=== PATIENT | male | born 1965 | race African-American/Black ===

== ENCOUNTER 2016-08-26 21:20 | Inpatient (IN) | payer MEDICARE, MEDICAID ==
[~2016-08-26] VITALS: Ht 180.3 cm; Wt 95.3 kg
[~2016-08-26 21:20] MED LIST: AMLO10TA2 PO; ASPI325T70 PO; ATOR20TA PO; CALC0.25 PO; CARV12.5 PO; CIPR250T30 PO; CYCL5TAB PO; ESOM40CA PO; FAMO40TA4 PO; FOLI0.8T21 PO; FURO-68 PO; HYDR-2666 PO; HYDR-971 PO; HYDR1TAB16 PO; INSU100C SQ; INSU100C4 SQ; INSU100I13 SQ; INSU100I17 SQ; INSU100I18 SQ; LEVO250T25 PO; METO5TAB55 PO; OXYC-323 PO; PANT40TA3 PO; VIT1TABL71 PO
[2016-08-26] MEDS ORDERED: DEXTROSE 50% 25 GM / 50ML DISP.SYRIN. IV PRN (21:45)
[2016-08-26] MEDS ORDERED: FENTANYL PF 100 MCG/2 ML VIAL. IV PRN (21:45)
[2016-08-26 22:07] LABS: BASO % 0 % (0-3); EOS % 2 % (0-3); HEMATOCRIT 34.2 % (39.0-53.0); HEMOGLOBIN 10.4 g/dL (13.0-17.5); LYMPH # 0.8 x10^3/uL (1.0-4.8); LYMPH % 13 % (24-48); MEAN CORPUSCULAR HEMOGLOBIN 25 pg (25-35); MEAN CORPUSCULAR HGB CONC 31 g/dL (31-37); MEAN CORPUSCULAR VOLUME 83 fL (79-100); MONO % 9 % (0-9); NEUT % 76 % (31-73); PLATELET COUNT 92 x10^3/uL (140-400); RED BLOOD COUNT 4.13 x10^6/uL (4.30-5.70); RED CELL DISTRIBUTION WIDTH 14.7 % (11.5-14.5); WHITE BLOOD COUNT 6.2 x10^3/uL (4.0-11.0)
[2016-08-26 22:09] LABS: POTASSIUM ISTAT 3.8 mmol/L (3.5-5.0)
[2016-08-26 22:15] LABS: INR 1.3 (0.8-1.1); PROTHROMBIN TIME PATIENT 15.1 SEC (11.7-14.0)
[2016-08-26 22:18] LABS: CALCIUM 9.5 mg/dL (8.5-10.1); CREATININE 10.9 mg/dL (0.7-1.3); GFR 6.1
[2016-08-26 22:31] LABS: ALBUMIN 3.6 g/dL (3.4-5.0); ALBUMIN/GLOBULIN RATIO 0.9 (1.0-1.7); TOTAL BILIRUBIN 0.5 mg/dL (0.2-1.0); TOTAL PROTEIN 7.5 g/dL (6.4-8.2)
[2016-08-26 22:39] LABS: PLT ESTIMATE DECREASED (ADEQUATE)
[2016-08-26 22:43] LABS: PROCALCITONIN 4.57 ng/mL (0.00-0.10)
[2016-08-26 23:12] LABS: OBC FLU VALID
[2016-08-26] MEDS ORDERED: IPRATRPIUM/ALBUTEROL 0.5/2.5MG 3 ML NEBU. NEB ONE (23:30)
[2016-08-26] MEDS ORDERED: PIP/TAZO PER PHARMACY MC PRN (23:30)
[2016-08-26] MEDS ORDERED: VANCOMYCIN PER PHARMACY MC PRN (23:30)
[2016-08-27] MEDS ORDERED: PIPERACILLIN/TAZOBACTAM 2.25 GM in IV NORMAL SALINE 50ML 50 ML IV ONE ×2
[2016-08-27] MEDS ORDERED: VANCOMYCIN 2 GM in IV NORMAL SALINE 500ML BAG 500 ML IV ONE (00:30)
[2016-08-27] MEDS ORDERED: DEXTROSE 50% 25 GM / 50ML DISP.SYRIN. IV PRN ×2 (01:00→10:15)
--- NOTE | 2016-08-27 02:14 | RAD ---
Right upper extremity arterial Doppler: Reason for examination: Right hand swelling with 5th digit necrosis. Patient said they are waiting for surgery to improve the flow to his hand. The right upper extremity arterial system was evaluated from the subclavian artery distally to the radial and ulnar arteries with grayscale imaging, color flow imaging and spectral analysis. There is monophasic turbulent blood flow throughout the entire right upper extremity arterial system with decreased flow velocity in the right radial and ulnar arteries. A dialysis port is present in the upper right arm. Right upper arm fistula is open. Impression: Monophasic waveform throughout the right upper extremity arterial system with decreased blood flow on the right radial and ulnar arteries. Right upper arm fistula is open. Electronically signed by: Kathie Jorgensen MD (Aug 27, 2016 02:12:37)
--- NOTE | 2016-08-27 02:56 | ED.ADGEN ---
Past Medical History Past Medical History: Diabetes-Type I, GERD, High Cholesterol, Heart Disease, Hypertension, Renal Disease, Renal Failure, Other Additional Past Medical Histor: foot ulcer right, LBKA, RBKA Past Surgical History: Other Additional Past Surgical Histo: LBKA , peritoneal dialysis catheter placed,RBKA , DIALYSIS SHUNT R CHEST Alcohol Use: Occasionally Drug Use: Marijuana Adult General Chief Complaint Chief Complaint: HYPOGLYCEMIA HPI HPI Patient is a 51 year old man, history of type 2 diabetes mellitus, end-stage renal disease on hemodialysis, hypertension, hyperlipidemia, who presents emergency departments with report of altered mental status, and hypoglycemia. Patient presents via EMS, was at home, was minimally responsive, noted to have a glucose in the 30s. Patient did receive D50 en route to the ED. Repeat glucose is in the 100s. Patient is awake, alert, slightly slow to respond. Nasal cannula with oxygen in place, patient noted to be hypothermic, rectal temperature 94.2. Patient denies taking any additional insulin, states he last ate about 2 hours ago, and took his insulin as directed. He denies any other euglycemic medications. Complains of some chills today, generalized weakness, no fevers. No GI or complaints. Patient's last dialysis was yesterday and was completed without issue. Patient initially noted to be hypoxic, oxygen saturation 89% on room air for EMS, patient placed on 2 L nasal cannula, saturation in the mid 90s. Patient denies any chest pain or shortness of breath. Denies any productive cough. Review of Systems Review of Systems Constitutional: Denies, complaining of chills. Generalized weakness. Eyes: Denies change in visual acuity. [] HENT: Denies nasal congestion or sore throat. [] Respiratory: Denies cough or shortness of breath. [] Cardiovascular: Denies chest pain or edema. [] GI: Denies abdominal pain, nausea, vomiting, bloody stools or diarrhea. [] : Denies dysuria. [] Musculoskeletal: Denies back pain or joint pain. [] Integument: Denies rash. [] Neurologic: Denies headache, focal weakness or sensory changes. [] Endocrine: Denies polyuria or polydipsia. [] Lymphatic: Denies swollen glands. [] Psychiatric: Denies depression or anxiety. [] Current Medications Current Medications Current Medications Medications (Trade) Dose Ordered Sig/Dawn Start Time Stop Time Status Last Admin Dose Admin Albuterol/ Ipratropium (Duoneb) 3 ml 1X ONCE 08/26/16 23:30 08/26/16 23:31 DC 08/26/16 23:24 3 ML Dextrose 12.5 gm PRN Q15MIN PRN 08/27/16 01:00 Fentanyl Citrate (Fentanyl 2ml Vial) 25 mcg PRN Q15MIN PRN 08/26/16 21:45 08/27/16 21:44 Piperacillin Sod/ Tazobactam Sod 2.25 gm/Sodium Chloride 50 ml @ 100 mls/hr 1X ONCE 08/27/16 00:00 08/27/16 00:29 DC 08/26/16 23:56 100 MLS/HR Piperacillin Sod/ Tazobactam Sod 1 each 1 each PRN DAILY PRN 08/26/16 23:30 Vancomycin HCl (Vanco Per Pharmacy) 1 each PRN DAILY PRN 08/26/16 23:30 Vancomycin HCl/ Sodium Chloride (Iv Sodium Chloride 0.9% 500ml Bag) 500 ml @ 250 mls/hr 1X ONCE 08/27/16 00:30 08/27/16 02:29 DC 08/27/16 03:24 250 MLS/HR Allergies Allergies Allergies Coded Allergies Type Severity Reaction Last Updated Verified No Known Drug Allergies 03/07/15 No Physical Exam Physical Exam Constitutional: Well developed, well nourished, no acute distress, non-toxic appearance. [] HENT: Normocephalic, atraumatic, bilateral external ears normal, oropharynx moist, no oral exudates, nose normal. [] Eyes: PERRLA, EOMI, conjunctiva normal, no discharge. [] Neck: Normal range of motion, no tenderness, supple, no stridor. [] Cardiovascular:Heart rate regular rhythm, no murmur, S1, S2, rubs or gallops. [] Lungs & Thorax: Patient with coarse breath sounds bilaterally, wheezing, patient with rhonchi noted throughout the lung dotson. Abdomen: Bowel sounds normal, soft, no tenderness, no rebound, rigidity, no guarding, no masses, no pulsatile masses. [] Skin: Warm, dry, no erythema, no rash. [] Back: No tenderness, no CVA tenderness. [] Extremities: Patient with swelling of the right hand, patient with AV fistula in place in his arm, patient's distal right fifth digit with necrosis, dry gangrene. Neurologic: Alert and oriented X 3, normal motor function, normal sensory function, no focal deficits noted. [] Psychologic: Affect normal, judgement normal, mood normal. [] Current Patient Data Vital Signs Vital Signs Date Time Temp Pulse Resp B/P Pulse Ox O2 Delivery O2 Flow Rate FiO2 08/27/16 00:21 97.6 97.6 08/26/16 23:26 90 Nasal Cannula 2.0 08/26/16 22:07 66 12 130/78 Lab Values Laboratory Tests Test 08/26/16 21:28 08/26/16 21:52 08/26/16 21:56 08/26/16 21:58 Glucose (Fingerstick) 122mg/dL (70-99) H White Blood Count 6.2x10^3/uL (4.0-11.0) Red Blood Count 4.13x10^6/uL (4.30-5.70) L Hemoglobin 10.4g/dL (13.0-17.5) L Hematocrit 34.2% (39.0-53.0) L Mean Corpuscular Volume 83fL (79-100) Mean Corpuscular Hemoglobin 25pg (25-35) Mean Corpuscular Hemoglobin Concent 31g/dL (31-37) Red Cell Distribution Width 14.7% (11.5-14.5) H Platelet Count 92x10^3/uL (140-400) L Neutrophils (%) (Auto) 76% (31-73) H Lymphocytes (%) (Auto) 13% (24-48) L Monocytes (%) (Auto) 9% (0-9) Eosinophils (%) (Auto) 2% (0-3) Basophils (%) (Auto) 0% (0-3) Neutrophils # (Auto) 4.7x10^3uL (1.8-7.7) Lymphocytes # (Auto) 0.8x10^3/uL (1.0-4.8) L Monocytes # (Auto) 0.6x10^3/uL (0.0-1.1) Eosinophils # (Auto) 0.1x10^3/uL (0.0-0.7) Basophils # (Auto) 0.0x10^3/uL (0.0-0.2) Platelet Estimate Decreased (ADEQUATE) Prothrombin Time 15.1SEC (11.7-14.0) H Prothrombin Time INR 1.3 (0.8-1.1) H PTT 35SEC (24-38) Sodium Level 147mmol/L (136-145) H Potassium Level 4.0mmol/L (3.5-5.1) Chloride Level 105mmol/L (98-107) Carbon Dioxide Level 28mmol/L (21-32) Anion Gap 14 (6-14) 17mmol/L (6-14) H Blood Urea Nitrogen 45mg/dL (8-26) H Creatinine 10.9mg/dL (0.7-1.3) H Estimated GFR (Cockcroft-Gault) 6.1 BUN/Creatinine Ratio 4 (6-20) L Glucose Level 139mg/dL (70-99) H 131mg/dL (70-99) H Lactic Acid Level 1.6mmol/L (0.4-2.0) Calcium Level 9.5mg/dL (8.5-10.1) Total Bilirubin 0.5mg/dL (0.2-1.0) Aspartate Amino Transferase (AST) 9U/L (15-37) L Alanine Aminotransferase (ALT) 16U/L (16-63) Alkaline Phosphatase 82U/L (46-116) Total Protein 7.5g/dL (6.4-8.2) Albumin 3.6g/dL (3.4-5.0) Albumin/Globulin Ratio 0.9 (1.0-1.7) L Lipase 67U/L (73-393) L Procalcitonin 4.57ng/mL (0.00-0.10) H POC Troponin I 0.01ng/ml (<0.08) POC Hemoglobin 12.6g/dL (14-18) L POC Hematocrit 37% (37-52) POC Sodium 143mmol/L (135-145) POC Potassium 3.8mmol/L (3.5-5.0) POC Chloride 102mmol/L (98-110) POC Total CO2 29mmol/L (23-32) POC Blood Urea Nitrogen 41mg/dL (8-26) H POC Creatinine 9.8mg/dL (0.5-1.4) H POC Ionized Calcium (Gretel) 1.20mmol/L (1.13-1.32) Test 08/26/16 22:14 08/26/16 22:45 08/26/16 23:15 08/27/16 00:19 Glucose (Fingerstick) 154mg/dL (70-99) H 219mg/dL (70-99) H 289mg/dL (70-99) H Influenza Type A Antigen Negative (NEGATIVE) Influenza Type B Antigen Negative (NEGATIVE) Laboratory Tests 08/26/16 21:52 Laboratory Tests 08/26/16 21:52 08/26/16 21:58 EKG EKG EC: Sinus rhythm, heart rate 72 beats minute, nonspecific interventricular block, QTC of 513, TN of 170, QRS of 154, contour normality is noted in the anterior and septal leads. Abnormal ECG, does not meet STEMI criteria. As interpreted by me. Radiology/Procedures Radiology/Procedures [] [facility] [address] [place] [address] IMAGING REPORT Signed PATIENT: MIKALA QUIÑONES ACCOUNT: [id number] : 1965 LOCATION: [facility]TH AGE: 51 SEX: M EXAM STATUS: ADM IN ORD. PHYSICIAN: MIYA CARPIO DO REASON: hand swelling/necrosis PROCEDURE: UPPER EXT ARTERIAL RIGHT Right upper extremity arterial Doppler: Reason for examination: Right hand swelling with 5th digit necrosis. Patient said they are waiting for surgery to improve the flow to his hand. The right upper extremity arterial system was evaluated from the subclavian artery distally to the radial and ulnar arteries with grayscale imaging, color flow imaging and spectral analysis. There is monophasic turbulent blood flow throughout the entire right upper extremity arterial system with decreased flow velocity in the right radial and ulnar arteries. A dialysis port is present in the upper right arm. Right upper arm fistula is open. Impression: Monophasic waveform throughout the right upper extremity arterial system with decreased blood flow on the right radial and ulnar arteries. Right upper arm fistula is open. Electronically signed by: Kathie Paz MD (Aug 27, 2016 02:12:37) DICTATED and SIGNED BY: TRACI PAZ MD DATE: 08/27/16 0212 CC: MIYA CARPIO DO; LUISA SCHWARTZ MD ~ Course & Med Decision Making Course & Med Decision Making Pertinent Labs and Imaging studies reviewed. (See chart for details) With hypothermia, hypoglycemia, and presence of swelling with necrosis of hand, concern for sepsis source as patient denies any misuse of medication. Hypoglycemia protocol in place, patient initiated on antibiotic coverage, Christie hugger, laboratory studies and imaging obtained. Doppler arterial ultrasound of the right upper extremity reveals a patent AV fistula, with diminished flow into the right upper extremity. X-ray does not reveal any acutely concerning findings. Chest x-ray also unremarkable, patient's laboratory studies reveal no significant mitral abnormalities, no cytosis. Patient remained hypothermic, Christie hugger in place, glucose did improve with serial measurements. Patient states that he is supposed to follow-up with a physician at the end of the month for treatment of his hand. Patient's hypothermia slowly resolving, glucose improved as stated. Findings as above discussed with Dr. Schwartz, the patient's primary care provider. At this point will admit to his service, med telemetry bed, continue the hypoglycemia protocol, Christie hugger, antibiotics, he will assess the patient in the morning. Bridge orders entered per discussion. Dragon Disclaimer Dragon Disclaimer This electronic medical record was generated, in whole or in part, using a voice recognition dictation system. Departure Impression: Primary Impression: Hypoglycemia Additional Impressions: Hypothermia Necrosis Disposition: ADMITTED INPATIENT Admitting Physician: Luisa Schwartz Condition: IMPROVED Problem Qualifiers MIYA CARPIO DO Aug 27, 2016 02:56
--- NOTE | 2016-08-27 05:22 | ACF ---
Admit Criteria Forms Admit Criteria Forms Admit Criteria Forms DIABETES, HYPOGLYCEMIA Clinical Indications for Admission to Inpatient Care (Place 'X' for any and all applicable criteria): Admission is indicated for ALL of the following (1)(2)(3)(4)(5): [X]I. Suspected or documented hypoglycemia (plasma glucose less than 50 mg/dL (2.78 mmol/L)) with severe clinical manifestations or issues as indicated by ANY ONE of the following: [X]a) Altered mental status (eg, coma, confusion) [ ]b) Seizure [ ]c) Ataxia [ ]d) Dysphasia [ ]e) Focal neurologic deficit(6) [ ]f) Severe weakness or fatigue [ ]g) Significant clinical signs or symptoms that do not resolve with treatment [ ]h) Hypoglycemia induced by ANY ONE of the following(7)(8)(9): [ ]i) Sulfonylurea(10) [ ]ii) Long-acting insulin (eg, half-life more than 6 hours ) (11) [X]II. Management at other levels of care (See General Criteria: Observation Care) is not feasible because of ANY ONE of the following: [X]a) Condition was not adequately corrected with treatment at other levels of care. [ ]b) Treatment at other levels of care is not appropriate because of condition severity (eg, coma). Extended stay beyond goal length of stay may be needed for(3)(12)(19): [ ]a) Long acting sulfonylurea-inducing hypoglycemia (10) [ ]b) Presentation in coma [ ]c) Identified etiology of hypoglycemia requires ongoing care (eg, infection ) [ ]d) Neurologic deficit [ ]e) Active serious comorbidities (eg, renal failure, heart failure) The original [employer] content created by [employer] has been revised. The portions of the content which have been revised are identified through the use of italic text or in bold, and [facility] [facility] has neither reviewed nor approved the modified material.All other unmodified content is copyright [employer]. Please see references footnoted in the original [employer] edition 2016 MIRNA DAS Aug 27, 2016 05:22
--- NOTE | 2016-08-27 06:11 | EKG ---
[facility] [address] [place] [address] Test Date: 2016-08-26 Test Time: 21:31:29 Pat Name: MIKALA QUIÑONES Department: Room: Gender: M Solutions Engineer: : 1965 Requested By: MIYA CARPIO Order Number: [id number] Reading MD: Measurements Intervals [place] Rate: 72 P: 31 KS: 170 QRS: 26 QRSD: 154 T: -12 QT: 462 QTc: 513 Interpretive Statements SINUS RHYTHM NON SPECIFIC INTRAVENTRICULAR BLOCK QRS(T) CONTOUR ABNORMALITY CONSISTENT WITH ANTEROSEPTAL INFARCT AGE UNDETERMINED RI6.01 Unconfirmed report No previous ECG available for comparison
[2016-08-27] MEDS: PIPERACILLIN/TAZOBACTAM 2.25 GM in IV NORMAL SALINE 50ML 50 ML IV SCH ×2 (06:35→14:00)
[2016-08-27 07:00] VITALS: BP 131/78
[2016-08-27] MEDS ORDERED: INSULIN ASPART 300 UNITS/3 ML INSULN.PEN SQ SCH (08:00)
--- NOTE | 2016-08-27 08:18 | RAD ---
Right hand, 3 views, 08/26/2016: History: Diabetes, little finger necrosis There is soft tissue loss at the tip of the little finger. No underlying fracture or definite bone destruction is seen. There are mild degenerative changes at scattered interphalangeal joints and moderate degenerative change at the first CMC joint. Extensive arterial calcifications are evident. IMPRESSION: 1. Scattered degenerative changes. 2. No acute bony abnormality is detected.
--- NOTE | 2016-08-27 09:00 | RAD ---
Portable chest, 08/26/2016: History: Shortness of breath Comparison is made to a study from 02/15/2015. The heart is at the upper limits of normal in size. There is calcific plaquing of aorta. The pulmonary vascularity is normal. No pulmonary infiltrates are seen. There is no evidence of pleural fluid. IMPRESSION: No acute cardiopulmonary abnormality is detected.
--- NOTE | 2016-08-27 10:23 | PDOC ---
Provider Note Provider Note Pt seen.H&P dictated. #[id number] IRINEO SCHWARTZ MD Aug 27, 2016 10:23
[2016-08-27] MEDS ORDERED: AMLODIPINE BESYLATE 10 MG TABLET PO SCH (10:30)
[2016-08-27 10:55] VITALS: BP 125/73
[2016-08-27] MEDS ORDERED: ENOXAPARIN 40 MG/0.4 ML DISP.SYRIN. SQ SCH (11:00)
[2016-08-27] MEDS: METOCLOPRAMIDE 5 MG TABLET PO SCH ×2 (11:53→17:16)
[2016-08-27] MEDS: INSULIN ASPART 300 UNITS/3 ML INSULN.PEN SQ SCH ×2 (11:58→17:28)
--- NOTE | 2016-08-27 12:05 | HP ---
ADMIT DATE: 08/27/2016 LOCATION: 8. REASON FOR ADMISSION TO THE HOSPITAL: Hypoglycemia. The patient has history of diabetes, end-stage renal disease, on dialysis. HISTORY OF PRESENT ILLNESS: The patient is 51-year-old male with history of diabetes complications including bilateral amputation. He has prosthesis. He goes to dialysis 3 times a week, Saturday, and Saturday. He was admitted to the ER for hypoglycemia and altered mental status. Minimally responsive. He was noted to have a glucose of 30. He was given D50 and sugar went up to 100 and slightly responsive, but he was hypothermic, rectal temperature was 94 and was admitted to the hospital. He was given broad spectrum antibiotic. Culture was done. The patient is much better now. He is anxious to go home. No fever. PAST MEDICAL HISTORY: Diabetes insulin-dependent type 2, hypertension, hyperlipidemia, congestive heart failure, chronic systolic hypertension, renal failure, hemodialysis, chronic anemia of renal disease. PAST SURGICAL HISTORY: He had bilateral leg amputation, had hemodialysis in the right upper extremity and he was on peritoneal dialysis before that. ALLERGIES: No known drug allergies. MEDICATIONS AT HOME: Lasix 40 mg twice a day, NovoLog sliding scale, Lantus 10-15 units daily, amlodipine 10 mg daily, atorvastatin 10 mg daily, calcitriol 0.25 daily, Coreg 12.5 twice a day, Reglan 5 mg 4 times daily, oxycodone 1 every 8 hours p.r.n., Protonix 40 mg daily. PERSONAL HISTORY: No history of smoking, alcohol, drug abuse. Social marijuana. FAMILY HISTORY: Positive for diabetes, hypertension, heart disease as well as kidney problems and dialysis. REVIEW OF SYSTEMS: CARDIAC: No chest pain. GASTROINTESTINAL: No nausea or vomiting. NEUROLOGICAL: No weakness. Now he is feeling better, anxious to go home. PHYSICAL EXAMINATION: VITAL SIGNS: At the time of admission shows temperature 94.5, pulse 73, respirations 12, blood pressure 167/85, 97 on room air. HEENT: Head is atraumatic. Pupils equal. Oral cavity: No congestion. NECK: Supple. Thyroid not enlarged. JVD not elevated. CHEST: Symmetrical. CARDIOVASCULAR: S1, S2. LUNGS: Clear. ABDOMEN: Soft, had scar from previous peritoneal dialysis catheter, which was removed. EXTERNAL GENITALIA: No Leone. RECTAL: Deferred. EXTREMITIES: Bilateral [id number] amputations, stumps look good, has prosthesis. The patient has an AV shunt in the right arm, thrill present. The patient has ischemic finger on the right fourth finger, has been seen [facility]. They are doing outpatient procedures. Left arm, no problems noted. NEUROLOGIC: Cranial nerves intact. Moving all extremities. No focal deficits noted. LABORATORY DATA: Shows a white count of 6, hemoglobin 10.4, platelets 92. Electrolytes show sodium 142, potassium 3.8, chloride 102, bicarbonate 29, BUN 45, creatinine 10.9, anion gap is 14. Lactic acid 1.6. LFTs were normal. Troponin was negative and influenza A and B was negative. Chest x-ray was negative. Arterial Doppler shows decreased blood flow. FINAL IMPRESSION: 1. Hypoglycemia. 2. Diabetes, insulin-dependent. 3. End-stage renal disease, on hemodialysis. 4. Problems with the shunt with some ischemia on the fourth finger, has been followed outpatient by Vascular. 5. Bilateral below the knee amputations 6. Anemia of chronic disease. 7. Chronic systolic heart failure, stable. PLAN: At this time admit to hospital, overnight observation to see how the blood sugars are. The patient is anxious to go home and if no problems we can discharge him and discontinue the antibiotics. At the present time, he was started on broad spectrum antibiotics because of hypothermia. IRINEO SCHWARTZ MD DR: MIK/latoya JOB#: [id number] / [id number]
[2016-08-27] MEDS ORDERED: HEPARIN PF for SUB-Q USE 5,000 UNIT/0.5 ML VIAL. SQ SCH (14:00)
[2016-08-27] MEDS ORDERED: OXYCODONE/APAP 5/325 TABLET. PO SCH (14:00)
[2016-08-27 15:03] VITALS: BP 122/68
[2016-08-27] MEDS ORDERED: PANTOPRAZOLE 40 MG TABLET. PO SCH (16:30)
[2016-08-27] MEDS ORDERED: CARVEDILOL 12.5 MG TABLET PO SCH (17:00)
[2016-08-27 17:23] VITALS: BP 122/68
[2016-08-27] MEDS ORDERED: INSU100I13 SQ (17:44)
[2016-08-27] MEDS ORDERED: INSU100I17 SQ (17:44)
[2016-08-27] MEDS ORDERED: ATORVASTATIN CALCIUM 20 MG TABLET PO SCH (21:00)
[2016-08-28] MEDS ORDERED: CALCITRIOL 0.25 MCG CAPSULE PO SCH (09:00)
[2016-08-29] MEDS ORDERED: VANCOMYCIN RANDOM LEVEL. MC ONE (05:00)
--- NOTE | 2016-08-29 22:25 | PDOC ---
Provider Note Provider Note Discharge summary dictated. #[id number] IRINEO SCHWARTZ MD Aug 29, 2016 22:25
--- NOTE | 2016-08-30 00:03 | DS ---
DATE OF DISCHARGE: 08/27/2016 REASON FOR ADMISSION TO THE HOSPITAL: Hypoglycemia; diabetes, insulin-dependent and end-stage renal disease. CONSULTATIONS: None. PROCEDURE DONE: None. HOSPITAL COURSE: The patient is a 51-year-old male with history of diabetes. He is on insulin 3 times daily. He is on dialysis 3 times a week, also bilateral leg amputee. He is a prosthesis. He was having confusion, was found to have a low blood sugar, was brought to the hospital. Also, hypothermic, was given fluids and ____ his temperature came back up, sugars came back up and he was feeling better, back to his baseline and is anxious to discharged go home. A1c was 6.6, glucose 209, lipase was normal, TSH was normal and sugar was 30 at the time of admission. Blood culture was negative, chest x-ray was negative. X-ray of the head negative. The patient has some problems with the finger in the right fourth. The patient ____ in the right arm has been followed by the Vascular outpatient, actually is improving from before. FINAL DIAGNOSES: 1. Hypoglycemia 2. Insulin-dependent diabetes. 3. End-stage renal disease, on dialysis. 4. Bilateral amputee. 5. Ischemic finger secondary to AV shunt has been followed by Vascular. The patient is discharged home and had on the insulin from 20 units to 10, on the Lantus 15 three times daily to 8 units of NovoLog and see how he does. IRINEO SCHWARTZ MD DR: MIK/latoya JOB#: [id number] / [id number]
== END 2016-08-27 18:23 | disposition home health service (06) | DRG 638 ==
LOC: ER 21:20 → 5 SOUTH 08-27 01:03
PROVIDERS: ADMIT Internal Medicine; ATTEND Internal Medicine
DX: E10.649 Type 1 diabetes mellitus with hypoglycemia without coma (principal); I50.22 Chronic systolic (congestive) heart failure; I13.2 Hypertensive heart and chronic kidney disease with heart failure and with stage 5 chronic kidney disease, or end stage renal disease; E10.22 Type 1 diabetes mellitus with diabetic chronic kidney disease; E78.00 Pure hypercholesterolemia, unspecified; E78.5 Hyperlipidemia, unspecified; K21.9 Gastro-esophageal reflux disease without esophagitis; D63.8 Anemia in other chronic diseases classified elsewhere; N18.6 End stage renal disease; R09.02 Hypoxemia; Z79.4 Long term (current) use of insulin; Z82.49 Family history of ischemic heart disease and other diseases of the circulatory system; Z83.3 Family history of diabetes mellitus; Z89.512 Acquired absence of left leg below knee; Z89.511 Acquired absence of right leg below knee; Z99.2 Dependence on renal dialysis
CPT/HCPCS: 36415; 71010; 73130; 80047; 80053; 80061; 82947; 83036; 83605; 83690; 84145; 84443; 84484; 85007; 85027; 85610; 85730; 87040; 87804; 93005; 93931; 94640; 96365; 96366; J1815; J2543; J3370; J7040; J7620; J8597; 99285-25

== ENCOUNTER 2016-10-15 14:33 | Emergency (ER) | payer MEDICARE, MEDICAID ==
[~2016-10-15] VITALS: Ht 189.2 cm; Wt 99.8 kg
--- NOTE | 2016-10-15 15:21 | PHYS DOC ---
Past Medical History Past Medical History: Diabetes-Type I, GERD, High Cholesterol, Heart Disease, Hypertension, Renal Disease, Renal Failure, Other Additional Past Medical Histor: foot ulcer right, LBKA, RBKA Past Surgical History: Other Additional Past Surgical Histo: LBKA , peritoneal dialysis catheter placed,RBKA , DIALYSIS SHUNT R CHEST Alcohol Use: Occasionally Drug Use: Marijuana Adult General Chief Complaint Chief Complaint: HYPOGLYCEMIA HPI HPI 51-year-old male with known history of insulin dependent diabetes had an episode of hypoglycemia prior to arrival. Per EMS, had a blood glucose of 63 in the field. Pulmonary initial assessment, the patient is fully alert and oriented and nontoxic in appearance. He is afebrile. He has no specific complaints at this time. He can follow my commands. Patient states he normally takes NovoLog 3 times a day with meals and Lantus at night. He states he took his usual NovoLog dose in the morning with his meal but then did not have lunch. He believes this is why he had a decrease in his blood glucose. He felt dizzy and lightheaded but did not fall or hit his head. Upon arrival, here his blood glucose was in the 80s. Patient is currently eating a meal and does not have any specific complaints. He denies any chest pain or shortness breath. He denies any fever or chills. He denies any nausea or vomiting. Pt was given oral glucose by EMS. Review of Systems Review of Systems Constitutional: Denies fever or chills [] Eyes: Denies change in visual acuity, redness, or eye pain [] HENT: Denies nasal congestion or sore throat [] Respiratory: Denies cough or shortness of breath [] Cardiovascular: No additional information not addressed in HPI [] GI: Denies abdominal pain, nausea, vomiting, bloody stools or diarrhea [] : Denies dysuria or hematuria [] Musculoskeletal: Denies back pain or joint pain [] Integument: Denies rash or skin lesions [] Neurologic: Denies headache, focal weakness or sensory changes [] Endocrine: Denies polyuria or polydipsia [] Allergies Allergies Allergies Coded Allergies Type Severity Reaction Last Updated Verified No Known Drug Allergies 03/07/15 No Physical Exam Physical Exam Constitutional: Well developed, well nourished, no acute distress, non-toxic appearance. [] HENT: Normocephalic, atraumatic, bilateral external ears normal, oropharynx moist, no oral exudates, nose normal. [] Eyes: PERRLA, EOMI, conjunctiva normal, no discharge. [] Neck: Normal range of motion, no tenderness, supple, no stridor. [] Cardiovascular:Heart rate regular rhythm, no murmur [] Lungs & Thorax: Bilateral breath sounds clear to auscultation [] Abdomen: Bowel sounds normal, soft, no tenderness, no masses, no pulsatile masses. [] Skin: Warm, dry, no erythema, no rash. [] Back: No tenderness, no CVA tenderness. [] Extremities: No tenderness, no cyanosis, no clubbing, ROM intact, no edema. [] Neurologic: Alert and oriented X 3, normal motor function, normal sensory function, no focal deficits noted. [] Psychologic: Affect normal, judgement normal, mood normal. [] Current Patient Data Vital Signs Vital Signs Date Time Temp Pulse Resp B/P (MAP) Pulse Ox O2 Delivery O2 Flow Rate FiO2 10/15/16 14:35 97.8 72 14 128/75 (92) 98 Room Air 97.8 Lab Values Laboratory Tests Test 10/15/16 15:33 Glucose (Fingerstick) 114 mg/dL (70-99) H EKG EKG [] Radiology/Procedures Radiology/Procedures [] Course & Med Decision Making Course & Med Decision Making Pertinent Labs and Imaging studies reviewed. (See chart for details) 51-year-old known insulin-dependent diabetic with an episode of hypoglycemia prior to arrival is having a meal upon arrival and does not have any specific complaints. The plan will be to observe the patient after having a meal and recheck his blood glucose after 1 hour. If he has no change in his mental status or change in his blood glucose level, he will be discharged home to follow closely with his primary care doctor in the next several days and to continue his insulin regimen as prescribed. Pt was observed for an hour and a half and had a blood glucose of 114 and will be safe to be discharged continue his insulin regimen at home as prescribed although with his primary care doctor next several days with instruction return if he develops any return of his symptoms. Return precautions were provided and acknowledged by the patient. Dragon Disclaimer Dragon Disclaimer This electronic medical record was generated, in whole or in part, using a voice recognition dictation system. Departure Departure Impression: Primary Impression: Hypoglycemia Disposition: HOME, SELF-CARE Admitting Physician: Other Condition: IMPROVED Referrals: IRINEO SCHWARTZ MD (PCP) Patient Instructions: Hypoglycemia, [id number] Additional Instructions: Please continue to take your insulin as prescribed. Follow up with your primary care doctor in the next several days for your episode of blood low blood glucose. Continue to eat regular meals and check your glucose regularly. Return to ER if you develop any return of your dizziness or lightheadedness or dropping of your blood sugar. DOMO CAUSEY DO October 15, 2016 15:21
[2016-10-15 16:19] VITALS: BP 140/70
== END 2016-10-15 16:21 | disposition home or self-care (01) ==
LOC: ER 14:33
DX: E10.649 Type 1 diabetes mellitus with hypoglycemia without coma (principal); K21.9 Gastro-esophageal reflux disease without esophagitis; E78.00 Pure hypercholesterolemia, unspecified; E10.22 Type 1 diabetes mellitus with diabetic chronic kidney disease; I13.10 Hypertensive heart and chronic kidney disease without heart failure, with stage 1 through stage 4 chronic kidney disease, or unspecified chronic kidney disease; N18.9 Chronic kidney disease, unspecified; F12.10 Cannabis abuse, uncomplicated; E10.621 Type 1 diabetes mellitus with foot ulcer; L97.519 Non-pressure chronic ulcer of other part of right foot with unspecified severity; Z99.2 Dependence on renal dialysis; Z79.4 Long term (current) use of insulin
CPT/HCPCS: 82962; 99284

== ENCOUNTER → 2016-11-12 | Day surgery (SDC) | payer MEDICARE, MEDICAID ==
[~2016-11-12] MED LIST changes: +IV NORMAL SALINE 1000ML BAG 1,000 ML IV SCH; +PROPOFOL 20 ML IV ONE
--- NOTE | 2016-11-12 09:07 | PDOC1 ---
HISTORY & PHYSICAL H&P Mauri Holbrook [id number] 1965 10/31/2016 03:20 PM 06/10 [facility] [email or web address] [facility] OUR PATIENTS COME FIRST [address] [place], [place] [id number] Ph. [phone] Patient: Mauri Holbrook Date of : 1965 Date: 10/31/2016 3:20 PM Visit Type: Office Visit This 51 year old male presents for Anemia. History of Present Illness: 1. Anemia Type of anemia was acquired for deficiency anemia (iron deficient). Pertinent negatives include abdominal pain, black tarry stools, bleeding gums, constipation, diarrhea, nausea, vomiting and weight loss. Additional information: Has periodic drop in hgb down to 8. Has incomplete colonoscopy in 2012. Has no rectal bleeding. No wt loss. INTAKE COMMENTS: Intake Comments: Nurse Note: the pt is here today with complaints of Anemia, the pt was suppose to have a colonoscopy in 2012 but did not prep well. PROBLEM LIST: Problem Description Onset Date ESRD (end stage renal disease) on dialysis 09/21/2015 IDDM (insulin dependent diabetes mellitus) 09/21/2015 Ulcer of finger, with fat layer exposed 03/13/2016 Amputated below knee 10/11/2010 Chronic renal impairment 10/11/2010 Hyperlipidemia 01/18/2010 Coronary atherosclerosis 01/18/2010 Osteomyelitis of ankle AND/OR foot 01/18/2010 Hypotension of hemodialysis 06/22/2015 Medicare advantage coverage 04/17/2013 Diabetes mellitus without complication 03/25/2009 Congestive heart failure 03/25/2009 Benign essential hypertension 03/25/2009 Edema 03/25/2009 Mechanical complication of peritoneal dialysis catheter 09/14/2013 Amputation leg, bilat ^ 09/21/2015 Dialysis finding 05/18/2013 End stage renal disease 05/18/2013 ESRD on peritoneal dialysis 10/25/2014 DM circ dis type II 10/25/2014 Controlled diabetes mellitus 08/17/2015 PAST MEDICAL/SURGICAL HISTORY (Detailed) Disease/disorder Onset Date Management Date Comments EGD 10/25/2011 AV shunt rt arm 09/28/2016 Congestive heart failure Esophagitis 10/25/2011 Hyperlipidemia Hypertension Lt BKA 2010 osteomylitis osteo foot 2010 bka Osteoarthritis Osteomyelitis 2014 right BKA osteomylitis lt heal 2010 lt BKA 2010 DIAGNOSTICS HISTORY: Test Ordered Interpretation Result completed UPPR GI ENDOSCOPY, DIAGNOSIS 10/25/2011 Abnormal Imp: grade l ref esophagitis, food in the stomach body. 10/25/2011 Test Ordered Ordering Comments Modifier UPPR GI ENDOSCOPY, DIAGNOSIS 10/25/2011 Gastroenterology Medications (Active): Started Medication Directions Instruction Stopped 07/06/2014 1st Tier Unifine Pentips 31 X 1/4" needle USE DIRECTED. diabetes mellitus, uncontrolled. 250.02 03/18/2013 aspirin 325 mg Tab, Delayed Release take 1 tablet (325MG) by oral route every day 12/16/2014 atorvastatin 20 mg tablet take 1 tablet by oral route every day 03/13/2016 Bactroban 2 % topical ointment apply by topical route 3 times every day a small amount to the affected area 12/16/2014 calcitriol 0.25 mcg capsule take 1 capsule by oral route every day 09/03/2016 Humalog KwikPen 100 unit/mL subcutaneous inject by subcutaneous route 10 units TID with meals. 10/30/2016 hydrocodone 10 mg-acetaminophen 325 mg tablet take 1 tablet by oral route every 8 hours as needed for pain 09/03/2016 Lantus Solostar 100 unit/mL (3 mL) subcutaneous insulin pen 10 u at hs 10/04/2014 One Touch UltraSoft Lancets Use as directed dx: diabetes mellitus, uncontrolled; 250.02 12/16/2014 InbentaTouch Ultra System Kit use as directed 06/14/2015 OneTouch Ultra Test strips USE QID DO TO FLUCTUATING /ELEVATED SUGARS (E11.51 ) ICD10 E11.51 03/08/2016 Pen Needle 31 gauge x 5/16" TO USE QID FOR DIABEES (E11.9) 10/07/2015 Reglan 5 mg tablet take 1 tablet (5MG) by oral route 4 times every day 30 minutes before meals and at bedtime 12/16/2014 Renvela 800 mg tablet take 1 tablet by oral route 3 times every day with food 03/13/2016 sulfamethoxazole 800 mg-trimethoprim 160 mg tablet take 1 tablet every day Allergies: Ingredient Reaction Medication Name Comment ARB-ANGIOTENSIN RECEPTOR ANTAGONIST hyperkalemia GLADYS INHIBITORS hyperkalemia REVIEW OF SYSTEMS System Neg/Pos Details Constitutional Negative Chills, fever, malaise and weight loss. ENMT Negative Bleeding gums and sore throat. Eyes Negative Double vision. Respiratory Negative Dyspnea and wheezing. Cardio Negative Chest pain and irregular heartbeat/palpitations. GI Positive See HPI. GI Negative Abdominal pain, black tarry stools, constipation, diarrhea, nausea, see HPI and vomiting. Negative Dysuria and hematuria. Endocrine Negative Cold intolerance and heat intolerance. Psych Negative Anxiety. Integumentary Negative Hives and rash. MS Negative Joint pain. Jeff/Lymph Negative Easy bleeding and easy bruising. Allergic/Immuno Negative Food allergies. VITAL SIGNS Time BP mm/Hg Pulse /min Resp /min Temp F Ht ft Ht in Ht cm Wt lb Wt kg BMI kg/ m2 BSA m2 O2 Sat% 4:01 PM 132/78 99 97.8 6.0 3.00 190.50 214.80 97.432 26.85 100 Time Measured by 4:01 PM Melyssa Ring PHYSICAL EXAM: Exam Findings Details Constitutional Normal Well developed. Eyes Normal Conjunctiva - Right: Normal, Left: Normal. Sclera - Right: Normal, Left: Normal. Nasopharynx Normal Lips/teeth/gums - Normal. Neck Exam Normal Inspection - Normal. Thyroid gland - Normal. Respiratory Normal Inspection - Normal. Auscultation - Normal. Cardiovascular Normal Regular rate and rhythm. No murmurs, gallops, or rubs. Vascular Normal Pulses - Carotids: Normal, Femoral: Normal, Dorsalis pedis: Normal. Abdomen Normal Inspection - Normal. Anterior palpation - No guarding. No abdominal tenderness. No hepatic enlargement. No splenic enlargement. No hernia. No ascites. Skin Normal Inspection - Normal. Extremity Normal No edema. Psychiatric * Oriented to time, place, person and situation. Psychiatric Normal Appropriate mood and effect. Assessment/Plan # Detail Type Description 1. Assessment Iron deficiency anemia due to chronic blood loss (D50.0). [place] [facility] [place] Further diagnostic evaluations ordered today include(s) Colonoscopy to be performed today. He is to schedule a follow-up visit with Jun Ford MD upon completion of work-up Electronically signed by: Jun Ford MD 10/31/2016 04:13 PM Document generated by: Jun Ford 10/31/2016 04:13 PM Mika Bowden MD, Family Practice; Cruz Goncalves MD Internal Medicine; Luisa Noonan MD, Internal Medicine; Erum Ford MD Internal Medicine; Jun Ford MD, Gastroenterology; Sadiq Bueno MD, Rheumatology, S. Jerry Roy, Physical Medicine/Rehab JDhara Martinez APRN ------ 11/12/16 Patient seen and examined. no change in H&P. JUN FORD MD Nov 12, 2016 09:07
--- NOTE | 2016-11-12 10:16 | PDOC4 ---
GI OP Report - Dr. Castillo Date/Time DATE: 11/12/16 TIME: 10:14 Attending Physician Eh Castillo MD Referring Physician Indications Iron deficiency anemia secondary to chronic blood loss Pre-Op See the Anesthesia note for documentation of the administered medications Procedures Colonoscopy Findings - Preparation of the colon was fair. Significant spasm of the colon. - The entire examined colon is normal. - No specimens collected. Plan - Discharge patient to home. - Patient has a contact number available for emergencies. The signs and symptoms of potential delayed complications were discussed with the patient. Return to normal activities tomorrow. Written discharge instructions were provided to the patient. - Resume previous diet. - Continue present medications. - Repeat colonoscopy in 10 years for surveillance. - Return to my office as needed. EH CASTILLO MD Nov 12, 2016 10:16
[2016-11-12 10:30] VITALS: BP 129/73
== END | disposition home or self-care (01) ==
LOC: ENDOS 08:36
PROVIDERS: ATTEND Internal Medicine Gastroenterology
DX: D50.0 Iron deficiency anemia secondary to blood loss (chronic) (principal); K21.9 Gastro-esophageal reflux disease without esophagitis; E78.00 Pure hypercholesterolemia, unspecified; I10 Essential (primary) hypertension; E66.9 Obesity, unspecified; D64.9 Anemia, unspecified; E16.2 Hypoglycemia, unspecified; E11.9 Type 2 diabetes mellitus without complications; Z96.651 Presence of right artificial knee joint; Z86.73 Personal history of transient ischemic attack (TIA), and cerebral infarction without residual deficits; Z86.69 Personal history of other diseases of the nervous system and sense organs; Z86.39 Personal history of other endocrine, nutritional and metabolic disease
CPT/HCPCS: 45378; 82962; J2704

== ENCOUNTER 2018-01-08 16:20 | Emergency (ER) | payer MEDICARE, MEDICAID ==
[2018-01-08] MEDS ORDERED: DEXTROSE 50% 25 GM / 50ML DISP.SYRIN. IV (16:26)
[2018-01-08] MEDS: DEXTROSE 50% 25 GM / 50ML DISP.SYRIN. IV (16:27)
[2018-01-08 16:40] LABS: ADD MAN DIFF? NO
[2018-01-08 16:46] LABS: POC GLUCOSE 12 mg/dL (70-99)
[2018-01-08 16:46] LABS: POC GLUCOSE 74 mg/dL (70-99)
[2018-01-08 16:46] LABS: BASO % 1 % (0-3); EOS # 0.1 x10^3/uL (0.0-0.7); EOS % 3 % (0-3); HEMATOCRIT 32.7 % (39.0-53.0); HEMOGLOBIN 10.3 g/dL (13.0-17.5); LYMPH # 1.3 x10^3/uL (1.0-4.8); LYMPH % 31 % (24-48); MEAN CORPUSCULAR HEMOGLOBIN 26 pg (25-35); MEAN CORPUSCULAR HGB CONC 31 g/dL (31-37); MEAN CORPUSCULAR VOLUME 83 fL (79-100); MONO # 0.6 x10^3/uL (0.0-1.1); MONO % 14 % (0-9); NEUT # 2.2 x10^3uL (1.8-7.7); NEUT % 51 % (31-73); PLATELET COUNT 100 x10^3/uL (140-400); RED BLOOD COUNT 3.96 x10^6/uL (4.30-5.70); RED CELL DISTRIBUTION WIDTH 17.1 % (11.5-14.5); WHITE BLOOD COUNT 4.3 x10^3/uL (4.0-11.0)
[2018-01-08 16:53] LABS: ANION GAP 10 (6-14); BLOOD UREA NITROGEN 64 mg/dL (8-26); CALCIUM 10.5 mg/dL (8.5-10.1); CARBON DIOXIDE 32 mmol/L (21-32); CHLORIDE 103 mmol/L (98-107); CREATININE 12.2 mg/dL (0.7-1.3); GFR 5.3; POTASSIUM 4.5 mmol/L (3.5-5.1); SODIUM 145 mmol/L (136-145)
[2018-01-08 16:56] LABS: GLUCOSE 22 mg/dL (70-99)
[2018-01-08 17:12] LABS: POC GLUCOSE 48 mg/dL (70-99)
[2018-01-08 17:36] LABS: POC GLUCOSE 61 mg/dL (70-99)
[2018-01-08 17:40] LABS: PLT ESTIMATE DECREASED (ADEQUATE)
[2018-01-08 17:42] LABS: ANISOCYTOSIS SLIGHT; HYPOCHROMIA SLIGHT; MICROCYTOSIS SLIGHT; POIKILOCYTOSIS MOD
[2018-01-08 17:43] LABS: HELMET CELLS OCC; OVALOCYTES FEW; SCHISTOCYTES FEW
[2018-01-08 18:35] LABS: POC GLUCOSE 99 mg/dL (70-99)
== END 2018-01-08 18:52 | disposition home or self-care (01) ==
LOC: ER 16:20
DX: E10.649 Type 1 diabetes mellitus with hypoglycemia without coma (principal); E78.00 Pure hypercholesterolemia, unspecified; I13.11 Hypertensive heart and chronic kidney disease without heart failure, with stage 5 chronic kidney disease, or end stage renal disease; E10.22 Type 1 diabetes mellitus with diabetic chronic kidney disease; N18.6 End stage renal disease; E10.621 Type 1 diabetes mellitus with foot ulcer; Z99.2 Dependence on renal dialysis
CPT/HCPCS: 36415; 80048; 82962; 85025; 93005; 96374; 99285-25; J7042

== ENCOUNTER 2018-01-13 07:02 | Outpatient (CLI) | payer MEDICARE, MEDICAID ==
[2018-01-13 07:47] LABS: INR 1.3 (0.8-1.1); PROTHROMBIN TIME PATIENT 15.2 SEC (11.7-14.0)
[2018-01-13 07:56] LABS: ADD MAN DIFF? NO
[2018-01-13 08:03] LABS: BASO % 1 % (0-3); EOS # 0.1 x10^3/uL (0.0-0.7); EOS % 2 % (0-3); HEMATOCRIT 33.2 % (39.0-53.0); HEMOGLOBIN 10.4 g/dL (13.0-17.5); LYMPH % 24 % (24-48); MEAN CORPUSCULAR HEMOGLOBIN 26 pg (25-35); MEAN CORPUSCULAR HGB CONC 31 g/dL (31-37); MEAN CORPUSCULAR VOLUME 83 fL (79-100); MONO # 0.5 x10^3/uL (0.0-1.1); MONO % 11 % (0-9); NEUT # 2.5 x10^3uL (1.8-7.7); NEUT % 62 % (31-73); PLATELET COUNT 93 x10^3/uL (140-400); RED BLOOD COUNT 4.01 x10^6/uL (4.30-5.70); RED CELL DISTRIBUTION WIDTH 16.9 % (11.5-14.5); WHITE BLOOD COUNT 4.1 x10^3/uL (4.0-11.0)
[2018-01-13] MEDS ORDERED: LIDOCAINE WITH 8.4% SOD BICARB 3 ML DISP.SYRIN. (08:14)
[2018-01-13] MEDS ORDERED: MIDAZOLAM HCL/PF 2 MG/2 ML VIAL. (08:40)
[2018-01-13] MEDS ORDERED: fentaNYL PF VIAL 100 MCG/2 ML VIAL (08:40)
[2018-01-13] MEDS: LIDOCAINE WITH 8.4% SOD BICARB 3 ML DISP.SYRIN. IJ (09:10)
[2018-01-13] MEDS: fentaNYL PF VIAL 100 MCG/2 ML VIAL IV (09:10)
[2018-01-13] MEDS: MIDAZOLAM HCL/PF 2 MG/2 ML VIAL. IV (09:11)
== END 2018-01-13 11:45 | disposition home or self-care (01) ==
LOC: INTRAD 07:02
DX: D61.818 Other pancytopenia (principal); I13.2 Hypertensive heart and chronic kidney disease with heart failure and with stage 5 chronic kidney disease, or end stage renal disease; E11.22 Type 2 diabetes mellitus with diabetic chronic kidney disease; N18.6 End stage renal disease; I50.9 Heart failure, unspecified; Z99.2 Dependence on renal dialysis; K21.9 Gastro-esophageal reflux disease without esophagitis; I25.10 Atherosclerotic heart disease of native coronary artery without angina pectoris; E66.9 Obesity, unspecified; Z68.26 Body mass index [BMI] 26.0-26.9, adult; Z79.899 Other long term (current) drug therapy; Z86.73 Personal history of transient ischemic attack (TIA), and cerebral infarction without residual deficits; E78.00 Pure hypercholesterolemia, unspecified; E11.42 Type 2 diabetes mellitus with diabetic polyneuropathy; Z79.01 Long term (current) use of anticoagulants; Z89.512 Acquired absence of left leg below knee; Z89.511 Acquired absence of right leg below knee; M86.9 Osteomyelitis, unspecified; E11.649 Type 2 diabetes mellitus with hypoglycemia without coma; D64.9 Anemia, unspecified; Z86.14 Personal history of Methicillin resistant Staphylococcus aureus infection; Z98.890 Other specified postprocedural states; Z79.82 Long term (current) use of aspirin; Z79.4 Long term (current) use of insulin
CPT/HCPCS: 36415; 38222; 77012; 85025; 85610; 88184; 88185; 88237; 99152; J2250; J3010

== ENCOUNTER 2018-02-14 09:39 | Inpatient (IN) | payer MEDICARE ==
[~2018-02-14] VITALS: Ht 188 cm; Wt 96.6 kg
[~2018-02-14 09:39] MED LIST changes: -AMOX1TAB58 PO; -DOXY50CA PO
[2018-02-14] MEDS ORDERED: DEXTROSE 50% 25 GM / 50ML DISP.SYRIN. IV PRN (10:45)
[2018-02-14] MEDS ORDERED: traMADol 50 MG TABLET PO PRN (10:45)
--- NOTE | 2018-02-14 10:48 | PDOC ---
Provider Note Provider Note Pt seen.H&P to be dictated. IRINEO SCHWARTZ MD Feb 14, 2018 10:48
[2018-02-14 11:00] VITALS: BP 140/73
[2018-02-14] MEDS ORDERED: VANCOMYCIN 1.25 GM in IV NORMAL SALINE 250ML 250 ML IV ONE (11:00)
[2018-02-14 11:15] LABS: BASO % 1 % (0-3); EOS # 0.2 x10^3/uL (0.0-0.7); EOS % 4 % (0-3); HEMATOCRIT 25.7 % (39.0-53.0); HEMOGLOBIN 8.2 g/dL (13.0-17.5); LYMPH # 0.7 x10^3/uL (1.0-4.8); LYMPH % 19 % (24-48); MEAN CORPUSCULAR HEMOGLOBIN 26 pg (25-35); MEAN CORPUSCULAR HGB CONC 32 g/dL (31-37); MEAN CORPUSCULAR VOLUME 81 fL (79-100); MONO # 0.5 x10^3/uL (0.0-1.1); MONO % 14 % (0-9); NEUT # 2.4 x10^3uL (1.8-7.7); NEUT % 61 % (31-73); PLATELET COUNT 162 x10^3/uL (140-400); RED BLOOD COUNT 3.17 x10^6/uL (4.30-5.70); WHITE BLOOD COUNT 3.8 x10^3/uL (4.0-11.0)
[2018-02-14] MEDS ORDERED: C.DIFF MED SCREEN BY RX. MC ONE (11:15)
--- NOTE | 2018-02-14 11:27 | PDOC ---
Infectious Disease Note Labs Lab Laboratory Tests Test 02/14/18 11:08 Glucose (Fingerstick) 198 mg/dL (70-99) Objective Assessment Right stump infection/abscess s/p local I and D CKD on HD DM H/o Staph and strep/PSA Plan Plan of Care Agree with Vanc/Zosyn Await Ortho eval F/u labs and cults Thank you # [id number] Previous records reviewed RAYMOND NGO MD Feb 14, 2018 11:27
[2018-02-14] MEDS ORDERED: VANCOMYCIN 2 GM in IV NORMAL SALINE 500ML BAG 500 ML IV ONE (11:30)
[2018-02-14 12:02] LABS: ALBUMIN 2.8 g/dL (3.4-5.0); ALBUMIN/GLOBULIN RATIO 0.6 (1.0-1.7); CREATININE 10.3 mg/dL (0.7-1.3); GFR 6.5; POTASSIUM 4.3 mmol/L (3.5-5.1); TOTAL BILIRUBIN 0.5 mg/dL (0.2-1.0); TOTAL PROTEIN 7.7 g/dL (6.4-8.2)
[2018-02-14] MEDS: SEVELAMER CARBONATE 800 MG TABLET. PO SCH ×2 (12:42→16:54)
[2018-02-14] MEDS: CARVEDILOL 12.5 MG TABLET. PO SCH ×2 (12:42→16:54)
[2018-02-14] MEDS: METOCLOPRAMIDE 5 MG TABLET. PO SCH ×3 (12:42→21:29)
[2018-02-14] MEDS: ASPIRIN ENTERIC COATED 325 MG TABLET.DR. PO SCH (12:42)
[2018-02-14] MEDS: INSULIN LISPRO 300 UNITS/3 ML INSULN.PEN. SQ SCH ×4 (12:46→17:01)
[2018-02-14] MEDS: PIPERACILLIN/TAZOBACTAM 2.25 GM in IV NORMAL SALINE 50ML 50 ML IV SCH ×2 (14:40→21:30)
[2018-02-14 15:00] VITALS: BP 105/50
[2018-02-14] MEDS: VANCOMYCIN PER PHARMACY MC PRN (15:35)
--- NOTE | 2018-02-14 18:38 | HP ---
ADMIT DATE: 02/14/2018 LOCATION: 50 REASON FOR ADMISSION TO THE HOSPITAL: Abscess, right leg stump; diabetes; end-stage renal disease. HISTORY OF PRESENT ILLNESS: The patient is a 52-year-old male patient who came in the last week for fever and pain in the right stump. At that time, the patient did not have any abscess and fever, was down, white count was down. He was discharged on Keflex. [facility] ulceration on the left leg, but he was found to have a deep abscess which was kind of draining on the right stump. The patient was admitted to the hospital because of possible abscess in the right stump. PAST MEDICAL HISTORY: As mentioned above, the patient has history of diabetes, complications including bilateral [id number] amputation, has bilateral prosthesis, has AV shunt for dialysis. He had peritoneal dialysis catheter in the past, which was removed and medical history of diabetes, hypertension, hyperlipidemia, anemia of chronic disease, chronic systolic heart failure, coronary artery disease stable. ALLERGIES: No known drug allergies. MEDICATIONS AT HOME: The patient is on insulin, Lantus 15 at bedtime, 10 units of NovoLog 3 times daily, aspirin 1 daily, atorvastatin 10 mg daily, Coreg 12.5 tablets 25 mg twice a day, Pepcid 20 mg daily, Renvela 800 mg 3 times daily, tramadol 50 mg at bedtime. He was started on Keflex recently last week. PERSONAL HISTORY: Smokes marijuana socially. Denies regular cigarettes. Denies alcohol. The patient is on chronic narcotic pain medications. FAMILY HISTORY: Positive for diabetes, hypertension, heart disease and dialysis. REVIEW OF SYSTEMS: CARDIAC: No chest pain. GASTROINTESTINAL: No nausea, vomiting. EXTREMITIES: Pain in the stump. Fever last week. No more fevers, some drainage. Rest of the 14 systems was reviewed and negative. PHYSICAL EXAMINATION: GENERAL: The patient is not in any distress. VITAL SIGNS: Temperature 97, pulse 80, respirations 20, blood pressure 140/73, 100% room air. HEENT: Head is atraumatic. Pupils equal. Oral cavity: No congestion. NECK: Supple. Thyroid not enlarged. JVD not elevated. CHEST: Symmetrical. CARDIOVASCULAR: S1, S2. LUNGS: Clear. ABDOMEN: Soft, had scar from previous peritoneal dialysis catheter. EXTERNAL GENITALIA: No Leone. RECTAL: Deferred. EXTREMITIES: The patient has bilateral [id number]-jiof amputation. Left leg has a small ulceration superficial stage 2, which is 2 cm. On the right, the patient has some abscess which is kind of draining. [facility] was [facility]. The patient has AV shunt in the left arm. The patient had amputation of the right fifth digit from avascular necrosis. LABORATORY DATA: White count 3.8, hemoglobin 8.2, platelets 162. Electrolytes show sodium 143, potassium 4.3, chloride 101, bicarb 30, BUN 47, creatinine 10.3, glucose 227. LFTs were normal. FINAL IMPRESSION: 1. Right leg stump possible abscess, draining now. 2. Left stump ulceration stage 2, superficial. 3. Diabetes, insulin-dependent. 4. End-stage renal disease, on hemodialysis. 5. 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 6. Hypertension. 7. Hyperlipidemia. 8. Chronic systolic heart failure, stable. 9. Anemia of chronic disease. PLAN: At this time, was admitted to the hospital. Wound culture was done. IV antibiotics, vancomycin and Zosyn. ID was consulted. We will also have orthopedic look at the stump to see if he needs to have surgical debridement and see how the patient's condition improves. IRINEO SCHWARTZ MD DR: MIK/latoya JOB#: [id number] / [id number]
[2018-02-14 19:00] VITALS: BP 116/63
[2018-02-14] MEDS ORDERED: INSULIN GLARGINE 300 UNITS/3 ML INSULN.PEN. SQ SCH (21:00)
[2018-02-14] MEDS: ATORVASTATIN CALCIUM 20 MG TABLET PO SCH (21:29)
[2018-02-14] MEDS: LACTOBACILLUS RHAMNOSUS GG 1 CAPSULE. PO SCH (21:29)
[2018-02-14] MEDS: FAMOTIDINE 20 MG TABLET. PO SCH (21:29)
[2018-02-14 22:48] VITALS: BP 145/67
--- NOTE | 2018-02-15 02:20 | CONS ---
DATE OF CONSULTATION: 02/14/2018 LOCATION: The patient's room is 508. REQUESTING PHYSICIAN: Dr. Noonan. REASON FOR CONSULTATION: Stump infection. HISTORY OF PRESENT ILLNESS: The patient is a pleasant 52-year-old gentleman with history of diabetes and has had previous foot infections with MSSA and Strep anginosus. He is now a bilateral amputee and uses prosthesis. He states a little over a week ago, he started to develop some discomfort in his right prosthesis. Denies any known trauma, no falls. He was actually admitted to the hospital on 02/08/2018 as he had a fever of 100.1. He was placed on some cephalexin initially and was given some vancomycin and Zosyn, but subsequently, he was discharged home and was followed up in Dr. Noonan's office and continued on antibiotics. He denied any fevers or chills or sweats, but states that he developed more pain in his legs, had difficulty walking, had to use a walker and was referred to the wound care center today. He had an appointment, was found to have an abscess. Apparently, they did an I and D on it and admitted him to the hospital. He has now been placed on vancomycin and Zosyn. Again, no fevers or chills or sweats. No headache, sore throat, cough or chest pain. No nausea, vomiting or diarrhea. He does not make any urine and has no complications with his dialysis. PAST MEDICAL HISTORY: Positive for diabetes, hypertension, coronary artery disease, chronic systolic heart failure, anemia of chronic disease, history of MSSA and strep infections. He has had PD catheter dysfunctions, history of erosion of his peritoneal dialysis catheter into the small bowel. PAST SURGICAL HISTORY: Positive for laparoscopic repair of the small bowel and dialysis catheter removal. He has had dialysis catheter placements, bilateral lower extremity amputee for osteomyelitis of his foot, also has a history of previous Pseudomonas. REVIEW OF SYSTEMS: Otherwise negative except for mentioned above. ALLERGIES: No known drug allergies. SOCIAL HISTORY: No tobacco, alcohol, occasional marijuana use. FAMILY HISTORY: Positive for diabetes, hypertension, kidney failure. CURRENT MEDICATIONS: Have been started including Zosyn, vancomycin, Ecotrin, Lipitor, Coreg, insulin, Reglan. Other meds are available and have been reviewed in the chart. PHYSICAL EXAMINATION: VITAL SIGNS: Currently pending. CONSTITUTIONAL: He is very pleasant. He is cooperative. He is in no acute distress. HEENT: Pupils equal and reactive. He has normal conjunctivae. Oral cavity, pharynx is clear. NECK: Supple, no JVD. LUNGS: Clear to auscultation bilaterally. HEART: S1, S2. ABDOMEN: Soft, nontender, nondistended. EXTREMITIES: Without clubbing or cyanosis. He has bilateral amputee. His right stump has an area with packing in it now. There is some bogginess and some warmth and some mild erythema and some other odor associated with it. SKIN: Otherwise without signs of rash. NEUROLOGIC: He is otherwise nonfocal. PSYCHIATRIC: Affect is appropriate. LABORATORY DATA: Currently pending. His white count was 6.7 on 02/08/2018. Cultures are all pending. He had negative blood cultures back on 02/08/2018. IMPRESSION: 1. Right stump infection/abscess, status post local incision and drainage. 2. Chronic kidney disease, on hemodialysis. 3. Diabetes. 4. History of Staphylococcus with Streptococcus. RECOMMENDATIONS: Agree with vancomycin and Zosyn for now. Await orthopedic evaluation. Follow up on cultures. Dr. Noonan, thank you for allowing me to see and participate in the patient's care. Should you have any further concerns or questions, please do not hesitate to contact me. RAYMOND NGO MD DR: RODRIGO/latoya JOB#: [id number] / [id number]
[2018-02-15 02:56] VITALS: BP 152/72
[2018-02-15] MEDS ORDERED: VANCOMYCIN RANDOM LEVEL. MC ONE (05:00)
[2018-02-15 07:00] VITALS: BP 152/71
--- NOTE | 2018-02-15 07:18 | PDOC ---
Infectious Disease Note Subjective Subjective Doing ok No Pain/F/C/s/N/V/D/ALDEN/rash. ROS ROS o/w neg Vital Sign Vital Signs Vital Signs Date Time Temp Pulse Resp B/P (MAP) Pulse Ox O2 Delivery O2 Flow Rate FiO2 02/15/18 02:56 97.7 80 18 152/72 (98) 100 Room Air 97.7 Physical Exam PHYSICAL EXAM CONSTITUTIONAL: He is very pleasant. He is cooperative. He is in no acute distress. HEENT: Pupils equal and reactive. He has normal conjunctivae. Oral cavity, pharynx is clear. NECK: Supple, no JVD. LUNGS: Clear to auscultation bilaterally. HEART: S1, S2. ABDOMEN: Soft, nontender, nondistended. EXTREMITIES: Without clubbing or cyanosis. He has bilateral amputee. His right stump has an area with packing in it now. There is some less bogginess and still some warmth and some mild erythema and less odor associated with it. SKIN: Otherwise without signs of rash. NEUROLOGIC: He is otherwise nonfocal. PSYCHIATRIC: Affect is appropriate. Labs Lab Laboratory Tests Test 02/14/18 10:50 02/14/18 11:08 02/14/18 16:53 02/14/18 20:31 White Blood Count 3.8 x10^3/uL (4.0-11.0) Red Blood Count 3.17 x10^6/uL (4.30-5.70) Hemoglobin 8.2 g/dL (13.0-17.5) Hematocrit 25.7 % (39.0-53.0) Mean Corpuscular Volume 81 fL (79-100) Mean Corpuscular Hemoglobin 26 pg (25-35) Mean Corpuscular Hemoglobin Concent 32 g/dL (31-37) Red Cell Distribution Width 17.0 % (11.5-14.5) Platelet Count 162 x10^3/uL (140-400) Neutrophils (%) (Auto) 61 % (31-73) Lymphocytes (%) (Auto) 19 % (24-48) Monocytes (%) (Auto) 14 % (0-9) Eosinophils (%) (Auto) 4 % (0-3) Basophils (%) (Auto) 1 % (0-3) Neutrophils # (Auto) 2.4 x10^3uL (1.8-7.7) Lymphocytes # (Auto) 0.7 x10^3/uL (1.0-4.8) Monocytes # (Auto) 0.5 x10^3/uL (0.0-1.1) Eosinophils # (Auto) 0.2 x10^3/uL (0.0-0.7) Basophils # (Auto) 0.0 x10^3/uL (0.0-0.2) Sodium Level 143 mmol/L (136-145) Potassium Level 4.3 mmol/L (3.5-5.1) Chloride Level 101 mmol/L (98-107) Carbon Dioxide Level 30 mmol/L (21-32) Anion Gap 12 (6-14) Blood Urea Nitrogen 47 mg/dL (8-26) Creatinine 10.3 mg/dL (0.7-1.3) Estimated GFR (Cockcroft-Gault) 6.5 BUN/Creatinine Ratio 5 (6-20) Glucose Level 227 mg/dL (70-99) Calcium Level 10.0 mg/dL (8.5-10.1) Total Bilirubin 0.5 mg/dL (0.2-1.0) Aspartate Amino Transf (AST/SGOT) 9 U/L (15-37) Alanine Aminotransferase (ALT/SGPT) 10 U/L (16-63) Alkaline Phosphatase 47 U/L (46-116) Total Protein 7.7 g/dL (6.4-8.2) Albumin 2.8 g/dL (3.4-5.0) Albumin/Globulin Ratio 0.6 (1.0-1.7) Glucose (Fingerstick) 198 mg/dL (70-99) 133 mg/dL (70-99) 42 mg/dL (70-99) Test 02/14/18 20:55 02/14/18 21:22 02/15/18 02:04 02/15/18 04:35 Glucose (Fingerstick) 61 mg/dL (70-99) 77 mg/dL (70-99) 230 mg/dL (70-99) Random Vancomycin Level 35.2 mcg/mL Objective Assessment Right stump infection/abscess s/p local I and D CKD on HD DM H/o Staph and strep/PSA Plan Plan of Care Cont Vanc/Zosyn Await Ortho eval Local wound care F/u labs and cults RAYMOND NGO MD Feb 15, 2018 07:18
[2018-02-15] MEDS: METOCLOPRAMIDE 5 MG TABLET. PO SCH ×4 (07:30→20:45)
[2018-02-15] MEDS: CARVEDILOL 12.5 MG TABLET. PO SCH ×2 (08:00→17:28)
[2018-02-15] MEDS: ASPIRIN ENTERIC COATED 325 MG TABLET.DR. PO SCH (08:00)
[2018-02-15] MEDS: SEVELAMER CARBONATE 800 MG TABLET. PO SCH ×3 (08:00→17:00)
[2018-02-15] MEDS: PIPERACILLIN/TAZOBACTAM 2.25 GM in IV NORMAL SALINE 50ML 50 ML IV SCH ×3 (08:52→21:39)
[2018-02-15] MEDS: LACTOBACILLUS RHAMNOSUS GG 1 CAPSULE. PO SCH ×2 (09:00→20:45)
[2018-02-15] MEDS: INSULIN LISPRO 300 UNITS/3 ML INSULN.PEN. SQ SCH ×6 (09:05→17:27)
[2018-02-15] MEDS: VANCOMYCIN PER PHARMACY MC PRN (09:17)
[2018-02-15] MEDS ORDERED: ACETAMINOPHEN 325 MG TABLET. PO PRN (09:45)
--- NOTE | 2018-02-15 10:19 | PDOC ---
Renal-Progress Notes Subjective Notes Notes NO COMPLAINTS History of Present Illness Hx of present illness BETTER Vitals Vitals Vital Signs Date Time Temp Pulse Resp B/P (MAP) Pulse Ox O2 Delivery O2 Flow Rate FiO2 02/15/18 07:00 97.5 77 18 152/71 (98) 99 Room Air 97.5 Weight Weight [ ] I.O. Intake and Output Intake and Output 02/15/18 07:00 Intake Total 530 ml Output Total 0 ml Balance 530 ml Intake Oral 480 ml IV Total 50 ml Output Urine Total 0 ml Labs Labs Laboratory Tests Test 02/14/18 10:50 02/14/18 11:08 02/14/18 16:53 02/14/18 20:31 White Blood Count 3.8 x10^3/uL (4.0-11.0) Red Blood Count 3.17 x10^6/uL (4.30-5.70) Hemoglobin 8.2 g/dL (13.0-17.5) Hematocrit 25.7 % (39.0-53.0) Mean Corpuscular Volume 81 fL (79-100) Mean Corpuscular Hemoglobin 26 pg (25-35) Mean Corpuscular Hemoglobin Concent 32 g/dL (31-37) Red Cell Distribution Width 17.0 % (11.5-14.5) Platelet Count 162 x10^3/uL (140-400) Neutrophils (%) (Auto) 61 % (31-73) Lymphocytes (%) (Auto) 19 % (24-48) Monocytes (%) (Auto) 14 % (0-9) Eosinophils (%) (Auto) 4 % (0-3) Basophils (%) (Auto) 1 % (0-3) Neutrophils # (Auto) 2.4 x10^3uL (1.8-7.7) Lymphocytes # (Auto) 0.7 x10^3/uL (1.0-4.8) Monocytes # (Auto) 0.5 x10^3/uL (0.0-1.1) Eosinophils # (Auto) 0.2 x10^3/uL (0.0-0.7) Basophils # (Auto) 0.0 x10^3/uL (0.0-0.2) Sodium Level 143 mmol/L (136-145) Potassium Level 4.3 mmol/L (3.5-5.1) Chloride Level 101 mmol/L (98-107) Carbon Dioxide Level 30 mmol/L (21-32) Anion Gap 12 (6-14) Blood Urea Nitrogen 47 mg/dL (8-26) Creatinine 10.3 mg/dL (0.7-1.3) Estimated GFR (Cockcroft-Gault) 6.5 BUN/Creatinine Ratio 5 (6-20) Glucose Level 227 mg/dL (70-99) Calcium Level 10.0 mg/dL (8.5-10.1) Total Bilirubin 0.5 mg/dL (0.2-1.0) Aspartate Amino Transf (AST/SGOT) 9 U/L (15-37) Alanine Aminotransferase (ALT/SGPT) 10 U/L (16-63) Alkaline Phosphatase 47 U/L (46-116) Total Protein 7.7 g/dL (6.4-8.2) Albumin 2.8 g/dL (3.4-5.0) Albumin/Globulin Ratio 0.6 (1.0-1.7) Glucose (Fingerstick) 198 mg/dL (70-99) 133 mg/dL (70-99) 42 mg/dL (70-99) Test 02/14/18 20:55 02/14/18 21:22 02/15/18 02:04 02/15/18 04:35 Glucose (Fingerstick) 61 mg/dL (70-99) 77 mg/dL (70-99) 230 mg/dL (70-99) Random Vancomycin Level 35.2 mcg/mL Test 02/15/18 07:56 Glucose (Fingerstick) 236 mg/dL (70-99) Review of Systems Constitutional: yes: alert, oriented Ears/Nose/Throat: Yes: no symptom reported Eyes: Yes: no symptom reported Pulmonary: Yes no symptom reported Cardiovascular: Yes no symptom reported Gastrointestional: Yes: constipation Genitourinary: Yes: no symptom reported Musculoskeletal: Yes: joint pain Psychiatric/Neurological: Yes: no symptom reported Endocrine: Yes: no symptom reported Hematologic/Lymphatic: Yes: no symptom reported Physical Exam General Appearance: no apparent distress Skin: warm Respiratory: bilateral CTA Heart: S1S2, RRR Abdomen: soft, bowel sounds present Extremities: pulses present Neurology: alert, oriented Musculoskeletal: Osteoarthritis, Other Assessment Assessment IMP ESRD ANEMIA DM II HTN STUMP WOUND PLAN HD TODAY UF TO DW ANTIBIOTICS ASHLEY CHACON MD Feb 15, 2018 10:19
[2018-02-15 11:00] VITALS: BP 143/75
--- NOTE | 2018-02-15 11:10 | PDOC ---
IM PROGRESS NOTES- Subjective Subjective No pain,dyspnea. Objective Vitals Vital Signs Date Time Temp Pulse Resp B/P (MAP) Pulse Ox O2 Delivery O2 Flow Rate FiO2 02/15/18 07:00 97.5 77 18 152/71 (98) 99 Room Air 97.5 Input & Output Intake and Output 02/15/18 07:00 Intake Total 530 ml Output Total 0 ml Balance 530 ml Intake Oral 480 ml IV Total 50 ml Output Urine Total 0 ml Physical Exam Physical Exam General appearance - alert,ill appearing,thin and in no distress and oriented to person, place, and time Mental Status - alert, oriented to person, place, and time, affect appropriate to mood Head - normal Chest - clear to auscultation, no wheezes, rales or rhonchi, symmetric air entry Heart - S1 and S2 normal Abdomen - soft, nontender, nondistended, no masses or organomegaly Neurological - alert and oriented Musculoskeletal - no muscular tenderness noted Extremities -yesica BKA with stump wounds- rt worse than left. Skin - warm and dry Labs Laboratory Tests Test 02/14/18 10:50 02/14/18 11:08 02/14/18 16:53 02/14/18 20:31 White Blood Count 3.8 x10^3/uL (4.0-11.0) Red Blood Count 3.17 x10^6/uL (4.30-5.70) Hemoglobin 8.2 g/dL (13.0-17.5) Hematocrit 25.7 % (39.0-53.0) Mean Corpuscular Volume 81 fL (79-100) Mean Corpuscular Hemoglobin 26 pg (25-35) Mean Corpuscular Hemoglobin Concent 32 g/dL (31-37) Red Cell Distribution Width 17.0 % (11.5-14.5) Platelet Count 162 x10^3/uL (140-400) Neutrophils (%) (Auto) 61 % (31-73) Lymphocytes (%) (Auto) 19 % (24-48) Monocytes (%) (Auto) 14 % (0-9) Eosinophils (%) (Auto) 4 % (0-3) Basophils (%) (Auto) 1 % (0-3) Neutrophils # (Auto) 2.4 x10^3uL (1.8-7.7) Lymphocytes # (Auto) 0.7 x10^3/uL (1.0-4.8) Monocytes # (Auto) 0.5 x10^3/uL (0.0-1.1) Eosinophils # (Auto) 0.2 x10^3/uL (0.0-0.7) Basophils # (Auto) 0.0 x10^3/uL (0.0-0.2) Sodium Level 143 mmol/L (136-145) Potassium Level 4.3 mmol/L (3.5-5.1) Chloride Level 101 mmol/L (98-107) Carbon Dioxide Level 30 mmol/L (21-32) Anion Gap 12 (6-14) Blood Urea Nitrogen 47 mg/dL (8-26) Creatinine 10.3 mg/dL (0.7-1.3) Estimated GFR (Cockcroft-Gault) 6.5 BUN/Creatinine Ratio 5 (6-20) Glucose Level 227 mg/dL (70-99) Calcium Level 10.0 mg/dL (8.5-10.1) Total Bilirubin 0.5 mg/dL (0.2-1.0) Aspartate Amino Transf (AST/SGOT) 9 U/L (15-37) Alanine Aminotransferase (ALT/SGPT) 10 U/L (16-63) Alkaline Phosphatase 47 U/L (46-116) Total Protein 7.7 g/dL (6.4-8.2) Albumin 2.8 g/dL (3.4-5.0) Albumin/Globulin Ratio 0.6 (1.0-1.7) Glucose (Fingerstick) 198 mg/dL (70-99) 133 mg/dL (70-99) 42 mg/dL (70-99) Test 02/14/18 20:55 02/14/18 21:22 02/15/18 02:04 02/15/18 04:35 Glucose (Fingerstick) 61 mg/dL (70-99) 77 mg/dL (70-99) 230 mg/dL (70-99) Random Vancomycin Level 35.2 mcg/mL Test 02/15/18 07:56 Glucose (Fingerstick) 236 mg/dL (70-99) Laboratory Tests Test 02/14/18 11:08 02/14/18 16:53 02/14/18 20:31 02/14/18 20:55 Glucose (Fingerstick) 198 mg/dL (70-99) 133 mg/dL (70-99) 42 mg/dL (70-99) 61 mg/dL (70-99) Test 02/14/18 21:22 02/15/18 02:04 02/15/18 04:35 02/15/18 07:56 Glucose (Fingerstick) 77 mg/dL (70-99) 230 mg/dL (70-99) 236 mg/dL (70-99) Random Vancomycin Level 35.2 mcg/mL Meds Current Medications Acetaminophen (Tylenol) 650 mg PRN Q6HRS PRN PO MILD PAIN / TEMP; Start at 09:45 Atorvastatin Calcium (Lipitor) 20 mg QHS PO Last administered on 02/14/18at 21:29 ; Start 02/14/18 at 21:00 Darbepoetin Huey (Aranesp) 60 mcg 1X ONCE SQ ; Start 02/15/18 at 11:30; Stop 02/15/18 at 11:31 Famotidine (Pepcid) 40 mg Q48H PO Last administered on 02/14/18at 21:29; Start at 21:00 Insulin Glargine (Lantus) 10 units QHS SQ ; Start 02/14/18 at 21:00; Stop at 09:46; Status DC Insulin Human Lispro (HumaLOG) 0-7 UNITS TIDWMEALS SQ Last administered on at 09:05; Start 02/14/18 at 12:00 Insulin Human Lispro (HumaLOG) 5 units TIDWMEALS SQ ; Start 02/15/18 at 12:00 Insulin Human Lispro (HumaLOG) 10 units TIDWMEALS SQ Last administered on at 09:06; Start 02/14/18 at 12:00; Stop 02/15/18 at 09:46; Status DC Lactobacillus Rhamnosus (Culturelle) 1 cap BID PO Last administered on at 21:29; Start 02/14/18 at 21:00 Metoclopramide HCl (Reglan) 5 mg QIDACHS PO Last administered on 02/14/18at 21:29 ; Start 02/14/18 at 11:30 Pharmacy Consult (C.diff Med Screen By Rx) 1 each 1X ONCE MC ; Start 02/14/18 at 11:15; Stop 02/14/18 at 11:27; Status DC Piperacillin Sod/ Tazobactam Sod 2.25 gm/Sodium Chloride 50 ml @ 100 mls/hr Q8HRS IV Last administered on 02/15/18at 08:52; Start 02/14/18 at 12:00 Sevelamer Carbonate (Renvela) 800 mg TIDWMEALS PO Last administered on at 16:54; Start 02/14/18 at 12:00 Vancomycin HCl (Vanco Per Pharmacy) 1 each PRN DAILY PRN MC SEE COMMENTS Last administered on 02/15/18at 09:17; Start 02/14/18 at 14:30 Vancomycin HCl (Vancomycin Random Level) 1 each 1X ONCE MC Last administered on 02/15/18at 05:00; Start 02/15/18 at 05:00; Stop 02/15/18 at 05:01; Status DC Vancomycin HCl 2 gm/Sodium Chloride 500 ml @ 250 mls/hr 1X ONCE IV Last administered on 02/14/18at 15:32; Start 02/14/18 at 11:30; Stop 02/14/18 at 13:29; Status DC Assessment Assessment 1. Right leg stump possible abscess, draining now. 2. Left stump ulceration stage 2, superficial. 3. Diabetes, insulin-dependent. 4. End-stage renal disease, on hemodialysis. 5. 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 6. Hypertension. 7. Hyperlipidemia. 8. Chronic systolic heart failure, stable. 9. Anemia of chronic disease. PLAN: At this time, was admitted to the hospital. Wound culture was done. IV antibiotics, vancomycin and Zosyn. ID was consulted. We will also have orthopedic look at the stump to see if he needs to have surgical debridement and see how the patient's condition improves. Hypoglycemia- glucose 61.Stop Lantus,decrease Humalog to 5 units s/c tid ac. Plan Plan For more details regarding further plans, please refer to the orders. CARLYLE CASTILLO MD Feb 15, 2018 11:10
[2018-02-15] MEDS ORDERED: DARBEPOETIN ALFA 60 MCG/0.3 ML DISP.SYRIN. SQ ONE (11:30)
[2018-02-15] MEDS ORDERED: IV NORMAL SALINE 1000ML BAG 1,000 ML IV PRN ×2 (12:26)
[2018-02-15] MEDS ORDERED: diphenhydrAMINE 50 MG/ML VIAL IV PRN ×2 (12:30)
[2018-02-15] MEDS ORDERED: DIALYSIS PATIENT. MC PRN (12:30)
[2018-02-15 15:00] VITALS: BP 108/66
[2018-02-15 19:00] VITALS: BP 111/60
[2018-02-15] MEDS: ATORVASTATIN CALCIUM 20 MG TABLET PO SCH (20:45)
[2018-02-15] MEDS ORDERED: INSULIN LISPRO 300 UNITS/3 ML INSULN.PEN. SQ ONE (21:15)
[2018-02-15 23:00] VITALS: BP 93/53
[2018-02-16 03:00] VITALS: BP 106/60
[2018-02-16 05:06] LABS: BASO % 1 % (0-3); EOS # 0.2 x10^3/uL (0.0-0.7); EOS % 6 % (0-3); HEMATOCRIT 26.7 % (39.0-53.0); HEMOGLOBIN 8.6 g/dL (13.0-17.5); LYMPH # 0.8 x10^3/uL (1.0-4.8); LYMPH % 24 % (24-48); MEAN CORPUSCULAR HEMOGLOBIN 26 pg (25-35); MEAN CORPUSCULAR HGB CONC 32 g/dL (31-37); MEAN CORPUSCULAR VOLUME 80 fL (79-100); MONO # 0.5 x10^3/uL (0.0-1.1); MONO % 14 % (0-9); NEUT # 1.8 x10^3uL (1.8-7.7); NEUT % 55 % (31-73); PLATELET COUNT 201 x10^3/uL (140-400); RED BLOOD COUNT 3.34 x10^6/uL (4.30-5.70); RED CELL DISTRIBUTION WIDTH 17.1 % (11.5-14.5); WHITE BLOOD COUNT 3.2 x10^3/uL (4.0-11.0)
[2018-02-16 05:29] LABS: ALBUMIN 2.7 g/dL (3.4-5.0); ALBUMIN/GLOBULIN RATIO 0.6 (1.0-1.7); CALCIUM 9.9 mg/dL (8.5-10.1); CREATININE 8.7 mg/dL (0.7-1.3); GFR 7.9; POTASSIUM 4.6 mmol/L (3.5-5.1); TOTAL BILIRUBIN 0.5 mg/dL (0.2-1.0); TOTAL PROTEIN 7.6 g/dL (6.4-8.2)
[2018-02-16] MEDS: PIPERACILLIN/TAZOBACTAM 2.25 GM in IV NORMAL SALINE 50ML 50 ML IV SCH ×3 (05:40→20:44)
[2018-02-16 07:00] VITALS: BP 100/44
[2018-02-16] MEDS: ASPIRIN ENTERIC COATED 325 MG TABLET.DR. PO SCH (10:02)
[2018-02-16] MEDS: LACTOBACILLUS RHAMNOSUS GG 1 CAPSULE. PO SCH ×2 (10:02→20:44)
[2018-02-16] MEDS: CARVEDILOL 12.5 MG TABLET. PO SCH ×2 (10:03→16:35)
[2018-02-16] MEDS: SEVELAMER CARBONATE 800 MG TABLET. PO SCH ×3 (10:03→17:09)
[2018-02-16] MEDS: METOCLOPRAMIDE 5 MG TABLET. PO SCH ×4 (10:03→20:44)
[2018-02-16] MEDS: INSULIN LISPRO 300 UNITS/3 ML INSULN.PEN. SQ SCH ×6 (10:07→16:36)
--- NOTE | 2018-02-16 10:19 | PDOC ---
IM PROGRESS NOTES- Subjective Subjective No pain,dyspnea. Objective Vitals Vital Signs Date Time Temp Pulse Resp B/P (MAP) Pulse Ox O2 Delivery O2 Flow Rate FiO2 02/16/18 10:03 101 100/44 02/16/18 07:00 95.9 19 99 Room Air 95.9 Input & Output Intake and Output 02/16/18 07:00 Intake Total 810 ml Output Total 0 ml Balance 810 ml Intake Oral 760 ml IV Total 50 ml Output Urine Total 0 ml Physical Exam Physical Exam General appearance - alert,ill appearing,thin and in no distress and oriented to person, place, and time Mental Status - alert, oriented to person, place, and time, affect appropriate to mood Head - normal Chest - clear to auscultation, no wheezes, rales or rhonchi, symmetric air entry Heart - S1 and S2 normal Abdomen - soft, nontender, nondistended, no masses or organomegaly Neurological - alert and oriented Musculoskeletal - no muscular tenderness noted Extremities -yesica BKA with stump wounds- rt worse than left. Skin - warm and dry Labs Laboratory Tests Test 02/14/18 10:50 02/14/18 11:08 02/14/18 16:53 02/14/18 20:31 White Blood Count 3.8 x10^3/uL (4.0-11.0) Red Blood Count 3.17 x10^6/uL (4.30-5.70) Hemoglobin 8.2 g/dL (13.0-17.5) Hematocrit 25.7 % (39.0-53.0) Mean Corpuscular Volume 81 fL (79-100) Mean Corpuscular Hemoglobin 26 pg (25-35) Mean Corpuscular Hemoglobin Concent 32 g/dL (31-37) Red Cell Distribution Width 17.0 % (11.5-14.5) Platelet Count 162 x10^3/uL (140-400) Neutrophils (%) (Auto) 61 % (31-73) Lymphocytes (%) (Auto) 19 % (24-48) Monocytes (%) (Auto) 14 % (0-9) Eosinophils (%) (Auto) 4 % (0-3) Basophils (%) (Auto) 1 % (0-3) Neutrophils # (Auto) 2.4 x10^3uL (1.8-7.7) Lymphocytes # (Auto) 0.7 x10^3/uL (1.0-4.8) Monocytes # (Auto) 0.5 x10^3/uL (0.0-1.1) Eosinophils # (Auto) 0.2 x10^3/uL (0.0-0.7) Basophils # (Auto) 0.0 x10^3/uL (0.0-0.2) Sodium Level 143 mmol/L (136-145) Potassium Level 4.3 mmol/L (3.5-5.1) Chloride Level 101 mmol/L (98-107) Carbon Dioxide Level 30 mmol/L (21-32) Anion Gap 12 (6-14) Blood Urea Nitrogen 47 mg/dL (8-26) Creatinine 10.3 mg/dL (0.7-1.3) Estimated GFR (Cockcroft-Gault) 6.5 BUN/Creatinine Ratio 5 (6-20) Glucose Level 227 mg/dL (70-99) Calcium Level 10.0 mg/dL (8.5-10.1) Total Bilirubin 0.5 mg/dL (0.2-1.0) Aspartate Amino Transf (AST/SGOT) 9 U/L (15-37) Alanine Aminotransferase (ALT/SGPT) 10 U/L (16-63) Alkaline Phosphatase 47 U/L (46-116) Total Protein 7.7 g/dL (6.4-8.2) Albumin 2.8 g/dL (3.4-5.0) Albumin/Globulin Ratio 0.6 (1.0-1.7) Glucose (Fingerstick) 198 mg/dL (70-99) 133 mg/dL (70-99) 42 mg/dL (70-99) Test 02/14/18 20:55 02/14/18 21:22 02/15/18 02:04 02/15/18 04:35 Glucose (Fingerstick) 61 mg/dL (70-99) 77 mg/dL (70-99) 230 mg/dL (70-99) Random Vancomycin Level 35.2 mcg/mL Test 02/15/18 07:56 02/15/18 11:01 02/15/18 15:35 02/15/18 17:09 Glucose (Fingerstick) 236 mg/dL (70-99) 187 mg/dL (70-99) 82 mg/dL (70-99) 164 mg/dL (70-99) Test 02/15/18 20:48 02/16/18 03:40 02/16/18 08:06 Glucose (Fingerstick) 372 mg/dL (70-99) 244 mg/dL (70-99) White Blood Count 3.2 x10^3/uL (4.0-11.0) Red Blood Count 3.34 x10^6/uL (4.30-5.70) Hemoglobin 8.6 g/dL (13.0-17.5) Hematocrit 26.7 % (39.0-53.0) Mean Corpuscular Volume 80 fL (79-100) Mean Corpuscular Hemoglobin 26 pg (25-35) Mean Corpuscular Hemoglobin Concent 32 g/dL (31-37) Red Cell Distribution Width 17.1 % (11.5-14.5) Platelet Count 201 x10^3/uL (140-400) Neutrophils (%) (Auto) 55 % (31-73) Lymphocytes (%) (Auto) 24 % (24-48) Monocytes (%) (Auto) 14 % (0-9) Eosinophils (%) (Auto) 6 % (0-3) Basophils (%) (Auto) 1 % (0-3) Neutrophils # (Auto) 1.8 x10^3uL (1.8-7.7) Lymphocytes # (Auto) 0.8 x10^3/uL (1.0-4.8) Monocytes # (Auto) 0.5 x10^3/uL (0.0-1.1) Eosinophils # (Auto) 0.2 x10^3/uL (0.0-0.7) Basophils # (Auto) 0.0 x10^3/uL (0.0-0.2) Sodium Level 140 mmol/L (136-145) Potassium Level 4.6 mmol/L (3.5-5.1) Chloride Level 100 mmol/L (98-107) Carbon Dioxide Level 33 mmol/L (21-32) Anion Gap 7 (6-14) Blood Urea Nitrogen 39 mg/dL (8-26) Creatinine 8.7 mg/dL (0.7-1.3) Estimated GFR (Cockcroft-Gault) 7.9 BUN/Creatinine Ratio 4 (6-20) Glucose Level 214 mg/dL (70-99) Calcium Level 9.9 mg/dL (8.5-10.1) Total Bilirubin 0.5 mg/dL (0.2-1.0) Aspartate Amino Transf (AST/SGOT) 6 U/L (15-37) Alanine Aminotransferase (ALT/SGPT) 11 U/L (16-63) Alkaline Phosphatase 46 U/L (46-116) Total Protein 7.6 g/dL (6.4-8.2) Albumin 2.7 g/dL (3.4-5.0) Albumin/Globulin Ratio 0.6 (1.0-1.7) Laboratory Tests Test 02/15/18 11:01 02/15/18 15:35 02/15/18 17:09 02/15/18 20:48 Glucose (Fingerstick) 187 mg/dL (70-99) 82 mg/dL (70-99) 164 mg/dL (70-99) 372 mg/dL (70-99) Test 02/16/18 03:40 02/16/18 08:06 White Blood Count 3.2 x10^3/uL (4.0-11.0) Red Blood Count 3.34 x10^6/uL (4.30-5.70) Hemoglobin 8.6 g/dL (13.0-17.5) Hematocrit 26.7 % (39.0-53.0) Mean Corpuscular Volume 80 fL (79-100) Mean Corpuscular Hemoglobin 26 pg (25-35) Mean Corpuscular Hemoglobin Concent 32 g/dL (31-37) Red Cell Distribution Width 17.1 % (11.5-14.5) Platelet Count 201 x10^3/uL (140-400) Neutrophils (%) (Auto) 55 % (31-73) Lymphocytes (%) (Auto) 24 % (24-48) Monocytes (%) (Auto) 14 % (0-9) Eosinophils (%) (Auto) 6 % (0-3) Basophils (%) (Auto) 1 % (0-3) Neutrophils # (Auto) 1.8 x10^3uL (1.8-7.7) Lymphocytes # (Auto) 0.8 x10^3/uL (1.0-4.8) Monocytes # (Auto) 0.5 x10^3/uL (0.0-1.1) Eosinophils # (Auto) 0.2 x10^3/uL (0.0-0.7) Basophils # (Auto) 0.0 x10^3/uL (0.0-0.2) Sodium Level 140 mmol/L (136-145) Potassium Level 4.6 mmol/L (3.5-5.1) Chloride Level 100 mmol/L (98-107) Carbon Dioxide Level 33 mmol/L (21-32) Anion Gap 7 (6-14) Blood Urea Nitrogen 39 mg/dL (8-26) Creatinine 8.7 mg/dL (0.7-1.3) Estimated GFR (Cockcroft-Gault) 7.9 BUN/Creatinine Ratio 4 (6-20) Glucose Level 214 mg/dL (70-99) Calcium Level 9.9 mg/dL (8.5-10.1) Total Bilirubin 0.5 mg/dL (0.2-1.0) Aspartate Amino Transf (AST/SGOT) 6 U/L (15-37) Alanine Aminotransferase (ALT/SGPT) 11 U/L (16-63) Alkaline Phosphatase 46 U/L (46-116) Total Protein 7.6 g/dL (6.4-8.2) Albumin 2.7 g/dL (3.4-5.0) Albumin/Globulin Ratio 0.6 (1.0-1.7) Glucose (Fingerstick) 244 mg/dL (70-99) Meds Current Medications Darbepoetin Huey (Aranesp) 60 mcg 1X ONCE SQ Last administered on 02/15/18at 15: 14; Start 02/15/18 at 11:30; Stop 02/15/18 at 11:31; Status DC Diphenhydramine HCl (Benadryl) 25 mg 1X PRN PRN IV ITCHING; Start 02/15/18 at 12 :30; Stop 02/16/18 at 12:29 Diphenhydramine HCl (Benadryl) 25 mg 1X PRN PRN IV ITCHING; Start 02/15/18 at 12 :30; Stop 02/16/18 at 12:29 Info (PHARMACY MONITORING -- do not chart) 1 each PRN DAILY PRN MC SEE COMMENTS ; Start 02/15/18 at 12:30 Insulin Glargine (Lantus) 5 units QHS SQ ; Start 02/16/18 at 21:00 Insulin Human Lispro (HumaLOG) 5 units TIDWMEALS SQ Last administered on at 17:27; Start 02/15/18 at 12:00; Stop 02/16/18 at 08:58; Status DC Insulin Human Lispro (HumaLOG) 7 units TIDWMEALS SQ Last administered on at 10:12; Start 02/16/18 at 09:15 Insulin Human Lispro (HumaLOG) 8 units 1X ONCE SQ Last administered on at 21:43; Start 02/15/18 at 21:15; Stop 02/15/18 at 21:16; Status DC Sodium Chloride 1,000 ml @ 400 mls/hr Q2H30M PRN IV PATENCY; Start 02/15/18 at 12:26; Stop 02/16/18 at 00:25; Status DC Sodium Chloride 1,000 ml @ 1,000 mls/hr Q1H PRN IV hypotension; Start 02/15/18 at 12:26; Stop 02/15/18 at 18:25; Status DC Assessment Assessment 1. Right leg stump possible abscess, draining now. 2. Left stump ulceration stage 2, superficial. 3. Diabetes, insulin-dependent. 4. End-stage renal disease, on hemodialysis. 5. 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 6. Hypertension. 7. Hyperlipidemia. 8. Chronic systolic heart failure, stable. 9. Anemia of chronic disease. PLAN: At this time, was admitted to the hospital. Wound culture was done. IV antibiotics, vancomycin and Zosyn. ID was consulted. We will also have orthopedic look at the stump to see if he needs to have surgical debridement and see how the patient's condition improves. Hypoglycemia- resolved. Blood sugars are higher. Give Lantus 7 units subcutaneous daily and increase Humalog to 7 units subcutaneous 3 times a day. Blood sugar was 372 last night. Leukopenia WBC count is 3.2. Recheck labs in a.m. Labs, condition and treatment discussed with the patient and his . Plan Plan For more details regarding further plans, please refer to the orders. CARLYLE CASTILLO MD Feb 16, 2018 10:19
--- NOTE | 2018-02-16 10:56 | PDOC ---
Infectious Disease Note Subjective Subjective Comfortable, feeling well Denies pain/N/V/D/F/C/S Appetite good ROS ROS per HPI otherwise neg Vital Sign Vital Signs Vital Signs Date Time Temp Pulse Resp B/P (MAP) Pulse Ox O2 Delivery O2 Flow Rate FiO2 02/16/18 10:03 101 100/44 02/16/18 07:00 95.9 19 99 Room Air 95.9 Physical Exam PHYSICAL EXAM GENERAL: Sitting on the side of the bed, alert, NAD HEENT: Oral cavity clear LUNGS: Clear to auscultation bilaterally. HEART: S1, S2. ABDOMEN: Soft, nontender, nondistended. EXTREMITIES: Bilateral amputee, both bandaged SKIN: warm without rash NEUROLOGIC: Alert, responds appropriately PIV ok Labs Lab Laboratory Tests Test 02/15/18 11:01 02/15/18 15:35 02/15/18 17:09 02/15/18 20:48 Glucose (Fingerstick) 187 mg/dL (70-99) 82 mg/dL (70-99) 164 mg/dL (70-99) 372 mg/dL (70-99) Test 02/16/18 03:40 02/16/18 08:06 White Blood Count 3.2 x10^3/uL (4.0-11.0) Red Blood Count 3.34 x10^6/uL (4.30-5.70) Hemoglobin 8.6 g/dL (13.0-17.5) Hematocrit 26.7 % (39.0-53.0) Mean Corpuscular Volume 80 fL (79-100) Mean Corpuscular Hemoglobin 26 pg (25-35) Mean Corpuscular Hemoglobin Concent 32 g/dL (31-37) Red Cell Distribution Width 17.1 % (11.5-14.5) Platelet Count 201 x10^3/uL (140-400) Neutrophils (%) (Auto) 55 % (31-73) Lymphocytes (%) (Auto) 24 % (24-48) Monocytes (%) (Auto) 14 % (0-9) Eosinophils (%) (Auto) 6 % (0-3) Basophils (%) (Auto) 1 % (0-3) Neutrophils # (Auto) 1.8 x10^3uL (1.8-7.7) Lymphocytes # (Auto) 0.8 x10^3/uL (1.0-4.8) Monocytes # (Auto) 0.5 x10^3/uL (0.0-1.1) Eosinophils # (Auto) 0.2 x10^3/uL (0.0-0.7) Basophils # (Auto) 0.0 x10^3/uL (0.0-0.2) Sodium Level 140 mmol/L (136-145) Potassium Level 4.6 mmol/L (3.5-5.1) Chloride Level 100 mmol/L (98-107) Carbon Dioxide Level 33 mmol/L (21-32) Anion Gap 7 (6-14) Blood Urea Nitrogen 39 mg/dL (8-26) Creatinine 8.7 mg/dL (0.7-1.3) Estimated GFR (Cockcroft-Gault) 7.9 BUN/Creatinine Ratio 4 (6-20) Glucose Level 214 mg/dL (70-99) Calcium Level 9.9 mg/dL (8.5-10.1) Total Bilirubin 0.5 mg/dL (0.2-1.0) Aspartate Amino Transf (AST/SGOT) 6 U/L (15-37) Alanine Aminotransferase (ALT/SGPT) 11 U/L (16-63) Alkaline Phosphatase 46 U/L (46-116) Total Protein 7.6 g/dL (6.4-8.2) Albumin 2.7 g/dL (3.4-5.0) Albumin/Globulin Ratio 0.6 (1.0-1.7) Glucose (Fingerstick) 244 mg/dL (70-99) Micro 02/14. right leg ANAEROBIC-AEROBIC CULTURE PENDING ANAEROBIC RES 1 PENDING AEROBIC CULT PENDING AEROBIC RES 1 PENDING GRAM STAIN Final Final report GRAM STAIN RES 1 Final Comment Few white blood cells. GRAM STAIN RES 2 Final No organisms seen Objective Assessment Right stump infection/abscess s/p local I and D, (wound care center). No organisms on gram stain.cultures pending Leukopenia CKD on HD DM H/o Staph and strep/PSA Plan Plan of Care Vanc per pharmacy. random Trough 35.2 on 02/15. Zosyn, renal dosing Await Ortho eval Local wound care F/u labs and cults Supportive care Check Stump XRAY Attending Co-Sign Attending Co-Sign The patient was seen and interviewed as well as examined at the bedside. The chart was reviewed. The case was discussed. Agree with the plan of care. KOBE RUDD APRN Feb 16, 2018 10:56 RAYMOND NGO MD Feb 16, 2018 15:34
--- NOTE | 2018-02-16 10:56 | PDOC ---
Renal-Progress Notes Subjective Notes Notes NO NEW COMPLAINTS History of Present Illness Hx of present illness STABLE Vitals Vitals Vital Signs Date Time Temp Pulse Resp B/P (MAP) Pulse Ox O2 Delivery O2 Flow Rate FiO2 02/16/18 10:03 101 100/44 02/16/18 07:00 95.9 19 99 Room Air 95.9 Weight Weight [ ] I.O. Intake and Output Intake and Output 02/16/18 07:00 Intake Total 810 ml Output Total 0 ml Balance 810 ml Intake Oral 760 ml IV Total 50 ml Output Urine Total 0 ml Labs Labs Laboratory Tests Test 02/15/18 11:01 02/15/18 15:35 02/15/18 17:09 02/15/18 20:48 Glucose (Fingerstick) 187 mg/dL (70-99) 82 mg/dL (70-99) 164 mg/dL (70-99) 372 mg/dL (70-99) Test 02/16/18 03:40 02/16/18 08:06 White Blood Count 3.2 x10^3/uL (4.0-11.0) Red Blood Count 3.34 x10^6/uL (4.30-5.70) Hemoglobin 8.6 g/dL (13.0-17.5) Hematocrit 26.7 % (39.0-53.0) Mean Corpuscular Volume 80 fL (79-100) Mean Corpuscular Hemoglobin 26 pg (25-35) Mean Corpuscular Hemoglobin Concent 32 g/dL (31-37) Red Cell Distribution Width 17.1 % (11.5-14.5) Platelet Count 201 x10^3/uL (140-400) Neutrophils (%) (Auto) 55 % (31-73) Lymphocytes (%) (Auto) 24 % (24-48) Monocytes (%) (Auto) 14 % (0-9) Eosinophils (%) (Auto) 6 % (0-3) Basophils (%) (Auto) 1 % (0-3) Neutrophils # (Auto) 1.8 x10^3uL (1.8-7.7) Lymphocytes # (Auto) 0.8 x10^3/uL (1.0-4.8) Monocytes # (Auto) 0.5 x10^3/uL (0.0-1.1) Eosinophils # (Auto) 0.2 x10^3/uL (0.0-0.7) Basophils # (Auto) 0.0 x10^3/uL (0.0-0.2) Sodium Level 140 mmol/L (136-145) Potassium Level 4.6 mmol/L (3.5-5.1) Chloride Level 100 mmol/L (98-107) Carbon Dioxide Level 33 mmol/L (21-32) Anion Gap 7 (6-14) Blood Urea Nitrogen 39 mg/dL (8-26) Creatinine 8.7 mg/dL (0.7-1.3) Estimated GFR (Cockcroft-Gault) 7.9 BUN/Creatinine Ratio 4 (6-20) Glucose Level 214 mg/dL (70-99) Calcium Level 9.9 mg/dL (8.5-10.1) Total Bilirubin 0.5 mg/dL (0.2-1.0) Aspartate Amino Transf (AST/SGOT) 6 U/L (15-37) Alanine Aminotransferase (ALT/SGPT) 11 U/L (16-63) Alkaline Phosphatase 46 U/L (46-116) Total Protein 7.6 g/dL (6.4-8.2) Albumin 2.7 g/dL (3.4-5.0) Albumin/Globulin Ratio 0.6 (1.0-1.7) Glucose (Fingerstick) 244 mg/dL (70-99) Review of Systems Constitutional: yes: alert, oriented Ears/Nose/Throat: Yes: no symptom reported Eyes: Yes: no symptom reported Pulmonary: Yes no symptom reported Cardiovascular: Yes no symptom reported Gastrointestional: Yes: constipation Genitourinary: Yes: no symptom reported Musculoskeletal: Yes: joint pain Psychiatric/Neurological: Yes: no symptom reported Endocrine: Yes: no symptom reported Hematologic/Lymphatic: Yes: no symptom reported Physical Exam General Appearance: no apparent distress Skin: warm Respiratory: bilateral CTA Heart: S1S2, RRR Abdomen: soft, bowel sounds present Extremities: pulses present Neurology: alert, oriented Musculoskeletal: Osteoarthritis, Other Assessment Assessment IMP ESRD ANEMIA DM II HTN STUMP WOUND PLAN HD SATUR[facility] ASHLEY CHACON MD Feb 16, 2018 10:56
[2018-02-16 11:00] VITALS: BP 105/74
[2018-02-16 15:00] VITALS: BP 99/61
--- NOTE | 2018-02-16 16:29 | RAD ---
History: Evaluate stump infection. Comparison: None. Findings: AP and lateral views of the right knee. Evaluation is limited secondary to lack of previous imaging. Below the knee amputation changes are seen. No convincing osseous irregularity/osteolysis is seen at this time to suggest changes of osteomyelitis, although radiographic evidence of such would be a late finding. Arterial calcification are present. A few scattered soft tissue calcifications are seen. Degenerative changes can be seen involving all 3 compartments of the knee, worst involving the patellofemoral compartment. Impression: 1. Below the knee amputation. 2. No convincing radiographic evidence of osteomyelitis. Electronically signed by: Cruz Gamez MD (02/16/2018 4:26 PM) [facility] – [place]
[2018-02-16 19:00] VITALS: BP 111/58
[2018-02-16] MEDS: ATORVASTATIN CALCIUM 20 MG TABLET PO SCH (20:44)
[2018-02-16] MEDS: FAMOTIDINE 20 MG TABLET. PO SCH (20:46)
[2018-02-16] MEDS: INSULIN GLARGINE 300 UNITS/3 ML INSULN.PEN. SQ SCH (20:54)
[2018-02-16 23:16] VITALS: BP 109/65
[2018-02-17 03:00] VITALS: BP 123/59
[2018-02-17 03:43] LABS: BASO % 1 % (0-3); EOS # 0.2 x10^3/uL (0.0-0.7); EOS % 7 % (0-3); HEMATOCRIT 25.7 % (39.0-53.0); HEMOGLOBIN 8.3 g/dL (13.0-17.5); LYMPH # 1.1 x10^3/uL (1.0-4.8); LYMPH % 33 % (24-48); MEAN CORPUSCULAR HEMOGLOBIN 26 pg (25-35); MEAN CORPUSCULAR HGB CONC 32 g/dL (31-37); MEAN CORPUSCULAR VOLUME 81 fL (79-100); MONO # 0.4 x10^3/uL (0.0-1.1); MONO % 13 % (0-9); NEUT # 1.5 x10^3uL (1.8-7.7); NEUT % 46 % (31-73); PLATELET COUNT 171 x10^3/uL (140-400); RED CELL DISTRIBUTION WIDTH 17.1 % (11.5-14.5); WHITE BLOOD COUNT 3.2 x10^3/uL (4.0-11.0)
[2018-02-17 04:00] LABS: CALCIUM 9.9 mg/dL (8.5-10.1); CREATININE 10.9 mg/dL (0.7-1.3); GFR 6.1; POTASSIUM 4.6 mmol/L (3.5-5.1)
[2018-02-17] MEDS: PIPERACILLIN/TAZOBACTAM 2.25 GM in IV NORMAL SALINE 50ML 50 ML IV SCH ×3 (05:42→20:32)
[2018-02-17 07:00] VITALS: BP 133/70
[2018-02-17] MEDS: ASPIRIN ENTERIC COATED 325 MG TABLET.DR. PO SCH (08:50)
[2018-02-17] MEDS: LACTOBACILLUS RHAMNOSUS GG 1 CAPSULE. PO SCH ×2 (08:50→20:26)
[2018-02-17] MEDS: SEVELAMER CARBONATE 800 MG TABLET. PO SCH ×3 (08:50→18:02)
[2018-02-17] MEDS: METOCLOPRAMIDE 5 MG TABLET. PO SCH ×4 (08:50→20:32)
[2018-02-17] MEDS: CARVEDILOL 12.5 MG TABLET. PO SCH ×2 (08:51→18:03)
--- NOTE | 2018-02-17 08:57 | PDOC ---
Infectious Disease Note Subjective Subjective Comfortable, feeling well Appetite good ROS ROS Denies pain/N/V/D/F/C/S Vital Sign Vital Signs Vital Signs Date Time Temp Pulse Resp B/P (MAP) Pulse Ox O2 Delivery O2 Flow Rate FiO2 02/17/18 08:51 80 133/70 02/17/18 07:00 97.9 18 97 Room Air 97.9 Physical Exam PHYSICAL EXAM GENERAL: Sitting on the side of the bed, alert, NAD HEENT: Oral cavity clear LUNGS: Clear to auscultation bilaterally. HEART: S1, S2. ABDOMEN: Soft, nontender, nondistended. EXTREMITIES: Bilateral amputee, both bandaged . rt BKA, has a small opening, with packing in place SKIN: warm without rash NEUROLOGIC: Alert, responds appropriately PIV ok Labs Lab Laboratory Tests Test 02/16/18 11:22 02/16/18 16:17 02/16/18 19:13 02/16/18 20:42 Glucose (Fingerstick) 208 mg/dL (70-99) 51 mg/dL (70-99) 129 mg/dL (70-99) 168 mg/dL (70-99) Test 02/17/18 02:40 02/17/18 07:19 White Blood Count 3.2 x10^3/uL (4.0-11.0) Red Blood Count 3.20 x10^6/uL (4.30-5.70) Hemoglobin 8.3 g/dL (13.0-17.5) Hematocrit 25.7 % (39.0-53.0) Mean Corpuscular Volume 81 fL (79-100) Mean Corpuscular Hemoglobin 26 pg (25-35) Mean Corpuscular Hemoglobin Concent 32 g/dL (31-37) Red Cell Distribution Width 17.1 % (11.5-14.5) Platelet Count 171 x10^3/uL (140-400) Neutrophils (%) (Auto) 46 % (31-73) Lymphocytes (%) (Auto) 33 % (24-48) Monocytes (%) (Auto) 13 % (0-9) Eosinophils (%) (Auto) 7 % (0-3) Basophils (%) (Auto) 1 % (0-3) Neutrophils # (Auto) 1.5 x10^3uL (1.8-7.7) Lymphocytes # (Auto) 1.1 x10^3/uL (1.0-4.8) Monocytes # (Auto) 0.4 x10^3/uL (0.0-1.1) Eosinophils # (Auto) 0.2 x10^3/uL (0.0-0.7) Basophils # (Auto) 0.0 x10^3/uL (0.0-0.2) Sodium Level 139 mmol/L (136-145) Potassium Level 4.6 mmol/L (3.5-5.1) Chloride Level 98 mmol/L (98-107) Carbon Dioxide Level 30 mmol/L (21-32) Anion Gap 11 (6-14) Blood Urea Nitrogen 52 mg/dL (8-26) Creatinine 10.9 mg/dL (0.7-1.3) Estimated GFR (Cockcroft-Gault) 6.1 Glucose Level 194 mg/dL (70-99) Calcium Level 9.9 mg/dL (8.5-10.1) Glucose (Fingerstick) 192 mg/dL (70-99) Micro culture Staphylococcus aureus Objective Assessment Right stump infection/abscess s/p local I and D, (wound care center).staph aureus Leukopenia CKD on HD DM H/o Staph and strep/PSA Plan Plan of Care Vanc per pharmacy. random Trough 35.2 on 02/15. Zosyn, renal dosing Await Ortho eval Local wound care F/u labs and cults Supportive care Stump XRAY, neg for osteo soon to d/c with oral antibiotics TEJA BERMUDEZ MD Feb 17, 2018 08:57
[2018-02-17] MEDS: INSULIN LISPRO 300 UNITS/3 ML INSULN.PEN. SQ SCH ×6 (08:58→17:00)
--- NOTE | 2018-02-17 10:23 | PDOC ---
PROGRESS NOTES Subjective Subjective feels ok, stump infection Objective Objective Vital Signs Date Time Temp Pulse Resp B/P (MAP) Pulse Ox O2 Delivery O2 Flow Rate FiO2 02/17/18 08:51 80 133/70 02/17/18 07:00 97.9 18 97 Room Air 97.9 Intake and Output 02/17/18 07:00 Intake Total 920 ml Output Total 150 ml Balance 770 ml Intake Oral 820 ml IV Total 100 ml Output Urine Total 150 ml Physical Exam Abdomen: Normal bowel sounds, Soft Heart: Regular rate, Normal S1 Extremities: No clubbing General: Alert, Oriented X3 HEENT: Atraumatic Lungs: Clear to auscultation MUSCULOSKELETAL: No swelling, Other Neck: Supple Neuro: Normal speech Psych/Mental Status: Mood NL Skin: Other (rt stump abscess) Assessment Assessment 1. Right leg stump possible abscess, draining now. 2. Left stump ulceration stage 2, superficial. 3. Diabetes, insulin-dependent. 4. End-stage renal disease, on hemodialysis. 5. 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 6. Hypertension. 7. Hyperlipidemia. 8. Chronic systolic heart failure, stable. 9. Anemia of chronic disease. PLAN: waiting for ortho to see him iv antibiotics vanco+zosyn. dialysis tomorrow . wound care. At this time, was admitted to the hospital. Wound culture was done. IV antibiotics, vancomycin and Zosyn. ID was consulted. We will also have orthopedic look at the stump to see if he needs to have surgical debridement and see how the patient's condition improves. Hypoglycemia- resolved. Blood sugars are higher. Give Lantus 7 units subcutaneous daily and increase Humalog to 7 units subcutaneous 3 times a day. Blood sugar was 372 last night. Leukopenia WBC count is 3.2. Recheck labs in a.m. Labs, condition and treatment discussed with the patient and his . Comment Review of Relevant I have reviewed the following items carmen (where applicable) has been applied. Labs Laboratory Tests Test 02/16/18 11:22 02/16/18 16:17 02/16/18 19:13 02/16/18 20:42 Glucose (Fingerstick) 208 mg/dL (70-99) 51 mg/dL (70-99) 129 mg/dL (70-99) 168 mg/dL (70-99) Test 02/17/18 02:40 02/17/18 07:19 White Blood Count 3.2 x10^3/uL (4.0-11.0) Red Blood Count 3.20 x10^6/uL (4.30-5.70) Hemoglobin 8.3 g/dL (13.0-17.5) Hematocrit 25.7 % (39.0-53.0) Mean Corpuscular Volume 81 fL (79-100) Mean Corpuscular Hemoglobin 26 pg (25-35) Mean Corpuscular Hemoglobin Concent 32 g/dL (31-37) Red Cell Distribution Width 17.1 % (11.5-14.5) Platelet Count 171 x10^3/uL (140-400) Neutrophils (%) (Auto) 46 % (31-73) Lymphocytes (%) (Auto) 33 % (24-48) Monocytes (%) (Auto) 13 % (0-9) Eosinophils (%) (Auto) 7 % (0-3) Basophils (%) (Auto) 1 % (0-3) Neutrophils # (Auto) 1.5 x10^3uL (1.8-7.7) Lymphocytes # (Auto) 1.1 x10^3/uL (1.0-4.8) Monocytes # (Auto) 0.4 x10^3/uL (0.0-1.1) Eosinophils # (Auto) 0.2 x10^3/uL (0.0-0.7) Basophils # (Auto) 0.0 x10^3/uL (0.0-0.2) Sodium Level 139 mmol/L (136-145) Potassium Level 4.6 mmol/L (3.5-5.1) Chloride Level 98 mmol/L (98-107) Carbon Dioxide Level 30 mmol/L (21-32) Anion Gap 11 (6-14) Blood Urea Nitrogen 52 mg/dL (8-26) Creatinine 10.9 mg/dL (0.7-1.3) Estimated GFR (Cockcroft-Gault) 6.1 Glucose Level 194 mg/dL (70-99) Calcium Level 9.9 mg/dL (8.5-10.1) Glucose (Fingerstick) 192 mg/dL (70-99) Medications Current Medications Insulin Glargine (Lantus) 5 units QHS SQ Last administered on 02/16/18at 20:54; Start 02/16/18 at 21:00 Vancomycin HCl (Vancomycin Random Level) 1 each 1X ONCE MC ; Start 02/19/18 at 05:00; Stop 02/19/18 at 05:01 Vitals/I & O Vital Sign - Last 24 Hours 02/16/18 02/16/18 02/16/18 02/16/18 11:00 15:00 16:35 19:00 Temp 97.7 95.9 97.9 97.7 95.9 97.9 Pulse 88 81 81 86 Resp B/P (MAP) 105/74 (84) 99/61 (74) 99/61 111/58 (75) Pulse Ox 100 95 95 O2 Delivery Room Air Room Air Room Air 02/16/18 02/17/18 02/17/18 02/17/18 23:16 03:00 07:00 08:51 Temp 97.9 97.6 97.9 97.9 97.6 97.9 Pulse 86 81 80 80 Resp B/P (MAP) 109/65 (80) 123/59 (80) 133/70 (91) 133/70 Pulse Ox 96 95 97 O2 Delivery Room Air Room Air Room Air Intake and Output 02/16/18 02/16/18 02/17/18 15:00 23:00 07:00 Intake Total 450 ml 470 ml Output Total 150 ml Balance 450 ml 320 ml IRINEO SCHWARTZ MD Feb 17, 2018 10:23
--- NOTE | 2018-02-17 10:46 | PDOC ---
Renal-Progress Notes Subjective Notes Notes NONE History of Present Illness Hx of present illness STABLE Vitals Vitals Vital Signs Date Time Temp Pulse Resp B/P (MAP) Pulse Ox O2 Delivery O2 Flow Rate FiO2 02/17/18 08:51 80 133/70 02/17/18 07:00 97.9 18 97 Room Air 97.9 Weight Weight [ ] I.O. Intake and Output Intake and Output 02/17/18 07:00 Intake Total 920 ml Output Total 150 ml Balance 770 ml Intake Oral 820 ml IV Total 100 ml Output Urine Total 150 ml Labs Labs Laboratory Tests Test 02/16/18 11:22 02/16/18 16:17 02/16/18 19:13 02/16/18 20:42 Glucose (Fingerstick) 208 mg/dL (70-99) 51 mg/dL (70-99) 129 mg/dL (70-99) 168 mg/dL (70-99) Test 02/17/18 02:40 02/17/18 07:19 White Blood Count 3.2 x10^3/uL (4.0-11.0) Red Blood Count 3.20 x10^6/uL (4.30-5.70) Hemoglobin 8.3 g/dL (13.0-17.5) Hematocrit 25.7 % (39.0-53.0) Mean Corpuscular Volume 81 fL (79-100) Mean Corpuscular Hemoglobin 26 pg (25-35) Mean Corpuscular Hemoglobin Concent 32 g/dL (31-37) Red Cell Distribution Width 17.1 % (11.5-14.5) Platelet Count 171 x10^3/uL (140-400) Neutrophils (%) (Auto) 46 % (31-73) Lymphocytes (%) (Auto) 33 % (24-48) Monocytes (%) (Auto) 13 % (0-9) Eosinophils (%) (Auto) 7 % (0-3) Basophils (%) (Auto) 1 % (0-3) Neutrophils # (Auto) 1.5 x10^3uL (1.8-7.7) Lymphocytes # (Auto) 1.1 x10^3/uL (1.0-4.8) Monocytes # (Auto) 0.4 x10^3/uL (0.0-1.1) Eosinophils # (Auto) 0.2 x10^3/uL (0.0-0.7) Basophils # (Auto) 0.0 x10^3/uL (0.0-0.2) Sodium Level 139 mmol/L (136-145) Potassium Level 4.6 mmol/L (3.5-5.1) Chloride Level 98 mmol/L (98-107) Carbon Dioxide Level 30 mmol/L (21-32) Anion Gap 11 (6-14) Blood Urea Nitrogen 52 mg/dL (8-26) Creatinine 10.9 mg/dL (0.7-1.3) Estimated GFR (Cockcroft-Gault) 6.1 Glucose Level 194 mg/dL (70-99) Calcium Level 9.9 mg/dL (8.5-10.1) Glucose (Fingerstick) 192 mg/dL (70-99) Review of Systems Constitutional: yes: alert, oriented Ears/Nose/Throat: Yes: no symptom reported Eyes: Yes: no symptom reported Pulmonary: Yes no symptom reported Cardiovascular: Yes no symptom reported Gastrointestional: Yes: constipation Genitourinary: Yes: no symptom reported Musculoskeletal: Yes: joint pain Psychiatric/Neurological: Yes: no symptom reported Endocrine: Yes: no symptom reported Hematologic/Lymphatic: Yes: no symptom reported Physical Exam General Appearance: no apparent distress Skin: warm Respiratory: bilateral CTA Heart: S1S2, RRR Abdomen: soft, bowel sounds present Extremities: pulses present Neurology: alert, oriented Musculoskeletal: Osteoarthritis, Other Assessment Assessment IMP ESRD ANEMIA DM II HTN STUMP WOUND PLAN HD TOMORROW ONGOING ORTHO AND ID EVAL ANTIBIOTICS ASHLEY CHACON MD Feb 17, 2018 10:46
[2018-02-17 11:00] VITALS: BP 125/71
[2018-02-17 15:00] VITALS: BP 109/69
[2018-02-17 19:00] VITALS: BP 120/70
[2018-02-17] MEDS: VANCOMYCIN PER PHARMACY MC PRN (19:05)
[2018-02-17] MEDS: ATORVASTATIN CALCIUM 20 MG TABLET PO SCH (20:26)
[2018-02-17] MEDS: INSULIN GLARGINE 300 UNITS/3 ML INSULN.PEN. SQ SCH (20:35)
[2018-02-17 23:00] VITALS: BP 128/70
[2018-02-18 03:00] VITALS: BP 117/74
[2018-02-18] MEDS: PIPERACILLIN/TAZOBACTAM 2.25 GM in IV NORMAL SALINE 50ML 50 ML IV SCH ×2 (05:19→14:00)
[2018-02-18 06:11] LABS: HEMATOCRIT 25.3 % (39.0-53.0); HEMOGLOBIN 8.2 g/dL (13.0-17.5); RED BLOOD COUNT 3.17 x10^6/uL (4.30-5.70); RED CELL DISTRIBUTION WIDTH 16.8 % (11.5-14.5); WHITE BLOOD COUNT 3.2 x10^3/uL (4.0-11.0)
[2018-02-18 06:30] LABS: CALCIUM 9.5 mg/dL (8.5-10.1); CREATININE 13.9 mg/dL (0.7-1.3); GFR 4.6; POTASSIUM 4.9 mmol/L (3.5-5.1)
[2018-02-18 07:00] VITALS: BP 129/82
[2018-02-18] MEDS: METOCLOPRAMIDE 5 MG TABLET. PO SCH ×2 (07:30→12:38)
[2018-02-18] MEDS: INSULIN LISPRO 300 UNITS/3 ML INSULN.PEN. SQ SCH ×4 (08:00→12:43)
[2018-02-18] MEDS: SEVELAMER CARBONATE 800 MG TABLET. PO SCH ×2 (08:00→12:38)
[2018-02-18] MEDS: CARVEDILOL 12.5 MG TABLET. PO SCH (08:00)
--- NOTE | 2018-02-18 10:19 | PDOC ---
PROGRESS NOTES Objective Objective Vital Signs Date Time Temp Pulse Resp B/P (MAP) Pulse Ox O2 Delivery O2 Flow Rate FiO2 02/18/18 08:37 Room Air 02/18/18 07:00 69 18 129/82 (98) 96 02/18/18 03:00 97.7 97.7 Intake and Output 02/18/18 07:00 Intake Total 480 ml Output Total 0 ml Balance 480 ml Intake Oral 480 ml Output Urine Total 0 ml Physical Exam Abdomen: Normal bowel sounds, Soft Heart: Regular rate, Normal S1 Extremities: No clubbing General: Alert, Oriented X3 HEENT: Atraumatic Lungs: Clear to auscultation MUSCULOSKELETAL: No swelling, Other Neck: Supple Neuro: Normal speech Psych/Mental Status: Mood NL Skin: Other (rt stump abscess) Assessment Assessment 1. Right leg stump possible abscess, draining now. 2. Left stump ulceration stage 2, superficial. 3. Diabetes, insulin-dependent. 4. End-stage renal disease, on hemodialysis. 5. 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 6. Hypertension. 7. Hyperlipidemia. 8. Chronic systolic heart failure, stable. 9. Anemia of chronic disease. PLAN: waiting for ortho to see him iv antibiotics vanco+zosyn. dialysis tomorrow . wound care. At this time, was admitted to the hospital. Wound culture was done. IV antibiotics, vancomycin and Zosyn. ID was consulted. We will also have orthopedic look at the stump to see if he needs to have surgical debridement and see how the patient's condition improves. Hypoglycemia- resolved. Blood sugars are higher. Give Lantus 7 units subcutaneous daily and increase Humalog to 7 units subcutaneous 3 times a day. Blood sugar was 372 last night. Leukopenia WBC count is 3.2. Recheck labs in a.m. Labs, condition and treatment discussed with the patient and his . Comment Review of Relevant I have reviewed the following items carmen (where applicable) has been applied. Labs Laboratory Tests Test 02/17/18 11:39 02/17/18 16:35 02/17/18 20:32 02/18/18 06:00 Glucose (Fingerstick) 178 mg/dL (70-99) 61 mg/dL (70-99) 253 mg/dL (70-99) White Blood Count 3.2 x10^3/uL (4.0-11.0) Red Blood Count 3.17 x10^6/uL (4.30-5.70) Hemoglobin 8.2 g/dL (13.0-17.5) Hematocrit 25.3 % (39.0-53.0) Mean Corpuscular Volume 80 fL (79-100) Mean Corpuscular Hemoglobin 26 pg (25-35) Mean Corpuscular Hemoglobin Concent 32 g/dL (31-37) Red Cell Distribution Width 16.8 % (11.5-14.5) Platelet Count 176 x10^3/uL (140-400) Sodium Level 135 mmol/L (136-145) Potassium Level 4.9 mmol/L (3.5-5.1) Chloride Level 98 mmol/L (98-107) Carbon Dioxide Level 28 mmol/L (21-32) Anion Gap 9 (6-14) Blood Urea Nitrogen 71 mg/dL (8-26) Creatinine 13.9 mg/dL (0.7-1.3) Estimated GFR (Cockcroft-Gault) 4.6 Glucose Level 271 mg/dL (70-99) Calcium Level 9.5 mg/dL (8.5-10.1) Test 02/18/18 07:20 Glucose (Fingerstick) 259 mg/dL (70-99) Medications Current Medications Vancomycin HCl (Vancomycin Random Level) 1 each 1X ONCE [facility] ; Start 02/19/18 at 05:00; Stop 02/19/18 at 05:01 Vitals/I & O Vital Sign - Last 24 Hours 02/17/18 02/17/18 02/17/18 02/17/18 11:00 15:00 18:03 19:00 Temp 97.7 97.9 97.9 97.7 97.9 97.9 Pulse 74 79 79 79 Resp 16 20 18 B/P (MAP) 125/71 (89) 109/69 (82) 109/69 120/70 (87) Pulse Ox 97 98 100 O2 Delivery Room Air Room Air Room Air 02/17/18 02/17/18 02/18/18 02/18/18 20:00 23:00 03:00 07:00 Temp 96.8 97.7 96.8 97.7 Pulse 75 77 69 Resp 18 18 18 B/P (MAP) 128/70 (89) 117/74 (88) 129/82 (98) Pulse Ox 93 97 96 O2 Delivery Room Air Room Air Room Air Room Air 02/18/18 08:37 O2 Delivery Room Air Intake and Output 02/17/18 02/17/18 02/18/18 15:00 23:00 07:00 Intake Total 480 ml Output Total 0 ml Balance 480 ml 0 ml IRINEO SCHWARTZ MD Feb 18, 2018 10:19
[2018-02-18] MEDS ORDERED: DOXY50CA PO (10:22)
--- NOTE | 2018-02-18 11:17 | PDOC ---
Renal-Progress Notes Subjective Notes Notes NO PAIN History of Present Illness Hx of present illness STABLE Vitals Vitals Vital Signs Date Time Temp Pulse Resp B/P (MAP) Pulse Ox O2 Delivery O2 Flow Rate FiO2 02/18/18 08:37 Room Air 02/18/18 07:00 69 18 129/82 (98) 96 02/18/18 03:00 97.7 97.7 Weight Weight [ ] I.O. Intake and Output Intake and Output 02/18/18 07:00 Intake Total 480 ml Output Total 0 ml Balance 480 ml Intake Oral 480 ml Output Urine Total 0 ml Labs Labs Laboratory Tests Test 02/17/18 11:39 02/17/18 16:35 02/17/18 20:32 02/18/18 06:00 Glucose (Fingerstick) 178 mg/dL (70-99) 61 mg/dL (70-99) 253 mg/dL (70-99) White Blood Count 3.2 x10^3/uL (4.0-11.0) Red Blood Count 3.17 x10^6/uL (4.30-5.70) Hemoglobin 8.2 g/dL (13.0-17.5) Hematocrit 25.3 % (39.0-53.0) Mean Corpuscular Volume 80 fL (79-100) Mean Corpuscular Hemoglobin 26 pg (25-35) Mean Corpuscular Hemoglobin Concent 32 g/dL (31-37) Red Cell Distribution Width 16.8 % (11.5-14.5) Platelet Count 176 x10^3/uL (140-400) Sodium Level 135 mmol/L (136-145) Potassium Level 4.9 mmol/L (3.5-5.1) Chloride Level 98 mmol/L (98-107) Carbon Dioxide Level 28 mmol/L (21-32) Anion Gap 9 (6-14) Blood Urea Nitrogen 71 mg/dL (8-26) Creatinine 13.9 mg/dL (0.7-1.3) Estimated GFR (Cockcroft-Gault) 4.6 Glucose Level 271 mg/dL (70-99) Calcium Level 9.5 mg/dL (8.5-10.1) Test 02/18/18 07:20 Glucose (Fingerstick) 259 mg/dL (70-99) Review of Systems Constitutional: yes: alert, oriented Ears/Nose/Throat: Yes: no symptom reported Eyes: Yes: no symptom reported Pulmonary: Yes no symptom reported Cardiovascular: Yes no symptom reported Gastrointestional: Yes: constipation Genitourinary: Yes: no symptom reported Musculoskeletal: Yes: joint pain Psychiatric/Neurological: Yes: no symptom reported Endocrine: Yes: no symptom reported Hematologic/Lymphatic: Yes: no symptom reported Physical Exam General Appearance: no apparent distress Skin: warm Respiratory: bilateral CTA Heart: S1S2, RRR Abdomen: soft, bowel sounds present Extremities: pulses present Neurology: alert, oriented Musculoskeletal: Osteoarthritis, Other Assessment Assessment IMP ESRD ANEMIA DM II HTN STUMP WOUND PLAN HD TODAY UF TO [facility] ONGOING ORTHO AND ID EVAL ANTIBIOTICS ASHLEY CHACON MD Feb 18, 2018 11:17
[2018-02-18] MEDS: ASPIRIN ENTERIC COATED 325 MG TABLET.DR. PO SCH (12:38)
[2018-02-18] MEDS: LACTOBACILLUS RHAMNOSUS GG 1 CAPSULE. PO SCH (12:38)
--- NOTE | 2018-02-18 13:41 | PDOC ---
Infectious Disease Note Subjective Subjective Comfortable, feeling well Appetite good Vital Sign Vital Signs Vital Signs Date Time Temp Pulse Resp B/P (MAP) Pulse Ox O2 Delivery O2 Flow Rate FiO2 02/18/18 08:37 Room Air 02/18/18 07:00 69 18 129/82 (98) 96 02/18/18 03:00 97.7 97.7 Physical Exam PHYSICAL EXAM GENERAL: Propped up in bed, alert, smiling HEENT: Oral cavity clear LUNGS: Clear to auscultation bilaterally. HEART: S1, S2. ABDOMEN: Soft, nontender, nondistended. EXTREMITIES: Bilateral amputee, both bandaged . right BKA, has a small opening , with packing in place SKIN: warm without rash NEUROLOGIC: Alert, responds appropriately Labs Lab Laboratory Tests Test 02/17/18 16:35 02/17/18 20:32 02/18/18 06:00 02/18/18 07:20 Glucose (Fingerstick) 61 mg/dL (70-99) 253 mg/dL (70-99) 259 mg/dL (70-99) White Blood Count 3.2 x10^3/uL (4.0-11.0) Red Blood Count 3.17 x10^6/uL (4.30-5.70) Hemoglobin 8.2 g/dL (13.0-17.5) Hematocrit 25.3 % (39.0-53.0) Mean Corpuscular Volume 80 fL (79-100) Mean Corpuscular Hemoglobin 26 pg (25-35) Mean Corpuscular Hemoglobin Concent 32 g/dL (31-37) Red Cell Distribution Width 16.8 % (11.5-14.5) Platelet Count 176 x10^3/uL (140-400) Sodium Level 135 mmol/L (136-145) Potassium Level 4.9 mmol/L (3.5-5.1) Chloride Level 98 mmol/L (98-107) Carbon Dioxide Level 28 mmol/L (21-32) Anion Gap 9 (6-14) Blood Urea Nitrogen 71 mg/dL (8-26) Creatinine 13.9 mg/dL (0.7-1.3) Estimated GFR (Cockcroft-Gault) 4.6 Glucose Level 271 mg/dL (70-99) Calcium Level 9.5 mg/dL (8.5-10.1) Test 02/18/18 12:31 Glucose (Fingerstick) 150 mg/dL (70-99) Micro 02/14. right leg ANAEROBIC-AEROBIC CULTURE PENDING ANAEROBIC RES 1 PENDING AEROBIC CULT PENDING AEROBIC RES 1 PENDING GRAM STAIN Final Final report GRAM STAIN RES 1 Final Comment Few white blood cells. GRAM STAIN RES 2 Final No organisms seen Objective Assessment Right stump infection/abscess s/p local I and D, (wound care center). No organisms on gram stain. Staph aureus Leukopenia CKD on HD DM H/o Staph and strep Plan Plan of Care Switch to doxy and Augmentin on discharge f/u our office in 1-2 weeks Attending Co-Sign The patient was seen and interviewed as well as examined at the bedside. The chart was reviewed. The case was discussed. Agree with the plan of care. KOBE RUDD APRN Feb 18, 2018 13:41 TEJA BERMUDEZ MD Feb 18, 2018 13:54
--- NOTE | 2018-02-18 13:48 | PDOC2 ---
CONSULT Date of Consult Date of Consult DATE: 02/18/18 TIME: 13:39 Reason for Consult Reason for Consult: drainage from right BKA Identification/Chief Complaint Chief Complaint right BKA drainage Source Source: Chart review, Patient History of Present Illness Reason for Visit: This 52-year-old man with diabetes has a history of bilateral below-knee amputations due to competitions of diabetes and vascular disease. I did his right below-knee amputation in 2013 for a Charcot foot and osteomyelitis. He has been doing well since then, using bilateral BKA prostheses. Recently he developed some drainage, and had outpatient incision of a small abscess by wound care recently, of the right below-knee dictation stump. He has been on antibiotics and apparently is improving. Past Medical History Cardiovascular: CHF, HTN, Hyperlipidemia, Other CENTRAL NERVOUS SYSTEM: Periperal neuropathy GI: GERD Heme/Onc: Anemia NOS Musculoskeletal: Osteoarthritis, Other Renal/: Chronic renal failure Endocrine: Diabetes, Hyperparathyroidism Family History Family History: Diabetes, Hypertension Social History ALCOHOL: none Drugs: None Lives: with Family Current Medications Current Medications Current Medications Insulin Human Lispro (HumaLOG) 0-7 UNITS TIDWMEALS SQ Last administered on 02/17at 12:29; Start 02/14/18 at 12:00 Dextrose (Dextrose 50%-Water Syringe) 12.5 gm PRN Q15MIN PRN IV SEE COMMENTS; Start 02/14/18 at 10:45 Atorvastatin Calcium (Lipitor) 20 mg QHS PO Last administered on 02/17/18at 20: 26; Start 02/14/18 at 21:00 Carvedilol (Coreg) 25 mg BIDWMEALS PO Last administered on 02/17/18at 18:03; Start 02/14/18 at 11:00 Insulin Glargine (Lantus) 10 units QHS SQ ; Start 02/14/18 at 21:00; Stop at 09:46; Status DC Metoclopramide HCl (Reglan) 5 mg QIDACHS PO Last administered on 02/18/18at 12: 38; Start 02/14/18 at 11:30 Sevelamer Carbonate (Renvela) 800 mg TIDWMEALS PO Last administered on at 12:38; Start 02/14/18 at 12:00 Tramadol HCl (Ultram) 50 mg PRN Q6HRS PRN PO MODERATE-SEVERE PAIN; Start at 10:45 Aspirin (Ecotrin) 325 mg DAILYWBKFT PO Last administered on 02/18/18at 12:38; Start 02/14/18 at 11:00 Famotidine (Pepcid) 40 mg Q48H PO Last administered on 02/16/18at 20:46; Start at 21:00 Insulin Human Lispro (HumaLOG) 10 units TIDWMEALS SQ Last administered on at 09:06; Start 02/14/18 at 12:00; Stop 02/15/18 at 09:46; Status DC Vancomycin HCl 1.25 gm/Sodium Chloride 250 ml @ 166.667 mls/hr 1X ONCE IV ; Start 02/14/18 at 11:00; Stop 02/14/18 at 12:29; Status Cancel Piperacillin Sod/ Tazobactam Sod 2.25 gm/Sodium Chloride 50 ml @ 100 mls/hr Q8HRS IV Last administered on 02/18/18at 05:19; Start 02/14/18 at 12:00 Vancomycin HCl 2 gm/Sodium Chloride 500 ml @ 250 mls/hr 1X ONCE IV Last administered on 02/14/18at 15:32; Start 02/14/18 at 11:30; Stop 02/14/18 at 13:29; Status DC Pharmacy Consult (C.diff Med Screen By Rx) 1 each 1X ONCE MC ; Start 02/14/18 at 11:15; Stop 02/14/18 at 11:27; Status DC Vancomycin HCl (Vanco Per Pharmacy) 1 each PRN DAILY PRN MC SEE COMMENTS Last administered on 02/17/18at 19:05; Start 02/14/18 at 14:30 Vancomycin HCl (Vancomycin Random Level) 1 each 1X ONCE MC Last administered on 02/15/18at 05:00; Start 02/15/18 at 05:00; Stop 02/15/18 at 05:01; Status DC Lactobacillus Rhamnosus (Culturelle) 1 cap BID PO Last administered on at 12:38; Start 02/14/18 at 21:00 Acetaminophen (Tylenol) 650 mg PRN Q6HRS PRN PO MILD PAIN / TEMP; Start at 09:45 Insulin Human Lispro (HumaLOG) 5 units TIDWMEALS SQ Last administered on at 17:27; Start 02/15/18 at 12:00; Stop 02/16/18 at 08:58; Status DC Darbepoetin Huey (Aranesp) 60 mcg 1X ONCE SQ Last administered on 02/15/18at 15: 14; Start 02/15/18 at 11:30; Stop 02/15/18 at 11:31; Status DC Sodium Chloride 1,000 ml @ 1,000 mls/hr Q1H PRN IV hypotension; Start 02/15/18 at 12:26; Stop 02/15/18 at 18:25; Status DC Diphenhydramine HCl (Benadryl) 25 mg 1X PRN PRN IV ITCHING; Start 02/15/18 at 12 :30; Stop 02/16/18 at 12:29; Status DC Diphenhydramine HCl (Benadryl) 25 mg 1X PRN PRN IV ITCHING; Start 02/15/18 at 12 :30; Stop 02/16/18 at 12:29; Status DC Sodium Chloride 1,000 ml @ 400 mls/hr Q2H30M PRN IV PATENCY; Start 02/15/18 at 12:26; Stop 02/16/18 at 00:25; Status DC Info (PHARMACY MONITORING -- do not chart) 1 each PRN DAILY PRN MC SEE COMMENTS ; Start 02/15/18 at 12:30 Insulin Human Lispro (HumaLOG) 8 units 1X ONCE SQ Last administered on at 21:43; Start 02/15/18 at 21:15; Stop 02/15/18 at 21:16; Status DC Insulin Human Lispro (HumaLOG) 7 units TIDWMEALS SQ Last administered on at 12:43; Start 02/16/18 at 09:15 Insulin Glargine (Lantus) 5 units QHS SQ Last administered on 02/17/18at 20:35; Start 02/16/18 at 21:00 Vancomycin HCl (Vancomycin Random Level) 1 each 1X ONCE MC ; Start 02/19/18 at 05:00; Stop 02/19/18 at 05:01 Active Scripts Active Keflex (Cephalexin) 500 Mg Capsule 1 Cap PO BID Reported Tramadol Hcl 50 Mg Tablet 50 Mg PO Q6HRS PRN Renvela (Sevelamer Carbonate) 800 Mg Tablet 800 Mg PO TIDWMEALS Famotidine 40 Mg Tablet 40 Mg PO HS Lantus Solostar (Insulin Glargine,Hum.rec.anlog) 100 Unit/1 Ml Insuln.pen 10 Unit SQ QHS Novolog Flexpen (Insulin Aspart) 100 Unit/1 Ml Insuln.pen 10 Unit SQ TIDAC Reglan (Metoclopramide Hcl) 5 Mg Tablet 5 Mg PO QID Coreg (Carvedilol) 12.5 Mg Tablet 25 Mg PO BID Lipitor (Atorvastatin Calcium) 20 Mg Tablet 20 Mg PO QHS Aspirin Buffered 325 Mg Tab (Aspirin/Calcium Carbonate/Mag) 325 Mg Tablet 325 Mg PO DAILY06 Allergies Allergies: Coded Allergies: No Known Drug Allergies (Unverified , 11/12/16) Physical Exam General: Alert, Cooperative HEENT: Atraumatic Lungs: Normal air movement Heart: Regular rate Abdomen: Soft, No tenderness Extremities: Other (bilateral below-knee amputations. He has a dressing on the distal end of each residual lower limb. The right lower extremity dressing was removed, and there is a small amount of iodoform packing and what seems to be a superficial abscess. There is no surrounding erythema, no tenderness, no fluctuance, and no drainage.) Vitals VITALS Vital Signs Date Time Temp Pulse Resp B/P (MAP) Pulse Ox O2 Delivery O2 Flow Rate FiO2 02/18/18 08:37 Room Air 02/18/18 07:00 69 18 129/82 (98) 96 02/18/18 03:00 97.7 97.7 Labs Labs Laboratory Tests Test 02/16/18 16:17 02/16/18 19:13 02/16/18 20:42 02/17/18 02:40 Glucose (Fingerstick) 51 mg/dL (70-99) 129 mg/dL (70-99) 168 mg/dL (70-99) White Blood Count 3.2 x10^3/uL (4.0-11.0) Red Blood Count 3.20 x10^6/uL (4.30-5.70) Hemoglobin 8.3 g/dL (13.0-17.5) Hematocrit 25.7 % (39.0-53.0) Mean Corpuscular Volume 81 fL (79-100) Mean Corpuscular Hemoglobin 26 pg (25-35) Mean Corpuscular Hemoglobin Concent 32 g/dL (31-37) Red Cell Distribution Width 17.1 % (11.5-14.5) Platelet Count 171 x10^3/uL (140-400) Neutrophils (%) (Auto) 46 % (31-73) Lymphocytes (%) (Auto) 33 % (24-48) Monocytes (%) (Auto) 13 % (0-9) Eosinophils (%) (Auto) 7 % (0-3) Basophils (%) (Auto) 1 % (0-3) Neutrophils # (Auto) 1.5 x10^3uL (1.8-7.7) Lymphocytes # (Auto) 1.1 x10^3/uL (1.0-4.8) Monocytes # (Auto) 0.4 x10^3/uL (0.0-1.1) Eosinophils # (Auto) 0.2 x10^3/uL (0.0-0.7) Basophils # (Auto) 0.0 x10^3/uL (0.0-0.2) Sodium Level 139 mmol/L (136-145) Potassium Level 4.6 mmol/L (3.5-5.1) Chloride Level 98 mmol/L (98-107) Carbon Dioxide Level 30 mmol/L (21-32) Anion Gap 11 (6-14) Blood Urea Nitrogen 52 mg/dL (8-26) Creatinine 10.9 mg/dL (0.7-1.3) Estimated GFR (Cockcroft-Gault) 6.1 Glucose Level 194 mg/dL (70-99) Calcium Level 9.9 mg/dL (8.5-10.1) Test 02/17/18 07:19 02/17/18 11:39 02/17/18 16:35 02/17/18 20:32 Glucose (Fingerstick) 192 mg/dL (70-99) 178 mg/dL (70-99) 61 mg/dL (70-99) 253 mg/dL (70-99) Test 02/18/18 06:00 02/18/18 07:20 02/18/18 12:31 White Blood Count 3.2 x10^3/uL (4.0-11.0) Red Blood Count 3.17 x10^6/uL (4.30-5.70) Hemoglobin 8.2 g/dL (13.0-17.5) Hematocrit 25.3 % (39.0-53.0) Mean Corpuscular Volume 80 fL (79-100) Mean Corpuscular Hemoglobin 26 pg (25-35) Mean Corpuscular Hemoglobin Concent 32 g/dL (31-37) Red Cell Distribution Width 16.8 % (11.5-14.5) Platelet Count 176 x10^3/uL (140-400) Sodium Level 135 mmol/L (136-145) Potassium Level 4.9 mmol/L (3.5-5.1) Chloride Level 98 mmol/L (98-107) Carbon Dioxide Level 28 mmol/L (21-32) Anion Gap 9 (6-14) Blood Urea Nitrogen 71 mg/dL (8-26) Creatinine 13.9 mg/dL (0.7-1.3) Estimated GFR (Cockcroft-Gault) 4.6 Glucose Level 271 mg/dL (70-99) Calcium Level 9.5 mg/dL (8.5-10.1) Glucose (Fingerstick) 259 mg/dL (70-99) 150 mg/dL (70-99) Laboratory Tests Test 02/17/18 16:35 02/17/18 20:32 02/18/18 06:00 02/18/18 07:20 Glucose (Fingerstick) 61 mg/dL (70-99) 253 mg/dL (70-99) 259 mg/dL (70-99) White Blood Count 3.2 x10^3/uL (4.0-11.0) Red Blood Count 3.17 x10^6/uL (4.30-5.70) Hemoglobin 8.2 g/dL (13.0-17.5) Hematocrit 25.3 % (39.0-53.0) Mean Corpuscular Volume 80 fL (79-100) Mean Corpuscular Hemoglobin 26 pg (25-35) Mean Corpuscular Hemoglobin Concent 32 g/dL (31-37) Red Cell Distribution Width 16.8 % (11.5-14.5) Platelet Count 176 x10^3/uL (140-400) Sodium Level 135 mmol/L (136-145) Potassium Level 4.9 mmol/L (3.5-5.1) Chloride Level 98 mmol/L (98-107) Carbon Dioxide Level 28 mmol/L (21-32) Anion Gap 9 (6-14) Blood Urea Nitrogen 71 mg/dL (8-26) Creatinine 13.9 mg/dL (0.7-1.3) Estimated GFR (Cockcroft-Gault) 4.6 Glucose Level 271 mg/dL (70-99) Calcium Level 9.5 mg/dL (8.5-10.1) Test 02/18/18 12:31 Glucose (Fingerstick) 150 mg/dL (70-99) Images Images Report reviewed, x-rays independently reviewed. I don't see evidence of osteomyelitis and none was reported by the radiologist. Assessment/Plan Assessment/Plan Superficial infection at the right BKA residual limb. Continue wound care and oral antibiotics. His current residual tibia is only about 14 cm in length. It could probably be shortened slightly and still use a BKA prosthesis, but AKA may be needed if infection persists or osteomyelitis develops. He is ok for discharge with oral antibiotics and outpatient wound care. WING MADISON MD Feb 18, 2018 13:48
[2018-02-18 15:00] VITALS: BP 85/59
[2018-02-18] MEDS ORDERED: AMOX1TAB58 PO (15:52)
--- NOTE | 2018-02-18 17:12 | PDOC ---
PROGRESS NOTES Subjective Subjective wanting to go home today Objective Objective Vital Signs Date Time Temp Pulse Resp B/P (MAP) Pulse Ox O2 Delivery O2 Flow Rate FiO2 02/18/18 15:00 98.3 93 18 85/59 (68) 95 Room Air 98.3 Intake and Output 02/18/18 07:00 Intake Total 480 ml Output Total 0 ml Balance 480 ml Intake Oral 480 ml Output Urine Total 0 ml Physical Exam Abdomen: Soft, No tenderness Heart: Regular rate Extremities: Other (bilateral below-knee amputations. He has a dressing on the distal end of each residual lower limb. The right lower extremity dressing was removed, and there is a small amount of iodoform packing and what seems to be a superficial abscess. There is no surrounding erythema, no tenderness, no fluctuance, and no drainage.) General: Alert, Cooperative HEENT: Atraumatic Lungs: Normal air movement MUSCULOSKELETAL: No swelling, Other Neck: Supple Neuro: Normal speech Psych/Mental Status: Mood NL Skin: Other (rt stump abscess) COMMENT rt stump abscess Assessment Assessment 1. Right leg stump possible abscess, draining now. 2. Left stump ulceration stage 2, superficial. 3. Diabetes, insulin-dependent. 4. End-stage renal disease, on hemodialysis. 5. 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 6. Hypertension. 7. Hyperlipidemia. 8. Chronic systolic heart failure, stable. 9. Anemia of chronic disease. PLAN:po antibiotics noted ortho recomendations d/c home later today dialysis today . wound care f/u. At this time, was admitted to the hospital. Wound culture was done. IV antibiotics, vancomycin and Zosyn. ID was consulted. We will also have orthopedic look at the stump to see if he needs to have surgical debridement and see how the patient's condition improves. Hypoglycemia- resolved. Blood sugars are higher. Give Lantus 7 units subcutaneous daily and increase Humalog to 7 units subcutaneous 3 times a day. Blood sugar was 372 last night. Leukopenia WBC count is 3.2. Recheck labs in a.m. Labs, condition and treatment discussed with the patient and his . Comment Review of Relevant I have reviewed the following items carmen (where applicable) has been applied. Labs Laboratory Tests Test 02/17/18 20:32 02/18/18 06:00 02/18/18 07:20 02/18/18 11:24 Glucose (Fingerstick) 253 mg/dL (70-99) 259 mg/dL (70-99) 140 mg/dL (70-99) White Blood Count 3.2 x10^3/uL (4.0-11.0) Red Blood Count 3.17 x10^6/uL (4.30-5.70) Hemoglobin 8.2 g/dL (13.0-17.5) Hematocrit 25.3 % (39.0-53.0) Mean Corpuscular Volume 80 fL (79-100) Mean Corpuscular Hemoglobin 26 pg (25-35) Mean Corpuscular Hemoglobin Concent 32 g/dL (31-37) Red Cell Distribution Width 16.8 % (11.5-14.5) Platelet Count 176 x10^3/uL (140-400) Sodium Level 135 mmol/L (136-145) Potassium Level 4.9 mmol/L (3.5-5.1) Chloride Level 98 mmol/L (98-107) Carbon Dioxide Level 28 mmol/L (21-32) Anion Gap 9 (6-14) Blood Urea Nitrogen 71 mg/dL (8-26) Creatinine 13.9 mg/dL (0.7-1.3) Estimated GFR (Cockcroft-Gault) 4.6 Glucose Level 271 mg/dL (70-99) Calcium Level 9.5 mg/dL (8.5-10.1) Test 02/18/18 12:31 Glucose (Fingerstick) 150 mg/dL (70-99) Medications Current Medications Vancomycin HCl (Vancomycin Random Level) 1 each 1X ONCE ; Start 02/19/18 at 05:00; Stop 02/19/18 at 05:00; Status DC Vitals/I & O Vital Sign - Last 24 Hours 02/17/18 02/17/18 02/17/18 02/17/18 18:03 19:00 20:00 23:00 Temp 97.9 96.8 97.9 96.8 Pulse 79 79 75 Resp 18 18 B/P (MAP) 109/69 120/70 (87) 128/70 (89) Pulse Ox 100 93 O2 Delivery Room Air Room Air Room Air 02/18/18 02/18/18 02/18/18 02/18/18 03:00 07:00 08:37 15:00 Temp 97.7 98.3 97.7 98.3 Pulse 77 69 93 Resp 18 18 B/P (MAP) 117/74 (88) 129/82 (98) 85/59 (68) Pulse Ox 97 96 95 O2 Delivery Room Air Room Air Room Air Room Air Intake and Output 02/17/18 02/17/18 02/18/18 15:00 23:00 07:00 Intake Total 480 ml Output Total 0 ml Balance 480 ml 0 ml IRINEO SCHWARTZ MD Feb 18, 2018 17:12
[2018-02-19] MEDS ORDERED: VANCOMYCIN RANDOM LEVEL. MC ONE (05:00)
== END 2018-02-18 16:25 | disposition home or self-care (01) | DRG 564 ==
LOC: 5 NORTH 09:50
PROVIDERS: ADMIT Internal Medicine; ATTEND Internal Medicine
PROC: 5A1D70Z Performance of Urinary Filtration, Intermittent, Less than 6 Hours Per Day (ICD-10-PCS; principal; 2018-02-14)
PROC: 5A1D70Z Performance of Urinary Filtration, Intermittent, Less than 6 Hours Per Day (ICD-10-PCS; 2018-02-18)
DX: T87.43 Infection of amputation stump, right lower extremity (principal); N18.6 End stage renal disease; I13.2 Hypertensive heart and chronic kidney disease with heart failure and with stage 5 chronic kidney disease, or end stage renal disease; I50.22 Chronic systolic (congestive) heart failure; L97.929 Non-pressure chronic ulcer of unspecified part of left lower leg with unspecified severity; E11.22 Type 2 diabetes mellitus with diabetic chronic kidney disease; E78.5 Hyperlipidemia, unspecified; I25.10 Atherosclerotic heart disease of native coronary artery without angina pectoris; E11.622 Type 2 diabetes mellitus with other skin ulcer; D63.8 Anemia in other chronic diseases classified elsewhere; M19.90 Unspecified osteoarthritis, unspecified site; Y83.5 Amputation of limb(s) as the cause of abnormal reaction of the patient, or of later complication, without mention of misadventure at the time of the procedure; E11.42 Type 2 diabetes mellitus with diabetic polyneuropathy; K21.9 Gastro-esophageal reflux disease without esophagitis; E21.3 Hyperparathyroidism, unspecified; D72.819 Decreased white blood cell count, unspecified; Z89.512 Acquired absence of left leg below knee; Z86.19 Personal history of other infectious and parasitic diseases; Z99.2 Dependence on renal dialysis; Z89.511 Acquired absence of right leg below knee; Z79.4 Long term (current) use of insulin; Z79.1 Long term (current) use of non-steroidal anti-inflammatories (NSAID); Z79.899 Other long term (current) drug therapy; Z82.49 Family history of ischemic heart disease and other diseases of the circulatory system; Z83.3 Family history of diabetes mellitus
CPT/HCPCS: 36415; 73560; 80048; 80053; 80202; 82962; 85025; 85027; 87071; 87075; J0881; J1815; J2543; J3370; J7040; J8597

== ENCOUNTER → 2018-02-14 | Outpatient (CLI) | payer MEDICAID, MEDICARE ==
[2018-02-09 11:00] VITALS: BP 101/60
[~2018-02-14] MED LIST changes: -AMLO10TA2 PO; +AMLO10TA6 PO; +AMOX1TAB58 PO; +CEPH-264 PO; +DOXY50CA PO; -HYDR-2666 PO; +HYDR-2758 PO; -IV NORMAL SALINE 1000ML BAG 1,000 ML IV SCH; -PROPOFOL 20 ML IV ONE; +SEVE800T9 PO; +TRAM50TA PO
== END | disposition home or self-care (01) ==
LOC: PMGWOUND 08:00
PROVIDERS: ATTEND Preventive Medicine Undersea and Hyperbaric Medicine
DX: T87.89 Other complications of amputation stump (principal); E11.622 Type 2 diabetes mellitus with other skin ulcer; L89.892 Pressure ulcer of other site, stage 2; L97.821 Non-pressure chronic ulcer of other part of left lower leg limited to breakdown of skin; S80.211A Abrasion, right knee, initial encounter; I13.2 Hypertensive heart and chronic kidney disease with heart failure and with stage 5 chronic kidney disease, or end stage renal disease; E11.22 Type 2 diabetes mellitus with diabetic chronic kidney disease; N18.6 End stage renal disease; I50.22 Chronic systolic (congestive) heart failure; E11.51 Type 2 diabetes mellitus with diabetic peripheral angiopathy without gangrene; E11.649 Type 2 diabetes mellitus with hypoglycemia without coma; E11.319 Type 2 diabetes mellitus with unspecified diabetic retinopathy without macular edema; E11.43 Type 2 diabetes mellitus with diabetic autonomic (poly)neuropathy; K31.84 Gastroparesis; E11.69 Type 2 diabetes mellitus with other specified complication; M86.9 Osteomyelitis, unspecified; E03.9 Hypothyroidism, unspecified; E78.5 Hyperlipidemia, unspecified; E21.3 Hyperparathyroidism, unspecified; K21.9 Gastro-esophageal reflux disease without esophagitis; I25.2 Old myocardial infarction; E78.00 Pure hypercholesterolemia, unspecified; I25.10 Atherosclerotic heart disease of native coronary artery without angina pectoris; E66.9 Obesity, unspecified; Z68.26 Body mass index [BMI] 26.0-26.9, adult; Z79.4 Long term (current) use of insulin; Z99.2 Dependence on renal dialysis; Z79.1 Long term (current) use of non-steroidal anti-inflammatories (NSAID); Z79.01 Long term (current) use of anticoagulants; Z79.82 Long term (current) use of aspirin; Z86.73 Personal history of transient ischemic attack (TIA), and cerebral infarction without residual deficits; X58.XXXA Exposure to other specified factors, initial encounter; Y93.89 Activity, other specified; Y92.89 Other specified places as the place of occurrence of the external cause; Y99.8 Other external cause status; Y83.5 Amputation of limb(s) as the cause of abnormal reaction of the patient, or of later complication, without mention of misadventure at the time of the procedure
CPT/HCPCS: 87071; 87075; 87186; 99215

== ENCOUNTER 2018-02-20 11:30 | Inpatient (IN) | payer MEDICARE ==
[~2018-02-20] VITALS: Ht 190.5 cm; Wt 89.4 kg
[~2018-02-20 11:30] MED LIST changes: +AMOX1TAB58 PO; +DOXY50CA PO
[2018-02-20] MEDS: NITROGLYCERIN SUBLINGUAL 0.4 MG BOTTLE OF 25. SL PRN ×2 (11:50→12:23)
--- NOTE | 2018-02-20 11:57 | EKG ---
[facility] [address] [place] [address] Test Date: 2018-02-20 Test Time: 11:33:08 Pat Name: MIKALA QUIÑONES Department: Room: Gender: M Certified Nursing Attendant: : 1965 Requested By: SEVERINO CLOEY Order Number: [id number] Reading MD: Mirza Talbot MD Measurements Intervals [place] Rate: 90 P: 22 MT: 154 QRS: 56 QRSD: 132 T: 15 QT: 416 QTc: 513 Interpretive Statements SINUS RHYTHM RIGHT BUNDLE BRANCH BLOCK Electronically Signed On 02-20-2018 13:57:49 CDT by Mirza Talbot MD
[2018-02-20 12:01] LABS: BASO # 0.1 x10^3/uL (0.0-0.2); BASO % 1 % (0-3); EOS # 0.2 x10^3/uL (0.0-0.7); EOS % 3 % (0-3); HEMATOCRIT 26.2 % (39.0-53.0); HEMOGLOBIN 8.5 g/dL (13.0-17.5); LYMPH # 0.9 x10^3/uL (1.0-4.8); LYMPH % 18 % (24-48); MEAN CORPUSCULAR HEMOGLOBIN 26 pg (25-35); MEAN CORPUSCULAR HGB CONC 33 g/dL (31-37); MEAN CORPUSCULAR VOLUME 80 fL (79-100); MONO # 0.4 x10^3/uL (0.0-1.1); MONO % 8 % (0-9); NEUT # 3.7 x10^3uL (1.8-7.7); NEUT % 70 % (31-73); PLATELET COUNT 200 x10^3/uL (140-400); RED BLOOD COUNT 3.27 x10^6/uL (4.30-5.70); RED CELL DISTRIBUTION WIDTH 16.4 % (11.5-14.5); WHITE BLOOD COUNT 5.3 x10^3/uL (4.0-11.0)
[2018-02-20 12:03] LABS: CALCIUM 9.1 mg/dL (8.5-10.1); CREATININE 5.8 mg/dL (0.7-1.3); GFR 12.5; POTASSIUM 3.6 mmol/L (3.5-5.1)
--- NOTE | 2018-02-20 12:09 | RAD ---
EXAM: CHEST 1 VIEW History: Chest pain COMPARISON: 08/26/2016 TECHNIQUE: Single portable radiograph of the chest FINDINGS: Mild cardiomegaly. The lungs are clear. The costophrenic sulci are clear and well demarcated. IMPRESSION: Mild cardiomegaly. Otherwise unremarkable exam. Electronically signed by: Rah Mclain MD (02/20/2018 12:06 PM) [id number]
[2018-02-20 12:10] LABS: ALBUMIN/GLOBULIN RATIO 0.6 (1.0-1.7); MAGNESIUM 1.6 mg/dL (1.8-2.4); TOTAL BILIRUBIN 0.4 mg/dL (0.2-1.0); TOTAL PROTEIN 7.7 g/dL (6.4-8.2)
[2018-02-20 12:16] LABS: PROTHROMBIN TIME PATIENT 14.7 SEC (11.7-14.0)
--- NOTE | 2018-02-20 12:43 | EKG ---
[facility] [address] [place] [address] Test Date: 2018-02-20 Test Time: 12:29:11 Pat Name: MIKALA QUIÑONES Department: Room: Gender: M Mitigation Supervisor: : 1965 Requested By: SEVERINO COLEY Order Number: [id number] Reading MD: Mirza Talbot MD Measurements Intervals [place] Rate: 89 P: 48 SC: 158 QRS: 47 QRSD: 134 T: 24 QT: 422 QTc: 520 Interpretive Statements SINUS RHYTHM PROBABLE PRIOR SEPTAL INFARCT RBBB Electronically Signed On 02-20-2018 13:58:19 CDT by Mirza Talbot MD
[2018-02-20] MEDS ORDERED: MORPHINE SULFATE 4 MG/ML VIAL. IV ONE (12:45)
--- NOTE | 2018-02-20 12:46 | PHYS DOC ---
Past Medical History Past Medical History: Diabetes-Type II, GERD, High Cholesterol, Heart Disease, Hypertension, Renal Disease, Renal Failure, Other Additional Past Medical Histor: foot ulcer right, LBKA, RBKA Past Surgical History: Other Additional Past Surgical Histo: LBKA , peritoneal dialysis catheter placed,RBKA , DIALYSIS SHUNT R CHEST Alcohol Use: None Drug Use: Marijuana Adult General Chief Complaint Chief Complaint: CHEST PAIN HPI HPI Patient is a 52 year old was taken here by EMS today for evaluation of substernal chest pain patient said he was on his way home from dialysis when he started having chest pain. EMS gave him 324 mg aspirin on route. Patient denies history of coronary artery disease. Patient has history of end-stage renal disease on dialysis, history of diabetic, history of hypertension. Patient has history of gastroparesis as well. Patient denies any cough, no fever , no nausea, vomiting or trouble breathing. Review of Systems Review of Systems Constitutional: Denies fever or chills [] Eyes: Denies change in visual acuity, redness, or eye pain [] HENT: Denies nasal congestion or sore throat [] Respiratory: Denies cough or shortness of breath [] Cardiovascular: POSITIVE FOR CHEST PAIN GI: Denies abdominal pain, nausea, vomiting, bloody stools or diarrhea [] : Denies dysuria or hematuria [] Musculoskeletal: Denies back pain or joint pain [] Integument: Denies rash or skin lesions [] Neurologic: Denies headache, focal weakness or sensory changes [] Endocrine: Denies polyuria or polydipsia [] All other systems were reviewed and found to be within normal limits, except as documented in this note. Current Medications Current Medications Current Medications Medications (Trade) Dose Ordered Sig/Dawn Start Time Stop Time Status Last Admin Dose Admin Morphine Sulfate (Morphine Sulfate) 2 mg PRN Q2HR PRN 02/20/18 13:30 02/21/18 13:29 UNV Multi-Ingredient Mouthwash/Gargle (Gi Cocktail) 20 ml 1X ONCE 02/20/18 13:00 02/20/18 13:01 DC 02/20/18 12:56 20 ML Nitroglycerin (Nitrostat) 0.4 mg PRN Q5MIN PRN 02/20/18 11:45 02/21/18 11:44 02/20/18 12:23 0.4 MG Ondansetron HCl (Zofran) 4 mg PRN Q8HRS PRN 02/20/18 13:30 02/21/18 13:29 UNV Allergies Allergies Allergies Coded Allergies Type Severity Reaction Last Updated Verified No Known Drug Allergies 11/12/16 No Physical Exam Physical Exam Constitutional: Well developed, well nourished, no acute distress, non-toxic appearance. [] HENT: Normocephalic, atraumatic, bilateral external ears normal, oropharynx moist, no oral exudates, nose normal. [] Eyes: PERRLA, EOMI, conjunctiva normal, no discharge. [] Neck: Normal range of motion, no tenderness, supple, no stridor. [] Cardiovascular:Heart rate regular rhythm, no murmur [] Lungs & Thorax: Bilateral breath sounds clear to auscultation [] Abdomen: Bowel sounds normal, soft, no tenderness, no masses, no pulsatile masses. [] Skin: Warm, dry, no erythema, no rash. [] Back: No tenderness, no CVA tenderness. [] Extremities: NO EDEMA Neurologic: Alert and oriented X 3, normal motor function, normal sensory function, no focal deficits noted. [] Psychologic: Affect normal, judgement normal, mood normal. [] Current Patient Data Vital Signs Vital Signs Date Time Temp Pulse Resp B/P (MAP) Pulse Ox O2 Delivery O2 Flow Rate FiO2 02/20/18 12:53 20 99 Room Air 02/20/18 12:23 89 129/61 02/20/18 11:30 98.7 98.7 Lab Values Laboratory Tests Test 02/20/18 11:30 02/20/18 11:46 White Blood Count 5.3 x10^3/uL (4.0-11.0) Red Blood Count 3.27 x10^6/uL (4.30-5.70) L Hemoglobin 8.5 g/dL (13.0-17.5) L Hematocrit 26.2 % (39.0-53.0) L Mean Corpuscular Volume 80 fL (79-100) Mean Corpuscular Hemoglobin 26 pg (25-35) Mean Corpuscular Hemoglobin Concent 33 g/dL (31-37) Red Cell Distribution Width 16.4 % (11.5-14.5) H Platelet Count 200 x10^3/uL (140-400) Neutrophils (%) (Auto) 70 % (31-73) Lymphocytes (%) (Auto) 18 % (24-48) L Monocytes (%) (Auto) 8 % (0-9) Eosinophils (%) (Auto) 3 % (0-3) Basophils (%) (Auto) 1 % (0-3) Neutrophils # (Auto) 3.7 x10^3uL (1.8-7.7) Lymphocytes # (Auto) 0.9 x10^3/uL (1.0-4.8) L Monocytes # (Auto) 0.4 x10^3/uL (0.0-1.1) Eosinophils # (Auto) 0.2 x10^3/uL (0.0-0.7) Basophils # (Auto) 0.1 x10^3/uL (0.0-0.2) Prothrombin Time 14.7 SEC (11.7-14.0) H Prothrombin Time INR 1.2 (0.8-1.1) H Sodium Level 137 mmol/L (136-145) Potassium Level 3.6 mmol/L (3.5-5.1) Chloride Level 97 mmol/L (98-107) L Carbon Dioxide Level 31 mmol/L (21-32) Anion Gap 9 (6-14) Blood Urea Nitrogen 24 mg/dL (8-26) Creatinine 5.8 mg/dL (0.7-1.3) H Estimated GFR (Cockcroft-Gault) 12.5 BUN/Creatinine Ratio 4 (6-20) L Glucose Level 222 mg/dL (70-99) H Calcium Level 9.1 mg/dL (8.5-10.1) Magnesium Level 1.6 mg/dL (1.8-2.4) L Total Bilirubin 0.4 mg/dL (0.2-1.0) Aspartate Amino Transferase (AST) 15 U/L (15-37) Alanine Aminotransferase (ALT) 14 U/L (16-63) L Alkaline Phosphatase 54 U/L (46-116) Creatine Kinase 146 U/L (39-308) Creatine Kinase MB (Mass) 1.5 ng/mL (0.0-3.6) Creatine Kinase MB Relative Index 1.0 % (0-4) Troponin I Quantitative < 0.017 ng/mL (0.000-0.055) HL-Dof-L-Type Natriuretic Peptide 4505 pg/mL (0-124) H Total Protein 7.7 g/dL (6.4-8.2) Albumin 3.0 g/dL (3.4-5.0) L Albumin/Globulin Ratio 0.6 (1.0-1.7) L Lipase 111 U/L (73-393) Glucose (Fingerstick) 209 mg/dL (70-99) H Laboratory Tests 02/20/18 11:30 Laboratory Tests 02/20/18 11:30 EKG EKG EKG read at 1139: rate of 90 bpm, RBBB, NO STEMI. [] Radiology/Procedures Radiology/Procedures [CHEST XRAY: MILD CARDIOMEGALY. Impressions: CHEST PAIN Course & Med Decision Making Course & Med Decision Making Pertinent Labs and Imaging studies reviewed. (See chart for details) She was in severe chest pain the ER, he was given nitroglycerin, and the chest pain was improved. Patient was given 3 doses of nitroglycerin. However chest pain returned, he was given 1 small dose of offing IV, chest pain improved. Patient will be admitted to hospital for evaluation. Dragon Disclaimer Dragon Disclaimer This electronic medical record was generated, in whole or in part, using a voice recognition dictation system. Departure Departure Impression: Primary Impression: Chest pain Disposition: ADMITTED INPATIENT Admitting Physician: Irineo Noonan Condition: STABLE Referrals: IRINEO NOONAN MD (PCP) SEVERINO COLEY DO Feb 20, 2018 12:46
[2018-02-20] MEDS ORDERED: LIDO:MAALOX 1:1 20 ML SINGLE DOSE. SWSW ONE (13:00)
[2018-02-20] MEDS ORDERED: ONDANSETRON PF 4 MG/2 ML VIAL. IV PRN (13:30)
[2018-02-20] MEDS ORDERED: MORPHINE SULFATE 2 MG/ML VIAL. IV PRN (13:30)
[2018-02-20 15:00] VITALS: BP 137/61
--- NOTE | 2018-02-20 15:19 | PDOC2 ---
VIJAYA GALVIN VOCATIONAL EVALUATOR 02/20/18 1519: CARDIAC CONSULT DATE OF CONSULT Date of Consult DATE: 02/20/18 TIME: 14:40 REASON FOR CONSULT Reason for Consult: chest pain REFERRING PHYSICIAN Referring Physician: Jimy SOURCE Source: Caregiver (), Chart review, Patient HISTORY OF PRESENT ILLNESS HISTORY OF PRESENT ILLNESS 52 year old male who had completed hemodialysis this a.m about 10:30 and then developed substernal chest pain without radiation or associated symptoms about 11:00. gave him aspirin while waiting for EMS and he was given NTG in the ambulance. Treated with SL NTG, morphine and GI cocktail with resolution of symptoms in ER. No previous similar symptoms. Initial EKG and troponin levels not consistent with AMI. History of GERD with discontinuation of therapy for unclear reasons. Currently comfortable on CVC. Was discharged two days after stay for wound on right stump. Reason for Visit: chest pain PAST MEDICAL HISTORY Cardiovascular: CHF, HTN, Hyperlipidemia, Other (PAD with bilateral BKA for non -healing wounds) Pulmonary: Other (none) CENTRAL NERVOUS SYSTEM: Periperal neuropathy GI: GERD, Other (erosive esophagitis on EGD 02/2015) Heme/Onc: Anemia NOS (of chronic disease) Hepatobiliary: No pertinent hx Psych: No pertinent hx Musculoskeletal: Osteoarthritis Rheumatologic: No pertinent hx Infectious disease: No pertinent hx ENT: No pertinent hx Renal/: Chronic renal failure (with previous PD catheter that eroded into small bowel and required lap repair; right upper arm AVF now) Endocrine: Diabetes (type II with retinopathy, nephropathy, neuropathy and gastroparesis), Hyperparathyroidism Dermatology: No pertinent hx PAST SURGICAL HISTORY Past Surgical History: Other (lap small bowel repair; AVF - SATHYA; ampuation right 5th finger; bilateral BKA; laser surgery to bilateral eyes) FAMILY HISTORY Family History: Diabetes, Heart Disease, Hypertension SOCIAL HISTORY Smoke: No ALCOHOL: rare Drugs: Marijuana Lives: with Family CURRENT MEDICATIONS CURRENT MEDICATIONS Current Medications Medications (Trade) Dose Ordered Sig/Dawn Route PRN Reason Start Time Stop Time Status Last Admin Dose Admin Nitroglycerin (Nitrostat) 0.4 mg PRN Q5MIN PRN SL CP RATING > 1/10 02/20/18 11:45 02/21/18 11:44 02/20/18 12:23 Morphine Sulfate (Morphine Sulfate) 4 mg 1X ONCE IV 02/20/18 12:45 02/20/18 12:47 DC 02/20/18 12:53 Multi-Ingredient Mouthwash/Gargle (Gi Cocktail) 20 ml 1X ONCE SWSW 02/20/18 13:00 02/20/18 13:01 DC 02/20/18 12:56 ALLERGIES ALLERGIES: Coded Allergies: No Known Drug Allergies (Unverified , 11/12/16) ROS General: No: Chills, Night Sweats, Fatigue, Malaise, Appetite, Other PSYCHOLOGICAL ROS: No: Anxiety, Behavioral Disorder, Concentration difficultie , Decreased libido, Depression, Disorientation, Hallucinations, Hostility, Irritablity, Memory difficulties, Mood Swings, Obsessive thoughts, Physical abuse, Sexual abuse, Sleep disturbances, Suicidal ideation, Other Eyes: No Blurry vision, No Decreased vision, No Double vision, No Dry eyes, No Excessive tearing, No Eye Pain, No Itchy Eyes, No Loss of vision, No Photophobia , No Scotomata, No Uses contacts, No Uses glasses, No Other HEENT: No: Heacaches, Visual Changes, Hearing change, Nasal congestion, Nasal discharge, Oral lesions, Sinus pain, Sore Throat, Epistaxis, Sneezing, Snoring, Tinnitus, Vertigo, Vocal changes, Other ALLERGY AND IMMUNOLOGY: No: Hives, Insect Bite Sensitivity, Itchy/Watery Eyes, Nasal Congestion, Post Nasal Drip, Seasonal Allergies, Other Hematological and Lymphatic: No: Bleeding Problems, Blood Clots, Blood Transfusions, Brusing, Night Sweats, Pallor, Swollen Lymph Nodes, Other ENDOCRINE: No: Breast Changes, Galactorrhea, Hair Pattern Changes, Hot Flashes , Malaise/lethargy, Mood Swings, Palpitations, Polydipsia/polyuria, Skin Changes , Temperature Intolerance, Unexpected Weight Changes, Other Respiratory: No: Cough, Hemoptysis, Orthopnea, Pleuritic Pain, Shortness of breath, SOB with excertion, Sputum Changes, Stridor, Tachypnea, Wheezing, Other Cardiovascular: yes Chest Pain, yes Edema (right stump) Gastrointestinal: No Nausea, No Vomiting, No Abdominal Pain, No Diarrhea, No Constipation, No Melena, No Hematochezia, No Other Genitourinary: No Dysuria, No Frequency, No Incontinence, No Hematuria, No Retention, No Discharge, No Urgency, No Pain, No Flank Pain, No Other Musculoskeletal: Yes Joint Pain Neurological: No Behavorial Changes, No Bowel/Bladder ControlChng, No Confusion , No Dizziness, No Gait Disturbance, No Headaches, No Impaired Coord/balance, No Memory Loss, No Numbness/Tingling, No Seizures, No Speech Problems, No Tremors, No Visual Changes, No Weakness, No Other Skin: No Dry Skin, No Eczema, No Hair Changes, No Lumps, No Mole Changes, No Mottling, No Nail Changes, No Pruritus, No Rash, No Skin Lesion Changes, No Other, No Acne PHYSICAL EXAM General: Alert, Oriented X3, Cooperative, No acute distress HEENT: Atraumatic Lungs: Clear to auscultation, Normal air movement Heart: Regular rate, Normal S1, Normal S2, No murmurs, Other (no carotid bruits ) Abdomen: Soft, No tenderness Extremities: No edema, Other (bilateral stump wounds) Skin: No rashes Neuro: Normal speech Psych/Mental Status: Mental status NL, Mood NL MUSCULOSKELETAL: Other (bilateral BKA) VITALS VITALS Vital Signs Date Time Temp Pulse Resp B/P (MAP) Pulse Ox O2 Delivery O2 Flow Rate FiO2 02/20/18 13:22 80 20 136/70 (92) 100 Room Air 02/20/18 11:30 98.7 98.7 LABS Lab: Laboratory Tests Test 02/20/18 11:30 02/20/18 11:46 White Blood Count 5.3 x10^3/uL (4.0-11.0) Red Blood Count 3.27 x10^6/uL (4.30-5.70) Hemoglobin 8.5 g/dL (13.0-17.5) Hematocrit 26.2 % (39.0-53.0) Mean Corpuscular Volume 80 fL (79-100) Mean Corpuscular Hemoglobin 26 pg (25-35) Mean Corpuscular Hemoglobin Concent 33 g/dL (31-37) Red Cell Distribution Width 16.4 % (11.5-14.5) Platelet Count 200 x10^3/uL (140-400) Neutrophils (%) (Auto) 70 % (31-73) Lymphocytes (%) (Auto) 18 % (24-48) Monocytes (%) (Auto) 8 % (0-9) Eosinophils (%) (Auto) 3 % (0-3) Basophils (%) (Auto) 1 % (0-3) Neutrophils # (Auto) 3.7 x10^3uL (1.8-7.7) Lymphocytes # (Auto) 0.9 x10^3/uL (1.0-4.8) Monocytes # (Auto) 0.4 x10^3/uL (0.0-1.1) Eosinophils # (Auto) 0.2 x10^3/uL (0.0-0.7) Basophils # (Auto) 0.1 x10^3/uL (0.0-0.2) Prothrombin Time 14.7 SEC (11.7-14.0) Prothromb Time International Ratio 1.2 (0.8-1.1) Sodium Level 137 mmol/L (136-145) Potassium Level 3.6 mmol/L (3.5-5.1) Chloride Level 97 mmol/L (98-107) Carbon Dioxide Level 31 mmol/L (21-32) Anion Gap 9 (6-14) Blood Urea Nitrogen 24 mg/dL (8-26) Creatinine 5.8 mg/dL (0.7-1.3) Estimated GFR (Cockcroft-Gault) 12.5 BUN/Creatinine Ratio 4 (6-20) Glucose Level 222 mg/dL (70-99) Calcium Level 9.1 mg/dL (8.5-10.1) Magnesium Level 1.6 mg/dL (1.8-2.4) Total Bilirubin 0.4 mg/dL (0.2-1.0) Aspartate Amino Transf (AST/SGOT) 15 U/L (15-37) Alanine Aminotransferase (ALT/SGPT) 14 U/L (16-63) Alkaline Phosphatase 54 U/L (46-116) Creatine Kinase 146 U/L (39-308) Creatine Kinase MB (Mass) 1.5 ng/mL (0.0-3.6) Creatine Kinase MB Relative Index 1.0 % (0-4) Troponin I Quantitative < 0.017 ng/mL (0.000-0.055) VI-Rvf-F-Type Natriuretic Peptide 4505 pg/mL (0-124) Total Protein 7.7 g/dL (6.4-8.2) Albumin 3.0 g/dL (3.4-5.0) Albumin/Globulin Ratio 0.6 (1.0-1.7) Lipase 111 U/L (73-393) Glucose (Fingerstick) 209 mg/dL (70-99) IMAGES IMAGES CXR - mild cardiomegaly; no acute findings EKG EKG SR, RBBB; no acute changes ECHOCARDIOGRAM ECHOCARDIOGRAM 08/25/2013: TTE: The left ventricle is normal size. There is normal left ventricular wall thickness. The Ejection Fraction is 55-60%. There is normal left ventricular wall thickness. The Ejection Fraction is 55-60%. The right ventricle is mildly dilated. The aortic valve is normal in structure and function. Clear visualization of the leaflets cannot be made. Doppler and Color Flow revealed trace to mild tricuspid regurgitation. ASSESSMENT/PLAN ASSESSMENT/PLAN 1. chest pain --given ASA in the outpatient setting --EKG and initial troponin levels not consistent with AMI ----continue serial troponin levels, if rules out for IN - then pharm MPI tomorrow to evaluate for ischemia ----TTE to evaluate LVEF, assess for WMA and valvular disease --? related to GERD as therapy discontinued and remote history of erosive esophagitis 2. elevated NT-proBNP in the setting of ESRD --fluid management per hemodialysis and completed run today 3. hypomagnesemia --low level replacement 4. HTN --control with meds 5. HLD --check FLP in a.m --continue statin therapy 6. DM with retinopathy, nephropathy, neuropathy and gastroparesis --defer to primary service 7. PAD --bilateral BKA --wound care 8. anemia of chronic disease 9. GERD with history of erosive esophagitis MOUNA BALLESTEROS MD 02/20/18 1605: CARDIAC CONSULT ASSESSMENT/PLAN ASSESSMENT/PLAN Patient seen and examined. Agree with BAN[employer] MIXER OPERATOR's assessment and plan. Chest pain with atypical features. Cardiac enzymes negative so far. Check 2-D echo to assess LV systolic function and rule out wall motion abnormalities. Plan for Lexiscan nuclear stress test tomorrow to rule out ischemia. Continue fluid removal with hemodialysis per nephrology team. Thank you for your consultation. VIJAYA GALVIN APRN Feb 20, 2018 15:19 MOUNA ABLLESTEROS MD Feb 20, 2018 16:05
[2018-02-20] MEDS ORDERED: MAGNESIUM SULFATE 2GM 50 ML IV ONE (15:30)
[2018-02-20] MEDS ORDERED: traMADol 50 MG TABLET PO PRN (17:00)
[2018-02-20] MEDS ORDERED: DEXTROSE 50% 25 GM / 50ML DISP.SYRIN. IV PRN (17:00)
[2018-02-20] MEDS: CARVEDILOL 12.5 MG TABLET. PO SCH (18:12)
[2018-02-20] MEDS: METOCLOPRAMIDE 5 MG TABLET. PO SCH ×2 (18:13→21:27)
[2018-02-20] MEDS: SEVELAMER CARBONATE 800 MG TABLET. PO SCH (18:13)
[2018-02-20] MEDS: INSULIN LISPRO 300 UNITS/3 ML INSULN.PEN. SQ SCH (18:16)
[2018-02-20] MEDS: AMOXICILLIN/K CLAV 500/125MG TABLET. PO SCH (18:45)
[2018-02-20 19:07] VITALS: BP 95/53
[2018-02-20] MEDS: ATORVASTATIN CALCIUM 20 MG TABLET PO SCH (21:27)
[2018-02-20] MEDS: LACTOBACILLUS RHAMNOSUS GG 1 CAPSULE. PO SCH (21:27)
[2018-02-20] MEDS: FAMOTIDINE 20 MG TABLET. PO SCH (21:28)
[2018-02-20] MEDS: INSULIN GLARGINE 300 UNITS/3 ML INSULN.PEN. SQ SCH (21:31)
[2018-02-20 22:37] VITALS: BP 97/61
[2018-02-21 03:02] VITALS: BP 110/71
[2018-02-21 04:28] LABS: CALCIUM 9.1 mg/dL (8.5-10.1); CREATININE 8.5 mg/dL (0.7-1.3); GFR 8.1; MAGNESIUM 2.4 mg/dL (1.8-2.4); POTASSIUM 4.7 mmol/L (3.5-5.1)
[2018-02-21 04:33] LABS: CHOLESTEROL/HDL RATIO 2.7
[2018-02-21 06:29] VITALS: BP 114/67
[2018-02-21] MEDS: SEVELAMER CARBONATE 800 MG TABLET. PO SCH ×3 (08:00→17:56)
[2018-02-21] MEDS: INSULIN LISPRO 300 UNITS/3 ML INSULN.PEN. SQ SCH ×3 (08:00→18:00)
[2018-02-21] MEDS ORDERED: REGADENOSON 0.4 MG/5 ML DISP.SYRIN. IV ONE (08:45)
[2018-02-21] MEDS ORDERED: AMOXICILLIN/K CLAV 500/125MG TABLET. PO SCH (09:00)
[2018-02-21] MEDS: METOCLOPRAMIDE 5 MG TABLET. PO SCH ×4 (09:00→19:55)
--- NOTE | 2018-02-21 10:20 | PDOC ---
Provider Note Provider Note Pt seen.H&P dictated.#[id number] IRINEO SCHWARTZ MD Feb 21, 2018 10:20
--- NOTE | 2018-02-21 10:34 | CARD ---
MR#: [id number] Date of Study: 02/21/2018 Ordering Physician: VIJAYA GALVIN, Referring Physician: IRINEO SCHWARTZ, Tech: KIM Mojica APPROVED REPORT EXAM: Two-dimensional and M-mode echocardiogram with Doppler and color Doppler. Other Information Quality : GoodHR: 78bpm INDICATION Chest Pain 2D DIMENSIONS Left Atrium(2D)4.5 (1.6-4.0cm)IVSd1.5 (0.7-1.1cm) Aortic Root(2D)3.7 (2.0-3.7cm)LVDd6.0 (3.9-5.9cm) LVOT Diameter2.7 (1.8-2.4cm)PWd1.7 (0.7-1.1cm) IVSs2.3 (0.8-1.2cm)LVDs4.3 (2.5-4.0cm) FS (%) 27.3 %PWs2.4 (0.8-1.2cm) SV93.0 mlLVEF(%)52.2 (>50%) Aortic Valve AoV Peak Ankit.135.4cm/sAoV VTI24.4cm AO Peak GR.7.3mmHgLVOT Peak Ankit.75.8cm/s LVOT VTI 14.93cmAO Mean GR.4mmHg ARACELI (VMAX)2.39tc3WKP (VTI)3.59cm2 Mitral Valve MV E Gjhorbyr44.6cm/sMV DECEL [id number] MV A Ypxvxray74.3cm/sMV VSD35ge E/A Ratio0.8MVA (PHT)3.39cm2 TDI E/Lateral E'7.4E/Medial E'6.3 Pulmonary Valve PV Peak Aqypyuxt655.2cm/sPV Peak Grad.6mmHg Tricuspid Valve TR P. Xztdzxyf599gk/sTR Peak Gr.27mmHg LEFT VENTRICLE The left ventricle is normal size. There is moderate concentric left ventricular hypertrophy. The lef t ventricular systolic function is normal . The ejection fraction is estimated a 55%. There is normal LV segmental wall motion. Transmitral Doppler flow pattern is Grade I-abnormal relaxation pattern. RIGHT VENTRICLE The right ventricle is normal size. The right ventricular systolic function is normal. ATRIA The left atrium is mildly dilated. The right atrium size is normal. The interatrial septum is intact with no evidence for an atrial septal defect or patent foramen ovale as noted on 2-D or Doppler imagi ng. AORTIC VALVE The aortic valve is thickened but opens well. Doppler and Color Flow revealed no significant aortic r egurgitation. There is no significant aortic valvular stenosis. There is no aortic valvular vegetatio n. MITRAL VALVE The mitral valve is thickened but opens well. There is no evidence of mitral valve prolapse. There is no mitral valve stenosis. Doppler and Color Flow revealed no mitral valve regurgitation noted. TRICUSPID VALVE The tricuspid valve leaflets are thickened , but open well. Doppler and Color Flow revealed mild tric uspid regurgitation. There is no tricuspid valve prolapse or vegetation. There is no tricuspid valve stenosis. PULMONIC VALVE The pulmonic valve is not well visualized. Doppler and Color Flow revealed no pulmonic valvular regur gitation. There is no pulmonic valvular stenosis. GREAT VESSELS The aortic root is normal in size. The IVC is normal in size and collapses >50% with inspiration. PERICARDIAL EFFUSION There is no pleural effusion. There is no evidence of significant pericardial effusion. Critical Notification Critical Value: No <Conclusion> The left ventricular systolic function is normal . The ejection fraction is estimated a 55%. There is normal LV segmental wall motion. Transmitral Doppler flow pattern is Grade I-abnormal relaxation pattern. Doppler and Color Flow revealed mild tricuspid regurgitation. There is no evidence of significant pericardial effusion. Signed by : Bradley Joshi, Electronically Approved : 02/21/2018 10:33:22
[2018-02-21 10:49] VITALS: BP 124/65
[2018-02-21] MEDS: ASPIRIN 325 MG TABLET PO SCH (10:58)
[2018-02-21] MEDS: AMOXICILLIN/K CLAV 500/125MG TABLET. PO SCH (10:58)
[2018-02-21] MEDS: CARVEDILOL 12.5 MG TABLET. PO SCH ×2 (10:59→17:57)
[2018-02-21] MEDS: LACTOBACILLUS RHAMNOSUS GG 1 CAPSULE. PO SCH ×2 (10:59→19:55)
--- NOTE | 2018-02-21 11:26 | PDOC ---
Renal-Progress Notes Subjective Notes Notes JUST DISCHARGED AND NOW BACK IN WITH CHEST PAIN. HAD OP HD YESTERDAY History of Present Illness Hx of present illness ABOVE Vitals Vitals Vital Signs Date Time Temp Pulse Resp B/P (MAP) Pulse Ox O2 Delivery O2 Flow Rate FiO2 02/21/18 10:59 92 117/58 02/21/18 10:49 97.9 20 95 Room Air 97.9 02/20/18 15:00 2.0 Weight Weight [ ] I.O. Intake and Output Intake and Output 02/21/18 07:00 Intake Total 100 ml Output Total 0 ml Balance 100 ml Intake Oral 100 ml Output Urine Total 0 ml Labs Labs Laboratory Tests Test 02/20/18 11:30 02/20/18 11:46 02/20/18 14:58 02/20/18 16:25 White Blood Count 5.3 x10^3/uL (4.0-11.0) Red Blood Count 3.27 x10^6/uL (4.30-5.70) Hemoglobin 8.5 g/dL (13.0-17.5) Hematocrit 26.2 % (39.0-53.0) Mean Corpuscular Volume 80 fL (79-100) Mean Corpuscular Hemoglobin 26 pg (25-35) Mean Corpuscular Hemoglobin Concent 33 g/dL (31-37) Red Cell Distribution Width 16.4 % (11.5-14.5) Platelet Count 200 x10^3/uL (140-400) Neutrophils (%) (Auto) 70 % (31-73) Lymphocytes (%) (Auto) 18 % (24-48) Monocytes (%) (Auto) 8 % (0-9) Eosinophils (%) (Auto) 3 % (0-3) Basophils (%) (Auto) 1 % (0-3) Neutrophils # (Auto) 3.7 x10^3uL (1.8-7.7) Lymphocytes # (Auto) 0.9 x10^3/uL (1.0-4.8) Monocytes # (Auto) 0.4 x10^3/uL (0.0-1.1) Eosinophils # (Auto) 0.2 x10^3/uL (0.0-0.7) Basophils # (Auto) 0.1 x10^3/uL (0.0-0.2) Prothrombin Time 14.7 SEC (11.7-14.0) Prothromb Time International Ratio 1.2 (0.8-1.1) Sodium Level 137 mmol/L (136-145) Potassium Level 3.6 mmol/L (3.5-5.1) Chloride Level 97 mmol/L (98-107) Carbon Dioxide Level 31 mmol/L (21-32) Anion Gap 9 (6-14) Blood Urea Nitrogen 24 mg/dL (8-26) Creatinine 5.8 mg/dL (0.7-1.3) Estimated GFR (Cockcroft-Gault) 12.5 BUN/Creatinine Ratio 4 (6-20) Glucose Level 222 mg/dL (70-99) Calcium Level 9.1 mg/dL (8.5-10.1) Magnesium Level 1.6 mg/dL (1.8-2.4) Total Bilirubin 0.4 mg/dL (0.2-1.0) Aspartate Amino Transf (AST/SGOT) 15 U/L (15-37) Alanine Aminotransferase (ALT/SGPT) 14 U/L (16-63) Alkaline Phosphatase 54 U/L (46-116) Creatine Kinase 146 U/L (39-308) Creatine Kinase MB (Mass) 1.5 ng/mL (0.0-3.6) Creatine Kinase MB Relative Index 1.0 % (0-4) Troponin I Quantitative < 0.017 ng/mL (0.000-0.055) < 0.017 ng/mL (0.000-0.055) NS-Tly-X-Type Natriuretic Peptide 4505 pg/mL (0-124) Total Protein 7.7 g/dL (6.4-8.2) Albumin 3.0 g/dL (3.4-5.0) Albumin/Globulin Ratio 0.6 (1.0-1.7) Lipase 111 U/L (73-393) Glucose (Fingerstick) 209 mg/dL (70-99) 185 mg/dL (70-99) Test 02/20/18 17:34 02/20/18 20:54 02/21/18 03:30 02/21/18 08:05 Glucose (Fingerstick) 232 mg/dL (70-99) 218 mg/dL (70-99) 209 mg/dL (70-99) Sodium Level 139 mmol/L (136-145) Potassium Level 4.7 mmol/L (3.5-5.1) Chloride Level 99 mmol/L (98-107) Carbon Dioxide Level 33 mmol/L (21-32) Anion Gap 7 (6-14) Blood Urea Nitrogen 39 mg/dL (8-26) Creatinine 8.5 mg/dL (0.7-1.3) Estimated GFR (Cockcroft-Gault) 8.1 Glucose Level 229 mg/dL (70-99) Calcium Level 9.1 mg/dL (8.5-10.1) Magnesium Level 2.4 mg/dL (1.8-2.4) Triglycerides Level 52 mg/dL (0-150) Cholesterol Level 96 mg/dL (0-200) LDL Cholesterol, Calculated 51 mg/dL (0-100) VLDL Cholesterol, Calculated 10 mg/dL (0-40) Non-HDL Cholesterol Calculated 61 mg/dL (0-129) HDL Cholesterol 35 mg/dL (40-60) Cholesterol/HDL Ratio 2.7 Test 02/21/18 11:15 Glucose (Fingerstick) 219 mg/dL (70-99) Physical Exam General Appearance: no apparent distress Skin: warm Respiratory: bilateral CTA Heart: S1S2, RRR Abdomen: soft, bowel sounds present Genitourinary: bladder flat, no mass Extremities: pulses present, atrophy Neurology: alert, oriented Assessment Assessment IMP CHEST PAIN ESRD ANEMIA DM II HTN STUMP WOUND PLAN HD TOMORROW [facility] CARDIOLOGY EVALUATION ANTIBIOTICS WILL FOLLOW ASHLEY HERNANDEZ MD Feb 21, 2018 11:26
--- NOTE | 2018-02-21 11:30 | PDOC ---
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 02/21/18 1130: CARDIO Progress Notes Date and Time Date of Service 02/21/18 Time of Evaluation 1127 Subjective Subjective: No Chest Pain, No shortness of breath, No Palpitations, No Dizziness Vitals Vitals Vital Signs Date Time Temp Pulse Resp B/P (MAP) Pulse Ox O2 Delivery O2 Flow Rate FiO2 02/21/18 10:59 92 117/58 02/21/18 10:49 97.9 20 95 Room Air 97.9 02/20/18 15:00 2.0 Weight Weight [ ] Input and Output Intake and Output Intake and Output 02/21/18 07:00 Intake Total 100 ml Output Total 0 ml Balance 100 ml Intake Oral 100 ml Output Urine Total 0 ml Laboratory Labs Laboratory Tests Test 02/20/18 11:30 02/20/18 11:46 02/20/18 14:58 02/20/18 16:25 White Blood Count 5.3 x10^3/uL (4.0-11.0) Red Blood Count 3.27 x10^6/uL (4.30-5.70) Hemoglobin 8.5 g/dL (13.0-17.5) Hematocrit 26.2 % (39.0-53.0) Mean Corpuscular Volume 80 fL (79-100) Mean Corpuscular Hemoglobin 26 pg (25-35) Mean Corpuscular Hemoglobin Concent 33 g/dL (31-37) Red Cell Distribution Width 16.4 % (11.5-14.5) Platelet Count 200 x10^3/uL (140-400) Neutrophils (%) (Auto) 70 % (31-73) Lymphocytes (%) (Auto) 18 % (24-48) Monocytes (%) (Auto) 8 % (0-9) Eosinophils (%) (Auto) 3 % (0-3) Basophils (%) (Auto) 1 % (0-3) Neutrophils # (Auto) 3.7 x10^3uL (1.8-7.7) Lymphocytes # (Auto) 0.9 x10^3/uL (1.0-4.8) Monocytes # (Auto) 0.4 x10^3/uL (0.0-1.1) Eosinophils # (Auto) 0.2 x10^3/uL (0.0-0.7) Basophils # (Auto) 0.1 x10^3/uL (0.0-0.2) Prothrombin Time 14.7 SEC (11.7-14.0) Prothromb Time International Ratio 1.2 (0.8-1.1) Sodium Level 137 mmol/L (136-145) Potassium Level 3.6 mmol/L (3.5-5.1) Chloride Level 97 mmol/L (98-107) Carbon Dioxide Level 31 mmol/L (21-32) Anion Gap 9 (6-14) Blood Urea Nitrogen 24 mg/dL (8-26) Creatinine 5.8 mg/dL (0.7-1.3) Estimated GFR (Cockcroft-Gault) 12.5 BUN/Creatinine Ratio 4 (6-20) Glucose Level 222 mg/dL (70-99) Calcium Level 9.1 mg/dL (8.5-10.1) Magnesium Level 1.6 mg/dL (1.8-2.4) Total Bilirubin 0.4 mg/dL (0.2-1.0) Aspartate Amino Transf (AST/SGOT) 15 U/L (15-37) Alanine Aminotransferase (ALT/SGPT) 14 U/L (16-63) Alkaline Phosphatase 54 U/L (46-116) Creatine Kinase 146 U/L (39-308) Creatine Kinase MB (Mass) 1.5 ng/mL (0.0-3.6) Creatine Kinase MB Relative Index 1.0 % (0-4) Troponin I Quantitative < 0.017 ng/mL (0.000-0.055) < 0.017 ng/mL (0.000-0.055) LU-Xzb-L-Type Natriuretic Peptide 4505 pg/mL (0-124) Total Protein 7.7 g/dL (6.4-8.2) Albumin 3.0 g/dL (3.4-5.0) Albumin/Globulin Ratio 0.6 (1.0-1.7) Lipase 111 U/L (73-393) Glucose (Fingerstick) 209 mg/dL (70-99) 185 mg/dL (70-99) Test 02/20/18 17:34 02/20/18 20:54 02/21/18 03:30 02/21/18 08:05 Glucose (Fingerstick) 232 mg/dL (70-99) 218 mg/dL (70-99) 209 mg/dL (70-99) Sodium Level 139 mmol/L (136-145) Potassium Level 4.7 mmol/L (3.5-5.1) Chloride Level 99 mmol/L (98-107) Carbon Dioxide Level 33 mmol/L (21-32) Anion Gap 7 (6-14) Blood Urea Nitrogen 39 mg/dL (8-26) Creatinine 8.5 mg/dL (0.7-1.3) Estimated GFR (Cockcroft-Gault) 8.1 Glucose Level 229 mg/dL (70-99) Calcium Level 9.1 mg/dL (8.5-10.1) Magnesium Level 2.4 mg/dL (1.8-2.4) Triglycerides Level 52 mg/dL (0-150) Cholesterol Level 96 mg/dL (0-200) LDL Cholesterol, Calculated 51 mg/dL (0-100) VLDL Cholesterol, Calculated 10 mg/dL (0-40) Non-HDL Cholesterol Calculated 61 mg/dL (0-129) HDL Cholesterol 35 mg/dL (40-60) Cholesterol/HDL Ratio 2.7 Test 02/21/18 11:15 Glucose (Fingerstick) 219 mg/dL (70-99) Physical Exam HEENT: Neck Supple W Full Motion Chest: Symmetric LUNGS: Clear to Auscultation Heart: S1S2, RRR Abdomen: Soft N/T Extremities: No Edema Neurology: alert, oriented, follow commands Assessment Assessment ASSESSMENT/PLAN 1. chest pain --none further --EKG and initial troponin levels not consistent with AMI; serial troponin r/ o AK --TTE with preserved LVEF and no WMA; + for diastolic dysfunction --MPI in progress; may discharge if non-ischemic 2. elevated NT-proBNP in the setting of ESRD --fluid management per hemodialysis and completed run today 3. HTN --control with meds 4. HLD --LDLs well controlled with statins = continue MOUNA BALLESTEROS MD 02/21/18 1313: CARDIO Progress Notes Assessment Assessment Patient seen and examined. Agree with DIGITAL CONTENT SPECIALIST's assessment and plan. Chest pain with atypical features. Myocardial infarction ruled out. 2-D echo showed normal LV systolic function without any wall motion abnormalities Lexiscan nuclear stress test did not show any significant ischemia. No further cardiac workup is indicated at this time. Continue hemodialysis per nephrology team. VIJAYA GALVIN APRN Feb 21, 2018 11:30 MOUNA BALLESTEROS MD Feb 21, 2018 13:13
--- NOTE | 2018-02-21 12:51 | RAD ---
MR#: [id number] Date of Study: 02/21/2018 Ordering Physician: VIJAYA GALVIN, Referring Physician: FATIMAH FREEMAN Tech: RT Mono Rodgers) (N) APPROVED REPORT Test Type: Pharmacological Stress Nurse/Tech: Yaima HERR Test Indications: CP Cardiac History: DC no intervention, HTN, CVA, DM Medications: See EMR Medical History: See EMR Resting ECG: SR with BBB Resting Heart Rate: 80 bpm Resting Blood Pressure: 120/70mmHg Pretest Chest Pain: No chest pain Nurse/Tech Notes Lungs CTA, Heart tones regular Consent: The procedure was explained to the patient in lay terms. Informed consent was witnessed. Jim eout was entered into [employer]. History and Stress Test performed by RT Mono Rodgers) (N) Pharm. Details Pharmacologic stress testing was performed using 0.4mg per 5ml of regadenoson given intravenously ove r 7-10 seconds. Stress Symptoms Nausea after test was complete. POST EXERCISE Reason for Termination: Infusion complete Max HR: 107 bpm Max Blood Pressure: 125/68mmHg Chest Pain: No. Arrhythmia: No. ST Change: No. INTERPRETATION Stress EKG Conclusion: Baseline EKG showed sinus rhythm with RBBB. No ischemic changes at peak stres s. No arrhythmias. Imaging Protocol IMAGE PROTOCOL: Rest Tc-99m/stress Tc-99m 1 day Rest: Stress: Viability: Radiopharm.Tc99m [id number] Sestamibi Dose11.2mCi 34.9mCi Duration 13min. 13min. Img Date 02/21/2018 02/21/2018 Inj-Img [id number]. 60min. Rest Admin Site:IV - Left AntecubitalAdministrator:RT Mono Rodgers)(N) Stress Admin Site: IV - Left AntecubitalAdministrator: BUTCH Angel STRESS DATA End Diast. Vol.183.0mlLVEDV index BSA85.0ml End Syst. Vol.77.0mlLVESV index BSA35.0ml Myocardial Jnjw981.0gEject. Kvuylvmh25.0% Stress Scores Regional WT2.00Summed WT23.00 Regional WM0.00Summed WM0.00 Study quality was good. Left Ventricular size was Normal at Rest and Stress. Lung uptake was . Left Ventricular ejection fraction is 58%. The rest and stress images show normal perfusion, normal contraction and thickening. LV Perf. Quant 17 Seg. SSS0.00 17 Seg. SRS1.00 17 Seg. SDS0.00 Stress Defect Extent (% LAD)0.00Rest Defect Extent (% LAD)0.00Rev. Defect Extent (% LAD)0.00 Stress Defect Extent (% LCX) 0.00Rest Defect Extent (% LCX)0.00Rev. Defect Extent (% LCX)0.00 Stress Defect Extent (% RCA)0.00Rest Defect Extent (% RCA)10.00Rev. Defect Extent (% RCA)0.00 Stress Defect Extent (% MAGO)0.00Rest Defect Extent (% MAGO)2.00Rev. Defect Extent (% MAGO)0.00 Conclusion 1. Regadenoson cardioisotope stress test did not show any evidence of ischemia or infarct. 2. Normal left ventricular systolic function with ejection fraction calculated at 58%. 3. Low risk for cardiac events. Signed by : Bradley Joshi, Electronically Approved : 02/21/2018 12:50:56
[2018-02-21] MEDS: LOSARTAN POTASSIUM 25 MG TABLET. PO SCH (13:17)
[2018-02-21 15:00] VITALS: BP 108/57
--- NOTE | 2018-02-21 17:38 | HP ---
ADMIT DATE: 02/20/2018 LOCATION: 210. REASON FOR ADMISSION TO THE HOSPITAL: Chest pain. HISTORY OF PRESENT ILLNESS: The patient is a 52-year-old male patient, has known history of diabetes, hypertension, renal failure, on hemodialysis. He was having short of breath, came to the Emergency Room and EKG was negative for ischemia. The patient was seen by Cardiology, scheduled for a stress test. PAST MEDICAL HISTORY: History of diabetes, hypertension, hyperlipidemia, bilateral leg amputation and end-stage renal disease, on hemodialysis. PAST SURGICAL HISTORY: He has AV shunt, EGD, colonoscopy, bilateral bzcfx-rrb-sbhy amputations, recently was in the hospital for a stump infection. FAMILY HISTORY: Positive for diabetes, heart disease, kidney disease. SOCIAL HISTORY: Social marijuana. Denies any alcohol or smoking. ALLERGIES: No known drug allergies. MEDICATIONS: The patient is on Augmentin 500 twice a day, aspirin 325 daily, atorvastatin 20 mg daily, Coreg 12.5 taking 25 mg twice a day, Pepcid 40 mg daily, insulin 10 units 3 times daily, Lantus 10 units at bedtime, Reglan 5 mg q.i.d. 4 times a day, Renvela 800 mg 3 times daily, tramadol 50 mg q.6. REVIEW OF SYMPTOMS: Some chest pain, resolved now. Denies any nausea, vomiting or diarrhea. Rest of the 14-system was reviewed and negative. PHYSICAL EXAMINATION: VITAL SIGNS: At the time of admission show a temperature 98, pulse 90, respirations 20, blood pressure 125/73, 99% on room air. HEENT: Head is atraumatic. Pupils equal. Oral cavity: No congestion. NECK: Supple. Thyroid not enlarged. JVD not elevated. CHEST: Symmetrical. CARDIOVASCULAR: S1, S2. No murmurs. LUNGS: Clear to auscultation. ABDOMEN: Soft, no mass palpable. EXTERNAL GENITALIA: No Leone. RECTAL: Deferred. EXTREMITIES: The patient has bilateral xwlva-ngq-rolf amputations. The stumps has ulcerations, left has a superficial ulcer, 2 cm on the right, has abscess with packing done, 2 cm deep. LABORATORY DATA: Shows a white count of 5, hemoglobin 8.5, platelets 200. INR is 1.2. Electrolytes show sodium 139, potassium 4.7, chloride 99, bicarbonate 33, BUN 39, creatinine 8.5, glucose 232. Cholesterol is 96, LDL 51, HDL 35. Lipase is 11. Chest x-ray: Mild cardiomegaly, otherwise negative. FINAL IMPRESSION: 1. Chest pain, for cardiac evaluation.High risk for cardiac event. 2. Risk factors including diabetes, hypertension, renal disease. 3. End-stage renal disease, on hemodialysis Saturday, and Saturday. 4. Hypertension. 5. Hyperlipidemia. 6. Chronic systolic heart failure. 7. Bilateral qfupa-gxd-hwcg amputations. PLAN: At this time, admit to hospital, seen by Cardiology, scheduled for a stress test, echocardiogram and if that is good, probably he could be discharged home tomorrow after dialysis. IRINEO SCHWARTZ MD DR: MIK/latoya JOB#: [id number] / [id number] AYA
[2018-02-21 19:00] VITALS: BP 115/61
[2018-02-21] MEDS: ATORVASTATIN CALCIUM 20 MG TABLET PO SCH (19:54)
[2018-02-21] MEDS: FAMOTIDINE 20 MG TABLET. PO SCH (19:55)
[2018-02-21] MEDS: INSULIN GLARGINE 300 UNITS/3 ML INSULN.PEN. SQ SCH (19:59)
[2018-02-21] MEDS ORDERED: DARBEPOETIN ALFA 60 MCG/0.3 ML DISP.SYRIN. SQ SCH (21:00)
[2018-02-21 23:06] VITALS: BP 107/69
[2018-02-22 03:30] VITALS: BP 133/76
[2018-02-22 07:10] VITALS: BP 132/74
[2018-02-22] MEDS: CARVEDILOL 12.5 MG TABLET. PO SCH (08:18)
[2018-02-22] MEDS: SEVELAMER CARBONATE 800 MG TABLET. PO SCH ×2 (08:18→14:25)
[2018-02-22] MEDS: AMOXICILLIN/K CLAV 500/125MG TABLET. PO SCH (08:19)
[2018-02-22] MEDS: METOCLOPRAMIDE 5 MG TABLET. PO SCH ×2 (08:19→14:25)
[2018-02-22] MEDS: LACTOBACILLUS RHAMNOSUS GG 1 CAPSULE. PO SCH (08:19)
[2018-02-22] MEDS: ASPIRIN 325 MG TABLET PO SCH (08:19)
[2018-02-22] MEDS: INSULIN LISPRO 300 UNITS/3 ML INSULN.PEN. SQ SCH ×2 (08:25→12:00)
--- NOTE | 2018-02-22 09:42 | PDOC ---
PROGRESS NOTES Subjective Subjective SEEN IN FOLLOW UP OF ESRD Objective Objective Vital Signs Date Time Temp Pulse Resp B/P (MAP) Pulse Ox O2 Delivery O2 Flow Rate FiO2 02/22/18 08:18 76 132/74 02/22/18 07:40 Room Air 02/22/18 07:10 98.0 14 99 98.0 02/20/18 15:00 2.0 Intake and Output 02/22/18 07:00 Intake Total 1340 ml Output Total 450 ml Balance 890 ml Intake Oral 1340 ml Output Urine Total 450 ml Physical Exam Abdomen: Normal bowel sounds, Soft, No tenderness, No hepatosplenomegaly, No masses Heart: Regular rate, Normal S1, Normal S2, No murmurs, Gallops Extremities: No clubbing, No cyanosis, No edema, Normal pulses, No tenderness/ swelling General: Alert, Oriented X3, Cooperative, No acute distress Lungs: Clear to auscultation, Normal air movement Psych/Mental Status: Mental status NL, Mood NL Diagnosis RENAL FAILURE: ESRD Assessment Assessment Problems Medical Problems: (1) Chest pain Status: Acute Plan Plan of Care FOR DIALYSIS TODAT FOR SOLUTE CLEARANCE AND FLUID BALANCE. Comment Review of Relevant I have reviewed the following items carmen (where applicable) has been applied. Labs Laboratory Tests Test 02/20/18 11:30 02/20/18 11:46 02/20/18 14:58 02/20/18 16:25 White Blood Count 5.3 x10^3/uL (4.0-11.0) Red Blood Count 3.27 x10^6/uL (4.30-5.70) Hemoglobin 8.5 g/dL (13.0-17.5) Hematocrit 26.2 % (39.0-53.0) Mean Corpuscular Volume 80 fL (79-100) Mean Corpuscular Hemoglobin 26 pg (25-35) Mean Corpuscular Hemoglobin Concent 33 g/dL (31-37) Red Cell Distribution Width 16.4 % (11.5-14.5) Platelet Count 200 x10^3/uL (140-400) Neutrophils (%) (Auto) 70 % (31-73) Lymphocytes (%) (Auto) 18 % (24-48) Monocytes (%) (Auto) 8 % (0-9) Eosinophils (%) (Auto) 3 % (0-3) Basophils (%) (Auto) 1 % (0-3) Neutrophils # (Auto) 3.7 x10^3uL (1.8-7.7) Lymphocytes # (Auto) 0.9 x10^3/uL (1.0-4.8) Monocytes # (Auto) 0.4 x10^3/uL (0.0-1.1) Eosinophils # (Auto) 0.2 x10^3/uL (0.0-0.7) Basophils # (Auto) 0.1 x10^3/uL (0.0-0.2) Prothrombin Time 14.7 SEC (11.7-14.0) Prothromb Time International Ratio 1.2 (0.8-1.1) Sodium Level 137 mmol/L (136-145) Potassium Level 3.6 mmol/L (3.5-5.1) Chloride Level 97 mmol/L (98-107) Carbon Dioxide Level 31 mmol/L (21-32) Anion Gap 9 (6-14) Blood Urea Nitrogen 24 mg/dL (8-26) Creatinine 5.8 mg/dL (0.7-1.3) Estimated GFR (Cockcroft-Gault) 12.5 BUN/Creatinine Ratio 4 (6-20) Glucose Level 222 mg/dL (70-99) Calcium Level 9.1 mg/dL (8.5-10.1) Magnesium Level 1.6 mg/dL (1.8-2.4) Total Bilirubin 0.4 mg/dL (0.2-1.0) Aspartate Amino Transf (AST/SGOT) 15 U/L (15-37) Alanine Aminotransferase (ALT/SGPT) 14 U/L (16-63) Alkaline Phosphatase 54 U/L (46-116) Creatine Kinase 146 U/L (39-308) Creatine Kinase MB (Mass) 1.5 ng/mL (0.0-3.6) Creatine Kinase MB Relative Index 1.0 % (0-4) Troponin I Quantitative < 0.017 ng/mL (0.000-0.055) < 0.017 ng/mL (0.000-0.055) ZO-Vvf-L-Type Natriuretic Peptide 4505 pg/mL (0-124) Total Protein 7.7 g/dL (6.4-8.2) Albumin 3.0 g/dL (3.4-5.0) Albumin/Globulin Ratio 0.6 (1.0-1.7) Lipase 111 U/L (73-393) Glucose (Fingerstick) 209 mg/dL (70-99) 185 mg/dL (70-99) Test 02/20/18 17:34 02/20/18 19:00 02/20/18 20:54 02/21/18 03:30 Glucose (Fingerstick) 232 mg/dL (70-99) 218 mg/dL (70-99) Nasal Screen MRSA (PCR) Negative (Negative) Sodium Level 139 mmol/L (136-145) Potassium Level 4.7 mmol/L (3.5-5.1) Chloride Level 99 mmol/L (98-107) Carbon Dioxide Level 33 mmol/L (21-32) Anion Gap 7 (6-14) Blood Urea Nitrogen 39 mg/dL (8-26) Creatinine 8.5 mg/dL (0.7-1.3) Estimated GFR (Cockcroft-Gault) 8.1 Glucose Level 229 mg/dL (70-99) Calcium Level 9.1 mg/dL (8.5-10.1) Magnesium Level 2.4 mg/dL (1.8-2.4) Triglycerides Level 52 mg/dL (0-150) Cholesterol Level 96 mg/dL (0-200) LDL Cholesterol, Calculated 51 mg/dL (0-100) VLDL Cholesterol, Calculated 10 mg/dL (0-40) Non-HDL Cholesterol Calculated 61 mg/dL (0-129) HDL Cholesterol 35 mg/dL (40-60) Cholesterol/HDL Ratio 2.7 Test 02/21/18 08:05 02/21/18 11:15 02/21/18 16:42 02/21/18 19:53 Glucose (Fingerstick) 209 mg/dL (70-99) 219 mg/dL (70-99) 117 mg/dL (70-99) 202 mg/dL (70-99) Test 02/22/18 07:12 Glucose (Fingerstick) 163 mg/dL (70-99) Laboratory Tests Test 02/21/18 11:15 02/21/18 16:42 02/21/18 19:53 02/22/18 07:12 Glucose (Fingerstick) 219 mg/dL (70-99) 117 mg/dL (70-99) 202 mg/dL (70-99) 163 mg/dL (70-99) Medications Current Medications Nitroglycerin (Nitrostat) 0.4 mg PRN Q5MIN PRN SL CP RATING > 1/10 Last administered on 02/20/18at 12:23; Start 02/20/18 at 11:45; Stop 02/21/18 at 11:44 ; Status DC Morphine Sulfate (Morphine Sulfate) 4 mg 1X ONCE IV Last administered on at 12:53; Start 02/20/18 at 12:45; Stop 02/20/18 at 12:47; Status DC Multi-Ingredient Mouthwash/Gargle (Gi Cocktail) 20 ml 1X ONCE SWSW Last administered on 02/20/18at 12:56; Start 02/20/18 at 13:00; Stop 02/20/18 at 13:01 ; Status DC Ondansetron HCl (Zofran) 4 mg PRN Q8HRS PRN IV NAUSEA/VOMITING; Start 02/20/18 at 13:30; Stop 02/21/18 at 13:29; Status DC Morphine Sulfate (Morphine Sulfate) 2 mg PRN Q2HR PRN IV PAIN; Start 02/20/18 at 13:30; Stop 02/21/18 at 13:29; Status DC Magnesium Sulfate 50 ml @ 25 mls/hr 1X ONCE IV Last administered on 02/20/18at 15:51; Start 02/20/18 at 15:30; Stop 02/20/18 at 17:29; Status DC Amoxicillin/ Clavulanate Potassium (Augmentin 500/ 125mg) 1 tab DAILY PO ; Start 02/21/18 at 09:00; Stop 02/21/18 at 09:00; Status DC Atorvastatin Calcium (Lipitor) 20 mg QHS PO Last administered on 02/21/18at 19: 54; Start 02/20/18 at 21:00 Carvedilol (Coreg) 25 mg BIDWMEALS PO Last administered on 02/22/18at 08:18; Start 02/20/18 at 17:30 Insulin Glargine (Lantus) 10 units QHS SQ Last administered on 02/21/18at 19:59 ; Start 02/20/18 at 21:00 Metoclopramide HCl (Reglan) 2.5 mg QID PO Last administered on 02/22/18 08:19 ; Start 02/20/18 at 17:30 Sevelamer Carbonate (Renvela) 800 mg TIDWMEALS PO Last administered on 08:18; Start 02/20/18 at 17:30 Tramadol HCl (Ultram) 50 mg PRN Q6HRS PRN PO PAIN; Start 02/20/18 at 17:00 Aspirin (Seth Aspirin) 325 mg DAILYWBKFT PO Last administered on 02/22/18 08: 19; Start 02/21/18 at 08:00 Famotidine (Pepcid) 20 mg QHS PO Last administered on 02/21/18 19:55; Start at 21:00 Insulin Human Lispro (HumaLOG) 10 units TIDWMEALS SQ Last administered on 08:25; Start 02/20/18 at 17:30 Dextrose (Dextrose 50%-Water Syringe) 12.5 gm PRN Q15MIN PRN IV SEE COMMENTS; Start 02/20/18 at 17:00 Lactobacillus Rhamnosus (Culturelle) 1 cap BID PO Last administered on 08:19; Start 02/20/18 at 21:00 Amoxicillin/ Clavulanate Potassium (Augmentin 500/ 125mg) 1 tab DAILY PO Last administered on 02/22/18 08:19; Start 02/20/18 at 18:45 Regadenoson (Lexiscan) 0.4 mg 1X ONCE IV Last administered on 02/21/18at 10:08 ; Start 02/21/18 at 08:45; Stop 02/21/18 at 08:46; Status DC Losartan Potassium (Cozaar) 25 mg DAILY PO Last administered on 02/21/18 13:17 ; Start 02/21/18 at 11:00 Darbepoetin Huey (Aranesp) 60 mcg WEEKLYHS SQ Last administered on 02/21/18 19 :55; Start 02/21/18 at 21:00 Active Scripts Active Doxycycline Hyclate 50 Mg Capsule 1 Cap PO BID Reported Augmentin 500-125 Tablet (Amoxicillin/Potassium Clav) 1 Each Tablet 1 Tab PO BID Tramadol Hcl 50 Mg Tablet 50 Mg PO Q6HRS PRN Renvela (Sevelamer Carbonate) 800 Mg Tablet 800 Mg PO TIDWMEALS Famotidine 40 Mg Tablet 40 Mg PO HS Lantus Solostar (Insulin Glargine,Hum.rec.anlog) 100 Unit/1 Ml Insuln.pen 10 Unit SQ QHS Novolog Flexpen (Insulin Aspart) 100 Unit/1 Ml Insuln.pen 10 Unit SQ TIDAC Reglan (Metoclopramide Hcl) 5 Mg Tablet 5 Mg PO QID Coreg (Carvedilol) 12.5 Mg Tablet 25 Mg PO BID Lipitor (Atorvastatin Calcium) 20 Mg Tablet 20 Mg PO QHS Aspirin Buffered 325 Mg Tab (Aspirin/Calcium Carbonate/Mag) 325 Mg Tablet 325 Mg PO DAILY06 Vitals/I & O Vital Sign - Last 24 Hours 02/21/18 02/21/18 02/21/18 02/21/18 10:49 10:59 13:17 15:00 Temp 97.9 98.1 97.9 98.1 Pulse 92 92 81 82 Resp 20 16 B/P (MAP) 124/65 (84) 117/58 116/64 108/57 (74) Pulse Ox 95 96 O2 Delivery Room Air 02/21/18 02/21/18 02/21/18 02/21/18 17:57 19:00 20:13 23:06 Temp 98.2 98.2 98.2 98.2 Pulse 81 86 80 Resp 18 B/P (MAP) 128/68 115/61 (79) 107/69 (82) Pulse Ox 96 98 O2 Delivery Room Air Room Air Room Air 02/22/18 02/22/18 02/22/18 02/22/18 03:30 07:10 07:40 08:18 Temp 98.2 98.0 98.2 98.0 Pulse 77 76 76 Resp 20 14 B/P (MAP) 133/76 (95) 132/74 (93) 132/74 Pulse Ox 98 99 O2 Delivery Room Air Room Air Room Air Intake and Output 02/21/18 02/21/18 02/22/18 15:00 23:00 07:00 Intake Total 740 ml 600 ml Output Total 450 ml Balance 290 ml 600 ml MARRY HOBBS MD Feb 22, 2018 09:42
--- NOTE | 2018-02-22 09:51 | PDOC ---
PROGRESS NOTES Subjective Subjective feels better ,anxious to go home Objective Objective Vital Signs Date Time Temp Pulse Resp B/P (MAP) Pulse Ox O2 Delivery O2 Flow Rate FiO2 02/22/18 08:18 76 132/74 02/22/18 07:40 Room Air 02/22/18 07:10 98.0 14 99 98.0 Intake and Output 02/22/18 07:00 Intake Total 1340 ml Output Total 450 ml Balance 890 ml Intake Oral 1340 ml Output Urine Total 450 ml Physical Exam Abdomen: Normal bowel sounds, Soft, No tenderness, No hepatosplenomegaly, No masses Heart: Regular rate, Normal S1, Normal S2, No murmurs, Gallops Extremities: No clubbing, No cyanosis, No edema, Normal pulses, No tenderness/ swelling General: Alert, Oriented X3, Cooperative, No acute distress HEENT: Atraumatic Lungs: Clear to auscultation, Normal air movement MUSCULOSKELETAL: Other (bilateral BKA) Neuro: Normal speech Psych/Mental Status: Mental status NL, Mood NL Skin: No rashes Diagnosis Problem List Problems Medical Problems: (1) Chest pain Status: Acute RENAL FAILURE: ESRD Assessment Assessment Problems Medical Problems: (1) Chest pain Status: Acute FINAL IMPRESSION: 1. Chest pain, for cardiac evaluation.high risk patient for CAD. 2. Risk factors including diabetes, hypertension, renal disease. 3. End-stage renal disease, on hemodialysis Saturday, and Saturday. 4. Hypertension. 5. Hyperlipidemia. 6. Chronic systolic heart failure. 7. Bilateral pbndc-rds-wqzx amputations. PLAN: stress test neg for ischemia. dialysis today d/c home after that. Plan Plan of Care Problems Medical Problems: (1) Chest pain Status: Acute Comment Review of Relevant I have reviewed the following items carmen (where applicable) has been applied. Labs Laboratory Tests Test 02/21/18 11:15 02/21/18 16:42 02/21/18 19:53 02/22/18 07:12 Glucose (Fingerstick) 219 mg/dL (70-99) 117 mg/dL (70-99) 202 mg/dL (70-99) 163 mg/dL (70-99) Medications Current Medications Darbepoetin Huey (Aranesp) 60 mcg WEEKLYHS SQ Last administered on 02/21/18at 19 :55; Start 02/21/18 at 21:00 Losartan Potassium (Cozaar) 25 mg DAILY PO Last administered on 02/21/18at 13:17 ; Start 02/21/18 at 11:00 Vitals/I & O Vital Sign - Last 24 Hours 02/21/18 02/21/18 02/21/18 02/21/18 10:49 10:59 13:17 15:00 Temp 97.9 98.1 97.9 98.1 Pulse 92 92 81 82 Resp 20 16 B/P (MAP) 124/65 (84) 117/58 116/64 108/57 (74) Pulse Ox 95 96 O2 Delivery Room Air 02/21/18 02/21/18 02/21/18 02/21/18 17:57 19:00 20:13 23:06 Temp 98.2 98.2 98.2 98.2 Pulse 81 86 80 Resp 18 B/P (MAP) 128/68 115/61 (79) 107/69 (82) Pulse Ox 96 98 O2 Delivery Room Air Room Air Room Air 02/22/18 02/22/18 02/22/18 02/22/18 03:30 07:10 07:40 08:18 Temp 98.2 98.0 98.2 98.0 Pulse 77 76 76 Resp 20 14 B/P (MAP) 133/76 (95) 132/74 (93) 132/74 Pulse Ox 98 99 O2 Delivery Room Air Room Air Room Air Intake and Output 02/21/18 02/21/18 02/22/18 15:00 23:00 07:00 Intake Total 740 ml 600 ml Output Total 450 ml Balance 290 ml 600 ml IRINEO SCHWARTZ MD Feb 22, 2018 09:51
[2018-02-22] MEDS ORDERED: IV NORMAL SALINE 1000ML BAG 1,000 ML IV PRN ×2 (10:53)
[2018-02-22 10:55] LABS: CALCIUM 9.5 mg/dL (8.5-10.1); CREATININE 11.7 mg/dL (0.7-1.3); GFR 5.6; POTASSIUM 4.2 mmol/L (3.5-5.1)
[2018-02-22] MEDS ORDERED: ALBUMIN HUMAN 25% 200 ML IV PRN (11:00)
[2018-02-22] MEDS ORDERED: DIALYSIS PATIENT. MC PRN (11:00)
[2018-02-22] MEDS: LOSARTAN POTASSIUM 25 MG TABLET. PO SCH (14:26)
[2018-02-22 15:02] VITALS: BP 120/71
[2018-02-22 21:09] LABS: HEMOGLOBIN A1C 6.8 % (4.8-5.6)
--- NOTE | 2018-02-27 15:02 | PDOC ---
Provider Note Provider Note Discharge summary dictated. #[id number]. IRINEO SCHWARTZ MD Feb 27, 2018 15:02
--- NOTE | 2018-02-27 15:45 | DS ---
DATE OF DISCHARGE: 02/22/2018 REASON FOR ADMISSION TO THE HOSPITAL: Chest pain. CONSULTATION: Dr. Joshi, Dr. Paez. PROCEDURES DONE: 1. Echocardiogram. 2. Stress test. 3. Dialysis. HOSPITAL COURSE: The patient is a 53-year-old male with history of diabetes; end-stage renal disease, on hemodialysis; bilateral below the knee amputations. Came with chest pain, came to the Emergency Room. His EKG, cardiac enzymes were negative, had echocardiogram which shows 55%-60% ejection fraction, had a stress test that was negative for ischemia and the patient was dialyzed while he is in the hospital and was discharged after that. FINAL DIAGNOSES: 1. Chest pain, probably skeletomuscular, possible gastroesophageal reflux disease.Stress test neg for ischemia. 2. High risk for coronary artery disease including diabetes, hypertension, hyperlipidemia. 3. End-stage renal disease, on hemodialysis. 4. Insulin-dependent diabetes. 5. Hypertension. 6. Hyperlipidemia. 7. Bilateral tibcu-jxu-ahvr amputations, complications from diabetes. DISPOSITION: Home. See MRAD for discharge medications. IRINEO SCHWARTZ MD DR: MIK/latoya JOB#: [id number] / [id number] AYA
== END 2018-02-22 15:30 | disposition home or self-care (01) | DRG 391 ==
LOC: ER 11:30 → 2 NORTH 13:16
PROVIDERS: ADMIT Internal Medicine; ATTEND Internal Medicine
PROC: 5A1D70Z Performance of Urinary Filtration, Intermittent, Less than 6 Hours Per Day (ICD-10-PCS; principal; 2018-02-22)
DX: K21.9 Gastro-esophageal reflux disease without esophagitis (principal); N18.6 End stage renal disease; L97.829 Non-pressure chronic ulcer of other part of left lower leg with unspecified severity; I13.2 Hypertensive heart and chronic kidney disease with heart failure and with stage 5 chronic kidney disease, or end stage renal disease; I50.22 Chronic systolic (congestive) heart failure; E11.43 Type 2 diabetes mellitus with diabetic autonomic (poly)neuropathy; K31.84 Gastroparesis; M19.90 Unspecified osteoarthritis, unspecified site; R07.89 Other chest pain; D63.8 Anemia in other chronic diseases classified elsewhere; E11.22 Type 2 diabetes mellitus with diabetic chronic kidney disease; E78.00 Pure hypercholesterolemia, unspecified; E83.42 Hypomagnesemia; E78.5 Hyperlipidemia, unspecified; E11.21 Type 2 diabetes mellitus with diabetic nephropathy; E11.319 Type 2 diabetes mellitus with unspecified diabetic retinopathy without macular edema; E11.51 Type 2 diabetes mellitus with diabetic peripheral angiopathy without gangrene; Z99.2 Dependence on renal dialysis; Z89.511 Acquired absence of right leg below knee; Z89.512 Acquired absence of left leg below knee; Z83.3 Family history of diabetes mellitus; Z87.19 Personal history of other diseases of the digestive system; Z82.49 Family history of ischemic heart disease and other diseases of the circulatory system; Y92.89 Other specified places as the place of occurrence of the external cause
CPT/HCPCS: 36415; 71045; 78452; 80048; 80053; 80061; 82553; 82962; 83036; 83690; 83735; 83880; 84443; 84484; 85025; 85610; 87641; 93005; 93017; 93306; 96374; 96375; 96376; A9500; J0881; J1815; J2270; J2785; J3475; J8597; 99285-25

== ENCOUNTER → 2018-02-26 | Outpatient (CLI) | payer MEDICARE ==
[2018-02-22 15:02] VITALS: BP 120/71
== END | disposition home or self-care (01) ==
LOC: PMGWOUND 08:32
PROVIDERS: ATTEND Preventive Medicine Undersea and Hyperbaric Medicine
DX: T87.89 Other complications of amputation stump (principal); E11.622 Type 2 diabetes mellitus with other skin ulcer; L89.892 Pressure ulcer of other site, stage 2; L97.821 Non-pressure chronic ulcer of other part of left lower leg limited to breakdown of skin; I13.2 Hypertensive heart and chronic kidney disease with heart failure and with stage 5 chronic kidney disease, or end stage renal disease; E11.22 Type 2 diabetes mellitus with diabetic chronic kidney disease; N18.6 End stage renal disease; I50.22 Chronic systolic (congestive) heart failure; I50.84 End stage heart failure; E11.649 Type 2 diabetes mellitus with hypoglycemia without coma; E11.51 Type 2 diabetes mellitus with diabetic peripheral angiopathy without gangrene; E11.21 Type 2 diabetes mellitus with diabetic nephropathy; E11.42 Type 2 diabetes mellitus with diabetic polyneuropathy; E11.43 Type 2 diabetes mellitus with diabetic autonomic (poly)neuropathy; E11.319 Type 2 diabetes mellitus with unspecified diabetic retinopathy without macular edema; K31.84 Gastroparesis; E11.69 Type 2 diabetes mellitus with other specified complication; M86.9 Osteomyelitis, unspecified; I25.2 Old myocardial infarction; E03.9 Hypothyroidism, unspecified; E78.5 Hyperlipidemia, unspecified; E78.00 Pure hypercholesterolemia, unspecified; K21.9 Gastro-esophageal reflux disease without esophagitis; I25.10 Atherosclerotic heart disease of native coronary artery without angina pectoris; M19.90 Unspecified osteoarthritis, unspecified site; E21.3 Hyperparathyroidism, unspecified; Z99.2 Dependence on renal dialysis; Z79.4 Long term (current) use of insulin; Z90.49 Acquired absence of other specified parts of digestive tract; Z79.1 Long term (current) use of non-steroidal anti-inflammatories (NSAID); Z79.899 Other long term (current) drug therapy; Z79.01 Long term (current) use of anticoagulants; Z79.82 Long term (current) use of aspirin; Z86.73 Personal history of transient ischemic attack (TIA), and cerebral infarction without residual deficits; Y83.5 Amputation of limb(s) as the cause of abnormal reaction of the patient, or of later complication, without mention of misadventure at the time of the procedure
CPT/HCPCS: 82962; 99213

== ENCOUNTER → 2018-03-05 | Outpatient (CLI) | payer MEDICARE ==
[2018-02-22 15:02] VITALS: BP 120/71
== END | disposition home or self-care (01) ==
LOC: PMGWOUND 09:15
PROVIDERS: ATTEND Preventive Medicine Undersea and Hyperbaric Medicine
DX: T87.89 Other complications of amputation stump (principal); E11.622 Type 2 diabetes mellitus with other skin ulcer; L97.828 Non-pressure chronic ulcer of other part of left lower leg with other specified severity; L89.892 Pressure ulcer of other site, stage 2; I13.2 Hypertensive heart and chronic kidney disease with heart failure and with stage 5 chronic kidney disease, or end stage renal disease; E11.22 Type 2 diabetes mellitus with diabetic chronic kidney disease; N18.6 End stage renal disease; I50.22 Chronic systolic (congestive) heart failure; E11.51 Type 2 diabetes mellitus with diabetic peripheral angiopathy without gangrene; E11.21 Type 2 diabetes mellitus with diabetic nephropathy; E11.42 Type 2 diabetes mellitus with diabetic polyneuropathy; E11.649 Type 2 diabetes mellitus with hypoglycemia without coma; E11.43 Type 2 diabetes mellitus with diabetic autonomic (poly)neuropathy; K31.84 Gastroparesis; E11.69 Type 2 diabetes mellitus with other specified complication; M86.9 Osteomyelitis, unspecified; E11.319 Type 2 diabetes mellitus with unspecified diabetic retinopathy without macular edema; M81.0 Age-related osteoporosis without current pathological fracture; E78.5 Hyperlipidemia, unspecified; I25.2 Old myocardial infarction; K21.9 Gastro-esophageal reflux disease without esophagitis; I25.10 Atherosclerotic heart disease of native coronary artery without angina pectoris; E78.00 Pure hypercholesterolemia, unspecified; E21.3 Hyperparathyroidism, unspecified; E03.9 Hypothyroidism, unspecified; M19.90 Unspecified osteoarthritis, unspecified site; Z99.2 Dependence on renal dialysis; Z79.4 Long term (current) use of insulin; Z90.49 Acquired absence of other specified parts of digestive tract; Z86.73 Personal history of transient ischemic attack (TIA), and cerebral infarction without residual deficits; Y83.5 Amputation of limb(s) as the cause of abnormal reaction of the patient, or of later complication, without mention of misadventure at the time of the procedure
CPT/HCPCS: 99213

== ENCOUNTER → 2018-06-23 | Outpatient (CLI) | payer MEDICARE ==
[~2018-06-23] MED LIST changes: -AMLO10TA6 PO; +AMLO10TA8 PO; -HYDR-2758 PO; +HYDR-2761 PO; +HYDR-3164 PO; -HYDR-971 PO; -OXYC-323 PO; +OXYC1TAB15 PO; -PANT40TA3 PO; +PANT40TA77 PO
== END | disposition home or self-care (01) ==
LOC: PMGWOUND 09:04
PROVIDERS: ATTEND Emergency Medicine Undersea and Hyperbaric Medicine
DX: T87.89 Other complications of amputation stump (principal); E11.622 Type 2 diabetes mellitus with other skin ulcer; L97.222 Non-pressure chronic ulcer of left calf with fat layer exposed; E11.21 Type 2 diabetes mellitus with diabetic nephropathy; E11.69 Type 2 diabetes mellitus with other specified complication; M86.9 Osteomyelitis, unspecified; E11.43 Type 2 diabetes mellitus with diabetic autonomic (poly)neuropathy; K31.84 Gastroparesis; E11.51 Type 2 diabetes mellitus with diabetic peripheral angiopathy without gangrene; I13.2 Hypertensive heart and chronic kidney disease with heart failure and with stage 5 chronic kidney disease, or end stage renal disease; E11.22 Type 2 diabetes mellitus with diabetic chronic kidney disease; N18.6 End stage renal disease; I50.22 Chronic systolic (congestive) heart failure; L84 Corns and callosities; E78.5 Hyperlipidemia, unspecified; K21.9 Gastro-esophageal reflux disease without esophagitis; I25.2 Old myocardial infarction; M81.0 Age-related osteoporosis without current pathological fracture; E21.3 Hyperparathyroidism, unspecified; E03.9 Hypothyroidism, unspecified; M19.90 Unspecified osteoarthritis, unspecified site; I25.10 Atherosclerotic heart disease of native coronary artery without angina pectoris; Z79.4 Long term (current) use of insulin; Z90.49 Acquired absence of other specified parts of digestive tract; Z86.73 Personal history of transient ischemic attack (TIA), and cerebral infarction without residual deficits; Z99.2 Dependence on renal dialysis; Y83.5 Amputation of limb(s) as the cause of abnormal reaction of the patient, or of later complication, without mention of misadventure at the time of the procedure
CPT/HCPCS: 11042

== ENCOUNTER → 2018-06-30 | Outpatient (CLI) | payer MEDICARE ==
[~2018-06-30] MED LIST changes: +AMLO10TA6 PO; -AMLO10TA8 PO; +PANT40TA3 PO; -PANT40TA77 PO
== END | disposition home or self-care (01) ==
LOC: PMGWOUND 09:40
PROVIDERS: ATTEND Emergency Medicine Undersea and Hyperbaric Medicine
DX: T87.89 Other complications of amputation stump (principal); E11.622 Type 2 diabetes mellitus with other skin ulcer; L97.222 Non-pressure chronic ulcer of left calf with fat layer exposed; E11.69 Type 2 diabetes mellitus with other specified complication; M86.9 Osteomyelitis, unspecified; E11.319 Type 2 diabetes mellitus with unspecified diabetic retinopathy without macular edema; E11.43 Type 2 diabetes mellitus with diabetic autonomic (poly)neuropathy; K31.84 Gastroparesis; E11.21 Type 2 diabetes mellitus with diabetic nephropathy; E11.51 Type 2 diabetes mellitus with diabetic peripheral angiopathy without gangrene; I13.2 Hypertensive heart and chronic kidney disease with heart failure and with stage 5 chronic kidney disease, or end stage renal disease; E11.22 Type 2 diabetes mellitus with diabetic chronic kidney disease; N18.6 End stage renal disease; I50.22 Chronic systolic (congestive) heart failure; L84 Corns and callosities; E78.5 Hyperlipidemia, unspecified; I25.2 Old myocardial infarction; M81.0 Age-related osteoporosis without current pathological fracture; K21.9 Gastro-esophageal reflux disease without esophagitis; E21.3 Hyperparathyroidism, unspecified; E03.9 Hypothyroidism, unspecified; M19.90 Unspecified osteoarthritis, unspecified site; I25.10 Atherosclerotic heart disease of native coronary artery without angina pectoris; Z79.4 Long term (current) use of insulin; Z90.49 Acquired absence of other specified parts of digestive tract; Z86.73 Personal history of transient ischemic attack (TIA), and cerebral infarction without residual deficits; Z99.2 Dependence on renal dialysis; Y83.8 Other surgical procedures as the cause of abnormal reaction of the patient, or of later complication, without mention of misadventure at the time of the procedure
CPT/HCPCS: 11042

== ENCOUNTER → 2018-07-07 | Outpatient (CLI) | payer MEDICARE | END | disposition home or self-care (01) | LOC: PMGWOUND 09:30 | PROVIDERS: ATTEND Nurse Practitioner Family | DX: T87.89 Other complications of amputation stump (principal); E11.622 Type 2 diabetes mellitus with other skin ulcer; L97.222 Non-pressure chronic ulcer of left calf with fat layer exposed; E11.69 Type 2 diabetes mellitus with other specified complication; M86.9 Osteomyelitis, unspecified; E11.319 Type 2 diabetes mellitus with unspecified diabetic retinopathy without macular edema; E11.43 Type 2 diabetes mellitus with diabetic autonomic (poly)neuropathy; K31.84 Gastroparesis; E11.51 Type 2 diabetes mellitus with diabetic peripheral angiopathy without gangrene; E11.21 Type 2 diabetes mellitus with diabetic nephropathy; I13.2 Hypertensive heart and chronic kidney disease with heart failure and with stage 5 chronic kidney disease, or end stage renal disease; E11.22 Type 2 diabetes mellitus with diabetic chronic kidney disease; N18.6 End stage renal disease; I50.22 Chronic systolic (congestive) heart failure; L84 Corns and callosities; E78.5 Hyperlipidemia, unspecified; I25.2 Old myocardial infarction; K21.9 Gastro-esophageal reflux disease without esophagitis; M81.0 Age-related osteoporosis without current pathological fracture; E21.3 Hyperparathyroidism, unspecified; E03.9 Hypothyroidism, unspecified; M19.90 Unspecified osteoarthritis, unspecified site; I25.10 Atherosclerotic heart disease of native coronary artery without angina pectoris; Z99.2 Dependence on renal dialysis; Z79.4 Long term (current) use of insulin; Z90.49 Acquired absence of other specified parts of digestive tract; Z86.73 Personal history of transient ischemic attack (TIA), and cerebral infarction without residual deficits; Y83.5 Amputation of limb(s) as the cause of abnormal reaction of the patient, or of later complication, without mention of misadventure at the time of the procedure | CPT/HCPCS: 11042 ==

== ENCOUNTER → 2018-07-14 | Outpatient (CLI) | payer MEDICARE | END | disposition home or self-care (01) | LOC: PMGWOUND 10:07 | PROVIDERS: ATTEND Emergency Medicine Undersea and Hyperbaric Medicine | DX: T87.89 Other complications of amputation stump (principal); E11.621 Type 2 diabetes mellitus with foot ulcer; L97.222 Non-pressure chronic ulcer of left calf with fat layer exposed; E11.69 Type 2 diabetes mellitus with other specified complication; M86.9 Osteomyelitis, unspecified; E11.319 Type 2 diabetes mellitus with unspecified diabetic retinopathy without macular edema; E11.21 Type 2 diabetes mellitus with diabetic nephropathy; E11.51 Type 2 diabetes mellitus with diabetic peripheral angiopathy without gangrene; E11.43 Type 2 diabetes mellitus with diabetic autonomic (poly)neuropathy; K31.84 Gastroparesis; I13.2 Hypertensive heart and chronic kidney disease with heart failure and with stage 5 chronic kidney disease, or end stage renal disease; E11.22 Type 2 diabetes mellitus with diabetic chronic kidney disease; N18.6 End stage renal disease; I50.22 Chronic systolic (congestive) heart failure; L84 Corns and callosities; I25.2 Old myocardial infarction; E78.5 Hyperlipidemia, unspecified; E21.3 Hyperparathyroidism, unspecified; E03.9 Hypothyroidism, unspecified; M81.0 Age-related osteoporosis without current pathological fracture; K21.9 Gastro-esophageal reflux disease without esophagitis; I25.10 Atherosclerotic heart disease of native coronary artery without angina pectoris; Z99.2 Dependence on renal dialysis; Z79.4 Long term (current) use of insulin; Z90.49 Acquired absence of other specified parts of digestive tract; Z86.73 Personal history of transient ischemic attack (TIA), and cerebral infarction without residual deficits; Y83.5 Amputation of limb(s) as the cause of abnormal reaction of the patient, or of later complication, without mention of misadventure at the time of the procedure | CPT/HCPCS: 11042 ==

== ENCOUNTER → 2018-07-21 | Outpatient (CLI) | payer MEDICARE ==
[~2018-07-21] MED LIST changes: -AMLO10TA6 PO; +AMLO10TA8 PO
== END | disposition home or self-care (01) ==
LOC: PMGWOUND 09:51
PROVIDERS: ATTEND Emergency Medicine Undersea and Hyperbaric Medicine
DX: T87.89 Other complications of amputation stump (principal); E11.622 Type 2 diabetes mellitus with other skin ulcer; L97.222 Non-pressure chronic ulcer of left calf with fat layer exposed; E11.21 Type 2 diabetes mellitus with diabetic nephropathy; E11.51 Type 2 diabetes mellitus with diabetic peripheral angiopathy without gangrene; E11.69 Type 2 diabetes mellitus with other specified complication; M86.9 Osteomyelitis, unspecified; E11.319 Type 2 diabetes mellitus with unspecified diabetic retinopathy without macular edema; E11.43 Type 2 diabetes mellitus with diabetic autonomic (poly)neuropathy; K31.84 Gastroparesis; I13.0 Hypertensive heart and chronic kidney disease with heart failure and stage 1 through stage 4 chronic kidney disease, or unspecified chronic kidney disease; E11.22 Type 2 diabetes mellitus with diabetic chronic kidney disease; N18.9 Chronic kidney disease, unspecified; I50.9 Heart failure, unspecified; L84 Corns and callosities; E78.5 Hyperlipidemia, unspecified; M19.90 Unspecified osteoarthritis, unspecified site; I25.2 Old myocardial infarction; E21.3 Hyperparathyroidism, unspecified; E03.9 Hypothyroidism, unspecified; M81.0 Age-related osteoporosis without current pathological fracture; K21.9 Gastro-esophageal reflux disease without esophagitis; I25.10 Atherosclerotic heart disease of native coronary artery without angina pectoris; Z79.4 Long term (current) use of insulin; Z90.49 Acquired absence of other specified parts of digestive tract; Z86.73 Personal history of transient ischemic attack (TIA), and cerebral infarction without residual deficits; Y83.5 Amputation of limb(s) as the cause of abnormal reaction of the patient, or of later complication, without mention of misadventure at the time of the procedure
CPT/HCPCS: 99214; G0463

== ENCOUNTER → 2018-07-28 | Outpatient (CLI) | payer MEDICARE | END | disposition home or self-care (01) | LOC: PMGWOUND 09:48 | PROVIDERS: ATTEND Emergency Medicine Undersea and Hyperbaric Medicine | DX: T87.89 Other complications of amputation stump (principal); E11.621 Type 2 diabetes mellitus with foot ulcer; L97.222 Non-pressure chronic ulcer of left calf with fat layer exposed; E11.43 Type 2 diabetes mellitus with diabetic autonomic (poly)neuropathy; K31.84 Gastroparesis; E11.319 Type 2 diabetes mellitus with unspecified diabetic retinopathy without macular edema; E11.21 Type 2 diabetes mellitus with diabetic nephropathy; E11.69 Type 2 diabetes mellitus with other specified complication; M86.9 Osteomyelitis, unspecified; E11.51 Type 2 diabetes mellitus with diabetic peripheral angiopathy without gangrene; I13.2 Hypertensive heart and chronic kidney disease with heart failure and with stage 5 chronic kidney disease, or end stage renal disease; E11.22 Type 2 diabetes mellitus with diabetic chronic kidney disease; N18.6 End stage renal disease; I50.22 Chronic systolic (congestive) heart failure; L84 Corns and callosities; I25.2 Old myocardial infarction; E78.5 Hyperlipidemia, unspecified; E21.3 Hyperparathyroidism, unspecified; E03.9 Hypothyroidism, unspecified; K21.9 Gastro-esophageal reflux disease without esophagitis; M81.0 Age-related osteoporosis without current pathological fracture; M19.90 Unspecified osteoarthritis, unspecified site; I25.10 Atherosclerotic heart disease of native coronary artery without angina pectoris; Z79.4 Long term (current) use of insulin; Z99.2 Dependence on renal dialysis; Z90.49 Acquired absence of other specified parts of digestive tract; Z86.73 Personal history of transient ischemic attack (TIA), and cerebral infarction without residual deficits; Y83.5 Amputation of limb(s) as the cause of abnormal reaction of the patient, or of later complication, without mention of misadventure at the time of the procedure | CPT/HCPCS: 11042 ==

== ENCOUNTER → 2018-08-04 | Outpatient (CLI) | payer MEDICARE | END | disposition home or self-care (01) | LOC: PMGWOUND 09:45 | PROVIDERS: ATTEND Emergency Medicine Undersea and Hyperbaric Medicine | DX: T87.89 Other complications of amputation stump (principal); E11.621 Type 2 diabetes mellitus with foot ulcer; L97.222 Non-pressure chronic ulcer of left calf with fat layer exposed; E11.69 Type 2 diabetes mellitus with other specified complication; M86.9 Osteomyelitis, unspecified; E11.319 Type 2 diabetes mellitus with unspecified diabetic retinopathy without macular edema; E11.43 Type 2 diabetes mellitus with diabetic autonomic (poly)neuropathy; K31.84 Gastroparesis; E11.51 Type 2 diabetes mellitus with diabetic peripheral angiopathy without gangrene; E11.21 Type 2 diabetes mellitus with diabetic nephropathy; I13.2 Hypertensive heart and chronic kidney disease with heart failure and with stage 5 chronic kidney disease, or end stage renal disease; E11.22 Type 2 diabetes mellitus with diabetic chronic kidney disease; N18.6 End stage renal disease; I50.9 Heart failure, unspecified; L84 Corns and callosities; I25.2 Old myocardial infarction; E03.9 Hypothyroidism, unspecified; E78.5 Hyperlipidemia, unspecified; E21.3 Hyperparathyroidism, unspecified; M19.90 Unspecified osteoarthritis, unspecified site; M81.0 Age-related osteoporosis without current pathological fracture; K21.9 Gastro-esophageal reflux disease without esophagitis; I25.10 Atherosclerotic heart disease of native coronary artery without angina pectoris; Z90.49 Acquired absence of other specified parts of digestive tract; Z99.2 Dependence on renal dialysis; Z79.4 Long term (current) use of insulin; Z86.73 Personal history of transient ischemic attack (TIA), and cerebral infarction without residual deficits; Y83.5 Amputation of limb(s) as the cause of abnormal reaction of the patient, or of later complication, without mention of misadventure at the time of the procedure | CPT/HCPCS: 99214; G0463 ==

== ENCOUNTER → 2018-08-11 | Outpatient (CLI) | payer MEDICARE | END | disposition home or self-care (01) | LOC: PMGWOUND 09:55 | PROVIDERS: ATTEND Preventive Medicine Undersea and Hyperbaric Medicine | DX: T87.89 Other complications of amputation stump (principal); E11.622 Type 2 diabetes mellitus with other skin ulcer; L97.222 Non-pressure chronic ulcer of left calf with fat layer exposed; E11.52 Type 2 diabetes mellitus with diabetic peripheral angiopathy with gangrene; E11.21 Type 2 diabetes mellitus with diabetic nephropathy; E11.51 Type 2 diabetes mellitus with diabetic peripheral angiopathy without gangrene; E11.69 Type 2 diabetes mellitus with other specified complication; M86.9 Osteomyelitis, unspecified; E11.319 Type 2 diabetes mellitus with unspecified diabetic retinopathy without macular edema; E11.43 Type 2 diabetes mellitus with diabetic autonomic (poly)neuropathy; K31.84 Gastroparesis; I13.2 Hypertensive heart and chronic kidney disease with heart failure and with stage 5 chronic kidney disease, or end stage renal disease; E11.22 Type 2 diabetes mellitus with diabetic chronic kidney disease; N18.6 End stage renal disease; I50.22 Chronic systolic (congestive) heart failure; L84 Corns and callosities; I25.2 Old myocardial infarction; E78.5 Hyperlipidemia, unspecified; F12.10 Cannabis abuse, uncomplicated; M19.90 Unspecified osteoarthritis, unspecified site; K21.9 Gastro-esophageal reflux disease without esophagitis; M81.0 Age-related osteoporosis without current pathological fracture; I25.10 Atherosclerotic heart disease of native coronary artery without angina pectoris; Z79.4 Long term (current) use of insulin; Z99.2 Dependence on renal dialysis; Z90.49 Acquired absence of other specified parts of digestive tract; Z86.73 Personal history of transient ischemic attack (TIA), and cerebral infarction without residual deficits; Y83.5 Amputation of limb(s) as the cause of abnormal reaction of the patient, or of later complication, without mention of misadventure at the time of the procedure | CPT/HCPCS: 97597 ==

== ENCOUNTER → 2018-08-18 | Outpatient (CLI) | payer MEDICARE | END | disposition home or self-care (01) | LOC: PMGWOUND 10:09 | PROVIDERS: ATTEND Emergency Medicine Undersea and Hyperbaric Medicine | DX: T87.89 Other complications of amputation stump (principal); L97.222 Non-pressure chronic ulcer of left calf with fat layer exposed; E11.622 Type 2 diabetes mellitus with other skin ulcer; E11.319 Type 2 diabetes mellitus with unspecified diabetic retinopathy without macular edema; E11.43 Type 2 diabetes mellitus with diabetic autonomic (poly)neuropathy; K31.84 Gastroparesis; E11.21 Type 2 diabetes mellitus with diabetic nephropathy; E11.51 Type 2 diabetes mellitus with diabetic peripheral angiopathy without gangrene; I13.2 Hypertensive heart and chronic kidney disease with heart failure and with stage 5 chronic kidney disease, or end stage renal disease; E11.22 Type 2 diabetes mellitus with diabetic chronic kidney disease; N18.6 End stage renal disease; I50.22 Chronic systolic (congestive) heart failure; L84 Corns and callosities; E78.5 Hyperlipidemia, unspecified; I25.2 Old myocardial infarction; E03.9 Hypothyroidism, unspecified; E21.3 Hyperparathyroidism, unspecified; F12.10 Cannabis abuse, uncomplicated; M19.90 Unspecified osteoarthritis, unspecified site; K21.9 Gastro-esophageal reflux disease without esophagitis; M81.0 Age-related osteoporosis without current pathological fracture; I25.10 Atherosclerotic heart disease of native coronary artery without angina pectoris; Z99.2 Dependence on renal dialysis; Z79.4 Long term (current) use of insulin; Z90.49 Acquired absence of other specified parts of digestive tract; Z86.73 Personal history of transient ischemic attack (TIA), and cerebral infarction without residual deficits; Y83.5 Amputation of limb(s) as the cause of abnormal reaction of the patient, or of later complication, without mention of misadventure at the time of the procedure | CPT/HCPCS: 99214; G0463 ==

== ENCOUNTER → 2018-08-25 | Outpatient (CLI) | payer MEDICARE | END | disposition home or self-care (01) | LOC: PMGWOUND 09:53 | PROVIDERS: ATTEND Emergency Medicine Undersea and Hyperbaric Medicine | DX: T87.89 Other complications of amputation stump (principal); E11.621 Type 2 diabetes mellitus with foot ulcer; L97.222 Non-pressure chronic ulcer of left calf with fat layer exposed; E11.69 Type 2 diabetes mellitus with other specified complication; M86.9 Osteomyelitis, unspecified; E11.319 Type 2 diabetes mellitus with unspecified diabetic retinopathy without macular edema; E11.43 Type 2 diabetes mellitus with diabetic autonomic (poly)neuropathy; K31.84 Gastroparesis; E11.51 Type 2 diabetes mellitus with diabetic peripheral angiopathy without gangrene; I13.2 Hypertensive heart and chronic kidney disease with heart failure and with stage 5 chronic kidney disease, or end stage renal disease; E11.22 Type 2 diabetes mellitus with diabetic chronic kidney disease; N18.6 End stage renal disease; I50.22 Chronic systolic (congestive) heart failure; L84 Corns and callosities; I25.2 Old myocardial infarction; E03.9 Hypothyroidism, unspecified; F12.10 Cannabis abuse, uncomplicated; E78.5 Hyperlipidemia, unspecified; E21.3 Hyperparathyroidism, unspecified; M19.90 Unspecified osteoarthritis, unspecified site; K21.9 Gastro-esophageal reflux disease without esophagitis; M81.0 Age-related osteoporosis without current pathological fracture; I25.10 Atherosclerotic heart disease of native coronary artery without angina pectoris; Z99.2 Dependence on renal dialysis; Z79.4 Long term (current) use of insulin; Z90.49 Acquired absence of other specified parts of digestive tract; Z86.73 Personal history of transient ischemic attack (TIA), and cerebral infarction without residual deficits; Y83.5 Amputation of limb(s) as the cause of abnormal reaction of the patient, or of later complication, without mention of misadventure at the time of the procedure | CPT/HCPCS: 99214; G0463 ==

== ENCOUNTER 2019-04-21 10:00 | Inpatient (IN) | payer MEDICARE ==
[~2019-04-21] VITALS: Ht 188 cm; Wt 96.3 kg
[~2019-04-21 10:00] MED LIST changes: -PANT40TA3 PO; +PANT40TA77 PO
[2019-04-21 10:45] VITALS: BP 107/54
--- NOTE | 2019-04-21 12:26 | PDOC ---
Provider Note Provider Note Pt seen and examined ID Consult dictated IMP: RT Stump infection /abscess ESRD on HD DM Rec cont vanc and zosyn consult ortho f/u wound c/s and labs Thank you ILYA BERMUDEZ MD Apr 21, 2019 12:26
[2019-04-21] MEDS ORDERED: traMADol 50 MG TABLET PO PRN (12:45)
--- NOTE | 2019-04-21 12:51 | CONS ---
DATE OF CONSULTATION: 04/21/2019 REFERRING PHYSICIAN: Luisa Noonan MD REASON FOR CONSULTATION: Right stump infection, antibiotic management. HISTORY OF PRESENT ILLNESS: A 54-year-old male with a history of diabetes, end-stage renal disease, bilateral amputee, uses prosthesis, started having some discomfort in the right prosthesis. He was seen by wound team today. Denies any trauma or fall. He was found to have a lot of drainage from the right stump, so he was admitted for further evaluation and treatment. He was started on vancomycin and Zosyn. Labs have been ordered, which are pending at this time. He denied any fevers, although he had some subjective chills a couple of days prior to admission. No problems with the prosthesis. He denies any antibiotics prior to admission. He had similar problems in 02/2018 where he got better without any further surgical intervention. He denies any headache, sore throat, oral sores, difficulty swallowing, cough, chest pain, nausea, vomiting, diarrhea. He is on dialysis through a fistula in the right upper extremity. 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 PAST SURGICAL HISTORY: Positive for laparoscopic repair of small bowel and dialysis catheter removal; dialysis catheter placements; bilateral lower extremity amputee for osteomyelitis and Charcot foot; history of previous pseudomonas, Staph aureus and strep. REVIEW OF SYSTEMS: Otherwise, negative except for above in HPI. ALLERGIES: No known drug allergies. SOCIAL HISTORY: . No tobacco, alcohol or illicit drug use. FAMILY HISTORY: As per HPI. CURRENT MEDICATIONS: will start Vancomycin and Zosyn. Other medications reviewed in medication list. PHYSICAL EXAMINATION: VITAL SIGNS: Temperature 97.9, pulse 104, respiratory rate 18, blood pressure 107/54, oxygen saturation 100% on room air. GENERAL: Alert, oriented, pleasant male, cooperative, lying in bed comfortably, in no acute distress. HEENT: Normocephalic, atraumatic, anicteric. No thrush. Oropharynx clear. NECK: Supple, no JVD. LUNGS: Clear bilaterally. No wheezing. HEART: S1, S2. ABDOMEN: Soft, nontender, nondistended. EXTREMITIES: No cyanosis. Bilateral amputee, right stump has bogginess, warmth. Some blood stained drainage associated with it. DERMATOLOGIC: Warm, dry. No generalized rash. Right upper extremity fistula site looks okay. NEUROLOGIC: Alert and oriented x 3, grossly nonfocal. PSYCHIATRIC: Cooperative, appropriate mood and affect. LABORATORY DATA: CBC, CMP pending from this morning. MICRO: None. IMAGING: None. IMPRESSION: 1. Right stump infection/abscess. 2. Chronic kidney disease, on hemodialysis. 3. Diabetes mellitus. 4. History of bilateral amputation for osteomyelitis/Charcot foot. 5. History of Staphylococcus with Streptococcus and Pseudomonas in the past. RECOMMENDATIONS: 1. Start empiric vancomycin and Zosyn, renal dosing. 2. Consult Orthopedics for I and D 3. Follow up cultures and lab. 4. Continue supportive care. 5. Continue local wound care. Thank you, Dr. Noonan, for consulting Infectious Disease to participate in this patient's care. If you have any questions, do not hesitate to contact me. ILYA BERMUDEZ MD DR: STONE/latoya JOB#: [id number] / [id number] AYA
[2019-04-21 13:16] LABS: BASO % 0 % (0-3); EOS # 0.1 x10^3/uL (0.0-0.7); EOS % 2 % (0-3); HEMATOCRIT 27.2 % (39.0-53.0); HEMOGLOBIN 8.5 g/dL (13.0-17.5); LYMPH # 0.8 x10^3/uL (1.0-4.8); LYMPH % 14 % (24-48); MEAN CORPUSCULAR HEMOGLOBIN 25 pg (25-35); MEAN CORPUSCULAR HGB CONC 31 g/dL (31-37); MEAN CORPUSCULAR VOLUME 81 fL (79-100); MONO # 0.6 x10^3/uL (0.0-1.1); MONO % 10 % (0-9); NEUT # 4.4 x10^3/uL (1.8-7.7); NEUT % 74 % (31-73); PLATELET COUNT 100 x10^3/uL (140-400); RED BLOOD COUNT 3.37 x10^6/uL (4.30-5.70); RED CELL DISTRIBUTION WIDTH 15.2 % (11.5-14.5)
[2019-04-21] MEDS: ASPIRIN ENTERIC COATED 325 MG TABLET.DR. PO SCH (13:33)
[2019-04-21] MEDS: SEVELAMER CARBONATE 800 MG TABLET. PO SCH ×2 (13:33→16:40)
[2019-04-21] MEDS: INSULIN LISPRO 300 UNITS/3 ML VIAL. SQ SCH ×3 (13:37→17:00)
[2019-04-21 14:53] LABS: ALBUMIN 2.9 g/dL (3.4-5.0); ALBUMIN/GLOBULIN RATIO 0.6 (1.0-1.7); ALK PHOS 60 U/L (46-116); ANION GAP 13 (6-14); AST (SGOT) 5 U/L (15-37); BLOOD UREA NITROGEN 42 mg/dL (8-26); BUN/CREATININE RATIO 4 (6-20); CALCIUM 9.9 mg/dL (8.5-10.1); CARBON DIOXIDE 29 mmol/L (21-32); CHLORIDE 97 mmol/L (98-107); CREATININE 11.1 mg/dL (0.7-1.3); GFR 5.9; GLUCOSE 239 mg/dL (70-99); POTASSIUM 4.5 mmol/L (3.5-5.1); SODIUM 139 mmol/L (136-145); TOTAL BILIRUBIN 0.6 mg/dL (0.2-1.0); TOTAL PROTEIN 7.8 g/dL (6.4-8.2)
[2019-04-21 14:54] LABS: ALT (SGPT) < 6 U/L (16-63)
[2019-04-21 14:57] VITALS: BP 115/59
--- NOTE | 2019-04-21 15:00 | NUR ---
Wound Care Pt seen in C today by Dr Gutierrez. Pt admitted to [facility] for infection in R BKA under Dr Noonan. See wound assessment. WC will follow in hospital and after dc.
[2019-04-21] MEDS ORDERED: DIALYSIS PATIENT. MC PRN (15:30)
--- NOTE | 2019-04-21 16:03 | PDOC ---
Provider Note Provider Note Pt seen.H&P dictated.#[id number]. IRINEO SCHWARTZ MD Apr 21, 2019 16:03
--- NOTE | 2019-04-21 16:12 | PDOC2 ---
CONSULT Date of Consult Date of Consult DATE: 04/21/19 TIME: 16:03 Reason for Consult Reason for Consult: Right BKA stump infection Referring Physician Referring Physician: Saran Identification/Chief Complaint Chief Complaint Right stump pain Source Source: Chart review, Patient History of Present Illness Reason for Visit: Patient is a pleasant 54-year-old gentleman with bilateral BKA's years ago. He tells no past several days he's noticed worsening swelling and redness and drainage at his right stump. It started as a pinpoint wound but has been dr burden more and more lately, he went to wound care and was admitted for management of this problem. He tells me that it hurts, it is little bit better rest, hurts with any attempted ambulation or weightbearing on this area. He does not feel like the redness tracking up his leg. He denies any fevers or chills. Past Medical History Cardiovascular: CHF, HTN, Hyperlipidemia, Other Pulmonary: Other CENTRAL NERVOUS SYSTEM: Periperal neuropathy GI: GERD, Other Heme/Onc: Anemia NOS Hepatobiliary: No pertinent hx Psych: No pertinent hx Rheumatologic: No pertinent hx Infectious disease: No pertinent hx Renal/: Chronic renal failure Endocrine: Diabetes, Hyperparathyroidism Past Surgical History Past Surgical History: Other Family History Family History: Diabetes, Heart Disease, Hypertension Social History ALCOHOL: rare Drugs: Marijuana Lives: with Family Current Medications Current Medications Current Medications Atorvastatin Calcium (Lipitor) 20 mg QHS PO ; Start 04/21/19 at 21:00 Carvedilol (Coreg) 25 mg BIDWMEALS PO ; Start 04/21/19 at 17:00 Metoclopramide HCl (Reglan) 5 mg QIDACHS PO ; Start 04/21/19 at 16:30 Sevelamer Carbonate (Renvela) 800 mg TIDWMEALS PO Last administered on 04/21/19at 13:33; Start 04/21/19 at 13:00 Tramadol HCl (Ultram) 50 mg PRN Q6HRS PRN PO PAIN; Start 04/21/19 at 12:45 Aspirin (Ecotrin) 325 mg DAILYWBKFT PO Last administered on 04/21/19at 13:33; Start 04/21/19 at 13:00 Insulin Human Lispro (HumaLOG) 10 units TIDWMEALS SQ Last administered on 11/12/19at 13:37; Start 04/21/19 at 13:00 Insulin Glargine (Lantus Syringe) 10 unit QHS SQ ; Start 04/21/19 at 21:00 Vancomycin HCl (Vanco Per Pharmacy) 1 each PRN DAILY PRN MC SEE COMMENTS; Start 04/21/19 at 15:30 Info (PHARMACY MONITORING -- do not chart) 1 each PRN DAILY PRN MC SEE COMMENTS; Start 04/21/19 at 15:30 Piperacillin Sod/ Tazobactam Sod 2.25 gm/Sodium Chloride 50 ml @ 100 mls/hr Q8HRS IV ; Start 04/21/19 at 16:00 Vancomycin HCl 2 gm/Sodium Chloride 500 ml @ 250 mls/hr 1X ONCE IV ; Start 04/21/19 at 16:30; Stop 04/21/19 at 18:29 Active Scripts Active Reported Augmentin 500-125 Tablet (Amoxicillin/Potassium Clav) 1 Each Tablet 1 Tab PO BID Tramadol Hcl 50 Mg Tablet 50 Mg PO Q6HRS PRN Renvela (Sevelamer Carbonate) 800 Mg Tablet 800 Mg PO TIDWMEALS Famotidine 40 Mg Tablet 40 Mg PO HS Lantus Solostar (Insulin Glargine,Hum.rec.anlog) 100 Unit/1 Ml Insuln.pen 10 Unit SQ QHS Novolog Flexpen (Insulin Aspart) 100 Unit/1 Ml Insuln.pen 10 Unit SQ TIDAC Reglan (Metoclopramide Hcl) 5 Mg Tablet 5 Mg PO QID Coreg (Carvedilol) 12.5 Mg Tablet 25 Mg PO BID Lipitor (Atorvastatin Calcium) 20 Mg Tablet 20 Mg PO QHS Aspirin Buffered 325 Mg Tab (Aspirin/Calcium Carbonate/Mag) 325 Mg Tablet 325 Mg PO DAILY06 Allergies Allergies: Coded Allergies: No Known Drug Allergies (Unverified , 11/12/16) ROS General: No: Chills, Night Sweats, Fatigue, Malaise, Appetite, Other PSYCHOLOGICAL ROS: No: Anxiety, Behavioral Disorder, Concentration difficultie, Decreased libido, Depression, Disorientation, Hallucinations, Hostility, Irritablity, Memory difficulties, Mood Swings, Obsessive thoughts, Physical abuse, Sexual abuse, Sleep disturbances, Suicidal ideation, Other Eyes: No Blurry vision, No Decreased vision, No Double vision, No Dry eyes, No Excessive tearing, No Eye Pain, No Itchy Eyes, No Loss of vision, No Photophobia, No Scotomata, No Uses contacts, No Uses glasses, No Other HEENT: No: Heacaches, Visual Changes, Hearing change, Nasal congestion, Nasal discharge, Oral lesions, Sinus pain, Sore Throat, Epistaxis, Sneezing, Snoring, Tinnitus, Vertigo, Vocal changes, Other ALLERGY AND IMMUNOLOGY: No: Hives, Insect Bite Sensitivity, Itchy/Watery Eyes, Nasal Congestion, Post Nasal Drip, Seasonal Allergies, Other Hematological and Lymphatic: No: Bleeding Problems, Blood Clots, Blood Transfusions, Brusing, Night Sweats, Pallor, Swollen Lymph Nodes, Other ENDOCRINE: No: Breast Changes, Galactorrhea, Hair Pattern Changes, Hot Flashes, Malaise/lethargy, Mood Swings, Palpitations, Polydipsia/polyuria, Skin Changes, Temperature Intolerance, Unexpected Weight Changes, Other Respiratory: No: Cough, Hemoptysis, Orthopnea, Pleuritic Pain, Shortness of breath, SOB with excertion, Sputum Changes, Stridor, Tachypnea, Wheezing, Other Cardiovascular: No Chest Pain, No Palpitations, No Orthopnea, No Paroxysmal Noc. Dyspnea, No Edema, No Lt Headedness, No Other Gastrointestinal: No Nausea, No Vomiting, No Abdominal Pain, No Diarrhea, No Constipation, No Melena, No Hematochezia, No Other Genitourinary: No Dysuria, No Frequency, No Incontinence, No Hematuria, No Retention, No Discharge, No Urgency, No Pain, No Flank Pain, No Other, No , No , No , No , No , No , No Neurological: No Behavorial Changes, No Bowel/Bladder ControlChng, No Confusion, No Dizziness, No Gait Disturbance, No Headaches, No Impaired Coord/balance, No Memory Loss, No Numbness/Tingling, No Seizures, No Speech Problems, No Tremors, No Visual Changes, No Weakness, No Other Skin: Yes Skin Lesion Changes Physical Exam General: Alert, Oriented X3 HEENT: Atraumatic, EOMI Lungs: Other (respirations are unlabored with symmetric chest rise) Heart: Regular rate Abdomen: Soft, No tenderness Extremities: No cyanosis, Other (he has a fair amount of edema around his right BKA stump) Neuro: Normal speech, Strength at 5/5 X4 ext, Sensation intact Psych/Mental Status: Mental status NL, Mood NL MUSCULOSKELETAL: Other (examination of his right BKA stump reveals that is about twice as big as his left side. There is about a 2-3 mm opening in the distal most portion of the stump. There is serosanguineous drainage emanating from it. I was able to probe to proximally 5 or 6 cm through this area, I was not able to probe down to bone.) Vitals VITALS Vital Signs Date Time Temp Pulse Resp B/P (MAP) Pulse Ox O2 Delivery O2 Flow Rate FiO2 04/21/19 14:57 97.8 102 18 115/59 (77) 100 Room Air 97.8 Labs Labs Laboratory Tests Test 04/21/19 11:44 04/21/19 12:45 Glucose (Fingerstick) 222 mg/dL (70-99) White Blood Count 6.0 x10^3/uL (4.0-11.0) Red Blood Count 3.37 x10^6/uL (4.30-5.70) Hemoglobin 8.5 g/dL (13.0-17.5) Hematocrit 27.2 % (39.0-53.0) Mean Corpuscular Volume 81 fL (79-100) Mean Corpuscular Hemoglobin 25 pg (25-35) Mean Corpuscular Hemoglobin Concent 31 g/dL (31-37) Red Cell Distribution Width 15.2 % (11.5-14.5) Platelet Count 100 x10^3/uL (140-400) Neutrophils (%) (Auto) 74 % (31-73) Lymphocytes (%) (Auto) 14 % (24-48) Monocytes (%) (Auto) 10 % (0-9) Eosinophils (%) (Auto) 2 % (0-3) Basophils (%) (Auto) 0 % (0-3) Neutrophils # (Auto) 4.4 x10^3/uL (1.8-7.7) Lymphocytes # (Auto) 0.8 x10^3/uL (1.0-4.8) Monocytes # (Auto) 0.6 x10^3/uL (0.0-1.1) Eosinophils # (Auto) 0.1 x10^3/uL (0.0-0.7) Basophils # (Auto) 0.0 x10^3/uL (0.0-0.2) Sodium Level 139 mmol/L (136-145) Potassium Level 4.5 mmol/L (3.5-5.1) Chloride Level 97 mmol/L (98-107) Carbon Dioxide Level 29 mmol/L (21-32) Anion Gap 13 (6-14) Blood Urea Nitrogen 42 mg/dL (8-26) Creatinine 11.1 mg/dL (0.7-1.3) Estimated GFR (Cockcroft-Gault) 5.9 BUN/Creatinine Ratio 4 (6-20) Glucose Level 239 mg/dL (70-99) Calcium Level 9.9 mg/dL (8.5-10.1) Total Bilirubin 0.6 mg/dL (0.2-1.0) Aspartate Amino Transf (AST/SGOT) 5 U/L (15-37) Alanine Aminotransferase (ALT/SGPT) < 6 U/L (16-63) Alkaline Phosphatase 60 U/L (46-116) Total Protein 7.8 g/dL (6.4-8.2) Albumin 2.9 g/dL (3.4-5.0) Albumin/Globulin Ratio 0.6 (1.0-1.7) Laboratory Tests Test 04/21/19 11:44 04/21/19 12:45 Glucose (Fingerstick) 222 mg/dL (70-99) White Blood Count 6.0 x10^3/uL (4.0-11.0) Red Blood Count 3.37 x10^6/uL (4.30-5.70) Hemoglobin 8.5 g/dL (13.0-17.5) Hematocrit 27.2 % (39.0-53.0) Mean Corpuscular Volume 81 fL (79-100) Mean Corpuscular Hemoglobin 25 pg (25-35) Mean Corpuscular Hemoglobin Concent 31 g/dL (31-37) Red Cell Distribution Width 15.2 % (11.5-14.5) Platelet Count 100 x10^3/uL (140-400) Neutrophils (%) (Auto) 74 % (31-73) Lymphocytes (%) (Auto) 14 % (24-48) Monocytes (%) (Auto) 10 % (0-9) Eosinophils (%) (Auto) 2 % (0-3) Basophils (%) (Auto) 0 % (0-3) Neutrophils # (Auto) 4.4 x10^3/uL (1.8-7.7) Lymphocytes # (Auto) 0.8 x10^3/uL (1.0-4.8) Monocytes # (Auto) 0.6 x10^3/uL (0.0-1.1) Eosinophils # (Auto) 0.1 x10^3/uL (0.0-0.7) Basophils # (Auto) 0.0 x10^3/uL (0.0-0.2) Sodium Level 139 mmol/L (136-145) Potassium Level 4.5 mmol/L (3.5-5.1) Chloride Level 97 mmol/L (98-107) Carbon Dioxide Level 29 mmol/L (21-32) Anion Gap 13 (6-14) Blood Urea Nitrogen 42 mg/dL (8-26) Creatinine 11.1 mg/dL (0.7-1.3) Estimated GFR (Cockcroft-Gault) 5.9 BUN/Creatinine Ratio 4 (6-20) Glucose Level 239 mg/dL (70-99) Calcium Level 9.9 mg/dL (8.5-10.1) Total Bilirubin 0.6 mg/dL (0.2-1.0) Aspartate Amino Transf (AST/SGOT) 5 U/L (15-37) Alanine Aminotransferase (ALT/SGPT) < 6 U/L (16-63) Alkaline Phosphatase 60 U/L (46-116) Total Protein 7.8 g/dL (6.4-8.2) Albumin 2.9 g/dL (3.4-5.0) Albumin/Globulin Ratio 0.6 (1.0-1.7) Assessment/Plan Assessment/Plan Likely deep infection right BKA stump. I did discuss with this gentleman I think it is probably most prudent to wash this out in the operating room as well as a likely wound VAC given the depth of this wound that I was able to probe into. I did discuss rationale for this and he elected to proceed with surgery. Surgery scheduled for tomorrow morning. I did call the dialysis courted regarding this gentleman to help ensure that he could be one of the first patient's receive dialysis so as to not delay surgery. ARMANDO STOVER II, MD Apr 21, 2019 16:12
[2019-04-21] MEDS ORDERED: DEXTROSE 50% 25 GM / 50ML DISP.SYRIN. IV PRN (16:15)
--- NOTE | 2019-04-21 16:16 | EKG ---
[facility] [address] [place] [address] Test Date: 2019-04-21 Test Time: 16:12:58 Pat Name: MIKALA QUIÑONES Department: Room: 580 1 Gender: M Facilities [employer] Pilot: LY : 1965 Requested By: IRINEO SCHWARTZ Order Number: [id number] Reading MD: Measurements Intervals [place] Rate: 86 P: 48 LA: 154 QRS: 31 QRSD: 130 T: 7 QT: 414 QTc: 499 Interpretive Statements SINUS RHYTHM NON SPECIFIC INTRAVENTRICULAR BLOCK ABNORMAL ECG RI6.02 Compared to ECG 02/20/2018 12:29:11 Myocardial infarct finding no longer present Right bundle-branch block no longer present
[2019-04-21] MEDS: VANCOMYCIN PER PHARMACY MC PRN (16:23)
--- NOTE | 2019-04-21 16:23 | NUR ---
Pharmacy Vancomycin Dosing Note S: Consulted to monitor and dose vancomycin started 04/21/19. O: MIKALA QUIÑONES is a 54 year old M with Abscess, HX:OSTEOMYELITIS. Other Antibiotics: ZOSYN LABS: Last BUN: 42 Last Creatinine: 11.1 Creatinine Clearance: DIALYSIS Last WBC: 6.0 Last Procalcitonin: Tmax (past 24 hours): 97.9 Vancomycin Dosing: Dosing Weight: Adjusted Target Trough: 15-20 A: Based on: VANCO dosing guidelines P: 1. Begin Vancomycin 2000mg LOAD dose today 2. Follow up Random level on 04/24/19 at 0500 3. Pharmacy will continue to monitor, follow and adjust therapy as needed. TANMAY CHANEY, [facility], 04/21/19 [id number]
[2019-04-21] MEDS ORDERED: VANCOMYCIN 2 GM in IV NORMAL SALINE 500ML BAG 500 ML IV ONE (16:30)
--- NOTE | 2019-04-21 16:34 | HP ---
ADMIT DATE: 04/21/2019 LOCATION: 588. REASON FOR ADMISSION TO THE HOSPITAL: Right stump abscess infection. HISTORY OF PRESENT ILLNESS: The patient is a 54-year-old male patient known to me. The patient has history of peripheral vascular disease, bilateral [id number]-[id number] amputation. He has prosthesis and the patient is also on end-stage renal disease, goes to dialysis on Saturday, Saturday and Saturday. The patient has developed some abscess infection in the right stump got progressively worsening [facility] and it was felt that needs to come in for IV antibiotics and surgical debridement was admitted to the hospital. PAST MEDICAL HISTORY: Diabetes, hypertension, coronary artery disease, chronic diastolic heart failure, bilateral leg amputee. PAST SURGICAL HISTORY: Hemodialysis. He had a PD dialysis in the past, which was removed, bilateral leg amputee for osteomyelitis, Charcot foot. PERSONAL HISTORY: He uses marijuana, but occasional. No smoking. No alcohol. ALLERGIES: No known allergies. MEDICATIONS AT HOME: The patient is on aspirin one daily, atorvastatin 20 mg daily, Coreg 12.5 twice a day, insulin 10 units three times daily, Lantus 10 units at bedtime, Reglan 5 mg 3 times daily, Renvela 800 mg 3 times daily, tramadol for pain, is on Pepcid 40 mg daily, Augmentin. He was on oral antibiotic. REVIEW OF SYMPTOMS: Denies any chest pain, shortness of breath. Denies any fever. Rest of the 14-systems was reviewed and negative. FAMILY HISTORY: Positive for diabetes, kidney problems in parents and brothers. PHYSICAL EXAMINATION: GENERAL: The patient is comfortable in bed. VITAL SIGNS: Temperature 97, pulse 104, respirations 18, blood pressure 107/54, 100% on room air. HEENT: Head is atraumatic. Pupils are equal. Oral cavity: No congestion. NECK: Supple. Thyroid not enlarged. JVD not elevated. CHEST: Symmetrical. CARDIOVASCULAR: S1, S2. LUNGS: Clear. ABDOMEN: Soft, no mass palpable. EXTERNAL GENITALIA: No Leone. RECTAL: Deferred. EXTREMITIES: Bilateral xfasy-[id number] amputee on the right. There is an abscess one size at the tip of the stump. Left looks fine. The patient has AV shunt in the right upper extremity. Good thrill. NEUROLOGIC: No focal deficits noted. LABORATORY DATA: Shows a white count of 6, hemoglobin 8.5, platelets 100. Electrolytes show sodium 139, potassium 4.5, chloride 97, bicarbonate 29, BUN 42, creatinine 11.1, glucose 222. LFTs normal. FINAL IMPRESSION: 1. Right leg stump abscess. 2. Bilateral leg amputee. 3. End-stage renal disease, on hemodialysis. 4. Insulin-dependent diabetes. 5. Hypertension. 6. Chronic diastolic heart failure, last echo stress test last year, shows good left ventricular function. PLAN: At this time, admit to hospital. Wound culture, start on broad-spectrum antibiotic, vancomycin and Zosyn. ID is consulted. Also, dialysis Saturday, Saturday and Saturday. Renal is consulted. Orthopedics consultation is I and D of the stump and he improves. IRINEO SCHWARTZ MD DR: MIK/latoya JOB#: [id number] / [id number]
[2019-04-21] MEDS: PIPERACILLIN/TAZOBACTAM 2.25 GM in IV NORMAL SALINE 50ML 50 ML IV SCH ×2 (16:36→22:02)
[2019-04-21] MEDS: CARVEDILOL 12.5 MG TABLET. PO SCH (16:40)
[2019-04-21] MEDS: METOCLOPRAMIDE 5 MG TABLET. PO SCH ×2 (16:40→22:02)
[2019-04-21 19:00] VITALS: BP 98/54
[2019-04-21] MEDS: ATORVASTATIN CALCIUM 20 MG TABLET PO SCH (22:02)
[2019-04-21] MEDS: INSULIN GLARGINE SYRINGE. SQ SCH (22:08)
[2019-04-21 22:46] VITALS: BP 92/47
[2019-04-22] VITALS (7 sets, daily range): BP systolic 103–126; BP diastolic 57–86
[2019-04-22 05:01] LABS: PROTHROMBIN TIME PATIENT 17.1 SEC (11.7-14.0)
--- NOTE | 2019-04-22 05:09 | RAD ---
PORTABLE CHEST 1V History: Preop. Infection. Comparison: February 20, 2018. Findings: No consolidation or pleural effusion. Normal heart size. Impression: 1. No acute cardiopulmonary process. Electronically signed by: Salvador Briceno DO (04/22/2019 5:06 AM) [facility]
[2019-04-22] MEDS: PIPERACILLIN/TAZOBACTAM 2.25 GM in IV NORMAL SALINE 50ML 50 ML IV SCH ×3 (05:16→21:42)
[2019-04-22 05:21] LABS: CHOLESTEROL/HDL RATIO 3.7
[2019-04-22] MEDS ORDERED: IV NORMAL SALINE 1000ML BAG 1,000 ML IV PRN ×2 (07:01)
[2019-04-22] MEDS ORDERED: DIALYSIS PATIENT. MC PRN ×2 (07:15)
[2019-04-22] MEDS ORDERED: diphenhydrAMINE 50 MG/ML VIAL IV PRN ×2 (07:15)
[2019-04-22 07:18] LABS: CALCIUM 9.9 mg/dL (8.5-10.1); GFR 4.9; POTASSIUM 5.4 mmol/L (3.5-5.1)
[2019-04-22] MEDS: INSULIN LISPRO 300 UNITS/3 ML VIAL. SQ SCH ×6 (08:00→17:10)
--- NOTE | 2019-04-22 09:41 | PDOC ---
PROGRESS NOTES Subjective Subjective seen in Dialysis unit Objective Objective Vital Signs Date Time Temp Pulse Resp B/P (MAP) Pulse Ox O2 Delivery O2 Flow Rate FiO2 04/22/19 02:50 98.1 82 18 103/64 (77) 97 Room Air 98.1 Intake and Output 04/22/19 07:00 Intake Total 600 ml Balance 600 ml Intake Oral 600 ml # Bowel Movements 1 Physical Exam Abdomen: Soft, No tenderness Heart: Regular rate Extremities: No cyanosis, Other (he has a fair amount of edema around his right BKA stump) General: Alert, Oriented X3 HEENT: Atraumatic, EOMI Lungs: Other (respirations are unlabored with symmetric chest rise) MUSCULOSKELETAL: Other (examination of his right BKA stump reveals that is about twice as big as his left side. There is about a 2-3 mm opening in the distal most portion of the stump. There is serosanguineous drainage emanating from it. I was able to probe to proximally 5 or 6 cm through this area, I was not able to probe down to bone.) Neuro: Normal speech, Strength at 5/5 X4 ext, Sensation intact Psych/Mental Status: Mental status NL, Mood NL Skin: Other (rt stump abscess) Assessment Assessment FINAL IMPRESSION: 1. Right leg stump abscess. 2. Bilateral leg amputee. 3. End-stage renal disease, on hemodialysis. 4. Insulin-dependent diabetes. 5. Hypertension. 6. Chronic diastolic heart failure, last echo stress test last year, shows good left ventricular function. PLAN: Dialysis today surgery debridement later today iv antibiotics. labs ,cxr noted. At this time, admit to hospital. Wound culture, start on broad-spectrum antibiotic, vancomycin and Zosyn. ID is consulted. Also, dialysis Saturday, Saturday and Saturday. Renal is consulted. Orthopedics consultation is I and D of the stump and he improves. Comment Review of Relevant I have reviewed the following items carmen (where applicable) has been applied. Labs Laboratory Tests Test 04/21/19 11:44 04/21/19 12:45 04/21/19 16:42 04/21/19 20:49 Glucose (Fingerstick) 222 mg/dL (70-99) 114 mg/dL (70-99) 132 mg/dL (70-99) White Blood Count 6.0 x10^3/uL (4.0-11.0) Red Blood Count 3.37 x10^6/uL (4.30-5.70) Hemoglobin 8.5 g/dL (13.0-17.5) Hematocrit 27.2 % (39.0-53.0) Mean Corpuscular Volume 81 fL (79-100) Mean Corpuscular Hemoglobin 25 pg (25-35) Mean Corpuscular Hemoglobin Concent 31 g/dL (31-37) Red Cell Distribution Width 15.2 % (11.5-14.5) Platelet Count 100 x10^3/uL (140-400) Neutrophils (%) (Auto) 74 % (31-73) Lymphocytes (%) (Auto) 14 % (24-48) Monocytes (%) (Auto) 10 % (0-9) Eosinophils (%) (Auto) 2 % (0-3) Basophils (%) (Auto) 0 % (0-3) Neutrophils # (Auto) 4.4 x10^3/uL (1.8-7.7) Lymphocytes # (Auto) 0.8 x10^3/uL (1.0-4.8) Monocytes # (Auto) 0.6 x10^3/uL (0.0-1.1) Eosinophils # (Auto) 0.1 x10^3/uL (0.0-0.7) Basophils # (Auto) 0.0 x10^3/uL (0.0-0.2) Sodium Level 139 mmol/L (136-145) Potassium Level 4.5 mmol/L (3.5-5.1) Chloride Level 97 mmol/L (98-107) Carbon Dioxide Level 29 mmol/L (21-32) Anion Gap 13 (6-14) Blood Urea Nitrogen 42 mg/dL (8-26) Creatinine 11.1 mg/dL (0.7-1.3) Estimated GFR (Cockcroft-Gault) 5.9 BUN/Creatinine Ratio 4 (6-20) Glucose Level 239 mg/dL (70-99) Calcium Level 9.9 mg/dL (8.5-10.1) Total Bilirubin 0.6 mg/dL (0.2-1.0) Aspartate Amino Transf (AST/SGOT) 5 U/L (15-37) Alanine Aminotransferase (ALT/SGPT) < 6 U/L (16-63) Alkaline Phosphatase 60 U/L (46-116) Total Protein 7.8 g/dL (6.4-8.2) Albumin 2.9 g/dL (3.4-5.0) Albumin/Globulin Ratio 0.6 (1.0-1.7) Test 04/22/19 03:50 Prothrombin Time 17.1 SEC (11.7-14.0) Prothromb Time International Ratio 1.4 (0.8-1.1) Sodium Level 141 mmol/L (136-145) Potassium Level 5.4 mmol/L (3.5-5.1) Chloride Level 99 mmol/L (98-107) Carbon Dioxide Level 24 mmol/L (21-32) Anion Gap 18 (6-14) Blood Urea Nitrogen 59 mg/dL (8-26) Creatinine 13.0 mg/dL (0.7-1.3) Estimated GFR (Cockcroft-Gault) 4.9 Glucose Level 193 mg/dL (70-99) Calcium Level 9.9 mg/dL (8.5-10.1) Triglycerides Level 73 mg/dL (0-150) Cholesterol Level 100 mg/dL (0-200) LDL Cholesterol, Calculated 58 mg/dL (0-100) VLDL Cholesterol, Calculated 15 mg/dL (0-40) Non-HDL Cholesterol Calculated 73 mg/dL (0-129) HDL Cholesterol 27 mg/dL (40-60) Cholesterol/HDL Ratio 3.7 Thyroid Stimulating Hormone (TSH) 0.725 uIU/mL (0.358-3.74) Medications Current Medications Aspirin (Ecotrin) 325 mg DAILYWBKFT PO Last administered on 04/21/19at 13:33; Start 04/21/19 at 13:00 Atorvastatin Calcium (Lipitor) 20 mg QHS PO Last administered on 04/21/19at 22 :02; Start 04/21/19 at 21:00 Carvedilol (Coreg) 25 mg BIDWMEALS PO Last administered on 04/21/19at 16:40; Start 04/21/19 at 17:00 Dextrose (Dextrose 50%-Water Syringe) 12.5 gm PRN Q15MIN PRN IV SEE COMMENTS; Start 04/21/19 at 16:15 Diphenhydramine HCl (Benadryl) 25 mg 1X PRN PRN IV ITCHING; Start 04/22/19 at 07:15; Stop 04/23/19 at 07:14 Diphenhydramine HCl (Benadryl) 25 mg 1X PRN PRN IV ITCHING; Start 04/22/19 at 07:15; Stop 04/23/19 at 07:14 Info (PHARMACY MONITORING -- do not chart) 1 each PRN DAILY PRN MC SEE COMMENTS; Start 04/21/19 at 15:30 Info (PHARMACY MONITORING -- do not chart) 1 each PRN DAILY PRN MC SEE CO MMENTS; Start 04/22/19 at 07:15 Info (PHARMACY MONITORING -- do not chart) 1 each PRN DAILY PRN MC SEE COMMENTS; Start 04/22/19 at 07:15; Status UNV Insulin Glargine (Lantus Syringe) 10 unit QHS SQ Last administered on 04/21/19at 22:08; Start 04/21/19 at 21:00 Insulin Human Lispro (HumaLOG) 0-5 UNITS TIDWMEALS SQ ; Start 04/21/19 at 17:00 Insulin Human Lispro (HumaLOG) 10 units TIDWMEALS SQ Last administered on 04/21/19at 17:00; Start 04/21/19 at 13:00 Metoclopramide HCl (Reglan) 5 mg QIDACHS PO Last administered on 04/21/19at 22:02; Start 04/21/19 at 16:30 Piperacillin Sod/ Tazobactam Sod 2.25 gm/Sodium Chloride 50 ml @ 100 mls/hr Q8HRS IV Last administered on 04/22/19at 05:16; Start 04/21/19 at 16:00 Sevelamer Carbonate (Renvela) 800 mg TIDWMEALS PO Last administered on 04/21/19at 16:40; Start 04/21/19 at 13:00 Sodium Chloride 1,000 ml @ 400 mls/hr Q2H30M PRN IV PATENCY; Start 04/22/19 at 07:01; Stop 04/22/19 at 19:00 Sodium Chloride 1,000 ml @ 1,000 mls/hr Q1H PRN IV hypotension; Start 04/22/19 at 07:01; Stop 04/22/19 at 13:00 Tramadol HCl (Ultram) 50 mg PRN Q6HRS PRN PO PAIN; Start 04/21/19 at 12:45 Vancomycin HCl (Vanco Per Pharmacy) 1 each PRN DAILY PRN MC SEE COMMENTS Last administered on 04/21/19at 16:23; Start 04/21/19 at 15:30 Vancomycin HCl (Vancomycin Random Level) 1 each 1X ONCE MC ; Start 04/24/19 at 05:00; Stop 04/24/19 at 05:01 Vancomycin HCl 2 gm/Sodium Chloride 500 ml @ 250 mls/hr 1X ONCE IV Last administered on 04/21/19at 16:38; Start 04/21/19 at 16:30; Stop 04/21/19 at 18:29; Status DC Vitals/I & O Vital Sign - Last 24 Hours 04/21/19 04/21/19 04/21/19 04/21/19 10:45 13:30 14:57 16:40 Temp 97.9 97.8 97.9 97.8 Pulse 104 102 102 Resp 18 18 B/P (MAP) 107/54 (71) 115/59 (77) 115/59 Pulse Ox 100 100 O2 Delivery Room Air Room Air Room Air 04/21/19 04/21/19 04/21/19 04/22/19 19:00 20:00 22:46 02:50 Temp 98.6 98.0 98.1 98.6 98.0 98.1 Pulse 79 86 82 Resp 18 18 18 B/P (MAP) 98/54 (69) 92/47 (62) 103/64 (77) Pulse Ox 96 99 97 O2 Delivery Room Air Room Air Room Air Room Air Intake and Output 04/21/19 04/21/19 04/22/19 15:00 23:00 07:00 Intake Total 300 ml 300 ml 0 ml Balance 300 ml 300 ml 0 ml IRINEO SCHWARTZ MD Apr 22, 2019 09:41
--- NOTE | 2019-04-22 10:38 | NUR ---
SW following for discharge planning. Chart reviewed, discussed with RN. Pt is from home. Dialysis this morning and I&D at 11 today. SW will continue to follow for discharge planning needs.
--- NOTE | 2019-04-22 10:53 | PDOC2 ---
CONSULT Date of Consult Date of Consult DATE: 04/22/19 TIME: 10:50 Reason for Consult Reason for Consult: ESRD Referring Physician Referring Physician: LANA Identification/Chief Complaint Chief Complaint STUMP WOUND Source Source: Chart review, Patient History of Present Illness Reason for Visit: THIS IS A 54 YR OLD ESRD PT ON HD MWF. ADMITTED WITH RIGHT STUMP WOUND AND NEEDING IV ANTIBIOTICS. HE HAS HX OF DM II, HTN AND PAD AND HAS NEEDED LE AMPUTATIONS. LABS ARE C/W ESRD Past Medical History Cardiovascular: CHF, HTN, Hyperlipidemia, Other Pulmonary: Other CENTRAL NERVOUS SYSTEM: Periperal neuropathy GI: GERD, Other Heme/Onc: Anemia NOS Hepatobiliary: No pertinent hx Psych: No pertinent hx Rheumatologic: No pertinent hx Infectious disease: No pertinent hx Renal/: Chronic renal failure Endocrine: Diabetes, Hyperparathyroidism Past Surgical History Past Surgical History: Other Family History Family History: Diabetes, Heart Disease, Hypertension Social History ALCOHOL: rare Drugs: Marijuana Lives: with Family Current Medications Current Medications Current Medications Atorvastatin Calcium (Lipitor) 20 mg QHS PO Last administered on 04/21/19at 22:02; Start 04/21/19 at 21:00 Carvedilol (Coreg) 25 mg BIDWMEALS PO Last administered on 04/21/19at 16:40; Start 04/21/19 at 17:00 Metoclopramide HCl (Reglan) 5 mg QIDACHS PO Last administered on 04/21/19at 22:02; Start 04/21/19 at 16:30 Sevelamer Carbonate (Renvela) 800 mg TIDWMEALS PO Last administered on 04/21/19at 16:40; Start 04/21/19 at 13:00 Tramadol HCl (Ultram) 50 mg PRN Q6HRS PRN PO PAIN; Start 04/21/19 at 12:45 Aspirin (Ecotrin) 325 mg DAILYWBKFT PO Last administered on 04/21/19at 13:33; Start 04/21/19 at 13:00 Insulin Human Lispro (HumaLOG) 10 units TIDWMEALS SQ Last administered on 04/21/19at 17:00; Start 04/21/19 at 13:00 Insulin Glargine (Lantus Syringe) 10 unit QHS SQ Last administered on 04/21/19at 22:08; Start 04/21/19 at 21:00 Vancomycin HCl (Vanco Per Pharmacy) 1 each PRN DAILY PRN MC SEE COMMENTS Last administered on 04/21/19at 16:23; Start 04/21/19 at 15:30 Info (PHARMACY MONITORING -- do not chart) 1 each PRN DAILY PRN MC SEE CO MMENTS; Start 04/21/19 at 15:30 Piperacillin Sod/ Tazobactam Sod 2.25 gm/Sodium Chloride 50 ml @ 100 mls/hr Q8HRS IV Last administered on 04/22/19at 05:16; Start 04/21/19 at 16:00 Vancomycin HCl 2 gm/Sodium Chloride 500 ml @ 250 mls/hr 1X ONCE IV Last administered on 04/21/19at 16:38; Start 04/21/19 at 16:30; Stop 04/21/19 at 18:29; Status DC Insulin Human Lispro (HumaLOG) 0-5 UNITS TIDWMEALS SQ ; Start 04/21/19 at 17:00 Dextrose (Dextrose 50%-Water Syringe) 12.5 gm PRN Q15MIN PRN IV SEE COMMENTS; Start 04/21/19 at 16:15 Vancomycin HCl (Vancomycin Random Level) 1 each 1X ONCE MC ; Start 04/24/19 at 05:00; Stop 04/24/19 at 05:01 Sodium Chloride 1,000 ml @ 1,000 mls/hr Q1H PRN IV hypotension; Start 04/22/19 at 07:01; Stop 04/22/19 at 13:00 Diphenhydramine HCl (Benadryl) 25 mg 1X PRN PRN IV ITCHING; Start 04/22/19 at 07:15; Stop 04/23/19 at 07:14 Diphenhydramine HCl (Benadryl) 25 mg 1X PRN PRN IV ITCHING; Start 04/22/19 at 07:15; Stop 04/23/19 at 07:14 Sodium Chloride 1,000 ml @ 400 mls/hr Q2H30M PRN IV PATENCY; Start 04/22/19 at 07:01; Stop 04/22/19 at 19:00 Info (PHARMACY MONITORING -- do not chart) 1 each PRN DAILY PRN MC SEE COMMENTS; Start 04/22/19 at 07:15 Info (PHARMACY MONITORING -- do not chart) 1 each PRN DAILY PRN MC SEE COMMENTS; Start 04/22/19 at 07:15; Status UNV Active Scripts Active Reported Augmentin 500-125 Tablet (Amoxicillin/Potassium Clav) 1 Each Tablet 1 Tab PO BID Tramadol Hcl 50 Mg Tablet 50 Mg PO Q6HRS PRN Renvela (Sevelamer Carbonate) 800 Mg Tablet 800 Mg PO TIDWMEALS Famotidine 40 Mg Tablet 40 Mg PO HS Lantus Solostar (Insulin Glargine,Hum.rec.anlog) 100 Unit/1 Ml Insuln.pen 10 Unit SQ QHS Novolog Flexpen (Insulin Aspart) 100 Unit/1 Ml Insuln.pen 10 Unit SQ TIDAC Reglan (Metoclopramide Hcl) 5 Mg Tablet 5 Mg PO QID Coreg (Carvedilol) 12.5 Mg Tablet 25 Mg PO BID Lipitor (Atorvastatin Calcium) 20 Mg Tablet 20 Mg PO QHS Aspirin Buffered 325 Mg Tab (Aspirin/Calcium Carbonate/Mag) 325 Mg Tablet 325 Mg PO DAILY06 Allergies Allergies: Coded Allergies: No Known Drug Allergies (Unverified , 11/12/16) ROS General: YES: Fatigue PSYCHOLOGICAL ROS: YES: Depression Eyes: Yes Decreased vision HEENT: YES: Heacaches Respiratory: YES: Cough Gastrointestinal: Yes Constipation Genitourinary: YES Other (ANURIA) Musculoskeletal: Yes Muscular Weakness Neurological: Yes Weakness Skin: Yes Dry Skin Physical Exam General: Alert, Oriented X3, Cooperative, No acute distress HEENT: Atraumatic Lungs: Clear to auscultation Heart: Regular rate Abdomen: Normal bowel sounds, No tenderness Extremities: No clubbing, No cyanosis Skin: Other (STUMOP WOUND) Neuro: Sensation intact Psych/Mental Status: Mental status NL, Mood NL MUSCULOSKELETAL: No joint tenderness, No swelling Vitals VITALS Vital Signs Date Time Temp Pulse Resp B/P (MAP) Pulse Ox O2 Delivery O2 Flow Rate FiO2 04/22/19 02:50 98.1 82 18 103/64 (77) 97 Room Air 98.1 Labs Labs Laboratory Tests Test 04/21/19 11:44 04/21/19 12:45 04/21/19 16:42 04/21/19 20:49 Glucose (Fingerstick) 222 mg/dL (70-99) 114 mg/dL (70-99) 132 mg/dL (70-99) White Blood Count 6.0 x10^3/uL (4.0-11.0) Red Blood Count 3.37 x10^6/uL (4.30-5.70) Hemoglobin 8.5 g/dL (13.0-17.5) Hematocrit 27.2 % (39.0-53.0) Mean Corpuscular Volume 81 fL (79-100) Mean Corpuscular Hemoglobin 25 pg (25-35) Mean Corpuscular Hemoglobin Concent 31 g/dL (31-37) Red Cell Distribution Width 15.2 % (11.5-14.5) Platelet Count 100 x10^3/uL (140-400) Neutrophils (%) (Auto) 74 % (31-73) Lymphocytes (%) (Auto) 14 % (24-48) Monocytes (%) (Auto) 10 % (0-9) Eosinophils (%) (Auto) 2 % (0-3) Basophils (%) (Auto) 0 % (0-3) Neutrophils # (Auto) 4.4 x10^3/uL (1.8-7.7) Lymphocytes # (Auto) 0.8 x10^3/uL (1.0-4.8) Monocytes # (Auto) 0.6 x10^3/uL (0.0-1.1) Eosinophils # (Auto) 0.1 x10^3/uL (0.0-0.7) Basophils # (Auto) 0.0 x10^3/uL (0.0-0.2) Sodium Level 139 mmol/L (136-145) Potassium Level 4.5 mmol/L (3.5-5.1) Chloride Level 97 mmol/L (98-107) Carbon Dioxide Level 29 mmol/L (21-32) Anion Gap 13 (6-14) Blood Urea Nitrogen 42 mg/dL (8-26) Creatinine 11.1 mg/dL (0.7-1.3) Estimated GFR (Cockcroft-Gault) 5.9 BUN/Creatinine Ratio 4 (6-20) Glucose Level 239 mg/dL (70-99) Calcium Level 9.9 mg/dL (8.5-10.1) Total Bilirubin 0.6 mg/dL (0.2-1.0) Aspartate Amino Transf (AST/SGOT) 5 U/L (15-37) Alanine Aminotransferase (ALT/SGPT) < 6 U/L (16-63) Alkaline Phosphatase 60 U/L (46-116) Total Protein 7.8 g/dL (6.4-8.2) Albumin 2.9 g/dL (3.4-5.0) Albumin/Globulin Ratio 0.6 (1.0-1.7) Test 04/22/19 03:50 Prothrombin Time 17.1 SEC (11.7-14.0) Prothromb Time International Ratio 1.4 (0.8-1.1) Sodium Level 141 mmol/L (136-145) Potassium Level 5.4 mmol/L (3.5-5.1) Chloride Level 99 mmol/L (98-107) Carbon Dioxide Level 24 mmol/L (21-32) Anion Gap 18 (6-14) Blood Urea Nitrogen 59 mg/dL (8-26) Creatinine 13.0 mg/dL (0.7-1.3) Estimated GFR (Cockcroft-Gault) 4.9 Glucose Level 193 mg/dL (70-99) Calcium Level 9.9 mg/dL (8.5-10.1) Triglycerides Level 73 mg/dL (0-150) Cholesterol Level 100 mg/dL (0-200) LDL Cholesterol, Calculated 58 mg/dL (0-100) VLDL Cholesterol, Calculated 15 mg/dL (0-40) Non-HDL Cholesterol Calculated 73 mg/dL (0-129) HDL Cholesterol 27 mg/dL (40-60) Cholesterol/HDL Ratio 3.7 Thyroid Stimulating Hormone (TSH) 0.725 uIU/mL (0.358-3.74) Laboratory Tests Test 04/21/19 11:44 04/21/19 12:45 04/21/19 16:42 04/21/19 20:49 Glucose (Fingerstick) 222 mg/dL (70-99) 114 mg/dL (70-99) 132 mg/dL (70-99) White Blood Count 6.0 x10^3/uL (4.0-11.0) Red Blood Count 3.37 x10^6/uL (4.30-5.70) Hemoglobin 8.5 g/dL (13.0-17.5) Hematocrit 27.2 % (39.0-53.0) Mean Corpuscular Volume 81 fL (79-100) Mean Corpuscular Hemoglobin 25 pg (25-35) Mean Corpuscular Hemoglobin Concent 31 g/dL (31-37) Red Cell Distribution Width 15.2 % (11.5-14.5) Platelet Count 100 x10^3/uL (140-400) Neutrophils (%) (Auto) 74 % (31-73) Lymphocytes (%) (Auto) 14 % (24-48) Monocytes (%) (Auto) 10 % (0-9) Eosinophils (%) (Auto) 2 % (0-3) Basophils (%) (Auto) 0 % (0-3) Neutrophils # (Auto) 4.4 x10^3/uL (1.8-7.7) Lymphocytes # (Auto) 0.8 x10^3/uL (1.0-4.8) Monocytes # (Auto) 0.6 x10^3/uL (0.0-1.1) Eosinophils # (Auto) 0.1 x10^3/uL (0.0-0.7) Basophils # (Auto) 0.0 x10^3/uL (0.0-0.2) Sodium Level 139 mmol/L (136-145) Potassium Level 4.5 mmol/L (3.5-5.1) Chloride Level 97 mmol/L (98-107) Carbon Dioxide Level 29 mmol/L (21-32) Anion Gap 13 (6-14) Blood Urea Nitrogen 42 mg/dL (8-26) Creatinine 11.1 mg/dL (0.7-1.3) Estimated GFR (Cockcroft-Gault) 5.9 BUN/Creatinine Ratio 4 (6-20) Glucose Level 239 mg/dL (70-99) Calcium Level 9.9 mg/dL (8.5-10.1) Total Bilirubin 0.6 mg/dL (0.2-1.0) Aspartate Amino Transf (AST/SGOT) 5 U/L (15-37) Alanine Aminotransferase (ALT/SGPT) < 6 U/L (16-63) Alkaline Phosphatase 60 U/L (46-116) Total Protein 7.8 g/dL (6.4-8.2) Albumin 2.9 g/dL (3.4-5.0) Albumin/Globulin Ratio 0.6 (1.0-1.7) Test 04/22/19 03:50 Prothrombin Time 17.1 SEC (11.7-14.0) Prothromb Time International Ratio 1.4 (0.8-1.1) Sodium Level 141 mmol/L (136-145) Potassium Level 5.4 mmol/L (3.5-5.1) Chloride Level 99 mmol/L (98-107) Carbon Dioxide Level 24 mmol/L (21-32) Anion Gap 18 (6-14) Blood Urea Nitrogen 59 mg/dL (8-26) Creatinine 13.0 mg/dL (0.7-1.3) Estimated GFR (Cockcroft-Gault) 4.9 Glucose Level 193 mg/dL (70-99) Calcium Level 9.9 mg/dL (8.5-10.1) Triglycerides Level 73 mg/dL (0-150) Cholesterol Level 100 mg/dL (0-200) LDL Cholesterol, Calculated 58 mg/dL (0-100) VLDL Cholesterol, Calculated 15 mg/dL (0-40) Non-HDL Cholesterol Calculated 73 mg/dL (0-129) HDL Cholesterol 27 mg/dL (40-60) Cholesterol/HDL Ratio 3.7 Thyroid Stimulating Hormone (TSH) 0.725 uIU/mL (0.358-3.74) Assessment/Plan Assessment/Plan IMP ESRD ANEMIA DM II HTN PAD RIGHT STUMP WOUND PLAN HD TODAY UF TO DW RAFAEL NEEDED ANTIBIOTICS WILL FOLLOW ASHLEY HERNANDEZ MD Apr 22, 2019 10:53
[2019-04-22] MEDS: IV NORMAL SALINE 1000ML BAG 1,000 ML IV SCH (11:24)
[2019-04-22] MEDS: METOCLOPRAMIDE 5 MG TABLET. PO SCH ×4 (11:30→21:08)
[2019-04-22] MEDS ORDERED: BUPIVACAINE MPF 0.5% 30 ML VIAL. ONE (11:33)
[2019-04-22] MEDS ORDERED: LIDOCAINE 1% 20 ML VIAL. ONE (11:33)
--- NOTE | 2019-04-22 11:50 | PDOC ---
Infectious Disease Note Subjective: Subjective pt says feels the same awaiting surgery today after dialysis session no f/c/n/v/d Vital Signs: Vital Signs Vital Signs Date Time Temp Pulse Resp B/P (MAP) Pulse Ox O2 Delivery O2 Flow Rate FiO2 04/22/19 11:14 97.2 78 20 129/68 100 Room Air 97.2 Physical Exam: PHYSICAL EXAM GENERAL: Alert, oriented, pleasant male, cooperative, lying in bed comfortably, in no acute distress. HEENT: Normocephalic, atraumatic, anicteric. No thrush. Oropharynx clear. NECK: Supple, no JVD. LUNGS: Clear bilaterally. No wheezing. HEART: S1, S2. ABDOMEN: Soft, nontender, nondistended. EXTREMITIES: No cyanosis. Bilateral amputee, right stump dressing intact, dry DERMATOLOGIC: Warm, dry. No generalized rash. Right upper extremity fistula site looks okay. NEUROLOGIC: Alert and oriented x 3, grossly nonfocal. PSYCHIATRIC: Cooperative, appropriate mood and affect. Medications: Inpatient Meds: Current Medications Medications (Trade) Dose Ordered Sig/Dawn Start Time Stop Time Status Last Admin Dose Admin Aspirin (Ecotrin) 325 mg DAILYWBKFT 04/21/19 13:00 04/21/19 13:33 325 MG Atorvastatin Calcium (Lipitor) 20 mg QHS 04/21/19 21:00 04/21/19 22:02 20 MG Bupivacaine HCl (Sensorcaine Mpf 0.5%) 30 ml STK-MED ONCE 04/22/19 11:33 04/22/19 11:33 DC Carvedilol (Coreg) 25 mg BIDWMEALS 04/21/19 17:00 04/21/19 16:40 25 MG Darbepoetin Huey (ARANESP for DIALYSIS PTS) 60 mcg WEEKLYHS 04/22/19 21:00 Dextrose (Dextrose 50%-Water Syringe) 12.5 gm PRN Q15MIN PRN 04/21/19 16:15 Diphenhydramine HCl (Benadryl) 25 mg 1X PRN PRN 04/22/19 07:15 04/23/19 07:14 Info (PHARMACY MONITORING -- do not chart) 1 each PRN DAILY PRN 04/22/19 07:15 UNV Insulin Glargine (Lantus Syringe) 10 unit QHS 04/21/19 21:00 04/21/19 22:08 10 UNIT Insulin Human Lispro (HumaLOG) 0-5 UNITS TIDWMEALS 04/21/19 17:00 Lidocaine HCl 20 ml STK-MED ONCE 04/22/19 11:33 04/22/19 11:33 DC Metoclopramide HCl (Reglan) 5 mg QIDACHS 04/21/19 16:30 04/21/19 22:02 5 MG Piperacillin Sod/ Tazobactam Sod 2.25 gm/Sodium Chloride 50 ml @ 100 mls/hr Q8HRS 04/21/19 16:00 04/22/19 05:16 100 MLS/HR Sevelamer Carbonate (Renvela) 800 mg TIDWMEALS 04/21/19 13:00 04/21/19 16:40 800 MG Sodium Chloride 1,000 ml @ 30 mls/hr Q24H 04/22/19 11:15 04/22/19 11:24 30 MLS/HR Tramadol HCl (Ultram) 50 mg PRN Q6HRS PRN 04/21/19 12:45 Vancomycin HCl (Vanco Per Pharmacy) 1 each PRN DAILY PRN 04/21/19 15:30 04/21/19 16:23 1 EACH Vancomycin HCl (Vancomycin Random Level) 1 each 1X ONCE 04/24/19 05:00 04/24/19 05:01 Vancomycin HCl 2 gm/Sodium Chloride 500 ml @ 250 mls/hr 1X ONCE 04/21/19 16:30 04/21/19 18:29 DC 04/21/19 16:38 250 MLS/HR Labs: Lab Laboratory Tests Test 04/21/19 12:45 04/21/19 16:42 04/21/19 20:49 04/22/19 03:50 White Blood Count 6.0 x10^3/uL (4.0-11.0) Red Blood Count 3.37 x10^6/uL (4.30-5.70) Hemoglobin 8.5 g/dL (13.0-17.5) Hematocrit 27.2 % (39.0-53.0) Mean Corpuscular Volume 81 fL (79-100) Mean Corpuscular Hemoglobin 25 pg (25-35) Mean Corpuscular Hemoglobin Concent 31 g/dL (31-37) Red Cell Distribution Width 15.2 % (11.5-14.5) Platelet Count 100 x10^3/uL (140-400) Neutrophils (%) (Auto) 74 % (31-73) Lymphocytes (%) (Auto) 14 % (24-48) Monocytes (%) (Auto) 10 % (0-9) Eosinophils (%) (Auto) 2 % (0-3) Basophils (%) (Auto) 0 % (0-3) Neutrophils # (Auto) 4.4 x10^3/uL (1.8-7.7) Lymphocytes # (Auto) 0.8 x10^3/uL (1.0-4.8) Monocytes # (Auto) 0.6 x10^3/uL (0.0-1.1) Eosinophils # (Auto) 0.1 x10^3/uL (0.0-0.7) Basophils # (Auto) 0.0 x10^3/uL (0.0-0.2) Sodium Level 139 mmol/L (136-145) 141 mmol/L (136-145) Potassium Level 4.5 mmol/L (3.5-5.1) 5.4 mmol/L (3.5-5.1) Chloride Level 97 mmol/L (98-107) 99 mmol/L (98-107) Carbon Dioxide Level 29 mmol/L (21-32) 24 mmol/L (21-32) Anion Gap 13 (6-14) 18 (6-14) Blood Urea Nitrogen 42 mg/dL (8-26) 59 mg/dL (8-26) Creatinine 11.1 mg/dL (0.7-1.3) 13.0 mg/dL (0.7-1.3) Estimated GFR (Cockcroft-Gault) 5.9 4.9 BUN/Creatinine Ratio 4 (6-20) Glucose Level 239 mg/dL (70-99) 193 mg/dL (70-99) Calcium Level 9.9 mg/dL (8.5-10.1) 9.9 mg/dL (8.5-10.1) Total Bilirubin 0.6 mg/dL (0.2-1.0) Aspartate Amino Transf (AST/SGOT) 5 U/L (15-37) Alanine Aminotransferase (ALT/SGPT) < 6 U/L (16-63) Alkaline Phosphatase 60 U/L (46-116) Total Protein 7.8 g/dL (6.4-8.2) Albumin 2.9 g/dL (3.4-5.0) Albumin/Globulin Ratio 0.6 (1.0-1.7) Glucose (Fingerstick) 114 mg/dL (70-99) 132 mg/dL (70-99) Prothrombin Time 17.1 SEC (11.7-14.0) Prothromb Time International Ratio 1.4 (0.8-1.1) Triglycerides Level 73 mg/dL (0-150) Cholesterol Level 100 mg/dL (0-200) LDL Cholesterol, Calculated 58 mg/dL (0-100) VLDL Cholesterol, Calculated 15 mg/dL (0-40) Non-HDL Cholesterol Calculated 73 mg/dL (0-129) HDL Cholesterol 27 mg/dL (40-60) Cholesterol/HDL Ratio 3.7 Thyroid Stimulating Hormone (TSH) 0.725 uIU/mL (0.358-3.74) Test 04/22/19 11:09 Glucose (Fingerstick) 115 mg/dL (70-99) Objective: Assessment: 1. Right stump infection/abscess,04/22 awaiting I and D 2. Chronic kidney disease, on hemodialysis. 3. Diabetes mellitus. 4. History of bilateral amputation for osteomyelitis/Charcot foot. 5. History of Staphylococcus with Streptococcus and Pseudomonas in the past. Plan: Plan of Care Continue vancomycin and Zosyn, renal dosing. cont local wound care Follow up cultures and lab. Continue supportive care. ILYA BERMUDEZ MD Apr 22, 2019 11:50
[2019-04-22] MEDS ORDERED: PROPOFOL 20 ML IV ONE (11:52)
[2019-04-22] MEDS ORDERED: ONDANSETRON PF 4 MG/2 ML VIAL. ONE (11:52)
[2019-04-22] MEDS ORDERED: PHENYLEPHRINE in 0.9% NACL PF 1 MG/10 ML SYRINGE. IV ONE (11:52)
[2019-04-22] MEDS ORDERED: DEXAMETHASONE SOD PHOS 4 MG/ML VIAL ONE (11:53)
[2019-04-22] MEDS ORDERED: SEVOFLURANE 31 TO 60 MINUTES. IH ONE (11:53)
[2019-04-22] MEDS: SEVELAMER CARBONATE 800 MG TABLET. PO SCH ×3 (12:00→17:05)
--- NOTE | 2019-04-22 12:38 | PDOC4 ---
Operative Note Operative Note Due to procedure: 04/22/2019 Surgeon: Mannie Stover Asst.: None Preoperative diagnosis: Right BKA stump wound Postoperative diagnosis: Same Procedure performed: #16 excisional irrigation and debridement skin and subcutaneous tissue right BKA stump wound #2 application of wound VAC to wound less than 25 cm Anesthesia: Gen. Findings: Patient had a deep wound, was not able to probe down to bone, but it did track over his anterior and slightly lateral stump for about 8 cm. Given this tracking proximally, I elected to place a wound VAC into this defect. Specimens: Tissue and swabs were sent for culture Tourniquet time: None used Blood loss: 10 mL Reason for procedure: Patient is a pleasant 54-year-old gentleman who had seen in consultation for his right BKA stump wound. Please see my consult note for further details. He elected to proceed with surgery. Description of procedure: Patient was greeted in the preoperative area by myself for the correct extremity was verified and marked. He is taken to the operative suite and his antibiotics were started as he was brought back. Once the operative room, transferred gently supine to the operating table and secured the bed with all pressure points padded and had successful induction of a general anesthetic. The right lower extremity was then prepped and draped in the usual sterile fashion using Betadine paint. We then conductor standard preoperative timeout. I then began the procedure by using a scalpel to incise adjacent to this wound a little, followed by a Rominger at the open area distally to explore this wound. It did track proximally as noted above. I took swabs and tissue at this point for culture. I then explored the small, 2 mm, superficial ulcer lateral proximal to this but this did not communicate and was not deep. I then redirected my attention to the stool stump wound and irrigated out thoroughly with approximately 3000 mL of sterile fluid and then continued my debridement intermittently to ensure had removed all necrotic tissue. I did not encounter any gross purulence during the surgery. After this, I placed a VAC sponge into the soft tissue defect and then tunneled it over his anterior proximal tibia region. I did close skin primarily with simple interrupted 2-0 Vicryl as well. I placed Xeroform around the macerated areas adjacent to this. This was all sealed off with the wound VAC adhesive and I connected it to the wound VAC machine to ensure had a good seal which I did. The patient was then awakened from anesthesia, he tolerated surgery well, no complications. He tolerated surgery well and was taken to the PACU in a stable and x-ray condition after being transferred gently supine to the hospital bed. Postoperative plan is readmitted to the floor under the care of the hospitalist. Antibiotic spur infectious disease. I'll follow along. MANNIE STOVER II, MD Apr 22, 2019 12:38
[2019-04-22] MEDS: ASPIRIN ENTERIC COATED 325 MG TABLET.DR. PO SCH (14:05)
[2019-04-22] MEDS: CARVEDILOL 12.5 MG TABLET. PO SCH ×2 (14:07→17:00)
[2019-04-22] MEDS: INSULIN GLARGINE SYRINGE. SQ SCH (21:00)
[2019-04-22] MEDS ORDERED: DARBEPOETIN ALFA 60 MCG/0.3 ML DISP.SYRIN. SQ SCH (21:00)
[2019-04-22] MEDS: ATORVASTATIN CALCIUM 20 MG TABLET PO SCH (21:08)
[2019-04-22] MEDS: LACTOBACILLUS RHAMNOSUS GG 1 CAPSULE. PO SCH (21:08)
[2019-04-22] MEDS ORDERED: INSULIN LISPRO 300 UNITS/3 ML VIAL. SQ SCH (21:15)
[2019-04-22] MEDS ORDERED: INSULIN LISPRO 300 UNITS/3 ML VIAL. SQ ONE (22:00)
[2019-04-23 03:00] VITALS: BP 151/73
[2019-04-23] MEDS: PIPERACILLIN/TAZOBACTAM 2.25 GM in IV NORMAL SALINE 50ML 50 ML IV SCH ×3 (05:37→22:18)
[2019-04-23 07:00] VITALS: BP 136/79
[2019-04-23] MEDS ORDERED: ONDANSETRON PF 4 MG/2 ML VIAL. IVP PRN (07:00)
[2019-04-23] MEDS: METOCLOPRAMIDE 5 MG TABLET. PO SCH ×4 (08:14→21:42)
[2019-04-23] MEDS: SEVELAMER CARBONATE 800 MG TABLET. PO SCH ×3 (08:15→18:39)
[2019-04-23] MEDS: ASPIRIN ENTERIC COATED 325 MG TABLET.DR. PO SCH (08:15)
[2019-04-23] MEDS: LACTOBACILLUS RHAMNOSUS GG 1 CAPSULE. PO SCH ×2 (08:15→21:42)
[2019-04-23] MEDS: CARVEDILOL 12.5 MG TABLET. PO SCH ×2 (08:15→17:00)
[2019-04-23] MEDS: INSULIN LISPRO 300 UNITS/3 ML VIAL. SQ SCH ×6 (08:23→18:44)
--- NOTE | 2019-04-23 08:57 | PDOC ---
ORTHO PROGRESS NOTES Subjective He tells me he feels like the pain and swelling are better at his right stump Vitals Vital Signs Date Time Temp Pulse Resp B/P (MAP) Pulse Ox O2 Delivery O2 Flow Rate FiO2 04/23/19 08:15 84 136/79 04/23/19 07:00 97.4 16 100 Room Air 97.4 Labs Laboratory Tests Test 04/21/19 11:44 04/21/19 12:45 04/21/19 16:42 04/21/19 20:49 Glucose (Fingerstick) 222 mg/dL (70-99) 114 mg/dL (70-99) 132 mg/dL (70-99) White Blood Count 6.0 x10^3/uL (4.0-11.0) Red Blood Count 3.37 x10^6/uL (4.30-5.70) Hemoglobin 8.5 g/dL (13.0-17.5) Hematocrit 27.2 % (39.0-53.0) Mean Corpuscular Volume 81 fL (79-100) Mean Corpuscular Hemoglobin 25 pg (25-35) Mean Corpuscular Hemoglobin Concent 31 g/dL (31-37) Red Cell Distribution Width 15.2 % (11.5-14.5) Platelet Count 100 x10^3/uL (140-400) Neutrophils (%) (Auto) 74 % (31-73) Lymphocytes (%) (Auto) 14 % (24-48) Monocytes (%) (Auto) 10 % (0-9) Eosinophils (%) (Auto) 2 % (0-3) Basophils (%) (Auto) 0 % (0-3) Neutrophils # (Auto) 4.4 x10^3/uL (1.8-7.7) Lymphocytes # (Auto) 0.8 x10^3/uL (1.0-4.8) Monocytes # (Auto) 0.6 x10^3/uL (0.0-1.1) Eosinophils # (Auto) 0.1 x10^3/uL (0.0-0.7) Basophils # (Auto) 0.0 x10^3/uL (0.0-0.2) Sodium Level 139 mmol/L (136-145) Potassium Level 4.5 mmol/L (3.5-5.1) Chloride Level 97 mmol/L (98-107) Carbon Dioxide Level 29 mmol/L (21-32) Anion Gap 13 (6-14) Blood Urea Nitrogen 42 mg/dL (8-26) Creatinine 11.1 mg/dL (0.7-1.3) Estimated GFR (Cockcroft-Gault) 5.9 BUN/Creatinine Ratio 4 (6-20) Glucose Level 239 mg/dL (70-99) Calcium Level 9.9 mg/dL (8.5-10.1) Total Bilirubin 0.6 mg/dL (0.2-1.0) Aspartate Amino Transf (AST/SGOT) 5 U/L (15-37) Alanine Aminotransferase (ALT/SGPT) < 6 U/L (16-63) Alkaline Phosphatase 60 U/L (46-116) Total Protein 7.8 g/dL (6.4-8.2) Albumin 2.9 g/dL (3.4-5.0) Albumin/Globulin Ratio 0.6 (1.0-1.7) Test 04/22/19 03:50 04/22/19 11:09 04/22/19 12:51 04/22/19 13:29 Prothrombin Time 17.1 SEC (11.7-14.0) Prothromb Time International Ratio 1.4 (0.8-1.1) Sodium Level 141 mmol/L (136-145) Potassium Level 5.4 mmol/L (3.5-5.1) Chloride Level 99 mmol/L (98-107) Carbon Dioxide Level 24 mmol/L (21-32) Anion Gap 18 (6-14) Blood Urea Nitrogen 59 mg/dL (8-26) Creatinine 13.0 mg/dL (0.7-1.3) Estimated GFR (Cockcroft-Gault) 4.9 Glucose Level 193 mg/dL (70-99) Hemoglobin A1c 6.0 % (4.8-5.6) Calcium Level 9.9 mg/dL (8.5-10.1) Triglycerides Level 73 mg/dL (0-150) Cholesterol Level 100 mg/dL (0-200) LDL Cholesterol, Calculated 58 mg/dL (0-100) VLDL Cholesterol, Calculated 15 mg/dL (0-40) Non-HDL Cholesterol Calculated 73 mg/dL (0-129) HDL Cholesterol 27 mg/dL (40-60) Cholesterol/HDL Ratio 3.7 Thyroid Stimulating Hormone (TSH) 0.725 uIU/mL (0.358-3.74) Glucose (Fingerstick) 115 mg/dL (70-99) 133 mg/dL (70-99) 137 mg/dL (70-99) Test 04/22/19 16:53 04/22/19 20:26 04/23/19 07:56 Glucose (Fingerstick) 327 mg/dL (70-99) 456 mg/dL (70-99) 277 mg/dL (70-99) Laboratory Tests Test 04/22/19 11:09 04/22/19 12:51 04/22/19 13:29 04/22/19 16:53 Glucose (Fingerstick) 115 mg/dL (70-99) 133 mg/dL (70-99) 137 mg/dL (70-99) 327 mg/dL (70-99) Test 04/22/19 20:26 04/23/19 07:56 Glucose (Fingerstick) 456 mg/dL (70-99) 277 mg/dL (70-99) Notes Wound VAC is in place with a good seal. Edema does appear improved today. Assessment and Plan We will ask wound care to help with the wound VAC changes. I do think wound VAC treatment for a short amount of time is probably in his best interest given the cavitary defect. ARMANDO STOVER II, MD Apr 23, 2019 08:57
--- NOTE | 2019-04-23 10:08 | PDOC ---
PROGRESS NOTES Subjective Subjective feels better today Objective Objective Vital Signs Date Time Temp Pulse Resp B/P (MAP) Pulse Ox O2 Delivery O2 Flow Rate FiO2 04/23/19 08:15 84 136/79 04/23/19 07:00 97.4 16 100 Room Air 97.4 Intake and Output 04/23/19 07:00 Intake Total 900 ml Output Total 260 ml Balance 640 ml Intake Oral 900 ml Output Emesis 250 ml Estimated Blood Loss 10 ml Physical Exam Abdomen: Normal bowel sounds, No tenderness Heart: Regular rate Extremities: No clubbing, No cyanosis General: Alert, Oriented X3, Cooperative, No acute distress HEENT: Atraumatic Lungs: Clear to auscultation MUSCULOSKELETAL: No joint tenderness, No swelling Neuro: Sensation intact Psych/Mental Status: Mental status NL, Mood NL Skin: Other (STUMOP WOUND,s/p debridement and wound vac) Assessment Assessment FINAL IMPRESSION: 1. Right leg stump abscess. 2. Bilateral leg amputee. 3. End-stage renal disease, on hemodialysis. 4. Insulin-dependent diabetes. 5. Hypertension. 6. Chronic diastolic heart failure, last echo stress test last year, shows good left ventricular function. PLAN:POD #1,debridement of abscess, deep abscess rt stump Dialysis tomorrow wound vac placed iv antibiotics. spoke with ID and renal. blood sugars fluctuating. At this time, admit to hospital. Wound culture, start on broad-spectrum antibiotic, vancomycin and Zosyn. ID is consulted. Also, dialysis Saturday, Saturday and Saturday. Renal is consulted. Orthopedics consultation is I and D of the stump and he improves. Comment Review of Relevant I have reviewed the following items carmen (where applicable) has been applied. Labs Laboratory Tests Test 04/22/19 11:09 04/22/19 12:51 04/22/19 13:29 04/22/19 16:53 Glucose (Fingerstick) 115 mg/dL (70-99) 133 mg/dL (70-99) 137 mg/dL (70-99) 327 mg/dL (70-99) Test 04/22/19 20:26 04/23/19 07:56 Glucose (Fingerstick) 456 mg/dL (70-99) 277 mg/dL (70-99) Microbiology 04/21/19 Blood Culture - Preliminary, Resulted NO GROWTH AFTER 1 DAY Medications Current Medications Bupivacaine HCl (Sensorcaine Mpf 0.5%) 30 ml STK-MED ONCE .ROUTE ; Start 04/22/19 at 11:33; Stop 04/22/19 at 11:33; Status DC Darbepoetin Huey (ARANESP for DIALYSIS PTS) 60 mcg WEEKLYHS SQ Last administered on 04/22/19at 21:07; Start 04/22/19 at 21:00 Dexamethasone Sodium Phosphate (Decadron) 4 mg STK-MED ONCE .ROUTE ; Start 04/22/19 at 11:53; Stop 04/22/19 at 11:53; Status DC Insulin Human Lispro (HumaLOG) 10 units 1X SQ ; Start 04/22/19 at 21:15; Stop 04/22/19 at 21:48; Status DC Insulin Human Lispro (HumaLOG) 10 units 1X ONCE SQ Last administered on 04/22/19at 21:52; Start 04/22/19 at 22:00; Stop 04/22/19 at 22:01; Status DC Lactobacillus Rhamnosus (Culturelle) 1 cap BID PO Last administered on 04/23/19at 08:15; Start 04/22/19 at 21:00 Lidocaine HCl 20 ml STK-MED ONCE .ROUTE ; Start 04/22/19 at 11:33; Stop 04/22/19 at 11:33; Status DC Ondansetron HCl (Zofran) 4 mg STK-MED ONCE .ROUTE ; Start 04/22/19 at 11:52; Stop 04/22/19 at 11:53; Status DC Ondansetron HCl (Zofran) 8 mg PRN Q6HRS PRN IVP NAUSEA/VOMITING Last administered on 04/23/19at 08:13; Start 04/23/19 at 07:00 Phenylephrine HCl (PHENYLEPHRINE in 0.9% NACL PF) 1 mg STK-MED ONCE IV ; Start 04/22/19 at 11:52; Stop 04/22/19 at 11:52; Status DC Propofol 20 ml @ As Directed STK-MED ONCE IV ; Start 04/22/19 at 11:52; Stop 04/22/19 at 11:53; Status DC Sevoflurane (Ultane) 30 ml STK-MED ONCE IH ; Start 04/22/19 at 11:53; Stop 04/22/19 at 11:53; Status DC Sodium Chloride 1,000 ml @ 30 mls/hr Q24H IV Last administered on 04/22/19at 11:24; Start 04/22/19 at 11:15 Vancomycin HCl (Vancomycin Random Level) 1 each 1X ONCE MC ; Start 04/24/19 at 05:00; Stop 04/24/19 at 05:01 Vitals/I & O Vital Sign - Last 24 Hours 04/22/19 04/22/19 04/22/19 04/22/19 11:14 12:23 12:23 12:38 Temp 97.2 99.3 99.3 97.2 99.3 99.3 Pulse 78 73 82 Resp 20 15 15 B/P (MAP) 129/68 92/58 110/62 Pulse Ox 100 100 98 O2 Delivery Room Air Room Air Room Air Room Air 04/22/19 04/22/19 04/22/19 04/22/19 13:15 13:30 13:45 14:01 Pulse 79 79 80 81 Resp 18 18 18 18 B/P (MAP) 126/86 (99) 126/68 (87) 126/70 (88) 106/57 (73) Pulse Ox 96 96 96 96 O2 Delivery Room Air Room Air Room Air Room Air 04/22/19 04/22/19 04/22/19 04/22/19 14:07 17:00 19:04 20:00 Temp 97.7 97.7 Pulse 81 81 82 Resp 19 B/P (MAP) 106/57 96/57 103/63 (76) Pulse Ox 96 O2 Delivery Room Air Room Air 04/22/19 04/23/19 04/23/19 04/23/19 23:00 03:00 07:00 08:15 Temp 97.3 98.1 97.4 97.3 98.1 97.4 Pulse 70 69 85 84 Resp 19 17 16 B/P (MAP) 120/71 (87) 151/73 (99) 136/79 (98) 136/79 Pulse Ox 96 99 100 O2 Delivery Room Air Room Air Room Air Intake and Output 04/22/19 04/22/19 04/23/19 15:00 23:00 07:00 Intake Total 300 ml 600 ml Output Total 10 ml 250 ml Balance -10 ml 300 ml 350 ml IRINEO SCHWARTZ MD Apr 23, 2019 10:08
[2019-04-23 11:00] VITALS: BP 92/58
--- NOTE | 2019-04-23 11:26 | PDOC ---
Infectious Disease Note Subjective: Subjective pt says feels the same no f/c/d had nausea and vomiting today no abdo pain Vital Signs: Vital Signs Vital Signs Date Time Temp Pulse Resp B/P (MAP) Pulse Ox O2 Delivery O2 Flow Rate FiO2 04/23/19 08:15 84 136/79 04/23/19 07:00 97.4 16 100 Room Air 97.4 Physical Exam: PHYSICAL EXAM GENERAL: Alert, oriented, pleasant male, cooperative, lying in bed comfortably, in no acute distress. HEENT: Normocephalic, atraumatic, anicteric. No thrush. Oropharynx clear. NECK: Supple, no JVD. LUNGS: Clear bilaterally. No wheezing. HEART: S1, S2. ABDOMEN: Soft, nontender, nondistended. EXTREMITIES: No cyanosis. Bilateral amputee, right stump dressing intact, dry DERMATOLOGIC: Warm, dry. No generalized rash. Right upper extremity fistula site looks okay. NEUROLOGIC: Alert and oriented x 3, grossly nonfocal. PSYCHIATRIC: Cooperative, appropriate mood and affect. Medications: Inpatient Meds: Current Medications Medications (Trade) Dose Ordered Sig/Dawn Start Time Stop Time Status Last Admin Dose Admin Aspirin (Ecotrin) 325 mg DAILYWBKFT 04/21/19 13:00 04/23/19 08:15 325 MG Atorvastatin Calcium (Lipitor) 20 mg QHS 04/21/19 21:00 04/22/19 21:08 20 MG Bupivacaine HCl (Sensorcaine Mpf 0.5%) 30 ml STK-MED ONCE 04/22/19 11:33 04/22/19 11:33 DC Carvedilol (Coreg) 25 mg BIDWMEALS 04/21/19 17:00 04/23/19 08:15 25 MG Darbepoetin Huey (ARANESP for DIALYSIS PTS) 60 mcg WEEKLYHS 04/22/19 21:00 04/22/19 21:07 60 MCG Dexamethasone Sodium Phosphate (Decadron) 4 mg STK-MED ONCE 04/22/19 11:53 04/22/19 11:53 DC Dextrose (Dextrose 50%-Water Syringe) 12.5 gm PRN Q15MIN PRN 04/21/19 16:15 Diphenhydramine HCl (Benadryl) 25 mg 1X PRN PRN 04/22/19 07:15 04/23/19 07:14 DC Heparin Sodium (Porcine) (Heparin Sodium) 5,000 unit Q12HR 04/23/19 10:00 Info (PHARMACY MONITORING -- do not chart) 1 each PRN DAILY PRN 04/22/19 07:15 UNV Insulin Glargine (Lantus Syringe) 10 unit QHS 04/21/19 21:00 04/22/19 21:00 10 UNIT Insulin Human Lispro (HumaLOG) 10 units 1X ONCE 04/22/19 22:00 04/22/19 22:01 DC 04/22/19 21:52 10 UNITS Lactobacillus Rhamnosus (Culturelle) 1 cap BID 04/22/19 21:00 04/23/19 08:15 1 CAP Lidocaine HCl 20 ml STK-MED ONCE 04/22/19 11:33 04/22/19 11:33 DC Metoclopramide HCl (Reglan) 5 mg QIDACHS 04/21/19 16:30 04/23/19 08:14 5 MG Ondansetron HCl (Zofran) 8 mg PRN Q6HRS PRN 04/23/19 07:00 04/23/19 08:13 8 MG Phenylephrine HCl (PHENYLEPHRINE in 0.9% NACL PF) 1 mg STK-MED ONCE 04/22/19 11:52 04/22/19 11:52 DC Piperacillin Sod/ Tazobactam Sod 2.25 gm/Sodium Chloride 50 ml @ 100 mls/hr Q8HRS 04/21/19 16:00 04/23/19 05:37 100 MLS/HR Propofol 20 ml @ As Directed STK-MED ONCE 04/22/19 11:52 04/22/19 11:53 DC Sevelamer Carbonate (Renvela) 800 mg TIDWMEALS 04/21/19 13:00 04/23/19 08:15 800 MG Sevoflurane (Ultane) 30 ml STK-MED ONCE 04/22/19 11:53 04/22/19 11:53 DC Sodium Chloride 1,000 ml @ 30 mls/hr Q24H 04/22/19 11:15 04/22/19 11:24 30 MLS/HR Tramadol HCl (Ultram) 50 mg PRN Q6HRS PRN 04/21/19 12:45 Vancomycin HCl (Vanco Per Pharmacy) 1 each PRN DAILY PRN 04/21/19 15:30 04/21/19 16:23 1 EACH Vancomycin HCl (Vancomycin Random Level) 1 each 1X ONCE 04/24/19 05:00 04/24/19 05:01 Vancomycin HCl 2 gm/Sodium Chloride 500 ml @ 250 mls/hr 1X ONCE 04/21/19 16:30 04/21/19 18:29 DC 04/21/19 16:38 250 MLS/HR Labs: Lab Laboratory Tests Test 04/22/19 12:51 04/22/19 13:29 04/22/19 16:53 04/22/19 20:26 Glucose (Fingerstick) 133 mg/dL (70-99) 137 mg/dL (70-99) 327 mg/dL (70-99) 456 mg/dL (70-99) Test 04/23/19 07:56 Glucose (Fingerstick) 277 mg/dL (70-99) Objective: Assessment: 1. Right stump infection/abscess, S/P 04/22 I and D with wound VAC No bone exposure per surgery , but it did track over his anterior and slightly lateral stump for about 8 cm. 2. Chronic kidney disease, on hemodialysis. 3. Diabetes mellitus. 4. History of bilateral amputation for osteomyelitis/Charcot foot. 5. History of Staphylococcus with Streptococcus and Pseudomonas in the past. 6. Nausea and vomiting Plan: Plan of Care Continue vancomycin and Zosyn, renal dosing.for now Avoid picc line cont local wound care Follow up cultures and lab. Continue supportive care. D/W ILYA Main MD Apr 23, 2019 11:26
--- NOTE | 2019-04-23 11:51 | PDOC ---
Renal-Progress Notes Subjective Notes Notes NO NEW COMPLAINTS History of Present Illness Hx of present illness NO CHANGES Vitals Vitals Vital Signs Date Time Temp Pulse Resp B/P (MAP) Pulse Ox O2 Delivery O2 Flow Rate FiO2 04/23/19 11:00 97.9 77 16 92/58 (69) 98 Room Air 97.9 Weight Weight [ ] I.O. Intake and Output Intake and Output 04/23/19 07:00 Intake Total 900 ml Output Total 260 ml Balance 640 ml Intake Oral 900 ml Output Emesis 250 ml Estimated Blood Loss 10 ml Labs Labs Laboratory Tests Test 04/22/19 12:51 04/22/19 13:29 04/22/19 16:53 04/22/19 20:26 Glucose (Fingerstick) 133 mg/dL (70-99) 137 mg/dL (70-99) 327 mg/dL (70-99) 456 mg/dL (70-99) Test 04/23/19 07:56 Glucose (Fingerstick) 277 mg/dL (70-99) Micro Micro Microbiology 04/21/19 Blood Culture - Preliminary, Resulted NO GROWTH AFTER 1 DAY Review of Systems Constitutional: yes: alert, oriented Ears/Nose/Throat: Yes: no symptom reported Eyes: Yes: no symptom reported Pulmonary: Yes no symptom reported Cardiovascular: Yes no symptom reported Gastrointestional: Yes: no symptom reported Genitourinary: Yes: no symptom reported Musculoskeletal: Yes: no symptom reported Skin: Yes no symptom reported Psychiatric/Neurological: Yes: no symptom reported Physical Exam General Appearance: no apparent distress Skin: warm Respiratory: bilateral CTA Heart: S1S2 Abdomen: soft, bowel sounds present Genitourinary: bladder flat Extremities: pulses present Neurology: alert, oriented Assessment Assessment IMP ESRD ANEMIA DM II HTN PAD RIGHT STUMP WOUND PLAN HD TOMORROW RAFAEL NEEDED ANTIBIOTICS WILL FOLLOW ASHLEY HERNANDEZ MD Apr 23, 2019 11:51
[2019-04-23] MEDS: HEPARIN for SUB-Q USE 5,000 UNIT/ML VIAL. SQ SCH ×2 (12:11→21:43)
[2019-04-23] MEDS: VANCOMYCIN PER PHARMACY MC PRN (14:12)
[2019-04-23 15:00] VITALS: BP 106/57
--- NOTE | 2019-04-23 16:03 | NUR ---
SW following. Chart reviewed, discussed with RN. Pt having dialysis tomorrow. IV rosie and jaspreet. RN advised gets around fine. Pt has a wound vac. SW will continue to follow for discharge planning needs.
[2019-04-23 19:00] VITALS: BP 95/52
[2019-04-23] MEDS: ATORVASTATIN CALCIUM 20 MG TABLET PO SCH (21:42)
[2019-04-23] MEDS: INSULIN GLARGINE SYRINGE. SQ SCH (22:23)
[2019-04-23 23:00] VITALS: BP 108/63
[2019-04-24 03:00] VITALS: BP 114/67
[2019-04-24] MEDS ORDERED: VANCOMYCIN RANDOM LEVEL. MC ONE (05:00)
[2019-04-24] MEDS: IV NORMAL SALINE 1000ML BAG 1,000 ML IV SCH ×2 (05:59→21:16)
[2019-04-24] MEDS: PIPERACILLIN/TAZOBACTAM 2.25 GM in IV NORMAL SALINE 50ML 50 ML IV SCH ×3 (05:59→22:37)
[2019-04-24 07:00] VITALS: BP 112/67
[2019-04-24] MEDS: METOCLOPRAMIDE 5 MG TABLET. PO SCH ×4 (07:30→21:14)
[2019-04-24] MEDS: SEVELAMER CARBONATE 800 MG TABLET. PO SCH ×3 (08:00→18:15)
[2019-04-24] MEDS: INSULIN LISPRO 300 UNITS/3 ML VIAL. SQ SCH ×6 (08:00→18:20)
[2019-04-24] MEDS: ASPIRIN ENTERIC COATED 325 MG TABLET.DR. PO SCH (08:00)
[2019-04-24] MEDS: CARVEDILOL 12.5 MG TABLET. PO SCH ×2 (08:00→17:00)
[2019-04-24] MEDS: VANCOMYCIN PER PHARMACY MC PRN (08:01)
--- NOTE | 2019-04-24 08:03 | NUR ---
Pharmacy Vancomycin Dosing Note S:Consulted to monitor and dose vancomycin started 04/21/19. O:MIKALA QUIÑONES is a 54 year old M with Abscess HX:OSTEOMYELITIS . Height: 6 feet, 2 inches Weight: 92.487765 kg [place] Body Weight: 82.20 Adjusted Body Weight: 86.00 Dosing Weight: Adjusted Other Antibiotics: ZOSYN LABS: Last BUN: 59 Last Creatinine: 13.0 Creatinine Clearance: DIALYSIS mL/min Last WBC: 6.0 Last Procalcitonin: Tmax (past 24 hours): 97.9 Microbiology: 04/23 04/21 STUMP WOUND GPC I/O: 2220/- Drug Levels: Last Random level: 15.2 on 04/24/19 at 0430 Last dose given 04/21/19 at 1638 Vancomycin Dosing: Loading Dose: 2000 mg x1 Dosing Weight: Adjusted Target Trough: 15-20 A: Based on: CURRENT LEVEL 15.2, EXPECTED REMOVAL VIA HD TODAY, P: 1. INITIATE Vancomycin 500 mg IV MWF POST HD STARTING 04/24 2. Follow up Random level NEEDED. 3. Pharmacy will continue to monitor, follow and adjust therapy as needed. MARLENA MONTERROSO [facility], 04/24/19 [id number]
--- NOTE | 2019-04-24 08:13 | PDOC ---
ORTHO PROGRESS NOTES Subjective He tells me his leg is feeling little bit better Vitals Vital Signs Date Time Temp Pulse Resp B/P (MAP) Pulse Ox O2 Delivery O2 Flow Rate FiO2 04/24/19 03:00 98.0 74 18 114/67 (83) 98 98.0 04/23/19 20:02 Room Air Labs Laboratory Tests Test 04/22/19 11:09 04/22/19 12:51 04/22/19 13:29 04/22/19 16:53 Glucose (Fingerstick) 115 mg/dL (70-99) 133 mg/dL (70-99) 137 mg/dL (70-99) 327 mg/dL (70-99) Test 04/22/19 20:26 04/23/19 07:56 04/23/19 11:53 04/23/19 16:53 Glucose (Fingerstick) 456 mg/dL (70-99) 277 mg/dL (70-99) 140 mg/dL (70-99) 170 mg/dL (70-99) Test 04/23/19 21:00 04/24/19 04:30 04/24/19 07:20 Glucose (Fingerstick) 246 mg/dL (70-99) 227 mg/dL (70-99) Random Vancomycin Level 15.2 mcg/mL Laboratory Tests Test 04/23/19 11:53 04/23/19 16:53 04/23/19 21:00 04/24/19 04:30 Glucose (Fingerstick) 140 mg/dL (70-99) 170 mg/dL (70-99) 246 mg/dL (70-99) Random Vancomycin Level 15.2 mcg/mL Test 04/24/19 07:20 Glucose (Fingerstick) 227 mg/dL (70-99) Notes On examination, the wound VAC is in place with a good seal. His edema has gr eatly improved since I had first seen him. Assessment and Plan I will ask the wound care team to do a VAC change. From my standpoint, I think he could be discharged home with the wound VAC. ARMANDO STOVER II, MD Apr 24, 2019 08:13
[2019-04-24] MEDS ORDERED: IV NORMAL SALINE 1000ML BAG 1,000 ML IV PRN ×2 (08:50)
[2019-04-24] MEDS ORDERED: ACETAMINOPHEN 500 MG TABLET PO PRN (09:00)
[2019-04-24] MEDS ORDERED: DIALYSIS PATIENT. MC PRN (09:00)
[2019-04-24] MEDS ORDERED: diphenhydrAMINE 50 MG/ML VIAL IV PRN ×2 (09:00)
--- NOTE | 2019-04-24 10:21 | PDOC ---
PROGRESS NOTES Subjective Subjective seen in dialysis Objective Objective Vital Signs Date Time Temp Pulse Resp B/P (MAP) Pulse Ox O2 Delivery O2 Flow Rate FiO2 04/24/19 07:00 97.6 79 18 112/67 (82) 98 Room Air 97.6 Intake and Output 04/24/19 07:00 Intake Total 2220 ml Output Total 0 ml Balance 2220 ml Intake Oral 1120 ml IV Total 1100 ml Output Urine Total 0 ml Physical Exam Abdomen: Normal bowel sounds, No tenderness Heart: Regular rate Extremities: No clubbing, No cyanosis General: Alert, Oriented X3, Cooperative, No acute distress HEENT: Atraumatic Lungs: Clear to auscultation MUSCULOSKELETAL: No joint tenderness, No swelling Neuro: Sensation intact Psych/Mental Status: Mental status NL, Mood NL Skin: Other (STUMOP WOUND,s/p debridement and wound vac) Assessment Assessment FINAL IMPRESSION: 1. Right leg stump abscess. 2. Bilateral leg amputee. 3. End-stage renal disease, on hemodialysis. 4. Insulin-dependent diabetes. 5. Hypertension. 6. Chronic diastolic heart failure, last echo stress test last year, shows good left ventricular function. PLAN:wound c/s gram positive waiting for ID. POD #2,debridement of abscess, deep abscess rt stump Dialysis today wound vac placed iv antibiotics. spoke with ID and renal. blood sugars fluctuating. At this time, admit to hospital. Wound culture, start on broad-spectrum antibiotic, vancomycin and Zosyn. ID is consulted. Also, dialysis Saturday, Saturday and Saturday. Renal is consulted. Orthopedics consultation is I and D of the stump and he improves. Comment Review of Relevant I have reviewed the following items carmen (where applicable) has been applied. Labs Laboratory Tests Test 04/23/19 11:53 04/23/19 16:53 04/23/19 21:00 04/24/19 04:30 Glucose (Fingerstick) 140 mg/dL (70-99) 170 mg/dL (70-99) 246 mg/dL (70-99) Random Vancomycin Level 15.2 mcg/mL Test 04/24/19 07:20 Glucose (Fingerstick) 227 mg/dL (70-99) Microbiology 04/22/19 Anaerobic/Aerobic Culture, Resulted Pending 04/22/19 Anaerobic Culture Result 1 (KUNAL), Resulted Pending 04/22/19 Aerobic Culture, Resulted Pending 04/22/19 Aerobic Culture Result 1 (KUNAL), Resulted Pending 04/22/19 Gram Stain - Final, Resulted 04/22/19 Gram Stain Result 1 (KUNAL) - Final, Resulted 04/22/19 Gram Stain Result 2 (KUNAL) - Final, Resulted 04/21/19 Blood Culture - Preliminary, Resulted NO GROWTH AFTER 2 DAYS Medications Current Medications Acetaminophen (Tylenol) 500 mg 1X PRN PRN PO MILD PAIN / TEMP; Start 04/24/19 at 09:00; Stop 04/25/19 at 08:59 Diphenhydramine HCl (Benadryl) 25 mg 1X PRN PRN IV ITCHING; Start 04/24/19 at 09:00; Stop 04/25/19 at 08:59 Diphenhydramine HCl (Benadryl) 25 mg 1X PRN PRN IV ITCHING; Start 04/24/19 at 09:00; Stop 04/25/19 at 08:59 Info (PHARMACY MONITORING -- do not chart) 1 each PRN DAILY PRN MC SEE COMMENTS; Start 04/24/19 at 09:00 Sodium Chloride 1,000 ml @ 400 mls/hr Q2H30M PRN IV PATENCY; Start 04/24/19 at 08:50; Stop 04/24/19 at 20:49 Sodium Chloride 1,000 ml @ 1,000 mls/hr Q1H PRN IV hypotension; Start 04/24/19 at 08:50; Stop 04/24/19 at 14:49 Vancomycin HCl (Vancomycin Random Level) 1 each 1X ONCE MC ; Start 04/24/19 at 05:00; Stop 04/24/19 at 05:01; Status DC Vancomycin HCl 500 mg/Sodium Chloride 100 ml @ 100 mls/hr QMWF IV ; Start 04/24/19 at 16:00 Vitals/I & O Vital Sign - Last 24 Hours 04/23/19 04/23/19 04/23/19 04/23/19 11:00 15:00 17:00 19:00 Temp 97.9 97.9 98.0 97.9 97.9 98.0 Pulse 77 80 80 75 Resp 16 18 20 B/P (MAP) 92/58 (69) 106/57 (73) 106/57 95/52 (66) Pulse Ox 98 97 97 O2 Delivery Room Air Room Air 11/14/19 11/14/19 11/15/19 11/15/19 20:02 23:00 03:00 07:00 Temp 97.9 98.0 97.6 97.9 98.0 97.6 Pulse 70 74 79 Resp 16 18 18 B/P (MAP) 108/63 (78) 114/67 (83) 112/67 (82) Pulse Ox 97 98 98 O2 Delivery Room Air Room Air Intake and Output 04/23/19 04/23/19 04/24/19 15:00 23:00 07:00 Intake Total 1000 ml 170 ml 1050 ml Output Total 0 ml 0 ml Balance 1000 ml 170 ml 1050 ml IRINEO SCHWARTZ MD Apr 24, 2019 10:21
[2019-04-24 11:00] VITALS: BP 101/61
--- NOTE | 2019-04-24 11:38 | PDOC ---
Renal-Progress Notes Subjective Notes Notes STABLE History of Present Illness Hx of present illness NO NEW COMPLAINTS Vitals Vitals Vital Signs Date Time Temp Pulse Resp B/P (MAP) Pulse Ox O2 Delivery O2 Flow Rate FiO2 04/24/19 08:00 79 112/67 04/24/19 07:00 97.6 18 98 Room Air 97.6 Weight Weight [ ] I.O. Intake and Output Intake and Output 04/24/19 07:00 Intake Total 2220 ml Output Total 0 ml Balance 2220 ml Intake Oral 1120 ml IV Total 1100 ml Output Urine Total 0 ml Labs Labs Laboratory Tests Test 04/23/19 11:53 04/23/19 16:53 04/23/19 21:00 04/24/19 04:30 Glucose (Fingerstick) 140 mg/dL (70-99) 170 mg/dL (70-99) 246 mg/dL (70-99) Random Vancomycin Level 15.2 mcg/mL Test 04/24/19 07:20 Glucose (Fingerstick) 227 mg/dL (70-99) Micro Micro Microbiology 04/22/19 Anaerobic/Aerobic Culture, Resulted Pending 04/22/19 Anaerobic Culture Result 1 (KUNAL), Resulted Pending 04/22/19 Aerobic Culture, Resulted Pending 04/22/19 Aerobic Culture Result 1 (KUNAL), Resulted Pending 04/22/19 Gram Stain - Final, Resulted 04/22/19 Gram Stain Result 1 (KUNAL) - Final, Resulted 04/22/19 Gram Stain Result 2 (KUNAL) - Final, Resulted 04/21/19 Blood Culture - Preliminary, Resulted NO GROWTH AFTER 2 DAYS Review of Systems Constitutional: yes: alert, oriented Ears/Nose/Throat: Yes: no symptom reported Eyes: Yes: no symptom reported Pulmonary: Yes no symptom reported Cardiovascular: Yes no symptom reported Gastrointestional: Yes: no symptom reported Genitourinary: Yes: no symptom reported Musculoskeletal: Yes: no symptom reported Skin: Yes no symptom reported Psychiatric/Neurological: Yes: no symptom reported Physical Exam General Appearance: no apparent distress Skin: warm Respiratory: bilateral CTA Heart: S1S2 Abdomen: soft, bowel sounds present Genitourinary: bladder flat Extremities: pulses present Neurology: alert, oriented Assessment Assessment IMP ESRD ANEMIA DM II HTN PAD RIGHT STUMP WOUND PLAN HD TODAY UF TO DW RAFAEL NEEDED ANTIBIOTICS WILL FOLLOW ASHLEY HERNANDEZ MD Apr 24, 2019 11:38
--- NOTE | 2019-04-24 11:46 | PDOC ---
Infectious Disease Note Subjective: Subjective pt says feels better no f/c/d no n/v/d/abdo pain Vital Signs: Vital Signs Vital Signs Date Time Temp Pulse Resp B/P (MAP) Pulse Ox O2 Delivery O2 Flow Rate FiO2 04/24/19 08:00 79 112/67 04/24/19 07:00 97.6 18 98 Room Air 97.6 Physical Exam: PHYSICAL EXAM GENERAL: Alert, oriented, pleasant male, cooperative, lying in bed comfortably, in no acute distress. HEENT: Normocephalic, atraumatic, anicteric. No thrush. Oropharynx clear. NECK: Supple, no JVD. LUNGS: Clear bilaterally. No wheezing. HEART: S1, S2. ABDOMEN: Soft, nontender, nondistended. EXTREMITIES: No cyanosis. Bilateral amputee, right stump dressing intact, dry DERMATOLOGIC: Warm, dry. No generalized rash. Right upper extremity fistula site looks okay. NEUROLOGIC: Alert and oriented x 3, grossly nonfocal. PSYCHIATRIC: Cooperative, appropriate mood and affect. Medications: Inpatient Meds: Current Medications Medications (Trade) Dose Ordered Sig/Dawn Start Time Stop Time Status Last Admin Dose Admin Acetaminophen (Tylenol) 500 mg 1X PRN PRN 04/24/19 09:00 04/24/19 19:00 Aspirin (Ecotrin) 325 mg DAILYWBKFT 04/21/19 13:00 04/23/19 08:15 325 MG Atorvastatin Calcium (Lipitor) 20 mg QHS 04/21/19 21:00 04/23/19 21:42 20 MG Bupivacaine HCl (Sensorcaine Mpf 0.5%) 30 ml STK-MED ONCE 04/22/19 11:33 04/22/19 11:33 DC Carvedilol (Coreg) 25 mg BIDWMEALS 04/21/19 17:00 04/23/19 08:15 25 MG Darbepoetin Huey (ARANESP for DIALYSIS PTS) 60 mcg WEEKLYHS 04/22/19 21:00 04/22/19 21:07 60 MCG Dexamethasone Sodium Phosphate (Decadron) 4 mg STK-MED ONCE 04/22/19 11:53 04/22/19 11:53 DC Dextrose (Dextrose 50%-Water Syringe) 12.5 gm PRN Q15MIN PRN 04/21/19 16:15 Diphenhydramine HCl (Benadryl) 25 mg 1X PRN PRN 04/24/19 09:00 04/24/19 19:00 Heparin Sodium (Porcine) (Heparin Sodium) 5,000 unit Q12HR 04/23/19 10:00 04/23/19 21:43 5,000 UNIT Info (PHARMACY MONITORING -- do not chart) 1 each PRN DAILY PRN 04/24/19 09:00 Insulin Glargine (Lantus Syringe) 10 unit QHS 04/21/19 21:00 04/23/19 22:23 10 UNIT Insulin Human Lispro (HumaLOG) 10 units 1X ONCE 04/22/19 22:00 04/22/19 22:01 DC 04/22/19 21:52 10 UNITS Lactobacillus Rhamnosus (Culturelle) 1 cap BID 04/22/19 21:00 04/23/19 21:42 1 CAP Lidocaine HCl 20 ml STK-MED ONCE 04/22/19 11:33 04/22/19 11:33 DC Metoclopramide HCl (Reglan) 5 mg QIDACHS 04/21/19 16:30 04/23/19 21:42 5 MG Ondansetron HCl (Zofran) 8 mg PRN Q6HRS PRN 04/23/19 07:00 04/23/19 08:13 8 MG Phenylephrine HCl (PHENYLEPHRINE in 0.9% NACL PF) 1 mg STK-MED ONCE 04/22/19 11:52 04/22/19 11:52 DC Piperacillin Sod/ Tazobactam Sod 2.25 gm/Sodium Chloride 50 ml @ 100 mls/hr Q8HRS 04/21/19 16:00 04/24/19 05:59 100 MLS/HR Propofol 20 ml @ As Directed STK-MED ONCE 04/22/19 11:52 04/22/19 11:53 DC Sevelamer Carbonate (Renvela) 800 mg TIDWMEALS 04/21/19 13:00 04/23/19 18:39 800 MG Sevoflurane (Ultane) 30 ml STK-MED ONCE 04/22/19 11:53 04/22/19 11:53 DC Sodium Chloride 1,000 ml @ 400 mls/hr Q2H30M PRN 04/24/19 08:50 04/24/19 20:49 Tramadol HCl (Ultram) 50 mg PRN Q6HRS PRN 04/21/19 12:45 Vancomycin HCl (Vanco Per Pharmacy) 1 each PRN DAILY PRN 04/21/19 15:30 04/24/19 08:01 1 EACH Vancomycin HCl (Vancomycin Random Level) 1 each 1X ONCE 04/24/19 05:00 04/24/19 05:01 DC Vancomycin HCl 500 mg/Sodium Chloride 100 ml @ 100 mls/hr QMWF 04/24/19 16:00 Vancomycin HCl 2 gm/Sodium Chloride 500 ml @ 250 mls/hr 1X ONCE 04/21/19 16:30 04/21/19 18:29 DC 04/21/19 16:38 250 MLS/HR Labs: Lab Laboratory Tests Test 04/23/19 11:53 04/23/19 16:53 04/23/19 21:00 04/24/19 04:30 Glucose (Fingerstick) 140 mg/dL (70-99) 170 mg/dL (70-99) 246 mg/dL (70-99) Random Vancomycin Level 15.2 mcg/mL Test 04/24/19 07:20 Glucose (Fingerstick) 227 mg/dL (70-99) Objective: Assessment: 1. Right stump abscess, S/P 04/22 I and D with wound VAC No bone exposure per surgery , but it did track over his anterior and slightly lateral stump for about 8 cm. cultures GPCs 2. Chronic kidney disease, on hemodialysis. 3. Diabetes mellitus. 4. History of bilateral amputation for osteomyelitis/Charcot foot. 5. History of Staphylococcus with Streptococcus and Pseudomonas in the past. 6. Nausea and vomiting now resolved Plan: Plan of Care Continue vancomycin and Zosyn, renal dosing.for now Avoid picc line cont local wound care Follow up cultures and lab. Continue supportive care. D/W ILYA Main MD Apr 24, 2019 11:46
[2019-04-24] MEDS: LACTOBACILLUS RHAMNOSUS GG 1 CAPSULE. PO SCH ×2 (12:26→21:14)
[2019-04-24] MEDS: HEPARIN for SUB-Q USE 5,000 UNIT/ML VIAL. SQ SCH ×2 (12:32→21:18)
--- NOTE | 2019-04-24 13:40 | NUR ---
SW following. Discussed with RN, pt is from home, follows at the wound clinic, has new wound vac. SW met with pt, pt does dialysis at [facility]. Currently on IV vanc and zosyn. Awaiting cultures. SW will continue to follow for discharge planning needs.
--- NOTE | 2019-04-24 14:07 | NUR ---
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 Wounds pictured, measured and cleansed. Applied one piece of black foam to distal wound, tracked to R medial leg, good seal achieved. Aquacel AG and foam dressing to lateral wound. No other open areas noted on head to toe assessment. Follow up on 04/27/19 for vac change.
[2019-04-24 15:00] VITALS: BP 91/51
[2019-04-24] MEDS ORDERED: VANCOMYCIN 500 MG in IV NORMAL SALINE 100ML 100 ML IV SCH (16:00)
[2019-04-24 19:00] VITALS: BP 93/53
[2019-04-24] MEDS: ATORVASTATIN CALCIUM 20 MG TABLET PO SCH (21:14)
[2019-04-24] MEDS: INSULIN GLARGINE SYRINGE. SQ SCH (21:19)
[2019-04-24 23:00] VITALS: BP 94/60
[2019-04-25 03:00] VITALS: BP 98/61
[2019-04-25] MEDS: PIPERACILLIN/TAZOBACTAM 2.25 GM in IV NORMAL SALINE 50ML 50 ML IV SCH ×3 (05:28→20:55)
[2019-04-25 07:00] VITALS: BP 133/73
[2019-04-25] MEDS: METOCLOPRAMIDE 5 MG TABLET. PO SCH ×4 (08:02→20:54)
[2019-04-25] MEDS: SEVELAMER CARBONATE 800 MG TABLET. PO SCH ×3 (08:02→16:49)
[2019-04-25] MEDS: INSULIN LISPRO 300 UNITS/3 ML VIAL. SQ SCH ×6 (08:07→17:16)
[2019-04-25] MEDS: CARVEDILOL 12.5 MG TABLET. PO SCH ×2 (08:57→16:50)
[2019-04-25] MEDS: ASPIRIN ENTERIC COATED 325 MG TABLET.DR. PO SCH (08:57)
[2019-04-25] MEDS: LACTOBACILLUS RHAMNOSUS GG 1 CAPSULE. PO SCH ×2 (08:57→20:58)
[2019-04-25] MEDS: HEPARIN for SUB-Q USE 5,000 UNIT/ML VIAL. SQ SCH ×2 (09:00→20:56)
[2019-04-25 11:00] VITALS: BP 107/62
[2019-04-25] MEDS: VANCOMYCIN PER PHARMACY MC PRN (11:25)
--- NOTE | 2019-04-25 11:30 | PDOC ---
IM PROGRESS NOTES- Subjective Subjective Complaints of pain in the right stump. Objective Vitals/I&O Vital Signs Date Time Temp Pulse Resp B/P (MAP) Pulse Ox O2 Delivery O2 Flow Rate FiO2 04/25/19 08:57 72 133/73 04/25/19 08:00 Room Air 04/25/19 07:00 97.5 16 100 97.5 I & O 04/24/19 04/24/19 04/25/19 15:00 23:00 07:00 Intake Total 350 ml 720 ml 720 ml Output Total 0 ml Balance 350 ml 720 ml 720 ml Physical Exam Physical Exam Patient is alert and oriented, in no acute distress. Heart: Regular rate Extremities: No clubbing, No cyanosis HEENT: Atraumatic Lungs: Clear to auscultation MUSCULOSKELETAL: No joint tenderness, No swelling Neuro: Sensation intact Psych/Mental Status: Mental status NL, Mood NL Skin: Right amputation stump with dressing and wound VAC. Labs Laboratory Tests Test 04/24/19 16:53 04/24/19 20:45 04/25/19 07:33 Glucose (Fingerstick) 215 mg/dL (70-99) H 188 mg/dL (70-99) H 193 mg/dL (70-99) H Meds Current Medications Medications (Trade) Dose Ordered Sig/Dawn Route PRN Reason Start Time Stop Time Status Last Admin Dose Admin Vancomycin HCl 500 mg/Sodium Chloride 100 ml @ 100 mls/hr QMWF IV 04/24/19 16:00 04/24/19 18:14 Assessment Assessment FINAL IMPRESSION: 1. Right leg stump abscess. 2. Bilateral leg amputee. 3. End-stage renal disease, on hemodialysis. 4. Insulin-dependent diabetes. 5. Hypertension. 6. Chronic diastolic heart failure, last echo stress test last year, shows good left ventricular function. PLAN:wound c/s gram positive waiting for ID. POD #2,debridement of abscess, deep abscess rt stump Dialysis today wound vac placed iv antibiotics. spoke with ID and renal. blood sugars fluctuating. At this time, admit to hospital. Wound culture, start on broad-spectrum antibiotic, vancomycin and Zosyn. ID is consulted. Also, dialysis Saturday, Saturday and Saturday. Renal is consulted. The patient had I&D. Continue wound care. Continue wound VAC. Wound culture is growing Staphylococcus. Plan Plan For more details regarding further plans, please refer to the orders. CARLYLE CASTILLO MD Apr 25, 2019 11:30
[2019-04-25] MEDS: IV NORMAL SALINE 1000ML BAG 1,000 ML IV SCH (11:38)
--- NOTE | 2019-04-25 12:04 | NUR ---
Patient requested 5 units humalog with blood sugar 126, instead of 10 units meal dose ordered. 5 units given per his request, see emar.
--- NOTE | 2019-04-25 14:25 | PDOC ---
Infectious Disease Note Subjective Subjective Feeling pretty good Denies F/C/pain/N/V/D ROS ROS per HPI Vital Sign Vital Signs Vital Signs Date Time Temp Pulse Resp B/P (MAP) Pulse Ox O2 Delivery O2 Flow Rate FiO2 04/25/19 11:00 97.9 72 16 107/62 (77) 96 Room Air 97.9 Physical Exam PHYSICAL EXAM GENERAL: Lying down, alert, appears comfortable LUNGS: Clear bilaterally. HEART: S1, S2. ABDOMEN: Soft, nontender EXTREMITIES: Bilateral amputee, right stump wound vac in place. DERMATOLOGIC: Warm, dry. No generalized rash. Right upper extremity fistula NEUROLOGIC: Alert and oriented x 3, grossly nonfocal. PIV Labs Lab Laboratory Tests Test 04/24/19 16:53 04/24/19 20:45 04/25/19 07:33 04/25/19 11:39 Glucose (Fingerstick) 215 mg/dL (70-99) 188 mg/dL (70-99) 193 mg/dL (70-99) 126 mg/dL (70-99) Micro AEROBIC RES 1 Final Comment Staphylococcus aureus Antibiotic RSLT#1 Ciprofloxacin S<=0.5 Clindamycin S<=0.25 Erythromycin R>=8 Gentamicin S<=0.5 Levofloxacin S<=0.12 Linezolid S =1 Moxifloxacin S<=0.25 Oxacillin S<=0.25 Penicillin R>=0.5 Quinupristin/Dalfopristin S<=0.25 Rifampin S<=0.5 Tetracycline S<=1 Trimethoprim/Sulfa S<=10 Vancomycin S =1 Objective Assessment Right stump abscess, s/p I and D with wound VAC, Apr 22 -No bone exposure per surgery , but it did track over his anterior and slightly lateral stump for about 8 cm. MSSA so far Chronic kidney disease, on hemodialysis. Diabetes mellitus. History of bilateral amputation for osteomyelitis/Charcot foot. History of Staphylococcus with Streptococcus and Pseudomonas in the past. Nausea and vomiting now resolved Plan Plan of Care vancomycin and Zosyn, renal dosing Trough 15.2 Avoid PICC line Local wound care/vac as directed f/u cultures Supportive care. Attending Co-Sign The patient was seen and interviewed as well as examined at the bedside. The chart was reviewed. The case was discussed. Agree with the plan of care. KOBE RUDD APRN Apr 25, 2019 14:25 TEJA BERMUDEZ MD Apr 25, 2019 14:41
[2019-04-25 15:00] VITALS: BP 104/60
[2019-04-25 19:00] VITALS: BP 98/56
[2019-04-25] MEDS: ATORVASTATIN CALCIUM 20 MG TABLET PO SCH (20:54)
[2019-04-25] MEDS: INSULIN GLARGINE SYRINGE. SQ SCH (20:56)
[2019-04-25 23:03] VITALS: BP 122/56
[2019-04-26] VITALS (8 sets, daily range): BP systolic 46–132; BP diastolic 59–69
[2019-04-26] MEDS: PIPERACILLIN/TAZOBACTAM 2.25 GM in IV NORMAL SALINE 50ML 50 ML IV SCH (05:51)
[2019-04-26 06:08] LABS: BASO % 1 % (0-3); EOS # 0.1 x10^3/uL (0.0-0.7); EOS % 3 % (0-3); HEMATOCRIT 25.5 % (39.0-53.0); LYMPH # 0.9 x10^3/uL (1.0-4.8); LYMPH % 29 % (24-48); MEAN CORPUSCULAR HEMOGLOBIN 25 pg (25-35); MEAN CORPUSCULAR HGB CONC 32 g/dL (31-37); MEAN CORPUSCULAR VOLUME 80 fL (79-100); MONO # 0.3 x10^3/uL (0.0-1.1); MONO % 9 % (0-9); NEUT # 1.8 x10^3/uL (1.8-7.7); NEUT % 58 % (31-73); PLATELET COUNT 150 x10^3/uL (140-400); RED CELL DISTRIBUTION WIDTH 14.9 % (11.5-14.5); WHITE BLOOD COUNT 3.1 x10^3/uL (4.0-11.0)
[2019-04-26 06:09] LABS: CALCIUM 9.4 mg/dL (8.5-10.1); CREATININE 11.3 mg/dL (0.7-1.3); GFR 5.8
[2019-04-26 06:12] LABS: POTASSIUM 5.7 mmol/L (3.5-5.1)
[2019-04-26] MEDS: SEVELAMER CARBONATE 800 MG TABLET. PO SCH ×3 (08:03→17:08)
[2019-04-26] MEDS: METOCLOPRAMIDE 5 MG TABLET. PO SCH ×4 (08:03→21:30)
[2019-04-26] MEDS: ASPIRIN ENTERIC COATED 325 MG TABLET.DR. PO SCH (08:03)
[2019-04-26] MEDS: LACTOBACILLUS RHAMNOSUS GG 1 CAPSULE. PO SCH ×2 (08:03→21:30)
[2019-04-26] MEDS: CARVEDILOL 12.5 MG TABLET. PO SCH ×2 (08:10→17:12)
[2019-04-26] MEDS: HEPARIN for SUB-Q USE 5,000 UNIT/ML VIAL. SQ SCH ×2 (08:22→21:30)
[2019-04-26] MEDS: INSULIN LISPRO 300 UNITS/3 ML VIAL. SQ SCH ×6 (08:23→17:19)
--- NOTE | 2019-04-26 10:08 | PDOC ---
IM PROGRESS NOTES- Subjective Subjective Complaints of pain in the right stump. Objective Vitals/I&O Vital Signs Date Time Temp Pulse Resp B/P (MAP) Pulse Ox O2 Delivery O2 Flow Rate FiO2 04/26/19 08:10 97.8 80 16 114/68 (83) 94 Room Air 97.8 I & O 04/25/19 04/25/19 04/26/19 15:00 23:00 07:00 Intake Total 330 ml Output Total 200 ml Balance 330 ml -200 ml Physical Exam Physical Exam Patient is alert and oriented, in no acute distress. Heart: Regular rate Extremities: No clubbing, No cyanosis HEENT: Atraumatic Lungs: Clear to auscultation MUSCULOSKELETAL: No joint tenderness, No swelling Neuro: Sensation intact Psych/Mental Status: Mental status NL, Mood NL Skin: Right amputation stump with dressing and wound VAC. Labs Laboratory Tests Test 04/25/19 11:39 04/25/19 16:54 04/25/19 20:42 04/26/19 05:20 Glucose (Fingerstick) 126 mg/dL (70-99) H 191 mg/dL (70-99) H 205 mg/dL (70-99) H White Blood Count 3.1 x10^3/uL (4.0-11.0) L Red Blood Count 3.20 x10^6/uL (4.30-5.70) L Hemoglobin 8.0 g/dL (13.0-17.5) L Hematocrit 25.5 % (39.0-53.0) L Mean Corpuscular Volume 80 fL (79-100) Mean Corpuscular Hemoglobin 25 pg (25-35) Mean Corpuscular Hemoglobin Concent 32 g/dL (31-37) Red Cell Distribution Width 14.9 % (11.5-14.5) H Platelet Count 150 x10^3/uL (140-400) Neutrophils (%) (Auto) 58 % (31-73) Lymphocytes (%) (Auto) 29 % (24-48) Monocytes (%) (Auto) 9 % (0-9) Eosinophils (%) (Auto) 3 % (0-3) Basophils (%) (Auto) 1 % (0-3) Neutrophils # (Auto) 1.8 x10^3/uL (1.8-7.7) Lymphocytes # (Auto) 0.9 x10^3/uL (1.0-4.8) L Monocytes # (Auto) 0.3 x10^3/uL (0.0-1.1) Eosinophils # (Auto) 0.1 x10^3/uL (0.0-0.7) Basophils # (Auto) 0.0 x10^3/uL (0.0-0.2) Sodium Level 138 mmol/L (136-145) Potassium Level 5.7 mmol/L (3.5-5.1) H Chloride Level 97 mmol/L (98-107) L Carbon Dioxide Level 28 mmol/L (21-32) Anion Gap 13 (6-14) Blood Urea Nitrogen 64 mg/dL (8-26) H Creatinine 11.3 mg/dL (0.7-1.3) H Estimated GFR (Cockcroft-Gault) 5.8 Glucose Level 149 mg/dL (70-99) H Calcium Level 9.4 mg/dL (8.5-10.1) Test 04/26/19 07:34 Glucose (Fingerstick) 158 mg/dL (70-99) H Laboratory Tests 04/26/19 05:20 Laboratory Tests 04/26/19 05:20 Assessment Assessment FINAL IMPRESSION: 1. Right leg stump abscess. 2. Bilateral leg amputee. 3. End-stage renal disease, on hemodialysis. 4. Insulin-dependent diabetes. 5. Hypertension. 6. Chronic diastolic heart failure, last echo stress test last year, shows good left ventricular function. PLAN: POD #2,debridement of abscess, deep abscess rt stump Wound culture, start on broad-spectrum antibiotic, vancomycin and Zosyn. ID is consulted. Also, dialysis Saturday, Saturday and Saturday. Renal is consulted. The patient had I&D. Continue wound care. Continue wound VAC. Wound culture is growing Staphylococcus. Leukopenia-the WBC count is 3.1. Monitor. Plan Plan For more details regarding further plans, please refer to the orders. CARLYLE CASTILLO MD Apr 26, 2019 10:08
[2019-04-26] MEDS: IV NORMAL SALINE 1000ML BAG 1,000 ML IV SCH (11:15)
--- NOTE | 2019-04-26 12:16 | PDOC ---
Infectious Disease Note Subjective Subjective Doing alright Denies F/C/pain/N/V/D no postop site pain Vital Sign Vital Signs Vital Signs Date Time Temp Pulse Resp B/P (MAP) Pulse Ox O2 Delivery O2 Flow Rate FiO2 04/26/19 11:00 97.9 79 16 100/59 (73) 99 Room Air 97.9 Physical Exam PHYSICAL EXAM GENERAL: Lying down, alert, appears comfortable LUNGS: Clear bilaterally. HEART: S1, S2. ABDOMEN: Soft, nontender EXTREMITIES: Bilateral amputee, right stump wound vac in place. DERMATOLOGIC: Warm, dry. No generalized rash. Right upper extremity fistula NEUROLOGIC: Alert and oriented x 3, grossly nonfocal. PIV Labs Lab Laboratory Tests Test 04/25/19 16:54 04/25/19 20:42 04/26/19 05:20 04/26/19 07:34 Glucose (Fingerstick) 191 mg/dL (70-99) 205 mg/dL (70-99) 158 mg/dL (70-99) White Blood Count 3.1 x10^3/uL (4.0-11.0) Red Blood Count 3.20 x10^6/uL (4.30-5.70) Hemoglobin 8.0 g/dL (13.0-17.5) Hematocrit 25.5 % (39.0-53.0) Mean Corpuscular Volume 80 fL (79-100) Mean Corpuscular Hemoglobin 25 pg (25-35) Mean Corpuscular Hemoglobin Concent 32 g/dL (31-37) Red Cell Distribution Width 14.9 % (11.5-14.5) Platelet Count 150 x10^3/uL (140-400) Neutrophils (%) (Auto) 58 % (31-73) Lymphocytes (%) (Auto) 29 % (24-48) Monocytes (%) (Auto) 9 % (0-9) Eosinophils (%) (Auto) 3 % (0-3) Basophils (%) (Auto) 1 % (0-3) Neutrophils # (Auto) 1.8 x10^3/uL (1.8-7.7) Lymphocytes # (Auto) 0.9 x10^3/uL (1.0-4.8) Monocytes # (Auto) 0.3 x10^3/uL (0.0-1.1) Eosinophils # (Auto) 0.1 x10^3/uL (0.0-0.7) Basophils # (Auto) 0.0 x10^3/uL (0.0-0.2) Sodium Level 138 mmol/L (136-145) Potassium Level 5.7 mmol/L (3.5-5.1) Chloride Level 97 mmol/L (98-107) Carbon Dioxide Level 28 mmol/L (21-32) Anion Gap 13 (6-14) Blood Urea Nitrogen 64 mg/dL (8-26) Creatinine 11.3 mg/dL (0.7-1.3) Estimated GFR (Cockcroft-Gault) 5.8 Glucose Level 149 mg/dL (70-99) Calcium Level 9.4 mg/dL (8.5-10.1) Test 04/26/19 11:22 Glucose (Fingerstick) 140 mg/dL (70-99) Micro AEROBIC RES 1 Final Comment Staphylococcus aureus Antibiotic RSLT#1 Ciprofloxacin S<=0.5 Clindamycin S<=0.25 Erythromycin R>=8 Gentamicin S<=0.5 Levofloxacin S<=0.12 Linezolid S =1 Moxifloxacin S<=0.25 Oxacillin S<=0.25 Penicillin R>=0.5 Quinupristin/Dalfopristin S<=0.25 Rifampin S<=0.5 Tetracycline S<=1 Trimethoprim/Sulfa S<=10 Vancomycin S =1 Objective Assessment Right stump abscess, s/p I and D with wound VAC, Apr 22 -No bone exposure per surgery , but it did track over his anterior and slightly lateral stump for about 8 cm. MSSA so far Leukopenia Chronic kidney disease, on hemodialysis. Diabetes mellitus. History of bilateral amputation for osteomyelitis/Charcot foot. History of Staphylococcus with Streptococcus and Pseudomonas in the past. Nausea and vomiting now resolved Plan Plan of Care DC vancomycin and Zosyn Start cefazolin Avoid PICC line Local wound care/vac as directed f/u cultures Supportive care. D/w nursing KOBE RUDD APRN Apr 26, 2019 12:16 ILYA BERMUDEZ MD Apr 26, 2019 12:19
[2019-04-26] MEDS: ceFAZolin SODIUM IV Push 1 GM VIAL. IVP SCH (13:16)
[2019-04-26] MEDS: INSULIN GLARGINE SYRINGE. SQ SCH (21:00)
[2019-04-26] MEDS: ATORVASTATIN CALCIUM 20 MG TABLET PO SCH (21:30)
[2019-04-27 03:21] VITALS: BP 126/66
[2019-04-27] MEDS: IV NORMAL SALINE 1000ML BAG 1,000 ML IV SCH (04:50)
[2019-04-27 05:05] LABS: BASO % 1 % (0-3); EOS # 0.1 x10^3/uL (0.0-0.7); EOS % 3 % (0-3); HEMATOCRIT 24.3 % (39.0-53.0); HEMOGLOBIN 7.6 g/dL (13.0-17.5); LYMPH # 0.8 x10^3/uL (1.0-4.8); LYMPH % 25 % (24-48); MEAN CORPUSCULAR HEMOGLOBIN 25 pg (25-35); MEAN CORPUSCULAR HGB CONC 31 g/dL (31-37); MEAN CORPUSCULAR VOLUME 79 fL (79-100); MONO # 0.3 x10^3/uL (0.0-1.1); MONO % 9 % (0-9); NEUT # 2.1 x10^3/uL (1.8-7.7); NEUT % 63 % (31-73); PLATELET COUNT 127 x10^3/uL (140-400); RED BLOOD COUNT 3.07 x10^6/uL (4.30-5.70); RED CELL DISTRIBUTION WIDTH 15.5 % (11.5-14.5); WHITE BLOOD COUNT 3.4 x10^3/uL (4.0-11.0)
[2019-04-27 07:00] VITALS: BP 138/71
[2019-04-27] MEDS: INSULIN LISPRO 300 UNITS/3 ML VIAL. SQ SCH ×4 (08:00→12:00)
[2019-04-27] MEDS: LACTOBACILLUS RHAMNOSUS GG 1 CAPSULE. PO SCH (08:28)
[2019-04-27] MEDS: SEVELAMER CARBONATE 800 MG TABLET. PO SCH ×2 (08:28→11:58)
[2019-04-27] MEDS: ASPIRIN ENTERIC COATED 325 MG TABLET.DR. PO SCH (08:28)
[2019-04-27] MEDS: CARVEDILOL 12.5 MG TABLET. PO SCH (08:30)
[2019-04-27] MEDS: METOCLOPRAMIDE 5 MG TABLET. PO SCH ×2 (08:32→11:30)
[2019-04-27] MEDS: ceFAZolin SODIUM IV Push 1 GM VIAL. IVP SCH (08:33)
[2019-04-27] MEDS: HEPARIN for SUB-Q USE 5,000 UNIT/ML VIAL. SQ SCH (08:46)
--- NOTE | 2019-04-27 08:55 | NUR ---
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 Patient is s/p surgical debridement on 04/22/19. Wounds cleansed, assessed, measured, and pictured. The right lateral wound is now closed. Dressing applied for protection only. Skin prepped for wound vac, one piece of black foam to distal wound, tracked to R anterior leg, good seal maintained at 125mmhg continuous. No other wounds noted on head to toe assessment. Follow up on 04/29/19 for vac change. If patient should discharge today, please call [phone] home vac that has been approved for this patient. Bed lowered and call light in reach.
[2019-04-27] MEDS ORDERED: ceFAZolin SODIUM 1 GM in IV DEXTROSE 5% 50 ML IV SCH (09:00)
--- NOTE | 2019-04-27 10:35 | PDOC ---
Infectious Disease Note Subjective Subjective Doing alright Denies F/C/pain/N/V/D no postop site pain ROS ROS o/w neg Vital Sign Vital Signs Vital Signs Date Time Temp Pulse Resp B/P (MAP) Pulse Ox O2 Delivery O2 Flow Rate FiO2 04/27/19 08:30 81 138/71 04/27/19 07:00 97.6 17 95 Room Air 97.6 Physical Exam PHYSICAL EXAM GENERAL: Lying down, alert, appears comfortable - in HD HEENT: - Oc?op - clear LUNGS: Clear bilaterally. HEART: S1, S2. ABDOMEN: Soft, nontender EXTREMITIES: Bilateral amputee, right stump wound vac in place. DERMATOLOGIC: Warm, dry. No generalized rash. Right upper extremity fistula NEUROLOGIC: Alert and oriented x 3, grossly nonfocal. PIV Labs Lab Laboratory Tests Test 04/26/19 11:22 04/26/19 17:08 04/26/19 20:42 04/27/19 04:10 Glucose (Fingerstick) 140 mg/dL (70-99) 142 mg/dL (70-99) 81 mg/dL (70-99) White Blood Count 3.4 x10^3/uL (4.0-11.0) Red Blood Count 3.07 x10^6/uL (4.30-5.70) Hemoglobin 7.6 g/dL (13.0-17.5) Hematocrit 24.3 % (39.0-53.0) Mean Corpuscular Volume 79 fL (79-100) Mean Corpuscular Hemoglobin 25 pg (25-35) Mean Corpuscular Hemoglobin Concent 31 g/dL (31-37) Red Cell Distribution Width 15.5 % (11.5-14.5) Platelet Count 127 x10^3/uL (140-400) Neutrophils (%) (Auto) 63 % (31-73) Lymphocytes (%) (Auto) 25 % (24-48) Monocytes (%) (Auto) 9 % (0-9) Eosinophils (%) (Auto) 3 % (0-3) Basophils (%) (Auto) 1 % (0-3) Neutrophils # (Auto) 2.1 x10^3/uL (1.8-7.7) Lymphocytes # (Auto) 0.8 x10^3/uL (1.0-4.8) Monocytes # (Auto) 0.3 x10^3/uL (0.0-1.1) Eosinophils # (Auto) 0.1 x10^3/uL (0.0-0.7) Basophils # (Auto) 0.0 x10^3/uL (0.0-0.2) Test 04/27/19 07:31 Glucose (Fingerstick) 145 mg/dL (70-99) Micro Microbiology 04/22/19 Anaerobic/Aerobic Culture, Resulted Pending 04/22/19 Anaerobic Culture Result 1 (KUNAL), Resulted Pending 04/22/19 Aerobic Culture - Final, Resulted 04/22/19 Aerobic Culture Result 1 (KUNAL) - Final, Resulted 04/22/19 Antimicrobic Susceptibility - Final, Resulted 04/22/19 Gram Stain - Final, Resulted 04/22/19 Gram Stain Result 1 (KUNAL) - Final, Resulted 04/22/19 Gram Stain Result 2 (KUNAL) - Final, Resulted 04/21/19 Blood Culture - Final, Complete NO GROWTH AFTER 5 DAYS Objective Assessment Right stump abscess, s/p I and D with wound VAC, Apr 22 -No bone exposure per surgery , but it did track over his anterior and slightly lateral stump for about 8 cm. MSSA so far Leukopenia Chronic kidney disease, on hemodialysis. Diabetes mellitus. History of bilateral amputation for osteomyelitis/Charcot foot. History of Staphylococcus with Streptococcus and Pseudomonas in the past. Nausea and vomiting now resolved Plan Plan of Care cefazolin 2 gm IV Q M/W and Then 3 gm Q Saturday Avoid PICC line Local wound care/vac as directed f/u cultures Supportive care. Ok to discharge D/w nursing D/w RAYMOND Villa MD Apr 27, 2019 10:35
--- NOTE | 2019-04-27 10:35 | PDOC ---
PROGRESS NOTES Objective Objective Vital Signs Date Time Temp Pulse Resp B/P (MAP) Pulse Ox O2 Delivery O2 Flow Rate FiO2 04/27/19 08:30 81 138/71 04/27/19 07:00 97.6 17 95 Room Air 97.6 Intake and Output 04/27/19 06:59 Output Total 0 ml Balance 0 ml Output Urine Total 0 ml # Bowel Movements 1 Physical Exam Abdomen: Normal bowel sounds, No tenderness Heart: Regular rate Extremities: No clubbing, No cyanosis General: Alert, Oriented X3, Cooperative, No acute distress HEENT: Atraumatic Lungs: Clear to auscultation MUSCULOSKELETAL: No joint tenderness, No swelling Neuro: Sensation intact Psych/Mental Status: Mental status NL, Mood NL Skin: Other (STUMOP WOUND,s/p debridement and wound vac) Assessment Assessment FINAL IMPRESSION: 1. Right leg stump abscess. 2. Bilateral leg amputee. 3. End-stage renal disease, on hemodialysis. 4. Insulin-dependent diabetes. 5. Hypertension. 6. Chronic diastolic heart failure, last echo stress test last year, shows good left ventricular function. PLAN: POD #2,debridement of abscess, deep abscess rt stump Wound culture, start on broad-spectrum antibiotic, vancomycin and Zosyn. ID is consulted. Also, dialysis Saturday, Saturday and Saturday. Renal is consulted. The patient had I&D. Continue wound care. Continue wound VAC. Wound culture is growing Staphylococcus. Leukopenia-the WBC count is 3.1. Monitor. Comment Review of Relevant I have reviewed the following items carmen (where applicable) has been applied. Labs Laboratory Tests Test 04/26/19 11:22 04/26/19 17:08 04/26/19 20:42 04/27/19 04:10 Glucose (Fingerstick) 140 mg/dL (70-99) 142 mg/dL (70-99) 81 mg/dL (70-99) White Blood Count 3.4 x10^3/uL (4.0-11.0) Red Blood Count 3.07 x10^6/uL (4.30-5.70) Hemoglobin 7.6 g/dL (13.0-17.5) Hematocrit 24.3 % (39.0-53.0) Mean Corpuscular Volume 79 fL (79-100) Mean Corpuscular Hemoglobin 25 pg (25-35) Mean Corpuscular Hemoglobin Concent 31 g/dL (31-37) Red Cell Distribution Width 15.5 % (11.5-14.5) Platelet Count 127 x10^3/uL (140-400) Neutrophils (%) (Auto) 63 % (31-73) Lymphocytes (%) (Auto) 25 % (24-48) Monocytes (%) (Auto) 9 % (0-9) Eosinophils (%) (Auto) 3 % (0-3) Basophils (%) (Auto) 1 % (0-3) Neutrophils # (Auto) 2.1 x10^3/uL (1.8-7.7) Lymphocytes # (Auto) 0.8 x10^3/uL (1.0-4.8) Monocytes # (Auto) 0.3 x10^3/uL (0.0-1.1) Eosinophils # (Auto) 0.1 x10^3/uL (0.0-0.7) Basophils # (Auto) 0.0 x10^3/uL (0.0-0.2) Test 04/27/19 07:31 Glucose (Fingerstick) 145 mg/dL (70-99) Microbiology 04/22/19 Anaerobic/Aerobic Culture, Resulted Pending 04/22/19 Anaerobic Culture Result 1 (KUNAL), Resulted Pending 04/22/19 Aerobic Culture - Final, Resulted 04/22/19 Aerobic Culture Result 1 (KUNAL) - Final, Resulted 04/22/19 Antimicrobic Susceptibility - Final, Resulted 04/22/19 Gram Stain - Final, Resulted 04/22/19 Gram Stain Result 1 (KUNAL) - Final, Resulted 04/22/19 Gram Stain Result 2 (KUNAL) - Final, Resulted 04/21/19 Blood Culture - Final, Complete NO GROWTH AFTER 5 DAYS Medications Current Medications Cefazolin Sodium (Ancef) 1 gm DAILY IVP Last administered on 04/27/19at 08:33; Start 04/26/19 at 13:00 Cefazolin Sodium 1 gm/Dextrose 50 ml @ 100 mls/hr DAILY IV ; Start 04/27/19 at 09:00; Status UNV Vitals/I & O Vital Sign - Last 24 Hours 04/26/19 04/26/19 04/26/19 04/26/19 11:00 15:00 17:12 19:00 Temp 97.9 97.8 97.4 97.9 97.8 97.4 Pulse 79 81 78 85 Resp 16 16 20 B/P (MAP) 100/59 (73) 106/59 (75) 121/64 117/63 (81) Pulse Ox 99 98 O2 Delivery Room Air Room Air Room Air 04/26/19 04/27/19 04/27/19 04/27/19 23:02 03:21 07:00 08:30 Temp 97.8 97.9 97.6 97.8 97.9 97.6 Pulse 79 83 81 81 Resp 20 20 17 B/P (MAP) 132/63 (86) 126/66 (86) 138/71 (93) 138/71 Pulse Ox 98 98 95 O2 Delivery Room Air Room Air Room Air Intake and Output 04/26/19 04/26/19 04/27/19 14:59 22:59 06:59 Output Total 0 ml Balance 0 ml IRINEO SCHWARTZ MD Apr 27, 2019 10:34
[2019-04-27] MEDS ORDERED: CEFAZOLIN SODIUM IVP (10:39)
--- NOTE | 2019-04-27 10:40 | SNU/HH DC ---
DISCHARGE WITH HOME HEALTH DISCHARGE INFORMATION: Discharge Date: Apr 27, 2019 Condition on Discharge: Stable CODE STATUS: Code Status: Full HOME HEALTH: Face to Face: I certify this patient is under my care and that I, or a nurse practitioner or clyde quintero's assistant plant manager working with me, had a face to face encounter that meets the physician face to face encounter requirements with this patient on []. 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 POST DISCHARGE ORDERS: Activity Instructions for Disc: Activity as tolerated Weight Bearing Status after Di: Full weight bearing Wound/Incision Care: Change dressing Other wound/incision instructi: wound vac CHECKS AFTER DISCHARGE: Checks after discharge: Check blood press - daily, Check blood sugar, ac/hs FOLLOW-UP: Follow Up With: f/u wound care ctr TREATMENT/EQUIPMENT ORDERS: Adaptive Equipment Issued: None, Four wheeled walker CERTIFICATION STATEMENT: Certification Statement: Certification Statement: Based on the above finding, I certify that this patient is confined to the home and needs intermittent care home care, physical therapy and/or speech therapy, or continues to need occupational therapy.~ This patient is under my care, and I have initiated the establishment of the plan of care.~ This patient will be followed by myself or a community physician who will periodically review the plan of care. Home Meds Reported Medications Amoxicillin/Potassium Clav (AUGMENTIN 500-125 TABLET) 1 Each Tablet, 1 TAB PO BID, #14 TAB 02/18/18 Tramadol Hcl (TRAMADOL HCL) 50 Mg Tablet, 50 MG PO Q6HRS PRN for PAIN, TAB 01/13/18 Sevelamer Carbonate (RENVELA) 800 Mg Tablet, 800 MG PO TIDWMEALS, TAB 01/13/18 Famotidine (FAMOTIDINE) 40 Mg Tablet, 40 MG PO HS, TAB 01/13/18 Insulin Glargine,Hum.rec.anlog (LANTUS SOLOSTAR) 100 Unit/1 Ml Insuln.pen, 10 UNIT SQ QHS, #15 ML 3 Refills 08/27/16 Insulin Aspart (NOVOLOG FLEXPEN) 100 Unit/1 Ml Insuln.pen, 10 UNIT SQ TIDAC, SYR 08/27/16 Metoclopramide Hcl (REGLAN) 5 Mg Tablet, 5 MG PO QID 05/09/13 Carvedilol (COREG ) 12.5 Mg Tablet, 25 MG PO BID 05/09/13 Atorvastatin Calcium (LIPITOR) 20 Mg Tablet, 20 MG PO QHS 05/09/13 Aspirin/Calcium Carbonate/Mag (ASPIRIN BUFFERED 325 MG TAB) 325 Mg Tablet, 325 MG PO DAILY06 05/09/13 IRINEO SCHWARTZ MD Apr 27, 2019 10:40
--- NOTE | 2019-04-27 10:42 | PDOC ---
ORTHO PROGRESS NOTES Subjective Patient in dialysis at this time, but states feeling better overall. Post-op Day: 5 Procedure I&D Right Leg stump Vitals Vital Signs Date Time Temp Pulse Resp B/P (MAP) Pulse Ox O2 Delivery O2 Flow Rate FiO2 04/27/19 08:30 81 138/71 04/27/19 07:00 97.6 17 95 Room Air 97.6 Labs Laboratory Tests Test 04/25/19 11:39 04/25/19 16:54 04/25/19 20:42 04/26/19 05:20 Glucose (Fingerstick) 126 mg/dL (70-99) 191 mg/dL (70-99) 205 mg/dL (70-99) White Blood Count 3.1 x10^3/uL (4.0-11.0) Red Blood Count 3.20 x10^6/uL (4.30-5.70) Hemoglobin 8.0 g/dL (13.0-17.5) Hematocrit 25.5 % (39.0-53.0) Mean Corpuscular Volume 80 fL (79-100) Mean Corpuscular Hemoglobin 25 pg (25-35) Mean Corpuscular Hemoglobin Concent 32 g/dL (31-37) Red Cell Distribution Width 14.9 % (11.5-14.5) Platelet Count 150 x10^3/uL (140-400) Neutrophils (%) (Auto) 58 % (31-73) Lymphocytes (%) (Auto) 29 % (24-48) Monocytes (%) (Auto) 9 % (0-9) Eosinophils (%) (Auto) 3 % (0-3) Basophils (%) (Auto) 1 % (0-3) Neutrophils # (Auto) 1.8 x10^3/uL (1.8-7.7) Lymphocytes # (Auto) 0.9 x10^3/uL (1.0-4.8) Monocytes # (Auto) 0.3 x10^3/uL (0.0-1.1) Eosinophils # (Auto) 0.1 x10^3/uL (0.0-0.7) Basophils # (Auto) 0.0 x10^3/uL (0.0-0.2) Sodium Level 138 mmol/L (136-145) Potassium Level 5.7 mmol/L (3.5-5.1) Chloride Level 97 mmol/L (98-107) Carbon Dioxide Level 28 mmol/L (21-32) Anion Gap 13 (6-14) Blood Urea Nitrogen 64 mg/dL (8-26) Creatinine 11.3 mg/dL (0.7-1.3) Estimated GFR (Cockcroft-Gault) 5.8 Glucose Level 149 mg/dL (70-99) Calcium Level 9.4 mg/dL (8.5-10.1) Test 04/26/19 07:34 04/26/19 11:22 04/26/19 17:08 04/26/19 20:42 Glucose (Fingerstick) 158 mg/dL (70-99) 140 mg/dL (70-99) 142 mg/dL (70-99) 81 mg/dL (70-99) Test 04/27/19 04:10 04/27/19 07:31 White Blood Count 3.4 x10^3/uL (4.0-11.0) Red Blood Count 3.07 x10^6/uL (4.30-5.70) Hemoglobin 7.6 g/dL (13.0-17.5) Hematocrit 24.3 % (39.0-53.0) Mean Corpuscular Volume 79 fL (79-100) Mean Corpuscular Hemoglobin 25 pg (25-35) Mean Corpuscular Hemoglobin Concent 31 g/dL (31-37) Red Cell Distribution Width 15.5 % (11.5-14.5) Platelet Count 127 x10^3/uL (140-400) Neutrophils (%) (Auto) 63 % (31-73) Lymphocytes (%) (Auto) 25 % (24-48) Monocytes (%) (Auto) 9 % (0-9) Eosinophils (%) (Auto) 3 % (0-3) Basophils (%) (Auto) 1 % (0-3) Neutrophils # (Auto) 2.1 x10^3/uL (1.8-7.7) Lymphocytes # (Auto) 0.8 x10^3/uL (1.0-4.8) Monocytes # (Auto) 0.3 x10^3/uL (0.0-1.1) Eosinophils # (Auto) 0.1 x10^3/uL (0.0-0.7) Basophils # (Auto) 0.0 x10^3/uL (0.0-0.2) Glucose (Fingerstick) 145 mg/dL (70-99) Laboratory Tests Test 04/26/19 11:22 04/26/19 17:08 04/26/19 20:42 04/27/19 04:10 Glucose (Fingerstick) 140 mg/dL (70-99) 142 mg/dL (70-99) 81 mg/dL (70-99) White Blood Count 3.4 x10^3/uL (4.0-11.0) Red Blood Count 3.07 x10^6/uL (4.30-5.70) Hemoglobin 7.6 g/dL (13.0-17.5) Hematocrit 24.3 % (39.0-53.0) Mean Corpuscular Volume 79 fL (79-100) Mean Corpuscular Hemoglobin 25 pg (25-35) Mean Corpuscular Hemoglobin Concent 31 g/dL (31-37) Red Cell Distribution Width 15.5 % (11.5-14.5) Platelet Count 127 x10^3/uL (140-400) Neutrophils (%) (Auto) 63 % (31-73) Lymphocytes (%) (Auto) 25 % (24-48) Monocytes (%) (Auto) 9 % (0-9) Eosinophils (%) (Auto) 3 % (0-3) Basophils (%) (Auto) 1 % (0-3) Neutrophils # (Auto) 2.1 x10^3/uL (1.8-7.7) Lymphocytes # (Auto) 0.8 x10^3/uL (1.0-4.8) Monocytes # (Auto) 0.3 x10^3/uL (0.0-1.1) Eosinophils # (Auto) 0.1 x10^3/uL (0.0-0.7) Basophils # (Auto) 0.0 x10^3/uL (0.0-0.2) Test 04/27/19 07:31 Glucose (Fingerstick) 145 mg/dL (70-99) Notes awake and alert in dialysis Assessment and Plan Patient is postop from I&D right leg stump wound vac in place and sealed sensation intact to light touch Ok to discharge from Ortho perspective when medically stable. May followup in clinic if needed in approximately 2 weeks. GLENNY CRAWFORD APRN Apr 27, 2019 10:41
[2019-04-27] MEDS ORDERED: IV NORMAL SALINE 1000ML BAG 1,000 ML IV PRN ×2 (10:59)
[2019-04-27 11:00] VITALS: BP 141/70
[2019-04-27] MEDS ORDERED: diphenhydrAMINE 50 MG/ML VIAL IV PRN ×2 (11:00)
[2019-04-27] MEDS ORDERED: DIALYSIS PATIENT. MC PRN (11:15)
--- NOTE | 2019-04-27 13:24 | NUR ---
[facility] following. Discussed with RN and Dr. Noonan. Pt ready to discharge home today, will need IV abx with his dialysis at [facility] (ph: [phone], fax: [phone]). [facility] contacted [facility] to advise of pt discharging and of the IV abx. [facility]O faxed paperwork to [facility]. Dr. Noonan initially ordered home health, however pt has home wound vac and can follow here at the wound care clinic, where he is normally seen. Dr. Noonan is okay with this. [facility]ACHO spoke with Ubaldo at [facility] and they are agreeable to see him, and if they decide pt needs more wound care, they can set up home health. [facility]O to confirm with Inocente the IV orders received prior to pt discharging. NEMESIO notified. Addendum: 04/27/19 at 1409 by ROMINA FLOR Pt's [facility] office received packet from [facility], they are able to give pt the IV cefezolin as ordered. No further [facility] needs. RN notified.
--- NOTE | 2019-04-27 14:03 | PDOC ---
SUBJECTIVE ROS seen on HD, tolerating well OBJECTIVE Vital Signs Vital Signs Date Time Temp Pulse Resp B/P (MAP) Pulse Ox O2 Delivery O2 Flow Rate FiO2 04/27/19 11:00 97.8 81 18 141/70 (93) 97 Room Air 97.8 I & 0 Intake and Output 04/27/19 07:00 Output Total 0 ml Balance 0 ml Output Urine Total 0 ml # Bowel Movements 1 PHYSICAL EXAM Physical Exam GENERAL: Lying down, alert, appears comfortable - in HD HEENT: - Oc?op - clear LUNGS: Clear bilaterally. HEART: S1, S2. ABDOMEN: Soft, nontender EXTREMITIES: Bilateral amputee, right stump wound vac in place. DERMATOLOGIC: Warm, dry. No generalized rash. Right upper extremity fistula NEUROLOGIC: Alert and oriented x 3, grossly nonfocal. DIAGNOSIS/ASSESSMENT Assessment & Plan ESRD- [place] [facility] [place] for 3 years See on HD, tolerating wll, continue as ordered , Dejan Boston Right stump abscess, s/p I and D with wound VAC, Apr 22 -No bone exposure per surgery Diabetes mellitus. History of bilateral amputation for osteomyelitis/Charcot foot Anemia- Hgb < 10, continue RAFAEL COMMENT/RELEVANT DATA Meds Current Medications Medications (Trade) Dose Ordered Sig/Dawn Start Time Stop Time Status Last Admin Dose Admin Acetaminophen (Tylenol) 500 mg 1X PRN PRN 04/24/19 09:00 04/24/19 19:00 DC Aspirin (Ecotrin) 325 mg DAILYWBKFT 04/21/19 13:00 04/27/19 08:28 325 MG Atorvastatin Calcium (Lipitor) 20 mg QHS 04/21/19 21:00 04/26/19 21:30 20 MG Bupivacaine HCl (Sensorcaine Mpf 0.5%) 30 ml STK-MED ONCE 04/22/19 11:33 04/22/19 11:33 DC Carvedilol (Coreg) 25 mg BIDWMEALS 04/21/19 17:00 04/27/19 08:30 25 MG Cefazolin Sodium (Ancef) 1 gm DAILY 04/26/19 13:00 04/27/19 08:33 1 GM Cefazolin Sodium 1 gm/Dextrose 50 ml @ 100 mls/hr DAILY 04/27/19 09:00 UNV Darbepoetin Huey (ARANESP for DIALYSIS PTS) 60 mcg WEEKLYHS 04/22/19 21:00 04/22/19 21:07 60 MCG Dexamethasone Sodium Phosphate (Decadron) 4 mg STK-MED ONCE 04/22/19 11:53 04/22/19 11:53 DC Dextrose (Dextrose 50%-Water Syringe) 12.5 gm PRN Q15MIN PRN 04/21/19 16:15 Diphenhydramine HCl (Benadryl) 25 mg 1X PRN PRN 04/27/19 11:00 04/28/19 10:59 Heparin Sodium (Porcine) (Heparin Sodium) 5,000 unit Q12HR 04/23/19 10:00 04/27/19 08:46 5,000 UNIT Info (PHARMACY MONITORING -- do not chart) 1 each PRN DAILY PRN 04/27/19 11:15 UNV Insulin Glargine (Lantus Syringe) 10 unit QHS 04/21/19 21:00 04/25/19 20:56 10 UNIT Insulin Human Lispro (HumaLOG) 10 units 1X ONCE 04/22/19 22:00 04/22/19 22:01 DC 04/22/19 21:52 10 UNITS Lactobacillus Rhamnosus (Culturelle) 1 cap BID 04/22/19 21:00 04/27/19 08:28 1 CAP Lidocaine HCl 20 ml STK-MED ONCE 04/22/19 11:33 04/22/19 11:33 DC Metoclopramide HCl (Reglan) 5 mg QIDACHS 04/21/19 16:30 04/27/19 08:32 5 MG Ondansetron HCl (Zofran) 8 mg PRN Q6HRS PRN 04/23/19 07:00 04/23/19 08:13 8 MG Phenylephrine HCl (PHENYLEPHRINE in 0.9% NACL PF) 1 mg STK-MED ONCE 04/22/19 11:52 04/22/19 11:52 DC Piperacillin Sod/ Tazobactam Sod 2.25 gm/Sodium Chloride 50 ml @ 100 mls/hr Q8HRS 04/21/19 16:00 04/26/19 12:23 DC 04/26/19 05:51 100 MLS/HR Propofol 20 ml @ As Directed STK-MED ONCE 04/22/19 11:52 04/22/19 11:53 DC Sevelamer Carbonate (Renvela) 800 mg TIDWMEALS 04/21/19 13:00 04/27/19 08:28 800 MG Sevoflurane (Ultane) 30 ml STK-MED ONCE 04/22/19 11:53 04/22/19 11:53 DC Sodium Chloride 1,000 ml @ 400 mls/hr Q2H30M PRN 04/27/19 10:59 04/27/19 22:58 Tramadol HCl (Ultram) 50 mg PRN Q6HRS PRN 04/21/19 12:45 04/24/19 18:20 50 MG Vancomycin HCl (Vanco Per Pharmacy) 1 each PRN DAILY PRN 04/21/19 15:30 04/26/19 12:26 DC 04/25/19 11:25 1 EACH Vancomycin HCl (Vancomycin Random Level) 1 each 1X ONCE 04/24/19 05:00 04/24/19 05:01 DC 04/24/19 05:00 1 EACH Vancomycin HCl 500 mg/Sodium Chloride 100 ml @ 100 mls/hr QMWF 04/24/19 16:00 04/26/19 12:23 DC 04/24/19 18:14 100 MLS/HR Vancomycin HCl 2 gm/Sodium Chloride 500 ml @ 250 mls/hr 1X ONCE 04/21/19 16:30 04/21/19 18:29 DC 04/21/19 16:38 250 MLS/HR Lab Laboratory Tests Test 04/26/19 17:08 04/26/19 20:42 04/27/19 04:10 04/27/19 07:31 Glucose (Fingerstick) 142 mg/dL (70-99) 81 mg/dL (70-99) 145 mg/dL (70-99) White Blood Count 3.4 x10^3/uL (4.0-11.0) Red Blood Count 3.07 x10^6/uL (4.30-5.70) Hemoglobin 7.6 g/dL (13.0-17.5) Hematocrit 24.3 % (39.0-53.0) Mean Corpuscular Volume 79 fL (79-100) Mean Corpuscular Hemoglobin 25 pg (25-35) Mean Corpuscular Hemoglobin Concent 31 g/dL (31-37) Red Cell Distribution Width 15.5 % (11.5-14.5) Platelet Count 127 x10^3/uL (140-400) Neutrophils (%) (Auto) 63 % (31-73) Lymphocytes (%) (Auto) 25 % (24-48) Monocytes (%) (Auto) 9 % (0-9) Eosinophils (%) (Auto) 3 % (0-3) Basophils (%) (Auto) 1 % (0-3) Neutrophils # (Auto) 2.1 x10^3/uL (1.8-7.7) Lymphocytes # (Auto) 0.8 x10^3/uL (1.0-4.8) Monocytes # (Auto) 0.3 x10^3/uL (0.0-1.1) Eosinophils # (Auto) 0.1 x10^3/uL (0.0-0.7) Basophils # (Auto) 0.0 x10^3/uL (0.0-0.2) Test 04/27/19 12:20 Glucose (Fingerstick) 91 mg/dL (70-99) Results All relevant outside records, renal labs, imaging studies, telemetry/EKG's were reviewed. ORI MAR MD Apr 27, 2019 14:03
[2019-04-27 15:00] VITALS: BP 105/60
--- NOTE | 2019-04-27 16:16 | NUR ---
pt discharged home with spouse. meds and follow up reviewed. wound vac replaced by WC nurse. stable upon dc. IV removed, cath intact.
--- NOTE | 2019-04-27 17:24 | PDOC ---
PROGRESS NOTES Subjective Subjective fells better ,ready to go home Objective Objective Vital Signs Date Time Temp Pulse Resp B/P (MAP) Pulse Ox O2 Delivery O2 Flow Rate FiO2 04/27/19 15:00 98.0 81 18 105/60 (75) 100 Room Air 98.0 Intake and Output 04/27/19 07:00 Output Total 0 ml Balance 0 ml Output Urine Total 0 ml # Bowel Movements 1 Physical Exam Abdomen: Normal bowel sounds, No tenderness Heart: Regular rate Extremities: No clubbing, No cyanosis General: Alert, Oriented X3, Cooperative, No acute distress HEENT: Atraumatic Lungs: Clear to auscultation MUSCULOSKELETAL: No joint tenderness, No swelling Neuro: Sensation intact Psych/Mental Status: Mental status NL, Mood NL Skin: Other (STUMOP WOUND,s/p debridement and wound vac) Assessment Assessment FINAL IMPRESSION: 1. Right leg stump abscess. 2. Bilateral leg amputee. 3. End-stage renal disease, on hemodialysis. 4. Insulin-dependent diabetes. 5. Hypertension. 6. Chronic diastolic heart failure, last echo stress test last year, shows good left ventricular function. PLAN:d/c home with wound vac. IV Ancef 2g+2g+3g with dialysis for 2 weeks. f/u wound care ctr. Dialysis today. POD #5,debridement of abscess, deep abscess rt stump Wound culture, staph aureus s/s to cephalosporins. antibiotic, vancomycin and Zosyn. ID is consulted. Also, dialysis Saturday, Saturday and Saturday. Renal is consulted. The patient had I&D. Continue wound care. Continue wound VAC. Wound culture is growing Staphylococcus. Leukopenia-the WBC count is 3.1. Monitor. Comment Review of Relevant I have reviewed the following items carmen (where applicable) has been applied. Labs Laboratory Tests Test 04/26/19 20:42 04/27/19 04:10 04/27/19 07:31 04/27/19 12:20 Glucose (Fingerstick) 81 mg/dL (70-99) 145 mg/dL (70-99) 91 mg/dL (70-99) White Blood Count 3.4 x10^3/uL (4.0-11.0) Red Blood Count 3.07 x10^6/uL (4.30-5.70) Hemoglobin 7.6 g/dL (13.0-17.5) Hematocrit 24.3 % (39.0-53.0) Mean Corpuscular Volume 79 fL (79-100) Mean Corpuscular Hemoglobin 25 pg (25-35) Mean Corpuscular Hemoglobin Concent 31 g/dL (31-37) Red Cell Distribution Width 15.5 % (11.5-14.5) Platelet Count 127 x10^3/uL (140-400) Neutrophils (%) (Auto) 63 % (31-73) Lymphocytes (%) (Auto) 25 % (24-48) Monocytes (%) (Auto) 9 % (0-9) Eosinophils (%) (Auto) 3 % (0-3) Basophils (%) (Auto) 1 % (0-3) Neutrophils # (Auto) 2.1 x10^3/uL (1.8-7.7) Lymphocytes # (Auto) 0.8 x10^3/uL (1.0-4.8) Monocytes # (Auto) 0.3 x10^3/uL (0.0-1.1) Eosinophils # (Auto) 0.1 x10^3/uL (0.0-0.7) Basophils # (Auto) 0.0 x10^3/uL (0.0-0.2) Test 04/27/19 14:11 Glucose (Fingerstick) 83 mg/dL (70-99) Microbiology 04/22/19 Anaerobic/Aerobic Culture - Final, Complete 04/22/19 Anaerobic Culture Result 1 (KUNAL) - Final, Complete 04/22/19 Aerobic Culture - Final, Complete 04/22/19 Aerobic Culture Result 1 (KUNAL) - Final, Complete 04/22/19 Antimicrobic Susceptibility - Final, Complete 04/22/19 Gram Stain - Final, Complete 04/22/19 Gram Stain Result 1 (UKNAL) - Final, Complete 04/22/19 Gram Stain Result 2 (KUNAL) - Final, Complete 04/21/19 Blood Culture - Final, Complete NO GROWTH AFTER 5 DAYS Medications Current Medications Cefazolin Sodium 1 gm/Dextrose 50 ml @ 100 mls/hr DAILY IV ; Start 04/27/19 at 09:00; Status UNV Diphenhydramine HCl (Benadryl) 25 mg 1X PRN PRN IV ITCHING; Start 04/27/19 at 11:00; Stop 04/27/19 at 16:18; Status DC Diphenhydramine HCl (Benadryl) 25 mg 1X PRN PRN IV ITCHING; Start 04/27/19 at 11:00; Stop 04/27/19 at 16:18; Status DC Info (PHARMACY MONITORING -- do not chart) 1 each PRN DAILY PRN MC SEE COMMENTS; Start 04/27/19 at 11:15; Status UNV Sodium Chloride 1,000 ml @ 400 mls/hr Q2H30M PRN IV PATENCY; Start 04/27/19 at 10:59; Stop 04/27/19 at 16:18; Status DC Sodium Chloride 1,000 ml @ 1,000 mls/hr Q1H PRN IV hypotension; Start 04/27/19 at 10:59; Stop 04/27/19 at 16:18; Status DC Vitals/I & O Vital Sign - Last 24 Hours 04/26/19 04/26/19 04/27/19 04/27/19 19:00 23:02 03:21 07:00 Temp 97.4 97.8 97.9 97.6 97.4 97.8 97.9 97.6 Pulse 85 79 83 81 Resp 20 20 20 17 B/P (MAP) 117/63 (81) 132/63 (86) 126/66 (86) 138/71 (93) Pulse Ox 98 98 98 95 O2 Delivery Room Air Room Air Room Air Room Air 04/27/19 04/27/19 04/27/19 04/27/19 08:00 08:30 11:00 15:00 Temp 97.8 98.0 97.8 98.0 Pulse 81 81 81 Resp 18 18 B/P (MAP) 138/71 141/70 (93) 105/60 (75) Pulse Ox 97 100 O2 Delivery Room Air Room Air Room Air Intake and Output 04/26/19 04/26/19 04/27/19 15:00 23:00 07:00 Output Total 0 ml Balance 0 ml IRINEO SCHWARTZ MD Apr 27, 2019 17:24
== END 2019-04-27 16:17 | disposition home health service (06) | DRG 463 ==
LOC: 5 SOUTH 10:17
PROVIDERS: ADMIT Internal Medicine; ATTEND Internal Medicine
PROC: 5A1D70Z Performance of Urinary Filtration, Intermittent, Less than 6 Hours Per Day (ICD-10-PCS; 2019-04-22)
PROC: 0JBN0ZZ Excision of Right Lower Leg Subcutaneous Tissue and Fascia, Open Approach (ICD-10-PCS; principal; 2019-04-22 10:55)
PROC: 5A1D70Z Performance of Urinary Filtration, Intermittent, Less than 6 Hours Per Day (ICD-10-PCS; 2019-04-24)
PROC: 5A1D70Z Performance of Urinary Filtration, Intermittent, Less than 6 Hours Per Day (ICD-10-PCS; 2019-04-27)
DX: T87.43 Infection of amputation stump, right lower extremity (principal); N18.6 End stage renal disease; I13.2 Hypertensive heart and chronic kidney disease with heart failure and with stage 5 chronic kidney disease, or end stage renal disease; I50.42 Chronic combined systolic (congestive) and diastolic (congestive) heart failure; D63.8 Anemia in other chronic diseases classified elsewhere; E11.22 Type 2 diabetes mellitus with diabetic chronic kidney disease; E11.51 Type 2 diabetes mellitus with diabetic peripheral angiopathy without gangrene; E11.610 Type 2 diabetes mellitus with diabetic neuropathic arthropathy; E78.5 Hyperlipidemia, unspecified; I25.10 Atherosclerotic heart disease of native coronary artery without angina pectoris; E21.3 Hyperparathyroidism, unspecified; K21.9 Gastro-esophageal reflux disease without esophagitis; Y83.5 Amputation of limb(s) as the cause of abnormal reaction of the patient, or of later complication, without mention of misadventure at the time of the procedure; Z79.4 Long term (current) use of insulin; Z82.49 Family history of ischemic heart disease and other diseases of the circulatory system; Z86.19 Personal history of other infectious and parasitic diseases; Z89.512 Acquired absence of left leg below knee; Z99.2 Dependence on renal dialysis; Z83.3 Family history of diabetes mellitus; Z79.899 Other long term (current) drug therapy
CPT/HCPCS: 36415; 71045; 80048; 80053; 80061; 80202; 82962; 83036; 84443; 85025; 85610; 87040; 87071; 87075; 87102; 87116; 87186; 93005; J0690; J0882; J1100; J1644; J1815; J2370; J2405; J2543; J2704; J3370; J3490; J7030; J7040; J8597; A4461; G0378